=== PATIENT | female | born 1945 | race African-American/Black ===

== ENCOUNTER 2018-06-26 14:03 | Inpatient (IN) | payer MEDICARE ==
[2018-06-26] VITALS (10 sets, daily range): BP systolic 55–215; BP diastolic 37–71
[~2018-06-26] VITALS: Ht 157.5 cm; Wt 69.0 kg
[~2018-06-26 14:03] MED LIST: EPINEPHrine SYRINGE 1 MG/10 ML SYRINGE ONE
[2018-06-26] MEDS ORDERED: IV NORMAL SALINE 1000ML BAG 1,000 ML IV ONE ×2 (14:15→15:15)
[2018-06-26] MEDS ORDERED: UNABLE MC (14:20)
[2018-06-26 14:26] LABS: BASO # 0.1 x10^3/uL (0.0-0.2); BASO % 1 % (0-3); EOS % 0 % (0-3); HEMATOCRIT 31.9 % (36.0-47.0); HEMOGLOBIN 9.5 g/dL (12.0-15.5); LYMPH # 0.3 x10^3/uL (1.0-4.8); LYMPH % 3 % (24-48); MEAN CORPUSCULAR HEMOGLOBIN 34 pg (25-35); MEAN CORPUSCULAR HGB CONC 30 g/dL (31-37); MEAN CORPUSCULAR VOLUME 114 fL (79-100); MONO # 0.4 x10^3/uL (0.0-1.1); MONO % 4 % (0-9); NEUT # 9.5 x10^3uL (1.8-7.7); NEUT % 93 % (31-73); PLATELET COUNT 587 x10^3/uL (140-400); RED CELL DISTRIBUTION WIDTH 17.3 % (11.5-14.5); WHITE BLOOD COUNT 10.3 x10^3/uL (4.0-11.0)
[2018-06-26 14:30] LABS: PROTHROMBIN TIME PATIENT 15.3 SEC (11.7-14.0)
[2018-06-26 14:33] LABS: SALIC 4.9 mg/dL (2.8-20.0)
[2018-06-26 14:34] LABS: BILIRUBIN,URINE NEGATIVE (NEG); CLARITY,URINE CLOUDY; COLOR,URINE YELLOW; NITRITE,URINE NEGATIVE (NEG); PROTEIN,URINE 100 mg/dL (NEG-TRACE); UROBILINOGEN,URINE 0.2 mg/dL (0.2 mg/dL)
[2018-06-26 14:39] LABS: ALBUMIN 3.4 g/dL (3.4-5.0); ALBUMIN/GLOBULIN RATIO 0.7 (1.0-1.7); CALCIUM 9.6 mg/dL (8.5-10.1); GFR 5.8; MAGNESIUM 3.8 mg/dL (1.8-2.4); TOTAL BILIRUBIN 0.5 mg/dL (0.2-1.0); TOTAL PROTEIN 8.2 g/dL (6.4-8.2)
[2018-06-26] MEDS ORDERED: NYSTATIN TOPICAL POWDER 15GM BOTTLE. TP STA (14:45)
[2018-06-26 14:50] LABS: AMORPHOUS SEDIMENT,UR PRESENT /HPF; BACTERIA,URINE 0 /HPF (0-FEW); SQUAMOUS EPITHELIAL CELL,UR FEW /LPF; WBC,URINE OCC /HPF (0-4)
[2018-06-26 15:03] LABS: POTASSIUM 7.6 mmol/L (3.5-5.1)
--- NOTE | 2018-06-26 15:14 | RAD ---
CT HEAD AND CERVICAL SPINE WO Indication: found down, unresponsive, no priors Exposure: One or more of the following individualized dose reduction techniques were utilized for this examination: 1. Automated exposure control 2. Adjustment of the mA and/or kV according to patient size 3. Use of iterative reconstruction technique. Comparison: None are available. Contrast: None HEAD: Posterior fossa is unremarkable. No evidence of acute intracranial hemorrhage. There is minimal density within the bifrontal extra-axial CSF space, measuring 3 mm in thickness. This is symmetric bilaterally, may represent small subdural hygromas. No evidence of mass effect or midline shift. Low-density in the white matter bilaterally, a nonspecific finding, but which is commonly due to chronic small vessel ischemic disease in a patient of this age. Prominence of ventricles and sulci, compatible with involutional change or atrophy. Atrophy is slightly greater in a bifrontal distribution. Intracranial arterial calcifications are identified. Visualized orbits are unremarkable. Visualized paranasal sinuses and mastoids are clear. No acute calvarial abnormality. Impression: 1. Minimal subdural extra-axial CSF density in the bifrontal regions, may represent small subdural hygromas. There is also mild predominantly bifrontal atrophy. MR brain could further characterize. 2. No acute intracranial hemorrhage or mass effect. CERVICAL SPINE: C1 ring: Intact Cervico-occipital junction: Intact C1-C2 relationship: There is rotation of C1 and the skull to the right as compared with C2. This could be positional as the patient's neck is curved towards the left. Fracture: No acute fracture identified. Spondylosis: Multilevel cervical spondylosis, greatest at C5-C6 and C6-C7. There is at least mild spinal canal narrowing. Multilevel neural foraminal narrowing. Alignment: Left convexity curvature. No significant subluxation. Facets: No evidence of perched or locked facet. Prevertebral soft tissues: No significant swelling or hematoma Thyroid: Mild thyromegaly. Low-density lesion in the left thyroid measures 7 mm. Lung apices: Partially visualized round mass in the right upper lobe, measures at least 22 mm. Impression: 1. Cervical spondylosis. 2. Abnormal opacity in the right upper lobe of the lung, nonspecific but possibilities include lung tumor, scarring or rounded consolidation. Recommend correlation with chest x-ray and chest CT. 3. Rotation of C1 relative to C2, this could be due to muscle spasm or positioning. Note that the patient's neck is also curved towards the left. 4. Mild thyromegaly. Small 7 mm nodule in the left lobe of the thyroid. Electronically signed by: Lázaro Pittman MD (06/26/2018 3:10 PM) [facility]
[2018-06-26] MEDS ORDERED: INSULIN REGULAR 100 UNIT/ML 3ML VIAL. IV ONE (15:15)
[2018-06-26] MEDS ORDERED: SODIUM BICARB ADULT 8.4% 50 MEQ/50 ML DISP.SYRIN. IV ONE ×2 (15:15→19:30)
[2018-06-26] MEDS ORDERED: INSULIN,REGULAR 150 UNIT DRIP 150 ML IV ONE (15:15)
[2018-06-26] MEDS ORDERED: ALBUTEROL SULFATE 2.5 MG/3 ML NEBU. CONT NEB ONE (15:15)
[2018-06-26 15:26] LABS: % BANDS 5 % (0-9); % BASOS 1 % (0-3); % LYMPHS 1 % (24-48); % METAS 1 % (0-0); % MONOS 3 % (0-10); % SEGS 89 % (35-66)
[2018-06-26 15:27] LABS: PLT ESTIMATE INCREASED (ADEQUATE)
[2018-06-26 15:28] LABS: ANISOCYTOSIS SLIGHT
[2018-06-26 15:42] LABS: BASE EXCESS ABG -21 mmol/L (-3-3); HCO3 ABG 6 mmol/L (21-28); PO2 ABG 113 mmHg (65-108); SAT O2 ABG 97 % (92-99)
[2018-06-26] MEDS ORDERED: CALCIUM GLUCONATE 1,000 MG/10 ML VIAL. IVP ONE (15:45)
[2018-06-26 15:49] LABS: FIO2 ABG 21; PCO2 ABG 19 mmHg (35-46)
[2018-06-26 15:50] LABS: AMPHETAMINE/METHAMPHETAMINE NEG (NEG); BARBITURATES NEG (NEG); BENZODIAZEPINES NEG (NEG); CANNABINOIDS NEG (NEG); COCAINE NEG (NEG); METHADONE NEG (NEG); OPIATES NEG (NEG); PHENCYCLIDINE NEG (NEG)
--- NOTE | 2018-06-26 16:02 | RAD ---
Examination: Single frontal view the chest HISTORY: History of altered mental status COMPARISON: None available. FINDINGS: There is vague ill-defined opacity identified in the right upper lobe of the lung measuring about 2.4 cm. Calcified left hilar lymph node identified. Faint opacity identified in the left suprahilar region measuring 1.8 cm. Mild prominent appearing bilateral interstitial lung markings. There is minimal prominent appearing mediastinum. IMPRESSION: 1. 2.4 cm opacity identified in the right upper lobe of the lung and a faint 1.8 cm opacity identified in the left upper lobe of the lung could be mass or focal infiltrate. Recommend CT chest for further evaluation. 2. Mild prominent appearing superior mediastinum could be retrosternal goiter. CT chest can evaluate this better. Electronically signed by: Gerson Sage MD (06/26/2018 3:59 PM) [id number]
[2018-06-26] MEDS ORDERED: HEPARIN for IV BOLUS 10,000 UNIT/10 ML VIAL. ONE (16:14)
[2018-06-26] MEDS ORDERED: LIDOCAINE WITH 8.4% SOD BICARB 3 ML DISP.SYRIN. INJ ONE ×2 (16:15→17:15)
[2018-06-26] MEDS ORDERED: PIPERACILLIN/TAZOBACTAM 2.25 GM in IV NORMAL SALINE 50ML 50 ML IV ONE (16:15)
--- NOTE | 2018-06-26 16:43 | PHYS DOC ---
Past Medical History Past Medical History: CVA Additional Past Medical Histor: UNKNOWN HX Past Surgical History: Other Additional Past Surgical Histo: UNKNOWN Alcohol Use: None Drug Use: None Adult General Chief Complaint Chief Complaint: ALTERED MENTAL STATUS HPI HPI Patient is a 73 year old f biba with ams. found down in her ktichen by her son she has not been acting right for four days, more confused, slurred speech finally today he went to check on her and she was on the floor not responsive. pmh: dm, ckd (limjited by ams at this time.) apparent admit to research last month (awaiting records) for possible cva. remainder of ros and pmh limited by ams. Review of Systems Review of Systems Current Medications Current Medications Current Medications Medications (Trade) Dose Ordered Sig/Jose Start Time Stop Time Status Last Admin Dose Admin Albuterol Sulfate (Ventolin Neb Soln) 10 mg 1X ONCE 06/26/18 15:15 06/26/18 15:16 DC Calcium Gluconate (Calcium Gluconate) 1,000 mg 1X ONCE 06/26/18 15:45 06/26/18 15:46 DC 06/26/18 15:48 1,000 MG Heparin Sodium (Porcine) (Heparin Sodium) 10,000 unit STK-MED ONCE 06/26/18 16:14 06/26/18 16:15 DC Insulin Human Regular 150 ml @ 0 mls/hr 1X ONCE 06/26/18 15:15 06/26/18 15:16 DC 06/26/18 15:56 26.4 MLS/HR Insulin Human Regular (HumuLIN R VIAL) 10 unit 1X ONCE 06/26/18 15:15 06/26/18 15:16 DC 06/26/18 15:51 10 UNIT Lidocaine/Sodium Bicarbonate (Buffered Lidocaine 1%) 3 ml 1X ONCE 06/26/18 16:15 06/26/18 16:21 DC Nystatin (Nystop) 1 nato 1X STAT 06/26/18 14:45 06/26/18 14:47 DC 06/26/18 15:56 1 NATO Piperacillin Sod/ Tazobactam Sod 2.25 gm/Sodium Chloride 50 ml @ 100 mls/hr 1X ONCE 06/26/18 16:15 06/26/18 16:44 Sodium Bicarbonate (Sodium Bicarb Adult 8.4% Syr) 50 meq 1X ONCE 06/26/18 15:15 06/26/18 15:16 DC 06/26/18 15:57 50 MEQ Sodium Chloride 1,000 ml @ 1,000 mls/hr 1X ONCE 06/26/18 15:15 06/26/18 16:14 DC Allergies Allergies Allergies Coded Allergies Type Severity Reaction Last Updated Verified Unable to Assess 06/26/18 No Physical Exam Physical Exam Constitutional: Well developed, very ill appearing] HENT: Normocephalic, atraumatic, bilateral external ears normal, oropharynx very dry Eyes: PERRLA, EOMI, conjunctiva normal, no discharge. [] Neck: Normal range of motion, no tenderness, supple, no stridor. [] Cardiovascular:Heart rate regular rhythm, 3/6 systolic murmur anteriorly Lungs & Thorax: normal anteriorly no definite abnormalities noted Abdomen: Bowel sounds normal, soft, no tenderness, no masses, no pulsatile masses. [] Extremities: No tenderness, no cyanosis, no clubbing, ROM intact, no edema. [] Neurologic: nihss 25 see ntoe pt has disconjugate gaze, pinpoint pupils, not following commands, pt has sonorous and kussmaul respirations but is protecting airway. withdraws to pain in all extremiites. moaning. eyes open at baseline, gcs 8. Psychologic: unable to assess. Current Patient Data Vital Signs Vital Signs Date Time Temp Pulse Resp B/P (MAP) Pulse Ox O2 Delivery O2 Flow Rate FiO2 06/26/18 14:21 78 8 98 06/26/18 14:03 88.8 200/94 (129) Room Air 88.8 Lab Values Laboratory Tests Test 06/26/18 14:10 06/26/18 14:20 06/26/18 15:00 06/26/18 15:20 White Blood Count 10.3 x10^3/uL (4.0-11.0) Red Blood Count 2.80 x10^6/uL (3.50-5.40) L Hemoglobin 9.5 g/dL (12.0-15.5) L Hematocrit 31.9 % (36.0-47.0) L Mean Corpuscular Volume 114 fL (79-100) H Mean Corpuscular Hemoglobin 34 pg (25-35) Mean Corpuscular Hemoglobin Concent 30 g/dL (31-37) L Red Cell Distribution Width 17.3 % (11.5-14.5) H Platelet Count 587 x10^3/uL (140-400) H Neutrophils (%) (Auto) 93 % (31-73) H Lymphocytes (%) (Auto) 3 % (24-48) L Monocytes (%) (Auto) 4 % (0-9) Eosinophils (%) (Auto) 0 % (0-3) Basophils (%) (Auto) 1 % (0-3) Neutrophils # (Auto) 9.5 x10^3uL (1.8-7.7) H Lymphocytes # (Auto) 0.3 x10^3/uL (1.0-4.8) L Monocytes # (Auto) 0.4 x10^3/uL (0.0-1.1) Eosinophils # (Auto) 0.0 x10^3/uL (0.0-0.7) Basophils # (Auto) 0.1 x10^3/uL (0.0-0.2) Segmented Neutrophils % 89 % (35-66) H Band Neutrophils % 5 % (0-9) Lymphocytes % 1 % (24-48) L Monocytes % 3 % (0-10) Basophils % 1 % (0-3) Metamyelocytes % 1 % (0-0) H Platelet Estimate Increased (ADEQUATE) Anisocytosis Slight Macrocytosis Marked Prothrombin Time 15.3 SEC (11.7-14.0) H Prothrombin Time INR 1.3 (0.8-1.1) H Sodium Level 131 mmol/L (136-145) L Potassium Level 7.6 mmol/L (3.5-5.1) *H Chloride Level 94 mmol/L (98-107) L Carbon Dioxide Level 8 mmol/L (21-32) *L Anion Gap 29 (6-14) H Blood Urea Nitrogen 137 mg/dL (7-20) H Creatinine 7.0 mg/dL (0.6-1.0) H Estimated GFR (Cockcroft-Gault) 5.8 BUN/Creatinine Ratio 20 (6-20) Glucose Level 1290 mg/dL (70-99) *H Lactic Acid Level 1.8 mmol/L (0.4-2.0) Calcium Level 9.6 mg/dL (8.5-10.1) Magnesium Level 3.8 mg/dL (1.8-2.4) H Total Bilirubin 0.5 mg/dL (0.2-1.0) Aspartate Amino Transferase (AST) 17 U/L (15-37) Alanine Aminotransferase (ALT) 21 U/L (14-59) Alkaline Phosphatase 159 U/L (46-116) H Creatine Kinase 125 U/L (26-192) Troponin I Quantitative 0.019 ng/mL (0.000-0.055) XM-Dwf-Y-Type Natriuretic Peptide 320 pg/mL (0-124) H Total Protein 8.2 g/dL (6.4-8.2) Albumin 3.4 g/dL (3.4-5.0) Albumin/Globulin Ratio 0.7 (1.0-1.7) L Lipase 54080 U/L (73-393) H Thyroid Stimulating Hormone (TSH) 0.211 uIU/mL (0.358-3.74) L Salicylates Level 4.9 mg/dL (2.8-20.0) Salicylate Last Dose Date Unknown Salicylate Last Dose Time Unknown Urine Collection Type U cath Urine Color Yellow Urine Clarity Cloudy Urine pH 5.0 Urine Specific [place] 1.025 Urine Protein 100 mg/dL (NEG-TRACE) Urine Glucose (UA) >=1000 mg/dL (NEG) Urine Ketones (Stick) Negative mg/dL (NEG) Urine Blood Trace (NEG) Urine Nitrite Negative (NEG) Urine Bilirubin Negative (NEG) Urine Urobilinogen Dipstick 0.2 mg/dL (0.2 mg/dL) Urine Leukocyte Esterase Negative (NEG) Urine RBC 1-2 /HPF (0-2) Urine WBC Occ /HPF (0-4) Urine Squamous Epithelial Cells Few /LPF Urine Transitional Epithelial Cells Occ /LPF Urine Amorphous Sediment Present /HPF Urine Bacteria 0 /HPF (0-FEW) Urine Opiates Screen Neg (NEG) Urine Methadone Screen Neg (NEG) Urine Barbiturates Neg (NEG) Urine Phencyclidine Screen Neg (NEG) Urine Amphetamine/Methamphetamine Neg (NEG) Urine Benzodiazepines Screen Neg (NEG) Urine Cocaine Screen Neg (NEG) Urine Cannabinoids Screen Neg (NEG) Urine Ethyl Alcohol Neg (NEG) Ammonia < 10 mcmol/L (11-34) L O2 Saturation 97 % (92-99) Arterial Blood pH 7.14 (7.35-7.45) *L Arterial Blood pCO2 at Patient Temp 19 mmHg (35-46) *L Arterial Blood pO2 at Patient Temp 113 mmHg (65-108) H Arterial Blood HCO3 6 mmol/L (21-28) L Arterial Blood Base Excess -21 mmol/L (-3-3) L FiO2 21 Laboratory Tests 06/26/18 14:10 Laboratory Tests 06/26/18 14:10 EKG EKG [] Interpretation Time: nsr rate 79 peaked t waves noted, lvh pattern, left ant fasc block no stemi Radiology/Procedures Radiology/Procedures [] Impressions: IMPRESSION: 1. 2.4 cm opacity identified in the right upper lobe of the lung and a faint 1.8 cm opacity identified in the left upper lobe of the lung could be mass or focal infiltrate. Recommend CT chest for further evaluation. 2. Mild prominent appearing superior mediastinum could be retrosternal goiter. CT chest can evaluate this better. Electronically signed by: Gerson Sage MD (06/26/2018 3:59 PM) [id number] DICTATED and SIGNED BY: GERSON SAGE MD DATE: 06/26/18 1554 HEAD: Posterior fossa is unremarkable. No evidence of acute intracranial hemorrhage. There is minimal density within the bifrontal extra-axial CSF space, measuring 3 mm in thickness. This is symmetric bilaterally, may represent small subdural hygromas. No evidence of mass effect or midline shift. Low-density in the white matter bilaterally, a nonspecific finding, but which is commonly due to chronic small vessel ischemic disease in a patient of this age. Prominence of ventricles and sulci, compatible with involutional change or atrophy. Atrophy is slightly greater in a bifrontal distribution. Intracranial arterial calcifications are identified. Visualized orbits are unremarkable. Visualized paranasal sinuses and mastoids are clear. No acute calvarial abnormality. Impression: 1. Minimal subdural extra-axial CSF density in the bifrontal regions, may represent small subdural hygromas. There is also mild predominantly bifrontal atrophy. MR brain could further characterize. 2. No acute intracranial hemorrhage or mass effect. CERVICAL SPINE: C1 ring: Intact Cervico-occipital junction: Intact C1-C2 relationship: There is rotation of C1 and the skull to the right as compared with C2. This could be positional as the patient's neck is curved towards the left. Fracture: No acute fracture identified. Spondylosis: Multilevel cervical spondylosis, greatest at C5-C6 and C6-C7. There is at least mild spinal canal narrowing. Multilevel neural foraminal narrowing. Alignment: Left convexity curvature. No significant subluxation. Facets: No evidence of perched or locked facet. Prevertebral soft tissues: No significant swelling or hematoma Thyroid: Mild thyromegaly. Low-density lesion in the left thyroid measures 7 mm. Lung apices: Partially visualized round mass in the right upper lobe, measures at least 22 mm. Impression: 1. Cervical spondylosis. 2. Abnormal opacity in the right upper lobe of the lung, nonspecific but possibilities include lung tumor, scarring or rounded consolidation. Recommend correlation with chest x-ray and chest CT. 3. Rotation of C1 relative to C2, this could be due to muscle spasm or positioning. Note that the patient's neck is also curved towards the left. 4. Mild thyromegaly. Small 7 mm nodule in the left lobe of the thyroid. Electronically signed by: Lázaro Pittman MD (06/26/2018 3:10 PM) [facility] DICTATED and SIGNED BY: LÁZARO PITTMAN MD DATE: 06/26/18 1454 Course & Med Decision Making Course & Med Decision Making Critical care time was 60 minutes exclusive of procedures.Pertinent Labs and Imaging studies reviewed. (See chart for details) []severe ams some brainstem signs on clinical exam ct head negative acute t 88.8 probably exposure, warming blanket intiiate, ivfluids, zosyn for cxr finding ct chest pending. aiway okay for now d/w jair, recommed correct metabolic abnormalities, then get mri whenever you can. d/w kalli, recommend stat dialysis. also ct a/p pending given the lipase elevation d/w shawna will place trialysis catheter d/w qing admit to icu in [place], severe nonketotic hyperosmolar coma, bg 1290, ph7.14, k 7.6 treated iwth insulin drip, iv fluids, ca gluconate, bicarbonate, albuterol continuous . ir to place catheter in er stat ct c/a/p pending to eval the elevatd lipase and the rul finding. clifford wolfe aware of pending ct family aware of the plan. Dragon Disclaimer Dragon Disclaimer This electronic medical record was generated, in whole or in part, using a voice recognition dictation system. Departure Departure Impression: Primary Impression: Hyperosmolar nonketotic coma in diabetes Additional Impressions: Acute renal failure Pancreatitis Disposition: ADMITTED INPATIENT Admitting Physician: Xie. Rasmussen Condition: CRITICAL Referrals: UNKNOWN PCP NAME (PCP) NIHSS Stroke Scale NIH Stroke Scale: NIH Stroke Scale Response (Comments) Value Level of Consciousness: 2 Requires stimulation 2 LOC Questions: 2 Answers neither correct 2 LOC Commands: 2 Perform neither task 2 Best Gaze: 1 Partial gaze palsy 1 Visual: 2 Complete hemianopia 2 Motor - Left Arm 2 Some effort 2 Motor - Right Arm 2 Some effort 2 Motor - Left Leg 2 Some effort 2 Motor: Right Leg 2 Some effort 2 Limb Ataxia: 2 Two limbs 2 Best Language: 2 Severe aphasia 2 Dysathria: 2 Severe 2 Extinction and Inattention: 2 Extinction 2 Total 25 Problem Qualifiers KATHERINE CACERES MD Jun 26, 2018 16:43
[2018-06-26] MEDS ORDERED: INSULIN REGULAR VIAL 150 UNIT in 0.9 % SODIUM CHLORIDE 150ML 150 ML IV PRN (17:00)
[2018-06-26 17:06] LABS: FREE T4 1.67 ng/dL (0.76-1.46)
--- NOTE | 2018-06-26 17:10 | PDOC1 ---
History and Physical Date of Admission Date of Admission 06/26/18 Identification/Chief Complaint Chief Complaint AMS Source Source: Caregiver, Chart review History of Present Illness History of Present Illness Patient is a 73 year old f was sent by son for AMS. Pt seen in ER, eyes open, unresponsive. all history got from ERP , and sons AT Bed side. Pt lives alone, 2 sons come to see her often. has no DPOA signed yet. sons want aggressive treatment for now. [facility] CV[facility] with left side weakness. Son said she was not walking well, but refused to go to SNF, and sent home. In the past 5 days, she was found slurry speech, refused to come to hosp. Sons said she likely not taking her daily meds too. Today, son found her on the kitchen floor, unresponsive, sent to ER. Pt was found severely sick in ER, with metabolic acidosis, glu>1200, K >7, has ESRD but not decided to do HD yet Cr >7 now, unresponsive, lipase >40K, lung [address] T 88.8. head ct neg. Past Medical History Cardiovascular: HTN Renal/: Chronic renal insuff Endocrine: Diabetes Past Surgical History Past Surgical History unknown Family History Family History: Hypertension Social History Smoke: No ALCOHOL: none Drugs: None Current Problem List Problem List Problems Medical Problems: (1) Acute renal failure Status: Acute (2) Hyperosmolar nonketotic coma in diabetes Status: Acute (3) Pancreatitis Status: Acute Current Medications Current Medications Current Medications Medications (Trade) Dose Ordered Sig/Jose Start Time Stop Time Status Last Admin Dose Admin Albuterol Sulfate (Ventolin Neb Soln) 10 mg 1X ONCE 06/26/18 15:15 06/26/18 15:16 DC Calcium Gluconate (Calcium Gluconate) 1,000 mg 1X ONCE 06/26/18 15:45 06/26/18 15:46 DC 06/26/18 15:48 1,000 MG Heparin Sodium (Porcine) (Heparin Sodium) 10,000 unit STK-MED ONCE 06/26/18 16:14 06/26/18 16:15 DC Insulin Human Regular 150 ml @ 0 mls/hr 1X ONCE 06/26/18 15:15 06/26/18 15:16 DC 06/26/18 15:56 26.4 MLS/HR Insulin Human Regular (HumuLIN R VIAL) 10 unit 1X ONCE 06/26/18 15:15 06/26/18 15:16 DC 06/26/18 15:51 10 UNIT Lidocaine/Sodium Bicarbonate (Buffered Lidocaine 1%) 3 ml 1X ONCE 06/26/18 16:15 06/26/18 16:21 DC Nystatin (Nystop) 1 nato 1X STAT 06/26/18 14:45 06/26/18 14:47 DC 06/26/18 15:56 1 NATO Piperacillin Sod/ Tazobactam Sod 2.25 gm/Sodium Chloride 50 ml @ 100 mls/hr 1X ONCE 06/26/18 16:15 06/26/18 16:44 DC Sodium Bicarbonate (Sodium Bicarb Adult 8.4% Syr) 50 meq 1X ONCE 06/26/18 15:15 06/26/18 15:16 DC 06/26/18 15:57 50 MEQ Sodium Chloride 1,000 ml @ 1,000 mls/hr 1X ONCE 06/26/18 15:15 06/26/18 16:14 DC Allergies Allergies Allergies Coded Allergies Type Severity Reaction Last Updated Verified Unable to Assess 06/26/18 No ROS Review of System CONSTITUTIONAL: No fever or chills EYES: No recent changes SKIN: No rash or itching CARDIOVASCULAR: No chest pain, syncope, palpitations, or edema RESPIRATORY: No SOB or cough GASTROINTESTINAL: No nausea, vomiting or abdominal pain NEUROLOGICAL: No headaches or weakness ENDOCRINE: No cold or heat intolerance GENITOURINARY: No urgency or frequency of urination MUSCULOSKELETAL: No back pain or joint pain LYMPHATICS: No enlarged lymph nodes PSYCHIATRIC: No anxiety or depression Physical Exam Physical Exam GEN.: unresponsive HEENT: Head is normocephalic, atraumatic, eyes open, gasping for air, not answer questions or follow commands NECK: Supple. LUNGS: Clear to auscultation. HEART: RRR, S1, S2 present. Peripheral pulses intact ABDOMEN: Soft, nontender. Positive bowel sounds. EXTREMITIES: Without any cyanosis. SKIN: No ulcerations Vitals Vitals Vital Signs Date Time Temp Pulse Resp B/P (MAP) Pulse Ox O2 Delivery O2 Flow Rate FiO2 06/26/18 14:21 78 8 98 06/26/18 14:03 88.8 200/94 (129) Room Air 88.8 Labs Labs Laboratory Tests Test 06/26/18 14:10 06/26/18 14:20 06/26/18 15:00 06/26/18 15:20 White Blood Count 10.3 x10^3/uL (4.0-11.0) Red Blood Count 2.80 x10^6/uL (3.50-5.40) Hemoglobin 9.5 g/dL (12.0-15.5) Hematocrit 31.9 % (36.0-47.0) Mean Corpuscular Volume 114 fL (79-100) Mean Corpuscular Hemoglobin 34 pg (25-35) Mean Corpuscular Hemoglobin Concent 30 g/dL (31-37) Red Cell Distribution Width 17.3 % (11.5-14.5) Platelet Count 587 x10^3/uL (140-400) Neutrophils (%) (Auto) 93 % (31-73) Lymphocytes (%) (Auto) 3 % (24-48) Monocytes (%) (Auto) 4 % (0-9) Eosinophils (%) (Auto) 0 % (0-3) Basophils (%) (Auto) 1 % (0-3) Neutrophils # (Auto) 9.5 x10^3uL (1.8-7.7) Lymphocytes # (Auto) 0.3 x10^3/uL (1.0-4.8) Monocytes # (Auto) 0.4 x10^3/uL (0.0-1.1) Eosinophils # (Auto) 0.0 x10^3/uL (0.0-0.7) Basophils # (Auto) 0.1 x10^3/uL (0.0-0.2) Segmented Neutrophils % 89 % (35-66) Band Neutrophils % 5 % (0-9) Lymphocytes % 1 % (24-48) Monocytes % 3 % (0-10) Basophils % 1 % (0-3) Metamyelocytes % 1 % (0-0) Platelet Estimate Increased (ADEQUATE) Anisocytosis Slight Macrocytosis Marked Prothrombin Time 15.3 SEC (11.7-14.0) Prothromb Time International Ratio 1.3 (0.8-1.1) Sodium Level 131 mmol/L (136-145) Potassium Level 7.6 mmol/L (3.5-5.1) Chloride Level 94 mmol/L (98-107) Carbon Dioxide Level 8 mmol/L (21-32) Anion Gap 29 (6-14) Blood Urea Nitrogen 137 mg/dL (7-20) Creatinine 7.0 mg/dL (0.6-1.0) Estimated GFR (Cockcroft-Gault) 5.8 BUN/Creatinine Ratio 20 (6-20) Glucose Level 1290 mg/dL (70-99) Lactic Acid Level 1.8 mmol/L (0.4-2.0) Calcium Level 9.6 mg/dL (8.5-10.1) Magnesium Level 3.8 mg/dL (1.8-2.4) Total Bilirubin 0.5 mg/dL (0.2-1.0) Aspartate Amino Transf (AST/SGOT) 17 U/L (15-37) Alanine Aminotransferase (ALT/SGPT) 21 U/L (14-59) Alkaline Phosphatase 159 U/L (46-116) Creatine Kinase 125 U/L (26-192) Troponin I Quantitative 0.019 ng/mL (0.000-0.055) RM-Vhj-A-Type Natriuretic Peptide 320 pg/mL (0-124) Total Protein 8.2 g/dL (6.4-8.2) Albumin 3.4 g/dL (3.4-5.0) Albumin/Globulin Ratio 0.7 (1.0-1.7) Lipase 11461 U/L (73-393) Thyroid Stimulating Hormone (TSH) 0.211 uIU/mL (0.358-3.74) Salicylates Level 4.9 mg/dL (2.8-20.0) Salicylate Last Dose Date Unknown Salicylate Last Dose Time Unknown Urine Collection Type U cath Urine Color Yellow Urine Clarity Cloudy Urine pH 5.0 Urine Specific [place] 1.025 Urine Protein 100 mg/dL (NEG-TRACE) Urine Glucose (UA) >=1000 mg/dL (NEG) Urine Ketones (Stick) Negative mg/dL (NEG) Urine Blood Trace (NEG) Urine Nitrite Negative (NEG) Urine Bilirubin Negative (NEG) Urine Urobilinogen Dipstick 0.2 mg/dL (0.2 mg/dL) Urine Leukocyte Esterase Negative (NEG) Urine RBC 1-2 /HPF (0-2) Urine WBC Occ /HPF (0-4) Urine Squamous Epithelial Cells Few /LPF Urine Transitional Epithelial Cells Occ /LPF Urine Amorphous Sediment Present /HPF Urine Bacteria 0 /HPF (0-FEW) Urine Opiates Screen Neg (NEG) Urine Methadone Screen Neg (NEG) Urine Barbiturates Neg (NEG) Urine Phencyclidine Screen Neg (NEG) Urine Amphetamine/Methamphetamine Neg (NEG) Urine Benzodiazepines Screen Neg (NEG) Urine Cocaine Screen Neg (NEG) Urine Cannabinoids Screen Neg (NEG) Urine Ethyl Alcohol Neg (NEG) Ammonia < 10 mcmol/L (11-34) O2 Saturation 97 % (92-99) Arterial Blood pH 7.14 (7.35-7.45) Arterial Blood pCO2 at Patient Temp 19 mmHg (35-46) Arterial Blood pO2 at Patient Temp 113 mmHg (65-108) Arterial Blood HCO3 6 mmol/L (21-28) Arterial Blood Base Excess -21 mmol/L (-3-3) FiO2 21 Laboratory Tests Test 06/26/18 14:10 06/26/18 14:20 06/26/18 15:00 06/26/18 15:20 White Blood Count 10.3 x10^3/uL (4.0-11.0) Red Blood Count 2.80 x10^6/uL (3.50-5.40) Hemoglobin 9.5 g/dL (12.0-15.5) Hematocrit 31.9 % (36.0-47.0) Mean Corpuscular Volume 114 fL (79-100) Mean Corpuscular Hemoglobin 34 pg (25-35) Mean Corpuscular Hemoglobin Concent 30 g/dL (31-37) Red Cell Distribution Width 17.3 % (11.5-14.5) Platelet Count 587 x10^3/uL (140-400) Neutrophils (%) (Auto) 93 % (31-73) Lymphocytes (%) (Auto) 3 % (24-48) Monocytes (%) (Auto) 4 % (0-9) Eosinophils (%) (Auto) 0 % (0-3) Basophils (%) (Auto) 1 % (0-3) Neutrophils # (Auto) 9.5 x10^3uL (1.8-7.7) Lymphocytes # (Auto) 0.3 x10^3/uL (1.0-4.8) Monocytes # (Auto) 0.4 x10^3/uL (0.0-1.1) Eosinophils # (Auto) 0.0 x10^3/uL (0.0-0.7) Basophils # (Auto) 0.1 x10^3/uL (0.0-0.2) Segmented Neutrophils % 89 % (35-66) Band Neutrophils % 5 % (0-9) Lymphocytes % 1 % (24-48) Monocytes % 3 % (0-10) Basophils % 1 % (0-3) Metamyelocytes % 1 % (0-0) Platelet Estimate Increased (ADEQUATE) Anisocytosis Slight Macrocytosis Marked Prothrombin Time 15.3 SEC (11.7-14.0) Prothromb Time International Ratio 1.3 (0.8-1.1) Sodium Level 131 mmol/L (136-145) Potassium Level 7.6 mmol/L (3.5-5.1) Chloride Level 94 mmol/L (98-107) Carbon Dioxide Level 8 mmol/L (21-32) Anion Gap 29 (6-14) Blood Urea Nitrogen 137 mg/dL (7-20) Creatinine 7.0 mg/dL (0.6-1.0) Estimated GFR (Cockcroft-Gault) 5.8 BUN/Creatinine Ratio 20 (6-20) Glucose Level 1290 mg/dL (70-99) Lactic Acid Level 1.8 mmol/L (0.4-2.0) Calcium Level 9.6 mg/dL (8.5-10.1) Magnesium Level 3.8 mg/dL (1.8-2.4) Total Bilirubin 0.5 mg/dL (0.2-1.0) Aspartate Amino Transf (AST/SGOT) 17 U/L (15-37) Alanine Aminotransferase (ALT/SGPT) 21 U/L (14-59) Alkaline Phosphatase 159 U/L (46-116) Creatine Kinase 125 U/L (26-192) Troponin I Quantitative 0.019 ng/mL (0.000-0.055) BG-Mrs-W-Type Natriuretic Peptide 320 pg/mL (0-124) Total Protein 8.2 g/dL (6.4-8.2) Albumin 3.4 g/dL (3.4-5.0) Albumin/Globulin Ratio 0.7 (1.0-1.7) Lipase 46514 U/L (73-393) Thyroid Stimulating Hormone (TSH) 0.211 uIU/mL (0.358-3.74) Salicylates Level 4.9 mg/dL (2.8-20.0) Salicylate Last Dose Date Unknown Salicylate Last Dose Time Unknown Urine Collection Type U cath Urine Color Yellow Urine Clarity Cloudy Urine pH 5.0 Urine Specific [place] 1.025 Urine Protein 100 mg/dL (NEG-TRACE) Urine Glucose (UA) >=1000 mg/dL (NEG) Urine Ketones (Stick) Negative mg/dL (NEG) Urine Blood Trace (NEG) Urine Nitrite Negative (NEG) Urine Bilirubin Negative (NEG) Urine Urobilinogen Dipstick 0.2 mg/dL (0.2 mg/dL) Urine Leukocyte Esterase Negative (NEG) Urine RBC 1-2 /HPF (0-2) Urine WBC Occ /HPF (0-4) Urine Squamous Epithelial Cells Few /LPF Urine Transitional Epithelial Cells Occ /LPF Urine Amorphous Sediment Present /HPF Urine Bacteria 0 /HPF (0-FEW) Urine Opiates Screen Neg (NEG) Urine Methadone Screen Neg (NEG) Urine Barbiturates Neg (NEG) Urine Phencyclidine Screen Neg (NEG) Urine Amphetamine/Methamphetamine Neg (NEG) Urine Benzodiazepines Screen Neg (NEG) Urine Cocaine Screen Neg (NEG) Urine Cannabinoids Screen Neg (NEG) Urine Ethyl Alcohol Neg (NEG) Ammonia < 10 mcmol/L (11-34) O2 Saturation 97 % (92-99) Arterial Blood pH 7.14 (7.35-7.45) Arterial Blood pCO2 at Patient Temp 19 mmHg (35-46) Arterial Blood pO2 at Patient Temp 113 mmHg (65-108) Arterial Blood HCO3 6 mmol/L (21-28) Arterial Blood Base Excess -21 mmol/L (-3-3) FiO2 21 VTE Prophylaxis Ordered VTE Prophylaxis Devices: Yes VTE Pharmacological Prophylaxi: Yes Assessment/Plan Assessment/Plan AMS, metabolic encephalopathy likely METabolic acidosis DKA hyperkalemia MAVERICK, ATN ESRD without baseline Cr known, not on HD yet acute resp failure 2 lung nodules acute pancreatitis hypothermia recent CVA with left side weakness anemia, macrocytic non compliance HTN urgency plan; chest, abd, pelvic CT pending pulm, gi, renal, neuro consult HD cath now in ER, will do HD as per renal need verify home meds insulin drip for now, check hba1c labs tmr dvt, gi ppx sons want aggressive care for now PAT consult tmr if not better, DPOA needs to be signed tsh low, check t3,t4 check anemia leval, lipase tmr NPO warm blanket ICU care, daley, monitor urine output and BP. cc time 40min PARKER WAGONER MD Jun 26, 2018 17:10
[2018-06-26] MEDS ORDERED: traMADol 50 MG TABLET PO PRN (17:15)
[2018-06-26] MEDS ORDERED: DOCUSATE SODIUM 100 MG CAPSULE. PO PRN (17:15)
[2018-06-26] MEDS ORDERED: MORPHINE SULFATE 2 MG/ML VIAL. IV PRN (17:15)
[2018-06-26] MEDS ORDERED: ONDANSETRON PF 4 MG/2 ML VIAL. IV PRN (17:15)
[2018-06-26] MEDS ORDERED: ACETAMINOPHEN 325 MG TABLET. PO PRN (17:15)
--- NOTE | 2018-06-26 17:22 | RAD ---
Exam: AP portable chest History: Line placement. Comparison: Earlier June 26, 2018. Findings: Cardiac silhouette appears within normal limits for size. Aortic atherosclerosis is seen. Densities involving both lung apices are again identified. No pneumothorax or pleural effusion is identified. There is interval placement of a right internal multilumen vascular catheter with tip projecting at the right atrium. Impression: 1. Interval placement of right internal jugular multi lumen vascular catheter with tip projecting at the right atrium. Electronically signed by: Lázaro Yusuf MD (06/26/2018 5:19 PM) [employer]
--- NOTE | 2018-06-26 18:18 | RAD ---
CT Chest Abdomen Pelvis without Intravenous Contrast: History: Pancreatitis. Lung mass Comparison: None. Technique: Noncontrast CT of the chest, abdomen, and pelvis was performed from the lung apices through the ischial tuberosities. Exposure: One or more of the following individualized dose reduction techniques were utilized for this examination: 1. Automated exposure control 2. Adjustment of the mA and/or kV according to patient size 3. Use of iterative reconstruction technique Findings: Evaluation of solid organs is limited by lack of intravenous contrast. Evaluation of enteric structures may be limited by lack of oral contrast. There is also motion artifact at multiple levels. Right upper lobe demonstrates irregular consolidated nodule measuring 2.2 cm. Superior segment left lower lobe demonstrates irregular focus of consolidation measuring 1.4 cm. No pneumothorax or pleural effusion is identified. Trachea and mainstem bronchi appear patent. Thyroid appears diffusely enlarged. Superior left lower lobe demonstrates 0.7 cm low-density nodule. There is a right internal jugular central venous catheter with tip at superior aspect of the inferior vena cava. No pericardial thickening is identified. The left ventricle appears enlarged. Aortic atherosclerosis is seen. No convincing mediastinal lymphadenopathy is seen. Evaluation of abdominal and pelvic organs is significantly limited secondary to motion. Liver is grossly unremarkable. The spleen is thought to demonstrate calcified granulomata appear small. Right renogram is probably within normal limits. There is thickening left adrenal gland. Gallbladder is not well seen. Bilateral kidneys are without evidence of stone. Aortic atherosclerosis is seen. Tejeda catheter is present in urinary bladder. The uterus is not visualized, may be absent. Stomach is distended by gas and fluid. There may be wall thickening of the duodenum. Pancreas is suboptimally visualized. There is evidence of left anterior pararenal space retroperitoneal fluid. There may also be a wall thickening of the proximal duodenum. No free air is identified. Impression: 1. Limitations of study as described above. 2. Irregular consolidated nodule in the right upper lobe. Small focus of irregular consolidation involving superior segment of left lower lobe. These are nonspecific. Possibilities include neoplastic, inflammatory, or infectious causes versus scarring. 3. Right internal jugular catheter tip projects at the superior aspect of the inferior vena cava. 4. Pancreas is suboptimally visualized and evaluated. There is evidence of retroperitoneal fluid. Pancreatitis is consequently possible. 5. There is apparent wall thickening of the duodenum and proximal jejunum. Primary enteritis versus secondary inflammation from pancreatitis would be possibilities. Electronically signed by: Lázaro Yusuf MD (06/26/2018 6:15 PM) [facility]
[2018-06-26] MEDS ORDERED: MIDAZOLAM HCL/PF 5 MG/5 ML VIAL. IV PRN (19:00)
[2018-06-26] MEDS ORDERED: MIDAZOLAM 100mg/100ml NS BAG 100 ML IV PRN (19:00)
[2018-06-26] MEDS ORDERED: NOREPINEPHRIN 8MG/250ML PREMIX 250 ML IV PRN (19:15)
[2018-06-26] MEDS ORDERED: IV NORMAL SALINE 1000ML BAG 1,000 ML IV PRN ×2 (19:17)
[2018-06-26] MEDS ORDERED: DIALYSIS PATIENT. MC PRN ×2 (19:30)
[2018-06-26 19:43] LABS: BASO % 0 % (0-3); EOS % 0 % (0-3); HEMATOCRIT 24.5 % (36.0-47.0); HEMOGLOBIN 8.1 g/dL (12.0-15.5); LYMPH # 0.4 x10^3/uL (1.0-4.8); LYMPH % 5 % (24-48); MEAN CORPUSCULAR HEMOGLOBIN 35 pg (25-35); MEAN CORPUSCULAR HGB CONC 33 g/dL (31-37); MEAN CORPUSCULAR VOLUME 104 fL (79-100); MONO # 0.2 x10^3/uL (0.0-1.1); MONO % 2 % (0-9); NEUT # 8.4 x10^3uL (1.8-7.7); NEUT % 93 % (31-73); PLATELET COUNT 462 x10^3/uL (140-400); RED BLOOD COUNT 2.36 x10^6/uL (3.50-5.40)
[2018-06-26 19:53] LABS: CALCIUM 9.3 mg/dL (8.5-10.1); CREATININE 6.8 mg/dL (0.6-1.0); GFR 7.2; POTASSIUM 4.2 mmol/L (3.5-5.1)
[2018-06-26 19:59] LABS: ALBUMIN 2.8 g/dL (3.4-5.0); ALBUMIN/GLOBULIN RATIO 0.7 (1.0-1.7); TOTAL BILIRUBIN 0.5 mg/dL (0.2-1.0); TOTAL PROTEIN 6.7 g/dL (6.4-8.2)
[2018-06-26 20:27] LABS: BASE EXCESS ABG -11 mmol/L (-3-3); HCO3 ABG 13 mmol/L (21-28); PO2 ABG 321 mmHg (65-108); SAT O2 ABG 99 % (92-99)
[2018-06-26 20:28] LABS: FIO2 ABG 99; PCO2 ABG 21 mmHg (35-46)
--- NOTE | 2018-06-26 20:34 | PDOC2 ---
NEUROLOGY CONSULT Date of Admission Date of Admission DATE: 06/26/18 TIME: 20:20 Reason for Consult Reason for Consult: IMPRESSION: Metabolic encephalopathy. Respiratory failure. Lactic acidosis. Hyperglycemia, glucose level 1290. Hyperkalemia, K+ 7.6 Acute pancreatitis, lipase 60278. DM, poorly controlled. HTN. Pulmonary nodules. Thyroid nodules. Hyperthyroidism. Old CVA per Hx. RECOMMENDATIONS/PLAN: Life support in ICU. Control hyperglycemia. Keep good hydration. Treat medical diseases. Brain MRI w/o contrast. EEG. Lab: see orders. Thyroid US. Please consult Pulmonary Medicine for lung nodules. HISTORY OF THE PRESENT ILLNESS: 73-y-old female patient with multiple medical diseases was found down unresponsive on the floor in her kitchen. She was brought to the ER of [facility] and her glucose level was revealed extremely high of 1290. She remained unresponsiveness unable to maintain airway. She was intubated and admitted into ICU. PAST MEDICAL HISTORY: Please see above. PAST SURGERY HISTORY: No major surgery recently. ALLERGY: Unknown. MEDICATIONS: Refer to [facility] HISTORY: HTN. SOCIAL HISTORY: Lives alone. Denies current moking, drinking, and illicit drug use per documentation. REVIEW OF SYSTEMS: Constitutional: No malnutrition, weight loss, cachexia. Head: No traumatic brain or head injury. Skin: No edema, or rash. Ear: No infection. Eyes: No vision loss or color blindness. Nose: No bleeding or purulent discharges. Hearing: No hearing decrease. Neck: No injury. Breast: No history of cancer, masses,or discharges. Cardiac: HTN. Pulmonary: SOB. GI: No GI ulcer, GI bleeding. Urinary/genital: UTI. Endocrinologic: Diabetes Mellitus. Skeletomuscular: No muscular atrophy, deformity. Neurological: see HP. Psychiatric: Denies drug use/abuse. Otherwise, not [id number] review of systems. PHYSICAL EXAMINATION: General appearance is in acute distress. HEENT: Normocephalic and nontraumatic. Eyes, nose, ears, and throat are unremarkable. Neck is supple. No lymphadenopathy. No crepitus. Cardiovascular: S1, S2, regular rate and rhythm. Pulmonary: On vent. Abdomen: Bowel sounds are positive. Extremities: No rash, lesions, or edema. NEUROLOGICAL EXAMINATION: On vent. Unresponsiveness. Not oriented to time, place and person. PERRL. EOMI not elicited. CN: no acute focal findings. Muscle tone: decreased. Muscle strength: no movements observed. DTR: 1- Plantar reflex: Neutral response bilaterally Gait: Not able to walk. Sensory exam: no response to pain stimuli. Not able to access cerebellar signs in this mentation.. F-T-N test not performed due to not follow commands. Current Medications Current Medications Current Medications Sodium Chloride 1,000 ml @ 1,000 mls/hr 1X ONCE IV Last administered on 06/26at 14:37; Start 06/26/18 at 14:15; Stop 06/26/18 at 15:14; Status DC Nystatin (Nystop) 1 nato 1X STAT TP Last administered on 06/26/18at 15:56; Start 06/26/18 at 14:45; Stop 06/26/18 at 14:47; Status DC Sodium Bicarbonate (Sodium Bicarb Adult 8.4% Syr) 50 meq 1X ONCE IV Last administered on 06/26/18at 15:57; Start 06/26/18 at 15:15; Stop 06/26/18 at 15 :16; Status DC Albuterol Sulfate (Ventolin Neb Soln) 10 mg 1X ONCE CONT NEB ; Start 06/26/18 at 15:15; Stop 06/26/18 at 15:16; Status DC Insulin Human Regular (HumuLIN R VIAL) 10 unit 1X ONCE IV Last administered on 06/26/18at 15:51; Start 06/26/18 at 15:15; Stop 06/26/18 at 15:16; Status DC Insulin Human Regular 150 ml @ 0 mls/hr 1X ONCE IV Last administered on at 15:56; Start 06/26/18 at 15:15; Stop 06/26/18 at 15:16; Status DC Sodium Chloride 1,000 ml @ 1,000 mls/hr 1X ONCE IV Last administered on 06/26at 18:21; Start 06/26/18 at 15:15; Stop 06/26/18 at 16:14; Status DC Calcium Gluconate (Calcium Gluconate) 1,000 mg 1X ONCE IVP Last administered on 06/26/18at 15:48; Start 06/26/18 at 15:45; Stop 06/26/18 at 15:46; Status DC Piperacillin Sod/ Tazobactam Sod 2.25 gm/Sodium Chloride 50 ml @ 100 mls/hr 1X ONCE IV Last administered on 06/26/18at 18:24; Start 06/26/18 at 16:15; Stop 06/26/18 at 16:44; Status DC Lidocaine/Sodium Bicarbonate (Buffered Lidocaine 1%) 3 ml 1X ONCE INJ Last administered on 06/26/18at 17:08; Start 06/26/18 at 16:15; Stop 06/26/18 at 16 :21; Status DC Heparin Sodium (Porcine) (Heparin Sodium) 2,600 unit 1X ONCE INT CAT Last administered on 06/26/18at 17:09; Start 06/26/18 at 16:15; Stop 06/26/18 at 16 :21; Status DC Heparin Sodium (Porcine) (Heparin Sodium) 10,000 unit STK-MED ONCE .ROUTE ; Start 06/26/18 at 16:14; Stop 06/26/18 at 16:15; Status DC Heparin Sodium (Porcine) (Heparin Sodium) 5,000 unit Q8HRS SQ ; Start 06/26/18 at 22:00 Pantoprazole Sodium (PROTONIX VIAL for IV PUSH) 40 mg DAILYAC IVP ; Start 06/27 at 07:30 Insulin Human Regular 150 unit/ Sodium Chloride 151.5 ml @ 0 mls/hr CONT PRN IV SEE I/O RECORD; Start 06/26/18 at 17:00 Acetaminophen (Tylenol) 650 mg PRN Q6HRS PRN PO FEVER; Start 06/26/18 at 17:15 Ondansetron HCl (Zofran) 4 mg PRN Q6HRS PRN IV NAUSEA/VOMITING; Start at 17:15 Morphine Sulfate (Morphine Sulfate) 2 mg PRN Q2HR PRN IV MODERATE TO SEVERE PAIN; Start 06/26/18 at 17:15 Tramadol HCl (Ultram) 50 mg PRN Q6HRS PRN PO MILD TO MODERATE PAIN; Start at 17:15 Docusate Sodium (Colace) 100 mg PRN DAILY PRN PO CONSTIPATION; Start 06/26/18 at 17:15 Labetalol HCl (Normodyne Iv Push) 20 mg PRN Q2HR PRN IVP HYPERTENSION, SEE COMMENTS; Start 06/26/18 at 17:15 Lidocaine/Sodium Bicarbonate (Buffered Lidocaine 1%) 6 ml 1X ONCE INJ ; Start 06/26/18 at 17:15; Stop 06/26/18 at 17:16; Status DC Sodium Bicarbonate (Sodium Bicarb Adult 8.4% Syr) 100 meq 1X ONCE IV Last administered on 06/26/18at 20:00; Start 06/26/18 at 19:30; Stop 06/26/18 at 19 :31; Status DC Midazolam HCl 100 ml @ 5 mls/hr CONT PRN IV SEE I/O RECORD; Start 06/26/18 at 19:00 Midazolam HCl (Versed) 5 mg PRN Q2HR PRN IV SEDATION; Start 06/26/18 at 19:00 Norepinephrine Bitartrate 250 ml @ 1.875 mls/ hr CONT PRN IV SEE I/O RECORD; Start 06/26/18 at 19:15 Sodium Chloride 1,000 ml @ 1,000 mls/hr Q1H PRN IV hypotension; Start at 19:17; Stop 06/27/18 at 01:16 Sodium Chloride 1,000 ml @ 400 mls/hr Q2H30M PRN IV PATENCY; Start 06/26/18 at 19:17; Stop 06/27/18 at 07:16 Info (PHARMACY MONITORING -- do not chart) 1 each PRN DAILY PRN MC SEE COMMENTS ; Start 06/26/18 at 19:30 Info (PHARMACY MONITORING -- do not chart) 1 each PRN DAILY PRN MC SEE COMMENTS ; Start 06/26/18 at 19:30 Active Scripts Active Reported Unable To Obtain Meds From Prior To Admit (Info) Each 1 Each MC Allergies Allergies: Allergies Coded Allergies Type Severity Reaction Last Updated Verified Unable to Assess 06/26/18 No ROS Review of System The patient denies any associated fevers, chills, headache, ear pain, rhinorrhea , sore throat, stiff neck, productive cough, chest pain, shortness of breath, back or flank pain, abdominal pain, nausea, vomiting, diarrhea, constipation, dysuria, rash, numbness, weakness, tingling, incontinence, difficulty ambulating, or diaphoresis. Physical Exam Physical Exam General: Well developed, well nourished, no acute distress, well appearing HEENT: Pupils equally round and reactive to light, EOMI, no discharge, normal conjunctiva Neck: Supple, no nuchal rigidity, no JVD, trachea midline, no tenderness Cardiac: RRR, no murmurs, no gallops, no rubs Chest/Lungs: CTAB, no wheeze, no rhonchi, no crackles Abdomen: soft, non-distended, no guarding, no peritoneal signs, non-tender Back: No tenderness Extremities: no edema, pulses intact, non-tender,capillary refill <3 sec bilateral upper and lower extremities, Neuro: Alert and oriented x 4, no focal deficits, normal speech Vitals Vitals: Vital Signs Date Time Temp Pulse Resp B/P (MAP) Pulse Ox O2 Delivery O2 Flow Rate FiO2 06/26/18 19:20 100 Ventilator 06/26/18 18:32 107 10 06/26/18 14:03 88.8 200/94 (129) 88.8 Labs Labs Laboratory Tests Test 06/26/18 14:10 06/26/18 14:20 06/26/18 15:00 06/26/18 15:20 White Blood Count 10.3 x10^3/uL (4.0-11.0) Red Blood Count 2.80 x10^6/uL (3.50-5.40) Hemoglobin 9.5 g/dL (12.0-15.5) Hematocrit 31.9 % (36.0-47.0) Mean Corpuscular Volume 114 fL (79-100) Mean Corpuscular Hemoglobin 34 pg (25-35) Mean Corpuscular Hemoglobin Concent 30 g/dL (31-37) Red Cell Distribution Width 17.3 % (11.5-14.5) Platelet Count 587 x10^3/uL (140-400) Neutrophils (%) (Auto) 93 % (31-73) Lymphocytes (%) (Auto) 3 % (24-48) Monocytes (%) (Auto) 4 % (0-9) Eosinophils (%) (Auto) 0 % (0-3) Basophils (%) (Auto) 1 % (0-3) Neutrophils # (Auto) 9.5 x10^3uL (1.8-7.7) Lymphocytes # (Auto) 0.3 x10^3/uL (1.0-4.8) Monocytes # (Auto) 0.4 x10^3/uL (0.0-1.1) Eosinophils # (Auto) 0.0 x10^3/uL (0.0-0.7) Basophils # (Auto) 0.1 x10^3/uL (0.0-0.2) Segmented Neutrophils % 89 % (35-66) Band Neutrophils % 5 % (0-9) Lymphocytes % 1 % (24-48) Monocytes % 3 % (0-10) Basophils % 1 % (0-3) Metamyelocytes % 1 % (0-0) Platelet Estimate Increased (ADEQUATE) Anisocytosis Slight Macrocytosis Marked Prothrombin Time 15.3 SEC (11.7-14.0) Prothromb Time International Ratio 1.3 (0.8-1.1) Sodium Level 131 mmol/L (136-145) Potassium Level 7.6 mmol/L (3.5-5.1) Chloride Level 94 mmol/L (98-107) Carbon Dioxide Level 8 mmol/L (21-32) Anion Gap 29 (6-14) Blood Urea Nitrogen 137 mg/dL (7-20) Creatinine 7.0 mg/dL (0.6-1.0) Estimated GFR (Cockcroft-Gault) 5.8 BUN/Creatinine Ratio 20 (6-20) Glucose Level 1290 mg/dL (70-99) Lactic Acid Level 1.8 mmol/L (0.4-2.0) Calcium Level 9.6 mg/dL (8.5-10.1) Magnesium Level 3.8 mg/dL (1.8-2.4) Total Bilirubin 0.5 mg/dL (0.2-1.0) Aspartate Amino Transf (AST/SGOT) 17 U/L (15-37) Alanine Aminotransferase (ALT/SGPT) 21 U/L (14-59) Alkaline Phosphatase 159 U/L (46-116) Creatine Kinase 125 U/L (26-192) Troponin I Quantitative 0.019 ng/mL (0.000-0.055) VL-Jsg-O-Type Natriuretic Peptide 320 pg/mL (0-124) Total Protein 8.2 g/dL (6.4-8.2) Albumin 3.4 g/dL (3.4-5.0) Albumin/Globulin Ratio 0.7 (1.0-1.7) Lipase 46396 U/L (73-393) Thyroid Stimulating Hormone (TSH) 0.211 uIU/mL (0.358-3.74) Free Thyroxine 1.67 ng/dL (0.76-1.46) Free Triiodothyronine (T3) pg/mL 1.74 pg/mL (2.18-3.98) Salicylates Level 4.9 mg/dL (2.8-20.0) Salicylate Last Dose Date Unknown Salicylate Last Dose Time Unknown Urine Collection Type U cath Urine Color Yellow Urine Clarity Cloudy Urine pH 5.0 Urine Specific [place] 1.025 Urine Protein 100 mg/dL (NEG-TRACE) Urine Glucose (UA) >=1000 mg/dL (NEG) Urine Ketones (Stick) Negative mg/dL (NEG) Urine Blood Trace (NEG) Urine Nitrite Negative (NEG) Urine Bilirubin Negative (NEG) Urine Urobilinogen Dipstick 0.2 mg/dL (0.2 mg/dL) Urine Leukocyte Esterase Negative (NEG) Urine RBC 1-2 /HPF (0-2) Urine WBC Occ /HPF (0-4) Urine Squamous Epithelial Cells Few /LPF Urine Transitional Epithelial Cells Occ /LPF Urine Amorphous Sediment Present /HPF Urine Bacteria 0 /HPF (0-FEW) Urine Opiates Screen Neg (NEG) Urine Methadone Screen Neg (NEG) Urine Barbiturates Neg (NEG) Urine Phencyclidine Screen Neg (NEG) Urine Amphetamine/Methamphetamine Neg (NEG) Urine Benzodiazepines Screen Neg (NEG) Urine Cocaine Screen Neg (NEG) Urine Cannabinoids Screen Neg (NEG) Urine Ethyl Alcohol Neg (NEG) Ammonia < 10 mcmol/L (11-34) O2 Saturation 97 % (92-99) Arterial Blood pH 7.14 (7.35-7.45) Arterial Blood pCO2 at Patient Temp 19 mmHg (35-46) Arterial Blood pO2 at Patient Temp 113 mmHg (65-108) Arterial Blood HCO3 6 mmol/L (21-28) Arterial Blood Base Excess -21 mmol/L (-3-3) FiO2 21 Test 06/26/18 17:20 06/26/18 19:15 06/26/18 19:29 06/26/18 19:30 Glucose Level 950 mg/dL (70-99) 471 mg/dL (70-99) Lactic Acid Level 3.9 mmol/L (0.4-2.0) 4.9 mmol/L (0.4-2.0) Glucose (Fingerstick) 331 mg/dL (70-99) 459 mg/dL (70-99) White Blood Count 9.0 x10^3/uL (4.0-11.0) Red Blood Count 2.36 x10^6/uL (3.50-5.40) Hemoglobin 8.1 g/dL (12.0-15.5) Hematocrit 24.5 % (36.0-47.0) Mean Corpuscular Volume 104 fL (79-100) Mean Corpuscular Hemoglobin 35 pg (25-35) Mean Corpuscular Hemoglobin Concent 33 g/dL (31-37) Red Cell Distribution Width 16.0 % (11.5-14.5) Platelet Count 462 x10^3/uL (140-400) Neutrophils (%) (Auto) 93 % (31-73) Lymphocytes (%) (Auto) 5 % (24-48) Monocytes (%) (Auto) 2 % (0-9) Eosinophils (%) (Auto) 0 % (0-3) Basophils (%) (Auto) 0 % (0-3) Neutrophils # (Auto) 8.4 x10^3uL (1.8-7.7) Lymphocytes # (Auto) 0.4 x10^3/uL (1.0-4.8) Monocytes # (Auto) 0.2 x10^3/uL (0.0-1.1) Eosinophils # (Auto) 0.0 x10^3/uL (0.0-0.7) Basophils # (Auto) 0.0 x10^3/uL (0.0-0.2) Sodium Level 147 mmol/L (136-145) Potassium Level 4.2 mmol/L (3.5-5.1) Chloride Level 109 mmol/L (98-107) Carbon Dioxide Level 13 mmol/L (21-32) Anion Gap 25 (6-14) Blood Urea Nitrogen 133 mg/dL (7-20) Creatinine 6.8 mg/dL (0.6-1.0) Estimated GFR (Cockcroft-Gault) 7.2 BUN/Creatinine Ratio 20 (6-20) Calcium Level 9.3 mg/dL (8.5-10.1) Total Bilirubin 0.5 mg/dL (0.2-1.0) Aspartate Amino Transf (AST/SGOT) 12 U/L (15-37) Alanine Aminotransferase (ALT/SGPT) 19 U/L (14-59) Alkaline Phosphatase 132 U/L (46-116) Total Protein 6.7 g/dL (6.4-8.2) Albumin 2.8 g/dL (3.4-5.0) Albumin/Globulin Ratio 0.7 (1.0-1.7) Test 06/26/18 20:11 Glucose (Fingerstick) 339 mg/dL (70-99) Laboratory Tests Test 06/26/18 14:10 06/26/18 14:20 06/26/18 15:00 06/26/18 15:20 White Blood Count 10.3 x10^3/uL (4.0-11.0) Red Blood Count 2.80 x10^6/uL (3.50-5.40) Hemoglobin 9.5 g/dL (12.0-15.5) Hematocrit 31.9 % (36.0-47.0) Mean Corpuscular Volume 114 fL (79-100) Mean Corpuscular Hemoglobin 34 pg (25-35) Mean Corpuscular Hemoglobin Concent 30 g/dL (31-37) Red Cell Distribution Width 17.3 % (11.5-14.5) Platelet Count 587 x10^3/uL (140-400) Neutrophils (%) (Auto) 93 % (31-73) Lymphocytes (%) (Auto) 3 % (24-48) Monocytes (%) (Auto) 4 % (0-9) Eosinophils (%) (Auto) 0 % (0-3) Basophils (%) (Auto) 1 % (0-3) Neutrophils # (Auto) 9.5 x10^3uL (1.8-7.7) Lymphocytes # (Auto) 0.3 x10^3/uL (1.0-4.8) Monocytes # (Auto) 0.4 x10^3/uL (0.0-1.1) Eosinophils # (Auto) 0.0 x10^3/uL (0.0-0.7) Basophils # (Auto) 0.1 x10^3/uL (0.0-0.2) Segmented Neutrophils % 89 % (35-66) Band Neutrophils % 5 % (0-9) Lymphocytes % 1 % (24-48) Monocytes % 3 % (0-10) Basophils % 1 % (0-3) Metamyelocytes % 1 % (0-0) Platelet Estimate Increased (ADEQUATE) Anisocytosis Slight Macrocytosis Marked Prothrombin Time 15.3 SEC (11.7-14.0) Prothromb Time International Ratio 1.3 (0.8-1.1) Sodium Level 131 mmol/L (136-145) Potassium Level 7.6 mmol/L (3.5-5.1) Chloride Level 94 mmol/L (98-107) Carbon Dioxide Level 8 mmol/L (21-32) Anion Gap 29 (6-14) Blood Urea Nitrogen 137 mg/dL (7-20) Creatinine 7.0 mg/dL (0.6-1.0) Estimated GFR (Cockcroft-Gault) 5.8 BUN/Creatinine Ratio 20 (6-20) Glucose Level 1290 mg/dL (70-99) Lactic Acid Level 1.8 mmol/L (0.4-2.0) Calcium Level 9.6 mg/dL (8.5-10.1) Magnesium Level 3.8 mg/dL (1.8-2.4) Total Bilirubin 0.5 mg/dL (0.2-1.0) Aspartate Amino Transf (AST/SGOT) 17 U/L (15-37) Alanine Aminotransferase (ALT/SGPT) 21 U/L (14-59) Alkaline Phosphatase 159 U/L (46-116) Creatine Kinase 125 U/L (26-192) Troponin I Quantitative 0.019 ng/mL (0.000-0.055) CC-Noy-M-Type Natriuretic Peptide 320 pg/mL (0-124) Total Protein 8.2 g/dL (6.4-8.2) Albumin 3.4 g/dL (3.4-5.0) Albumin/Globulin Ratio 0.7 (1.0-1.7) Lipase 97492 U/L (73-393) Thyroid Stimulating Hormone (TSH) 0.211 uIU/mL (0.358-3.74) Free Thyroxine 1.67 ng/dL (0.76-1.46) Free Triiodothyronine (T3) pg/mL 1.74 pg/mL (2.18-3.98) Salicylates Level 4.9 mg/dL (2.8-20.0) Salicylate Last Dose Date Unknown Salicylate Last Dose Time Unknown Urine Collection Type U cath Urine Color Yellow Urine Clarity Cloudy Urine pH 5.0 Urine Specific [place] 1.025 Urine Protein 100 mg/dL (NEG-TRACE) Urine Glucose (UA) >=1000 mg/dL (NEG) Urine Ketones (Stick) Negative mg/dL (NEG) Urine Blood Trace (NEG) Urine Nitrite Negative (NEG) Urine Bilirubin Negative (NEG) Urine Urobilinogen Dipstick 0.2 mg/dL (0.2 mg/dL) Urine Leukocyte Esterase Negative (NEG) Urine RBC 1-2 /HPF (0-2) Urine WBC Occ /HPF (0-4) Urine Squamous Epithelial Cells Few /LPF Urine Transitional Epithelial Cells Occ /LPF Urine Amorphous Sediment Present /HPF Urine Bacteria 0 /HPF (0-FEW) Urine Opiates Screen Neg (NEG) Urine Methadone Screen Neg (NEG) Urine Barbiturates Neg (NEG) Urine Phencyclidine Screen Neg (NEG) Urine Amphetamine/Methamphetamine Neg (NEG) Urine Benzodiazepines Screen Neg (NEG) Urine Cocaine Screen Neg (NEG) Urine Cannabinoids Screen Neg (NEG) Urine Ethyl Alcohol Neg (NEG) Ammonia < 10 mcmol/L (11-34) O2 Saturation 97 % (92-99) Arterial Blood pH 7.14 (7.35-7.45) Arterial Blood pCO2 at Patient Temp 19 mmHg (35-46) Arterial Blood pO2 at Patient Temp 113 mmHg (65-108) Arterial Blood HCO3 6 mmol/L (21-28) Arterial Blood Base Excess -21 mmol/L (-3-3) FiO2 21 Test 06/26/18 17:20 06/26/18 19:15 06/26/18 19:29 06/26/18 19:30 Glucose Level 950 mg/dL (70-99) 471 mg/dL (70-99) Lactic Acid Level 3.9 mmol/L (0.4-2.0) 4.9 mmol/L (0.4-2.0) Glucose (Fingerstick) 331 mg/dL (70-99) 459 mg/dL (70-99) White Blood Count 9.0 x10^3/uL (4.0-11.0) Red Blood Count 2.36 x10^6/uL (3.50-5.40) Hemoglobin 8.1 g/dL (12.0-15.5) Hematocrit 24.5 % (36.0-47.0) Mean Corpuscular Volume 104 fL (79-100) Mean Corpuscular Hemoglobin 35 pg (25-35) Mean Corpuscular Hemoglobin Concent 33 g/dL (31-37) Red Cell Distribution Width 16.0 % (11.5-14.5) Platelet Count 462 x10^3/uL (140-400) Neutrophils (%) (Auto) 93 % (31-73) Lymphocytes (%) (Auto) 5 % (24-48) Monocytes (%) (Auto) 2 % (0-9) Eosinophils (%) (Auto) 0 % (0-3) Basophils (%) (Auto) 0 % (0-3) Neutrophils # (Auto) 8.4 x10^3uL (1.8-7.7) Lymphocytes # (Auto) 0.4 x10^3/uL (1.0-4.8) Monocytes # (Auto) 0.2 x10^3/uL (0.0-1.1) Eosinophils # (Auto) 0.0 x10^3/uL (0.0-0.7) Basophils # (Auto) 0.0 x10^3/uL (0.0-0.2) Sodium Level 147 mmol/L (136-145) Potassium Level 4.2 mmol/L (3.5-5.1) Chloride Level 109 mmol/L (98-107) Carbon Dioxide Level 13 mmol/L (21-32) Anion Gap 25 (6-14) Blood Urea Nitrogen 133 mg/dL (7-20) Creatinine 6.8 mg/dL (0.6-1.0) Estimated GFR (Cockcroft-Gault) 7.2 BUN/Creatinine Ratio 20 (6-20) Calcium Level 9.3 mg/dL (8.5-10.1) Total Bilirubin 0.5 mg/dL (0.2-1.0) Aspartate Amino Transf (AST/SGOT) 12 U/L (15-37) Alanine Aminotransferase (ALT/SGPT) 19 U/L (14-59) Alkaline Phosphatase 132 U/L (46-116) Total Protein 6.7 g/dL (6.4-8.2) Albumin 2.8 g/dL (3.4-5.0) Albumin/Globulin Ratio 0.7 (1.0-1.7) Test 06/26/18 20:11 Glucose (Fingerstick) 339 mg/dL (70-99) RAYMOND CHU MD Jun 26, 2018 20:34
--- NOTE | 2018-06-26 21:11 | ED.ADGEN ---
Past Medical History Past Medical History: CVA Additional Past Medical Histor: UNKNOWN HX Past Surgical History: Other Additional Past Surgical Histo: UNKNOWN Alcohol Use: None Drug Use: None Adult General Chief Complaint Chief Complaint: ALTERED MENTAL STATUS HPI HPI Patient is a 73 year old female in the ICU who had a CODE BLUE activated. CODE BLUE was announced at approximately 8:17 PM. I responded to the patient's room in the intensive care. Review of Systems Review of Systems No ROS taken as the patient is intubated and critically ill Current Medications Current Medications Current Medications Medications (Trade) Dose Ordered Sig/Jose Start Time Stop Time Status Last Admin Dose Admin Albuterol Sulfate (Ventolin Neb Soln) 10 mg 1X ONCE 06/26/18 15:15 06/26/18 15:16 DC Calcium Gluconate (Calcium Gluconate) 1,000 mg 1X ONCE 06/26/18 15:45 06/26/18 15:46 DC 06/26/18 15:48 1,000 MG Insulin Human Regular 150 ml @ 0 mls/hr 1X ONCE 06/26/18 15:15 06/26/18 15:16 DC 06/26/18 15:56 26.4 MLS/HR Insulin Human Regular (HumuLIN R VIAL) 10 unit 1X ONCE 06/26/18 15:15 06/26/18 15:16 DC 06/26/18 15:51 10 UNIT Nystatin (Nystop) 1 nato 1X STAT 06/26/18 14:45 06/26/18 14:47 DC 06/26/18 15:56 1 NATO Sodium Bicarbonate (Sodium Bicarb Adult 8.4% Syr) 50 meq 1X ONCE 06/26/18 15:15 06/26/18 15:16 DC 06/26/18 15:57 50 MEQ Sodium Chloride 1,000 ml @ 1,000 mls/hr 1X ONCE 06/26/18 15:15 06/26/18 16:14 DC 06/26/18 18:21 1,000 MLS/HR Allergies Allergies Allergies Coded Allergies Type Severity Reaction Last Updated Verified Unable to Assess 06/26/18 No Physical Exam Physical Exam Constitutional: Well developed, well nourished, female, intubated, CPR in progress Neck: no JVD Cardiovascular: regular tachycardic rate, Lungs & Thorax: Bilateral breath sounds clear to auscultation with bagged respirations. good air mvt bilaterally. Abdomen: soft, non-distended Skin: pale, cool Extremities: No edema, I/O access in left tibia, equal pulses that are bounding in all extremities Neurologic: sedated, intubated Current Patient Data Vital Signs Vital Signs Date Time Temp Pulse Resp B/P (MAP) Pulse Ox O2 Delivery O2 Flow Rate FiO2 06/26/18 15:32 91 8 100 06/26/18 14:03 88.8 200/94 (129) Room Air 88.8 Lab Values Laboratory Tests Test 06/26/18 14:10 06/26/18 14:20 06/26/18 15:00 06/26/18 15:20 White Blood Count 10.3 x10^3/uL (4.0-11.0) Red Blood Count 2.80 x10^6/uL (3.50-5.40) L Hemoglobin 9.5 g/dL (12.0-15.5) L Hematocrit 31.9 % (36.0-47.0) L Mean Corpuscular Volume 114 fL (79-100) H Mean Corpuscular Hemoglobin 34 pg (25-35) Mean Corpuscular Hemoglobin Concent 30 g/dL (31-37) L Red Cell Distribution Width 17.3 % (11.5-14.5) H Platelet Count 587 x10^3/uL (140-400) H Neutrophils (%) (Auto) 93 % (31-73) H Lymphocytes (%) (Auto) 3 % (24-48) L Monocytes (%) (Auto) 4 % (0-9) Eosinophils (%) (Auto) 0 % (0-3) Basophils (%) (Auto) 1 % (0-3) Neutrophils # (Auto) 9.5 x10^3uL (1.8-7.7) H Lymphocytes # (Auto) 0.3 x10^3/uL (1.0-4.8) L Monocytes # (Auto) 0.4 x10^3/uL (0.0-1.1) Eosinophils # (Auto) 0.0 x10^3/uL (0.0-0.7) Basophils # (Auto) 0.1 x10^3/uL (0.0-0.2) Segmented Neutrophils % 89 % (35-66) H Band Neutrophils % 5 % (0-9) Lymphocytes % 1 % (24-48) L Monocytes % 3 % (0-10) Basophils % 1 % (0-3) Metamyelocytes % 1 % (0-0) H Platelet Estimate Increased (ADEQUATE) Anisocytosis Slight Macrocytosis Marked Prothrombin Time 15.3 SEC (11.7-14.0) H Prothrombin Time INR 1.3 (0.8-1.1) H Sodium Level 131 mmol/L (136-145) L Potassium Level 7.6 mmol/L (3.5-5.1) *H Chloride Level 94 mmol/L (98-107) L Carbon Dioxide Level 8 mmol/L (21-32) *L Anion Gap 29 (6-14) H Blood Urea Nitrogen 137 mg/dL (7-20) H Creatinine 7.0 mg/dL (0.6-1.0) H Estimated GFR (Cockcroft-Gault) 5.8 BUN/Creatinine Ratio 20 (6-20) Glucose Level 1290 mg/dL (70-99) *H Lactic Acid Level 1.8 mmol/L (0.4-2.0) Calcium Level 9.6 mg/dL (8.5-10.1) Magnesium Level 3.8 mg/dL (1.8-2.4) H Total Bilirubin 0.5 mg/dL (0.2-1.0) Aspartate Amino Transferase (AST) 17 U/L (15-37) Alanine Aminotransferase (ALT) 21 U/L (14-59) Alkaline Phosphatase 159 U/L (46-116) H Creatine Kinase 125 U/L (26-192) Troponin I Quantitative 0.019 ng/mL (0.000-0.055) PI-Grh-R-Type Natriuretic Peptide 320 pg/mL (0-124) H Total Protein 8.2 g/dL (6.4-8.2) Albumin 3.4 g/dL (3.4-5.0) Albumin/Globulin Ratio 0.7 (1.0-1.7) L Lipase 23383 U/L (73-393) H Thyroid Stimulating Hormone (TSH) 0.211 uIU/mL (0.358-3.74) L Free Thyroxine 1.67 ng/dL (0.76-1.46) H Free Triiodothyronine (T3) pg/mL 1.74 pg/mL (2.18-3.98) L Salicylates Level 4.9 mg/dL (2.8-20.0) Salicylate Last Dose Date Unknown Salicylate Last Dose Time Unknown Urine Collection Type U cath Urine Color Yellow Urine Clarity Cloudy Urine pH 5.0 Urine Specific [place] 1.025 Urine Protein 100 mg/dL (NEG-TRACE) Urine Glucose (UA) >=1000 mg/dL (NEG) Urine Ketones (Stick) Negative mg/dL (NEG) Urine Blood Trace (NEG) Urine Nitrite Negative (NEG) Urine Bilirubin Negative (NEG) Urine Urobilinogen Dipstick 0.2 mg/dL (0.2 mg/dL) Urine Leukocyte Esterase Negative (NEG) Urine RBC 1-2 /HPF (0-2) Urine WBC Occ /HPF (0-4) Urine Squamous Epithelial Cells Few /LPF Urine Transitional Epithelial Cells Occ /LPF Urine Amorphous Sediment Present /HPF Urine Bacteria 0 /HPF (0-FEW) Urine Opiates Screen Neg (NEG) Urine Methadone Screen Neg (NEG) Urine Barbiturates Neg (NEG) Urine Phencyclidine Screen Neg (NEG) Urine Amphetamine/Methamphetamine Neg (NEG) Urine Benzodiazepines Screen Neg (NEG) Urine Cocaine Screen Neg (NEG) Urine Cannabinoids Screen Neg (NEG) Urine Ethyl Alcohol Neg (NEG) Ammonia < 10 mcmol/L (11-34) L O2 Saturation 97 % (92-99) Arterial Blood pH 7.14 (7.35-7.45) *L Arterial Blood pCO2 at Patient Temp 19 mmHg (35-46) *L Arterial Blood pO2 at Patient Temp 113 mmHg (65-108) H Arterial Blood HCO3 6 mmol/L (21-28) L Arterial Blood Base Excess -21 mmol/L (-3-3) L FiO2 21 Laboratory Tests 06/26/18 14:10 Laboratory Tests 06/26/18 14:10 EKG EKG [] Radiology/Procedures Radiology/Procedures [] Course & Med Decision Making Course & Med Decision Making Pertinent Labs and Imaging studies reviewed. (See chart for details) CODE BLUE was activated on this patient. I responded at approximately 90 minutes after 8 PM. I entered the room to find initially CPR in progress that was halted as I entered the room. Nursing staff reported that the patient had started dialysis and shortly after that had become bradycardic. At some point, they perceived that the patient did lose pulses. The patient was thought to be in pulseless electrical activity and CPR was started. Just prior to event, Levothroid had been started as well because the patient had become mildly hypotensive. By the time I arrived in the room, the patient had regained pulses and had a organized sinus tachycardic rhythm on the monitor. She had a blood pressure of 200 systolic. Respiratory therapy was on the scene. They had just completed a blood gas prior to the code. The patient's pH was 7.4. I stayed at the bedside for approximately 10-15 minutes to ensure that the patient would remain stable. Nephrology was currently being consult regarding continuation or discontinuation of dialysis. During the time I was in the room, no additional CPR was required. Dragon Disclaimer Dragon Disclaimer This electronic medical record was generated, in whole or in part, using a voice recognition dictation system. ERINN DIAZ DO Jun 26, 2018 21:11
--- NOTE | 2018-06-26 21:26 | RAD ---
Exam: AP portable chest History: ICU patient. Endotracheal tube placement. Comparison: Earlier June 26, 2018. Findings: The heart and mediastinal structures are within normal limits for size. No pleural effusion or pneumothorax is identified. Right internal jugular central venous catheter is unchanged. Lungs have unchanged appearance. Interval placement of endotracheal tube with tip projecting 1.5 cm above the velia. Impression: 1. Endotracheal tube tip projects 1.5 cm above the velia. Electronically signed by: Lázaro Yusuf MD (06/26/2018 9:23 PM) [facility]
[2018-06-26] MEDS ORDERED: IV DEXTROSE 5 %-0.45 % NACL 1,000 ML IV ONE (22:00)
[2018-06-26] MEDS ORDERED: PIP/TAZO PER PHARMACY MC PRN (22:00)
[2018-06-26] MEDS: PIPERACILLIN/TAZOBACTAM 2.25 GM in IV NORMAL SALINE 50ML 50 ML IV SCH (22:10)
[2018-06-26] MEDS ORDERED: VANCOMYCIN 1.5 GM in IV NORMAL SALINE 500ML BAG 500 ML IV ONE (23:00)
[2018-06-26] MEDS: HEPARIN for SUB-Q USE 5,000 UNIT/ML VIAL. SQ SCH (23:30)
[2018-06-27] VITALS (28 sets, daily range): BP systolic 77–213; BP diastolic 48–106
[2018-06-27 00:04] LABS: CALCIUM 8.5 mg/dL (8.5-10.1); CREATININE 1.6 mg/dL (0.6-1.0); GFR 38.3; MAGNESIUM 1.9 mg/dL (1.8-2.4); PHOSPHORUS 1.7 mg/dL (2.6-4.7)
[2018-06-27 00:10] LABS: POTASSIUM 2.8 mmol/L (3.5-5.1)
[2018-06-27 01:12] LABS: HEMOGLOBIN A1C 13.1 % (4.8-5.6)
[2018-06-27] MEDS: VANCOMYCIN PER PHARMACY MC PRN ×2 (02:13→10:36)
[2018-06-27 02:24] LABS: CALCIUM 7.5 mg/dL (8.5-10.1); CREATININE 2.4 mg/dL (0.6-1.0); POTASSIUM 3.5 mmol/L (3.5-5.1)
[2018-06-27 02:27] LABS: MAGNESIUM 1.7 mg/dL (1.8-2.4); PHOSPHORUS 2.4 mg/dL (2.6-4.7)
--- NOTE | 2018-06-27 02:56 | RAD ---
EXAM: Supine AP view of the abdomen DATE: 06/27/2018 2:30 AM INDICATION: og placement COMPARISON: No Prior FINDINGS: Enteric tube tip projects over the antrum of the stomach. No abnormal small or large bowel dilatation. Moderate colonic stool content. No abnormal soft tissue mass effect. No suspicious calcifications are seen. Evaluation for free intraperitoneal gas is limited on this supine exam. IMPRESSION: 1. Enteric tube projects over the antrum of the stomach. 2. No evidence for bowel obstruction. Electronically signed by: Hay Fowler MD (06/27/2018 2:52 AM) [id number]
[2018-06-27 05:31] LABS: BASO % 0 % (0-3); EOS % 0 % (0-3); LYMPH # 0.3 x10^3/uL (1.0-4.8); LYMPH % 4 % (24-48); MEAN CORPUSCULAR HEMOGLOBIN 33 pg (25-35); MEAN CORPUSCULAR HGB CONC 34 g/dL (31-37); MEAN CORPUSCULAR VOLUME 99 fL (79-100); MONO # 0.4 x10^3/uL (0.0-1.1); MONO % 5 % (0-9); NEUT # 7.1 x10^3uL (1.8-7.7); NEUT % 91 % (31-73); PLATELET COUNT 292 x10^3/uL (140-400); RED BLOOD COUNT 2.04 x10^6/uL (3.50-5.40); RED CELL DISTRIBUTION WIDTH 15.7 % (11.5-14.5); WHITE BLOOD COUNT 7.8 x10^3/uL (4.0-11.0)
[2018-06-27] MEDS: HEPARIN for SUB-Q USE 5,000 UNIT/ML VIAL. SQ SCH ×3 (05:38→22:47)
[2018-06-27] MEDS: PIPERACILLIN/TAZOBACTAM 2.25 GM in IV NORMAL SALINE 50ML 50 ML IV SCH ×3 (05:38→22:46)
[2018-06-27 05:41] LABS: HEMATOCRIT 20.2 % (36.0-47.0); HEMOGLOBIN 6.8 g/dL (12.0-15.5)
[2018-06-27 07:05] LABS: CALCIUM 7.4 mg/dL (8.5-10.1); CREATININE 2.7 mg/dL (0.6-1.0); POTASSIUM 3.1 mmol/L (3.5-5.1)
--- NOTE | 2018-06-27 07:22 | PDOC ---
PROGRESS NOTES Chief Complaint Chief Complaint AMS, metabolic encephalopathy likely METabolic acidosis DKA hyperkalemia MAVERICK, ATN ESRD without baseline Cr known, not on HD yet acute resp failure 2 lung nodules acute pancreatitis hypothermia recent CVA with left side weakness anemia, macrocytic non compliance HTN urgency History of Present Illness History of Present Illness Patient is a 73 year old f was sent by son for AMS, found down on kitchen floor. When seen in ER, eyes open, unresponsive by admitting team. Pt lives alone, 2 sons come to see her often. has no DPOA signed yet. sons want aggressive treatment for now. [facility] for CVA with left side weakness. Son said she was not walking well, but refused to go to SNF, and sent home. In the past 5 days, she was found slurry speech, refused to come to hosp. Sons said she likely not taking her daily meds too. ER found with metabolic acidosis, glu>1200, K >7, has ESRD but not decided to do HD yet Cr >7 now, unresponsive, lipase >40K, lung [address] T 88.8. head ct neg. She was gagging and hypoxic in ED and was emergently intubated for this. Overnight: SKIP CHINO called at 2017 after initiation of both levophed and dialysis. Appears to have been bradycardia followed by PEA. After epinephrine BP was increased and had tachycardia. Sedated on vent today. Anemic to 6.8 this morning, 1u PRBC ordered. Glucose down to 247 on POC this morning and 150s on repeat check. A/P: AMS, metabolic encephalopathy likely secondary to HHS/DKA Metabolic acidosis - requiring dialysis with hyperkalemia DKA - on insulin GTT, can change to lispro and add back lantus Hyperkalemia - on dialysis MAVERICK, ATN ESRD without baseline Cr known, not on HD yet acute resp failure 2 lung nodules acute pancreatitis hypothermia recent CVA with left side weakness anemia, macrocytic non compliance HTN urgency plan; chest, abd, pelvic CT pending pulm, gi, renal, neuro consult HD cath now in ER, will do HD as per renal need verify home meds insulin drip for now, check hba1c labs tmr dvt, gi ppx sons want aggressive care for now PAT consult tmr if not better, DPOA needs to be signed tsh low, check t3,t4 check anemia leval, lipase tmr NPO warm blanket ICU care, daley, monitor urine output and BP. cc time 40min Vitals Vitals Vital Signs Date Time Temp Pulse Resp B/P (MAP) Pulse Ox O2 Delivery O2 Flow Rate FiO2 06/27/18 06:00 97 18 128/57 (80) 100 Ventilator 06/27/18 04:00 97.7 97.7 Physical Exam General: No acute distress, Other (Sedated on vent) Heart: Regular rate, No murmurs Lungs: Other (Ventilatory breath sounds) Abdomen: Normal bowel sounds Extremities: Other (Bruising on chest, multiple scars, pulses palpable in extremities) Labs LABS Laboratory Tests Test 06/26/18 14:10 06/26/18 14:20 06/26/18 15:00 06/26/18 15:20 White Blood Count 10.3 x10^3/uL (4.0-11.0) Red Blood Count 2.80 x10^6/uL (3.50-5.40) Hemoglobin 9.5 g/dL (12.0-15.5) Hematocrit 31.9 % (36.0-47.0) Mean Corpuscular Volume 114 fL (79-100) Mean Corpuscular Hemoglobin 34 pg (25-35) Mean Corpuscular Hemoglobin Concent 30 g/dL (31-37) Red Cell Distribution Width 17.3 % (11.5-14.5) Platelet Count 587 x10^3/uL (140-400) Neutrophils (%) (Auto) 93 % (31-73) Lymphocytes (%) (Auto) 3 % (24-48) Monocytes (%) (Auto) 4 % (0-9) Eosinophils (%) (Auto) 0 % (0-3) Basophils (%) (Auto) 1 % (0-3) Neutrophils # (Auto) 9.5 x10^3uL (1.8-7.7) Lymphocytes # (Auto) 0.3 x10^3/uL (1.0-4.8) Monocytes # (Auto) 0.4 x10^3/uL (0.0-1.1) Eosinophils # (Auto) 0.0 x10^3/uL (0.0-0.7) Basophils # (Auto) 0.1 x10^3/uL (0.0-0.2) Segmented Neutrophils % 89 % (35-66) Band Neutrophils % 5 % (0-9) Lymphocytes % 1 % (24-48) Monocytes % 3 % (0-10) Basophils % 1 % (0-3) Metamyelocytes % 1 % (0-0) Platelet Estimate Increased (ADEQUATE) Anisocytosis Slight Macrocytosis Marked Prothrombin Time 15.3 SEC (11.7-14.0) Prothromb Time International Ratio 1.3 (0.8-1.1) Sodium Level 131 mmol/L (136-145) Potassium Level 7.6 mmol/L (3.5-5.1) Chloride Level 94 mmol/L (98-107) Carbon Dioxide Level 8 mmol/L (21-32) Anion Gap 29 (6-14) Blood Urea Nitrogen 137 mg/dL (7-20) Creatinine 7.0 mg/dL (0.6-1.0) Estimated GFR (Cockcroft-Gault) 5.8 BUN/Creatinine Ratio 20 (6-20) Glucose Level 1290 mg/dL (70-99) Hemoglobin A1c 13.1 % (4.8-5.6) Lactic Acid Level 1.8 mmol/L (0.4-2.0) Calcium Level 9.6 mg/dL (8.5-10.1) Magnesium Level 3.8 mg/dL (1.8-2.4) Total Bilirubin 0.5 mg/dL (0.2-1.0) Aspartate Amino Transf (AST/SGOT) 17 U/L (15-37) Alanine Aminotransferase (ALT/SGPT) 21 U/L (14-59) Alkaline Phosphatase 159 U/L (46-116) Creatine Kinase 125 U/L (26-192) Troponin I Quantitative 0.019 ng/mL (0.000-0.055) PA-Tcw-J-Type Natriuretic Peptide 320 pg/mL (0-124) Total Protein 8.2 g/dL (6.4-8.2) Albumin 3.4 g/dL (3.4-5.0) Albumin/Globulin Ratio 0.7 (1.0-1.7) Lipase 06114 U/L (73-393) Thyroid Stimulating Hormone (TSH) 0.211 uIU/mL (0.358-3.74) Free Thyroxine 1.67 ng/dL (0.76-1.46) Free Triiodothyronine (T3) pg/mL 1.74 pg/mL (2.18-3.98) Salicylates Level 4.9 mg/dL (2.8-20.0) Salicylate Last Dose Date Unknown Salicylate Last Dose Time Unknown Urine Collection Type U cath Urine Color Yellow Urine Clarity Cloudy Urine pH 5.0 Urine Specific [place] 1.025 Urine Protein 100 mg/dL (NEG-TRACE) Urine Glucose (UA) >=1000 mg/dL (NEG) Urine Ketones (Stick) Negative mg/dL (NEG) Urine Blood Trace (NEG) Urine Nitrite Negative (NEG) Urine Bilirubin Negative (NEG) Urine Urobilinogen Dipstick 0.2 mg/dL (0.2 mg/dL) Urine Leukocyte Esterase Negative (NEG) Urine RBC 1-2 /HPF (0-2) Urine WBC Occ /HPF (0-4) Urine Squamous Epithelial Cells Few /LPF Urine Transitional Epithelial Cells Occ /LPF Urine Amorphous Sediment Present /HPF Urine Bacteria 0 /HPF (0-FEW) Urine Opiates Screen Neg (NEG) Urine Methadone Screen Neg (NEG) Urine Barbiturates Neg (NEG) Urine Phencyclidine Screen Neg (NEG) Urine Amphetamine/Methamphetamine Neg (NEG) Urine Benzodiazepines Screen Neg (NEG) Urine Cocaine Screen Neg (NEG) Urine Cannabinoids Screen Neg (NEG) Urine Ethyl Alcohol Neg (NEG) Ammonia < 10 mcmol/L (11-34) O2 Saturation 97 % (92-99) Arterial Blood pH 7.14 (7.35-7.45) Arterial Blood pCO2 at Patient Temp 19 mmHg (35-46) Arterial Blood pO2 at Patient Temp 113 mmHg (65-108) Arterial Blood HCO3 6 mmol/L (21-28) Arterial Blood Base Excess -21 mmol/L (-3-3) FiO2 21 Test 06/26/18 17:20 06/26/18 19:15 06/26/18 19:29 06/26/18 19:30 Glucose Level 950 mg/dL (70-99) 471 mg/dL (70-99) Lactic Acid Level 3.9 mmol/L (0.4-2.0) 4.9 mmol/L (0.4-2.0) Glucose (Fingerstick) 331 mg/dL (70-99) 459 mg/dL (70-99) White Blood Count 9.0 x10^3/uL (4.0-11.0) Red Blood Count 2.36 x10^6/uL (3.50-5.40) Hemoglobin 8.1 g/dL (12.0-15.5) Hematocrit 24.5 % (36.0-47.0) Mean Corpuscular Volume 104 fL (79-100) Mean Corpuscular Hemoglobin 35 pg (25-35) Mean Corpuscular Hemoglobin Concent 33 g/dL (31-37) Red Cell Distribution Width 16.0 % (11.5-14.5) Platelet Count 462 x10^3/uL (140-400) Neutrophils (%) (Auto) 93 % (31-73) Lymphocytes (%) (Auto) 5 % (24-48) Monocytes (%) (Auto) 2 % (0-9) Eosinophils (%) (Auto) 0 % (0-3) Basophils (%) (Auto) 0 % (0-3) Neutrophils # (Auto) 8.4 x10^3uL (1.8-7.7) Lymphocytes # (Auto) 0.4 x10^3/uL (1.0-4.8) Monocytes # (Auto) 0.2 x10^3/uL (0.0-1.1) Eosinophils # (Auto) 0.0 x10^3/uL (0.0-0.7) Basophils # (Auto) 0.0 x10^3/uL (0.0-0.2) Sodium Level 147 mmol/L (136-145) Potassium Level 4.2 mmol/L (3.5-5.1) Chloride Level 109 mmol/L (98-107) Carbon Dioxide Level 13 mmol/L (21-32) Anion Gap 25 (6-14) Blood Urea Nitrogen 133 mg/dL (7-20) Creatinine 6.8 mg/dL (0.6-1.0) Estimated GFR (Cockcroft-Gault) 7.2 BUN/Creatinine Ratio 20 (6-20) Calcium Level 9.3 mg/dL (8.5-10.1) Total Bilirubin 0.5 mg/dL (0.2-1.0) Aspartate Amino Transf (AST/SGOT) 12 U/L (15-37) Alanine Aminotransferase (ALT/SGPT) 19 U/L (14-59) Alkaline Phosphatase 132 U/L (46-116) Total Protein 6.7 g/dL (6.4-8.2) Albumin 2.8 g/dL (3.4-5.0) Albumin/Globulin Ratio 0.7 (1.0-1.7) Hepatitis B Surface Antigen Nonreactive (Nonreactive) Hepatitis B Surface Antibody Nonreactive Test 06/26/18 20:10 06/26/18 20:11 06/26/18 21:25 06/26/18 22:29 O2 Saturation 99 % (92-99) Arterial Blood pH 7.40 (7.35-7.45) Arterial Blood pCO2 at Patient Temp 21 mmHg (35-46) Arterial Blood pO2 at Patient Temp 321 mmHg (65-108) Arterial Blood HCO3 13 mmol/L (21-28) Arterial Blood Base Excess -11 mmol/L (-3-3) FiO2 99 Glucose (Fingerstick) 339 mg/dL (70-99) 123 mg/dL (70-99) 227 mg/dL (70-99) Test 06/26/18 23:37 06/26/18 23:40 06/27/18 00:43 06/27/18 00:50 Glucose (Fingerstick) 140 mg/dL (70-99) 214 mg/dL (70-99) Sodium Level 143 mmol/L (136-145) Potassium Level 2.8 mmol/L (3.5-5.1) Chloride Level 102 mmol/L (98-107) Carbon Dioxide Level 27 mmol/L (21-32) Anion Gap 14 (6-14) Blood Urea Nitrogen 24 mg/dL (7-20) Creatinine 1.6 mg/dL (0.6-1.0) Estimated GFR (Cockcroft-Gault) 38.3 Glucose Level 147 mg/dL (70-99) Calcium Level 8.5 mg/dL (8.5-10.1) Phosphorus Level 1.7 mg/dL (2.6-4.7) Magnesium Level 1.9 mg/dL (1.8-2.4) Lactic Acid Level 2.4 mmol/L (0.4-2.0) Test 06/27/18 01:52 06/27/18 02:00 06/27/18 02:58 06/27/18 04:01 Glucose (Fingerstick) 180 mg/dL (70-99) 150 mg/dL (70-99) 157 mg/dL (70-99) Sodium Level 143 mmol/L (136-145) Potassium Level 3.5 mmol/L (3.5-5.1) Chloride Level 103 mmol/L (98-107) Carbon Dioxide Level 25 mmol/L (21-32) Anion Gap 15 (6-14) Blood Urea Nitrogen 33 mg/dL (7-20) Creatinine 2.4 mg/dL (0.6-1.0) Estimated GFR (Cockcroft-Gault) 24.0 Glucose Level 175 mg/dL (70-99) Calcium Level 7.5 mg/dL (8.5-10.1) Phosphorus Level 2.4 mg/dL (2.6-4.7) Magnesium Level 1.7 mg/dL (1.8-2.4) Test 06/27/18 05:16 06/27/18 05:18 Glucose (Fingerstick) 180 mg/dL (70-99) White Blood Count 7.8 x10^3/uL (4.0-11.0) Red Blood Count 2.04 x10^6/uL (3.50-5.40) Hemoglobin 6.8 g/dL (12.0-15.5) Hematocrit 20.2 % (36.0-47.0) Mean Corpuscular Volume 99 fL (79-100) Mean Corpuscular Hemoglobin 33 pg (25-35) Mean Corpuscular Hemoglobin Concent 34 g/dL (31-37) Red Cell Distribution Width 15.7 % (11.5-14.5) Platelet Count 292 x10^3/uL (140-400) Neutrophils (%) (Auto) 91 % (31-73) Lymphocytes (%) (Auto) 4 % (24-48) Monocytes (%) (Auto) 5 % (0-9) Eosinophils (%) (Auto) 0 % (0-3) Basophils (%) (Auto) 0 % (0-3) Neutrophils # (Auto) 7.1 x10^3uL (1.8-7.7) Lymphocytes # (Auto) 0.3 x10^3/uL (1.0-4.8) Monocytes # (Auto) 0.4 x10^3/uL (0.0-1.1) Eosinophils # (Auto) 0.0 x10^3/uL (0.0-0.7) Basophils # (Auto) 0.0 x10^3/uL (0.0-0.2) Sodium Level 140 mmol/L (136-145) Potassium Level 3.1 mmol/L (3.5-5.1) Chloride Level 103 mmol/L (98-107) Carbon Dioxide Level 24 mmol/L (21-32) Anion Gap 13 (6-14) Blood Urea Nitrogen 35 mg/dL (7-20) Creatinine 2.7 mg/dL (0.6-1.0) Estimated GFR (Cockcroft-Gault) 21.0 Glucose Level 197 mg/dL (70-99) Calcium Level 7.4 mg/dL (8.5-10.1) Iron Level 15 ug/dL (50-170) Total Iron Binding Capacity 134 ug/dL (250-450) Iron Saturation 11 % (15-34) Ferritin 2822 ng/mL (8-252) Lipase 30629 U/L (73-393) Assessment and Plan Assessmemt and Plan Problems Medical Problems: (1) Acute renal failure Status: Acute (2) 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 Labs Laboratory Tests Test 06/26/18 14:10 06/26/18 14:20 06/26/18 15:00 06/26/18 15:20 White Blood Count 10.3 x10^3/uL (4.0-11.0) Red Blood Count 2.80 x10^6/uL (3.50-5.40) Hemoglobin 9.5 g/dL (12.0-15.5) Hematocrit 31.9 % (36.0-47.0) Mean Corpuscular Volume 114 fL (79-100) Mean Corpuscular Hemoglobin 34 pg (25-35) Mean Corpuscular Hemoglobin Concent 30 g/dL (31-37) Red Cell Distribution Width 17.3 % (11.5-14.5) Platelet Count 587 x10^3/uL (140-400) Neutrophils (%) (Auto) 93 % (31-73) Lymphocytes (%) (Auto) 3 % (24-48) Monocytes (%) (Auto) 4 % (0-9) Eosinophils (%) (Auto) 0 % (0-3) Basophils (%) (Auto) 1 % (0-3) Neutrophils # (Auto) 9.5 x10^3uL (1.8-7.7) Lymphocytes # (Auto) 0.3 x10^3/uL (1.0-4.8) Monocytes # (Auto) 0.4 x10^3/uL (0.0-1.1) Eosinophils # (Auto) 0.0 x10^3/uL (0.0-0.7) Basophils # (Auto) 0.1 x10^3/uL (0.0-0.2) Segmented Neutrophils % 89 % (35-66) Band Neutrophils % 5 % (0-9) Lymphocytes % 1 % (24-48) Monocytes % 3 % (0-10) Basophils % 1 % (0-3) Metamyelocytes % 1 % (0-0) Platelet Estimate Increased (ADEQUATE) Anisocytosis Slight Macrocytosis Marked Prothrombin Time 15.3 SEC (11.7-14.0) Prothromb Time International Ratio 1.3 (0.8-1.1) Sodium Level 131 mmol/L (136-145) Potassium Level 7.6 mmol/L (3.5-5.1) Chloride Level 94 mmol/L (98-107) Carbon Dioxide Level 8 mmol/L (21-32) Anion Gap 29 (6-14) Blood Urea Nitrogen 137 mg/dL (7-20) Creatinine 7.0 mg/dL (0.6-1.0) Estimated GFR (Cockcroft-Gault) 5.8 BUN/Creatinine Ratio 20 (6-20) Glucose Level 1290 mg/dL (70-99) Hemoglobin A1c 13.1 % (4.8-5.6) Lactic Acid Level 1.8 mmol/L (0.4-2.0) Calcium Level 9.6 mg/dL (8.5-10.1) Magnesium Level 3.8 mg/dL (1.8-2.4) Total Bilirubin 0.5 mg/dL (0.2-1.0) Aspartate Amino Transf (AST/SGOT) 17 U/L (15-37) Alanine Aminotransferase (ALT/SGPT) 21 U/L (14-59) Alkaline Phosphatase 159 U/L (46-116) Creatine Kinase 125 U/L (26-192) Troponin I Quantitative 0.019 ng/mL (0.000-0.055) YT-Mcw-V-Type Natriuretic Peptide 320 pg/mL (0-124) Total Protein 8.2 g/dL (6.4-8.2) Albumin 3.4 g/dL (3.4-5.0) Albumin/Globulin Ratio 0.7 (1.0-1.7) Lipase 95821 U/L (73-393) Thyroid Stimulating Hormone (TSH) 0.211 uIU/mL (0.358-3.74) Free Thyroxine 1.67 ng/dL (0.76-1.46) Free Triiodothyronine (T3) pg/mL 1.74 pg/mL (2.18-3.98) Salicylates Level 4.9 mg/dL (2.8-20.0) Salicylate Last Dose Date Unknown Salicylate Last Dose Time Unknown Urine Collection Type U cath Urine Color Yellow Urine Clarity Cloudy Urine pH 5.0 Urine Specific [place] 1.025 Urine Protein 100 mg/dL (NEG-TRACE) Urine Glucose (UA) >=1000 mg/dL (NEG) Urine Ketones (Stick) Negative mg/dL (NEG) Urine Blood Trace (NEG) Urine Nitrite Negative (NEG) Urine Bilirubin Negative (NEG) Urine Urobilinogen Dipstick 0.2 mg/dL (0.2 mg/dL) Urine Leukocyte Esterase Negative (NEG) Urine RBC 1-2 /HPF (0-2) Urine WBC Occ /HPF (0-4) Urine Squamous Epithelial Cells Few /LPF Urine Transitional Epithelial Cells Occ /LPF Urine Amorphous Sediment Present /HPF Urine Bacteria 0 /HPF (0-FEW) Urine Opiates Screen Neg (NEG) Urine Methadone Screen Neg (NEG) Urine Barbiturates Neg (NEG) Urine Phencyclidine Screen Neg (NEG) Urine Amphetamine/Methamphetamine Neg (NEG) Urine Benzodiazepines Screen Neg (NEG) Urine Cocaine Screen Neg (NEG) Urine Cannabinoids Screen Neg (NEG) Urine Ethyl Alcohol Neg (NEG) Ammonia < 10 mcmol/L (11-34) O2 Saturation 97 % (92-99) Arterial Blood pH 7.14 (7.35-7.45) Arterial Blood pCO2 at Patient Temp 19 mmHg (35-46) Arterial Blood pO2 at Patient Temp 113 mmHg (65-108) Arterial Blood HCO3 6 mmol/L (21-28) Arterial Blood Base Excess -21 mmol/L (-3-3) FiO2 21 Test 06/26/18 17:20 06/26/18 19:15 06/26/18 19:29 06/26/18 19:30 Glucose Level 950 mg/dL (70-99) 471 mg/dL (70-99) Lactic Acid Level 3.9 mmol/L (0.4-2.0) 4.9 mmol/L (0.4-2.0) Glucose (Fingerstick) 331 mg/dL (70-99) 459 mg/dL (70-99) White Blood Count 9.0 x10^3/uL (4.0-11.0) Red Blood Count 2.36 x10^6/uL (3.50-5.40) Hemoglobin 8.1 g/dL (12.0-15.5) Hematocrit 24.5 % (36.0-47.0) Mean Corpuscular Volume 104 fL (79-100) Mean Corpuscular Hemoglobin 35 pg (25-35) Mean Corpuscular Hemoglobin Concent 33 g/dL (31-37) Red Cell Distribution Width 16.0 % (11.5-14.5) Platelet Count 462 x10^3/uL (140-400) Neutrophils (%) (Auto) 93 % (31-73) Lymphocytes (%) (Auto) 5 % (24-48) Monocytes (%) (Auto) 2 % (0-9) Eosinophils (%) (Auto) 0 % (0-3) Basophils (%) (Auto) 0 % (0-3) Neutrophils # (Auto) 8.4 x10^3uL (1.8-7.7) Lymphocytes # (Auto) 0.4 x10^3/uL (1.0-4.8) Monocytes # (Auto) 0.2 x10^3/uL (0.0-1.1) Eosinophils # (Auto) 0.0 x10^3/uL (0.0-0.7) Basophils # (Auto) 0.0 x10^3/uL (0.0-0.2) Sodium Level 147 mmol/L (136-145) Potassium Level 4.2 mmol/L (3.5-5.1) Chloride Level 109 mmol/L (98-107) Carbon Dioxide Level 13 mmol/L (21-32) Anion Gap 25 (6-14) Blood Urea Nitrogen 133 mg/dL (7-20) Creatinine 6.8 mg/dL (0.6-1.0) Estimated GFR (Cockcroft-Gault) 7.2 BUN/Creatinine Ratio 20 (6-20) Calcium Level 9.3 mg/dL (8.5-10.1) Total Bilirubin 0.5 mg/dL (0.2-1.0) Aspartate Amino Transf (AST/SGOT) 12 U/L (15-37) Alanine Aminotransferase (ALT/SGPT) 19 U/L (14-59) Alkaline Phosphatase 132 U/L (46-116) Total Protein 6.7 g/dL (6.4-8.2) Albumin 2.8 g/dL (3.4-5.0) Albumin/Globulin Ratio 0.7 (1.0-1.7) Hepatitis B Surface Antigen Nonreactive (Nonreactive) Hepatitis B Surface Antibody Nonreactive Test 06/26/18 20:10 06/26/18 20:11 06/26/18 21:25 06/26/18 22:29 O2 Saturation 99 % (92-99) Arterial Blood pH 7.40 (7.35-7.45) Arterial Blood pCO2 at Patient Temp 21 mmHg (35-46) Arterial Blood pO2 at Patient Temp 321 mmHg (65-108) Arterial Blood HCO3 13 mmol/L (21-28) Arterial Blood Base Excess -11 mmol/L (-3-3) FiO2 99 Glucose (Fingerstick) 339 mg/dL (70-99) 123 mg/dL (70-99) 227 mg/dL (70-99) Test 06/26/18 23:37 06/26/18 23:40 06/27/18 00:43 06/27/18 00:50 Glucose (Fingerstick) 140 mg/dL (70-99) 214 mg/dL (70-99) Sodium Level 143 mmol/L (136-145) Potassium Level 2.8 mmol/L (3.5-5.1) Chloride Level 102 mmol/L (98-107) Carbon Dioxide Level 27 mmol/L (21-32) Anion Gap 14 (6-14) Blood Urea Nitrogen 24 mg/dL (7-20) Creatinine 1.6 mg/dL (0.6-1.0) Estimated GFR (Cockcroft-Gault) 38.3 Glucose Level 147 mg/dL (70-99) Calcium Level 8.5 mg/dL (8.5-10.1) Phosphorus Level 1.7 mg/dL (2.6-4.7) Magnesium Level 1.9 mg/dL (1.8-2.4) Lactic Acid Level 2.4 mmol/L (0.4-2.0) Test 06/27/18 01:52 06/27/18 02:00 06/27/18 02:58 06/27/18 04:01 Glucose (Fingerstick) 180 mg/dL (70-99) 150 mg/dL (70-99) 157 mg/dL (70-99) Sodium Level 143 mmol/L (136-145) Potassium Level 3.5 mmol/L (3.5-5.1) Chloride Level 103 mmol/L (98-107) Carbon Dioxide Level 25 mmol/L (21-32) Anion Gap 15 (6-14) Blood Urea Nitrogen 33 mg/dL (7-20) Creatinine 2.4 mg/dL (0.6-1.0) Estimated GFR (Cockcroft-Gault) 24.0 Glucose Level 175 mg/dL (70-99) Calcium Level 7.5 mg/dL (8.5-10.1) Phosphorus Level 2.4 mg/dL (2.6-4.7) Magnesium Level 1.7 mg/dL (1.8-2.4) Test 06/27/18 05:16 06/27/18 05:18 Glucose (Fingerstick) 180 mg/dL (70-99) White Blood Count 7.8 x10^3/uL (4.0-11.0) Red Blood Count 2.04 x10^6/uL (3.50-5.40) Hemoglobin 6.8 g/dL (12.0-15.5) Hematocrit 20.2 % (36.0-47.0) Mean Corpuscular Volume 99 fL (79-100) Mean Corpuscular Hemoglobin 33 pg (25-35) Mean Corpuscular Hemoglobin Concent 34 g/dL (31-37) Red Cell Distribution Width 15.7 % (11.5-14.5) Platelet Count 292 x10^3/uL (140-400) Neutrophils (%) (Auto) 91 % (31-73) Lymphocytes (%) (Auto) 4 % (24-48) Monocytes (%) (Auto) 5 % (0-9) Eosinophils (%) (Auto) 0 % (0-3) Basophils (%) (Auto) 0 % (0-3) Neutrophils # (Auto) 7.1 x10^3uL (1.8-7.7) Lymphocytes # (Auto) 0.3 x10^3/uL (1.0-4.8) Monocytes # (Auto) 0.4 x10^3/uL (0.0-1.1) Eosinophils # (Auto) 0.0 x10^3/uL (0.0-0.7) Basophils # (Auto) 0.0 x10^3/uL (0.0-0.2) Sodium Level 140 mmol/L (136-145) Potassium Level 3.1 mmol/L (3.5-5.1) Chloride Level 103 mmol/L (98-107) Carbon Dioxide Level 24 mmol/L (21-32) Anion Gap 13 (6-14) Blood Urea Nitrogen 35 mg/dL (7-20) Creatinine 2.7 mg/dL (0.6-1.0) Estimated GFR (Cockcroft-Gault) 21.0 Glucose Level 197 mg/dL (70-99) Calcium Level 7.4 mg/dL (8.5-10.1) Iron Level 15 ug/dL (50-170) Total Iron Binding Capacity 134 ug/dL (250-450) Iron Saturation 11 % (15-34) Ferritin 2822 ng/mL (8-252) Lipase 15085 U/L (73-393) Laboratory Tests Test 06/26/18 14:10 06/26/18 14:20 06/26/18 15:00 06/26/18 15:20 White Blood Count 10.3 x10^3/uL (4.0-11.0) Red Blood Count 2.80 x10^6/uL (3.50-5.40) Hemoglobin 9.5 g/dL (12.0-15.5) Hematocrit 31.9 % (36.0-47.0) Mean Corpuscular Volume 114 fL (79-100) Mean Corpuscular Hemoglobin 34 pg (25-35) Mean Corpuscular Hemoglobin Concent 30 g/dL (31-37) Red Cell Distribution Width 17.3 % (11.5-14.5) Platelet Count 587 x10^3/uL (140-400) Neutrophils (%) (Auto) 93 % (31-73) Lymphocytes (%) (Auto) 3 % (24-48) Monocytes (%) (Auto) 4 % (0-9) Eosinophils (%) (Auto) 0 % (0-3) Basophils (%) (Auto) 1 % (0-3) Neutrophils # (Auto) 9.5 x10^3uL (1.8-7.7) Lymphocytes # (Auto) 0.3 x10^3/uL (1.0-4.8) Monocytes # (Auto) 0.4 x10^3/uL (0.0-1.1) Eosinophils # (Auto) 0.0 x10^3/uL (0.0-0.7) Basophils # (Auto) 0.1 x10^3/uL (0.0-0.2) Segmented Neutrophils % 89 % (35-66) Band Neutrophils % 5 % (0-9) Lymphocytes % 1 % (24-48) Monocytes % 3 % (0-10) Basophils % 1 % (0-3) Metamyelocytes % 1 % (0-0) Platelet Estimate Increased (ADEQUATE) Anisocytosis Slight Macrocytosis Marked Prothrombin Time 15.3 SEC (11.7-14.0) Prothromb Time International Ratio 1.3 (0.8-1.1) Sodium Level 131 mmol/L (136-145) Potassium Level 7.6 mmol/L (3.5-5.1) Chloride Level 94 mmol/L (98-107) Carbon Dioxide Level 8 mmol/L (21-32) Anion Gap 29 (6-14) Blood Urea Nitrogen 137 mg/dL (7-20) Creatinine 7.0 mg/dL (0.6-1.0) Estimated GFR (Cockcroft-Gault) 5.8 BUN/Creatinine Ratio 20 (6-20) Glucose Level 1290 mg/dL (70-99) Hemoglobin A1c 13.1 % (4.8-5.6) Lactic Acid Level 1.8 mmol/L (0.4-2.0) Calcium Level 9.6 mg/dL (8.5-10.1) Magnesium Level 3.8 mg/dL (1.8-2.4) Total Bilirubin 0.5 mg/dL (0.2-1.0) Aspartate Amino Transf (AST/SGOT) 17 U/L (15-37) Alanine Aminotransferase (ALT/SGPT) 21 U/L (14-59) Alkaline Phosphatase 159 U/L (46-116) Creatine Kinase 125 U/L (26-192) Troponin I Quantitative 0.019 ng/mL (0.000-0.055) JS-[id number]-[id number]-Type Natriuretic Peptide 320 pg/mL (0-124) Total Protein 8.2 g/dL (6.4-8.2) Albumin 3.4 g/dL (3.4-5.0) Albumin/Globulin Ratio 0.7 (1.0-1.7) Lipase 59319 U/L (73-393) Thyroid Stimulating Hormone (TSH) 0.211 uIU/mL (0.358-3.74) Free Thyroxine 1.67 ng/dL (0.76-1.46) Free Triiodothyronine (T3) pg/mL 1.74 pg/mL (2.18-3.98) Salicylates Level 4.9 mg/dL (2.8-20.0) Salicylate Last Dose Date Unknown Salicylate Last Dose Time Unknown Urine Collection Type U cath Urine Color Yellow Urine Clarity Cloudy Urine pH 5.0 Urine Specific [place] 1.025 Urine Protein 100 mg/dL (NEG-TRACE) Urine Glucose (UA) >=1000 mg/dL (NEG) Urine Ketones (Stick) Negative mg/dL (NEG) Urine Blood Trace (NEG) Urine Nitrite Negative (NEG) Urine Bilirubin Negative (NEG) Urine Urobilinogen Dipstick 0.2 mg/dL (0.2 mg/dL) Urine Leukocyte Esterase Negative (NEG) Urine RBC 1-2 /HPF (0-2) Urine WBC Occ /HPF (0-4) Urine Squamous Epithelial Cells Few /LPF Urine Transitional Epithelial Cells Occ /LPF Urine Amorphous Sediment Present /HPF Urine Bacteria 0 /HPF (0-FEW) Urine Opiates Screen Neg (NEG) Urine Methadone Screen Neg (NEG) Urine Barbiturates Neg (NEG) Urine Phencyclidine Screen Neg (NEG) Urine Amphetamine/Methamphetamine Neg (NEG) Urine Benzodiazepines Screen Neg (NEG) Urine Cocaine Screen Neg (NEG) Urine Cannabinoids Screen Neg (NEG) Urine Ethyl Alcohol Neg (NEG) Ammonia < 10 mcmol/L (11-34) O2 Saturation 97 % (92-99) Arterial Blood pH 7.14 (7.35-7.45) Arterial Blood pCO2 at Patient Temp 19 mmHg (35-46) Arterial Blood pO2 at Patient Temp 113 mmHg (65-108) Arterial Blood HCO3 6 mmol/L (21-28) Arterial Blood Base Excess -21 mmol/L (-3-3) FiO2 21 Test 06/26/18 17:20 06/26/18 19:15 06/26/18 19:29 06/26/18 19:30 Glucose Level 950 mg/dL (70-99) 471 mg/dL (70-99) Lactic Acid Level 3.9 mmol/L (0.4-2.0) 4.9 mmol/L (0.4-2.0) Glucose (Fingerstick) 331 mg/dL (70-99) 459 mg/dL (70-99) White Blood Count 9.0 x10^3/uL (4.0-11.0) Red Blood Count 2.36 x10^6/uL (3.50-5.40) Hemoglobin 8.1 g/dL (12.0-15.5) Hematocrit 24.5 % (36.0-47.0) Mean Corpuscular Volume 104 fL (79-100) Mean Corpuscular Hemoglobin 35 pg (25-35) Mean Corpuscular Hemoglobin Concent 33 g/dL (31-37) Red Cell Distribution Width 16.0 % (11.5-14.5) Platelet Count 462 x10^3/uL (140-400) Neutrophils (%) (Auto) 93 % (31-73) Lymphocytes (%) (Auto) 5 % (24-48) Monocytes (%) (Auto) 2 % (0-9) Eosinophils (%) (Auto) 0 % (0-3) Basophils (%) (Auto) 0 % (0-3) Neutrophils # (Auto) 8.4 x10^3uL (1.8-7.7) Lymphocytes # (Auto) 0.4 x10^3/uL (1.0-4.8) Monocytes # (Auto) 0.2 x10^3/uL (0.0-1.1) Eosinophils # (Auto) 0.0 x10^3/uL (0.0-0.7) Basophils # (Auto) 0.0 x10^3/uL (0.0-0.2) Sodium Level 147 mmol/L (136-145) Potassium Level 4.2 mmol/L (3.5-5.1) Chloride Level 109 mmol/L (98-107) Carbon Dioxide Level 13 mmol/L (21-32) Anion Gap 25 (6-14) Blood Urea Nitrogen 133 mg/dL (7-20) Creatinine 6.8 mg/dL (0.6-1.0) Estimated GFR (Cockcroft-Gault) 7.2 BUN/Creatinine Ratio 20 (6-20) Calcium Level 9.3 mg/dL (8.5-10.1) Total Bilirubin 0.5 mg/dL (0.2-1.0) Aspartate Amino Transf (AST/SGOT) 12 U/L (15-37) Alanine Aminotransferase (ALT/SGPT) 19 U/L (14-59) Alkaline Phosphatase 132 U/L (46-116) Total Protein 6.7 g/dL (6.4-8.2) Albumin 2.8 g/dL (3.4-5.0) Albumin/Globulin Ratio 0.7 (1.0-1.7) Hepatitis B Surface Antigen Nonreactive (Nonreactive) Hepatitis B Surface Antibody Nonreactive Test 06/26/18 20:10 06/26/18 20:11 06/26/18 21:25 06/26/18 22:29 O2 Saturation 99 % (92-99) Arterial Blood pH 7.40 (7.35-7.45) Arterial Blood pCO2 at Patient Temp 21 mmHg (35-46) Arterial Blood pO2 at Patient Temp 321 mmHg (65-108) Arterial Blood HCO3 13 mmol/L (21-28) Arterial Blood Base Excess -11 mmol/L (-3-3) FiO2 99 Glucose (Fingerstick) 339 mg/dL (70-99) 123 mg/dL (70-99) 227 mg/dL (70-99) Test 06/26/18 23:37 06/26/18 23:40 06/27/18 00:43 06/27/18 00:50 Glucose (Fingerstick) 140 mg/dL (70-99) 214 mg/dL (70-99) Sodium Level 143 mmol/L (136-145) Potassium Level 2.8 mmol/L (3.5-5.1) Chloride Level 102 mmol/L (98-107) Carbon Dioxide Level 27 mmol/L (21-32) Anion Gap 14 (6-14) Blood Urea Nitrogen 24 mg/dL (7-20) Creatinine 1.6 mg/dL (0.6-1.0) Estimated GFR (Cockcroft-Gault) 38.3 Glucose Level 147 mg/dL (70-99) Calcium Level 8.5 mg/dL (8.5-10.1) Phosphorus Level 1.7 mg/dL (2.6-4.7) Magnesium Level 1.9 mg/dL (1.8-2.4) Lactic Acid Level 2.4 mmol/L (0.4-2.0) Test 06/27/18 01:52 06/27/18 02:00 06/27/18 02:58 06/27/18 04:01 Glucose (Fingerstick) 180 mg/dL (70-99) 150 mg/dL (70-99) 157 mg/dL (70-99) Sodium Level 143 mmol/L (136-145) Potassium Level 3.5 mmol/L (3.5-5.1) Chloride Level 103 mmol/L (98-107) Carbon Dioxide Level 25 mmol/L (21-32) Anion Gap 15 (6-14) Blood Urea Nitrogen 33 mg/dL (7-20) Creatinine 2.4 mg/dL (0.6-1.0) Estimated GFR (Cockcroft-Gault) 24.0 Glucose Level 175 mg/dL (70-99) Calcium Level 7.5 mg/dL (8.5-10.1) Phosphorus Level 2.4 mg/dL (2.6-4.7) Magnesium Level 1.7 mg/dL (1.8-2.4) Test 06/27/18 05:16 06/27/18 05:18 Glucose (Fingerstick) 180 mg/dL (70-99) White Blood Count 7.8 x10^3/uL (4.0-11.0) Red Blood Count 2.04 x10^6/uL (3.50-5.40) Hemoglobin 6.8 g/dL (12.0-15.5) Hematocrit 20.2 % (36.0-47.0) Mean Corpuscular Volume 99 fL (79-100) Mean Corpuscular Hemoglobin 33 pg (25-35) Mean Corpuscular Hemoglobin Concent 34 g/dL (31-37) Red Cell Distribution Width 15.7 % (11.5-14.5) Platelet Count 292 x10^3/uL (140-400) Neutrophils (%) (Auto) 91 % (31-73) Lymphocytes (%) (Auto) 4 % (24-48) Monocytes (%) (Auto) 5 % (0-9) Eosinophils (%) (Auto) 0 % (0-3) Basophils (%) (Auto) 0 % (0-3) Neutrophils # (Auto) 7.1 x10^3uL (1.8-7.7) Lymphocytes # (Auto) 0.3 x10^3/uL (1.0-4.8) Monocytes # (Auto) 0.4 x10^3/uL (0.0-1.1) Eosinophils # (Auto) 0.0 x10^3/uL (0.0-0.7) Basophils # (Auto) 0.0 x10^3/uL (0.0-0.2) Sodium Level 140 mmol/L (136-145) Potassium Level 3.1 mmol/L (3.5-5.1) Chloride Level 103 mmol/L (98-107) Carbon Dioxide Level 24 mmol/L (21-32) Anion Gap 13 (6-14) Blood Urea Nitrogen 35 mg/dL (7-20) Creatinine 2.7 mg/dL (0.6-1.0) Estimated GFR (Cockcroft-Gault) 21.0 Glucose Level 197 mg/dL (70-99) Calcium Level 7.4 mg/dL (8.5-10.1) Iron Level 15 ug/dL (50-170) Total Iron Binding Capacity 134 ug/dL (250-450) Iron Saturation 11 % (15-34) Ferritin 2822 ng/mL (8-252) Lipase 00098 U/L (73-393) Medications Current Medications Sodium Chloride 1,000 ml @ 1,000 mls/hr 1X ONCE IV Last administered on 06/26at 14:37; Start 06/26/18 at 14:15; Stop 06/26/18 at 15:14; Status DC Nystatin (Nystop) 1 nato 1X STAT TP Last administered on 06/26/18at 15:56; Start 06/26/18 at 14:45; Stop 06/26/18 at 14:47; Status DC Sodium Bicarbonate (Sodium Bicarb Adult 8.4% Syr) 50 meq 1X ONCE IV Last administered on 06/26/18at 15:57; Start 06/26/18 at 15:15; Stop 06/26/18 at 15 :16; Status DC Albuterol Sulfate (Ventolin Neb Soln) 10 mg 1X ONCE CONT NEB ; Start 06/26/18 at 15:15; Stop 06/26/18 at 15:16; Status DC Insulin Human Regular (HumuLIN R VIAL) 10 unit 1X ONCE IV Last administered on 06/26/18at 15:51; Start 06/26/18 at 15:15; Stop 06/26/18 at 15:16; Status DC Insulin Human Regular 150 ml @ 0 mls/hr 1X ONCE IV Last administered on at 15:56; Start 06/26/18 at 15:15; Stop 06/26/18 at 15:16; Status DC Sodium Chloride 1,000 ml @ 1,000 mls/hr 1X ONCE IV Last administered on 06/26at 18:21; Start 06/26/18 at 15:15; Stop 06/26/18 at 16:14; Status DC Calcium Gluconate (Calcium Gluconate) 1,000 mg 1X ONCE IVP Last administered on 06/26/18at 15:48; Start 06/26/18 at 15:45; Stop 06/26/18 at 15:46; Status DC Piperacillin Sod/ Tazobactam Sod 2.25 gm/Sodium Chloride 50 ml @ 100 mls/hr 1X ONCE IV Last administered on 06/26/18at 18:24; Start 06/26/18 at 16:15; Stop 06/26/18 at 16:44; Status DC Lidocaine/Sodium Bicarbonate (Buffered Lidocaine 1%) 3 ml 1X ONCE INJ Last administered on 06/26/18at 17:08; Start 06/26/18 at 16:15; Stop 06/26/18 at 16 :21; Status DC Heparin Sodium (Porcine) (Heparin Sodium) 2,600 unit 1X ONCE INT CAT Last administered on 06/26/18at 17:09; Start 06/26/18 at 16:15; Stop 06/26/18 at 16 :21; Status DC Heparin Sodium (Porcine) (Heparin Sodium) 10,000 unit STK-MED ONCE .ROUTE ; Start 06/26/18 at 16:14; Stop 06/26/18 at 16:15; Status DC Heparin Sodium (Porcine) (Heparin Sodium) 5,000 unit Q8HRS SQ Last administered on 06/27/18at 05:38; Start 06/26/18 at 22:00 Pantoprazole Sodium (PROTONIX VIAL for IV PUSH) 40 mg DAILYAC IVP ; Start 06/27 at 07:30 Insulin Human Regular 150 unit/ Sodium Chloride 151.5 ml @ 0 mls/hr CONT PRN IV SEE I/O RECORD Last administered on 06/27/18at 00:55; Start 06/26/18 at 17: 00 Acetaminophen (Tylenol) 650 mg PRN Q6HRS PRN PO FEVER; Start 06/26/18 at 17:15 Ondansetron HCl (Zofran) 4 mg PRN Q6HRS PRN IV NAUSEA/VOMITING; Start at 17:15 Morphine Sulfate (Morphine Sulfate) 2 mg PRN Q2HR PRN IV MODERATE TO SEVERE PAIN; Start 06/26/18 at 17:15 Tramadol HCl (Ultram) 50 mg PRN Q6HRS PRN PO MILD TO MODERATE PAIN; Start at 17:15 Docusate Sodium (Colace) 100 mg PRN DAILY PRN PO CONSTIPATION; Start 06/26/18 at 17:15 Labetalol HCl (Normodyne Iv Push) 20 mg PRN Q2HR PRN IVP HYPERTENSION, SEE COMMENTS; Start 06/26/18 at 17:15 Lidocaine/Sodium Bicarbonate (Buffered Lidocaine 1%) 6 ml 1X ONCE INJ ; Start 06/26/18 at 17:15; Stop 06/26/18 at 17:16; Status DC Sodium Bicarbonate (Sodium Bicarb Adult 8.4% Syr) 100 meq 1X ONCE IV Last administered on 06/26/18at 20:00; Start 06/26/18 at 19:30; Stop 06/26/18 at 19 :31; Status DC Midazolam HCl 100 ml @ 5 mls/hr CONT PRN IV SEE I/O RECORD Last administered on 06/27/18at 03:34; Start 06/26/18 at 19:00 Midazolam HCl (Versed) 5 mg PRN Q2HR PRN IV SEDATION; Start 06/26/18 at 19:00 Norepinephrine Bitartrate 250 ml @ 1.875 mls/ hr CONT PRN IV SEE I/O RECORD Last administered on 06/26/18at 21:43; Start 06/26/18 at 19:15 Sodium Chloride 1,000 ml @ 1,000 mls/hr Q1H PRN IV hypotension; Start at 19:17; Stop 06/27/18 at 01:16; Status DC Sodium Chloride 1,000 ml @ 400 mls/hr Q2H30M PRN IV PATENCY; Start 06/26/18 at 19:17; Stop 06/27/18 at 07:16; Status DC Info (PHARMACY MONITORING -- do not chart) 1 each PRN DAILY PRN MC SEE COMMENTS ; Start 06/26/18 at 19:30 Info (PHARMACY MONITORING -- do not chart) 1 each PRN DAILY PRN MC SEE COMMENTS ; Start 06/26/18 at 19:30 Dextrose/Sodium Chloride 1,000 ml @ 250 mls/hr 1X ONCE IV Last administered on 06/26/18at 21:43; Start 06/26/18 at 22:00; Stop 06/27/18 at 01:59; Status DC Vancomycin HCl (Vanco Per Pharmacy) 1 each PRN DAILY PRN MC SEE COMMENTS Last administered on 06/27/18at 02:13; Start 06/26/18 at 22:00 Piperacillin Sod/ Tazobactam Sod (Zosyn Per Pharmacy) 1 each PRN DAILY PRN MC SEE COMMENTS; Start 06/26/18 at 22:00 Piperacillin Sod/ Tazobactam Sod 2.25 gm/Sodium Chloride 50 ml @ 100 mls/hr Q8HRS IV Last administered on 06/27/18at 05:38; Start 06/26/18 at 22:00 Vancomycin HCl 1.5 gm/Sodium Chloride 500 ml @ 250 mls/hr 1X ONCE IV Last administered on 06/26/18at 23:29; Start 06/26/18 at 23:00; Stop 06/27/18 at 00 :59; Status DC Active Scripts Active Reported Unable To Obtain Meds From Prior To Admit (Info) Each 1 Each Vitals/I & O Vital Sign - Last 24 Hours 06/26/18 06/26/18 06/26/18 06/26/18 14:03 14:21 15:02 15:17 Temp 88.8 88.8 Pulse 109 78 80 86 Resp 8 8 10 10 B/P (MAP) 200/94 (129) Pulse Ox 98 98 100 100 O2 Delivery Room Air 06/26/18 06/26/18 06/26/18 06/26/18 15:32 16:02 16:32 16:47 Pulse 91 100 99 95 Resp 8 10 10 8 Pulse Ox 100 100 100 100 06/26/18 06/26/18 06/26/18 06/26/18 17:02 17:17 18:02 18:17 Pulse 92 90 105 107 Resp 8 10 8 8 Pulse Ox 100 100 100 100 06/26/18 06/26/18 06/26/18 06/26/18 18:32 19:00 19:15 19:20 Temp 97.5 97.5 Pulse 107 98 98 Resp 10 32 34 B/P (MAP) 113/43 (66) 101/37 (58) Pulse Ox 100 100 100 100 O2 Delivery Room Air Room Air Ventilator 06/26/18 06/26/18 06/26/18 06/26/18 19:30 19:45 20:00 20:00 Pulse 88 84 100 Resp 20 20 20 B/P (MAP) 67/41 (50) 55/40 (45) 123/62 (82) Pulse Ox 100 100 100 O2 Delivery Ventilator Ventilator Ventilator Mechanical Ventilator 06/26/18 06/26/18 06/26/18 06/26/18 20:15 20:45 21:00 21:10 Pulse 96 126 104 Resp 20 18 18 B/P (MAP) 118/59 (78) 215/70 (118) 143/65 (91) Pulse Ox 100 100 100 O2 Delivery Ventilator Ventilator Ventilator Ventilator 06/26/18 06/26/18 06/26/18 06/26/18 22:00 23:00 23:36 23:59 Temp 97.6 97.6 Pulse 113 110 Resp 18 18 B/P (MAP) 100/56 (71) 121/71 (88) Pulse Ox 100 100 100 O2 Delivery Ventilator Ventilator Ventilator Mechanical Ventilator 06/27/18 06/27/18 06/27/18 06/27/18 00:00 01:00 01:10 02:00 Pulse 100 104 96 Resp 18 18 18 B/P (MAP) 140/57 (84) 77/48 (58) 131/64 (86) Pulse Ox 100 100 100 100 O2 Delivery Ventilator Ventilator Ventilator Ventilator 06/27/18 06/27/18 06/27/18 06/27/18 03:00 03:05 04:00 04:00 Temp 97.7 97.7 Pulse 96 98 Resp 18 18 B/P (MAP) 137/54 (81) 127/51 (76) Pulse Ox 100 99 100 O2 Delivery Ventilator Ventilator Ventilator Mechanical Ventilator 06/27/18 06/27/18 06/27/18 05:00 05:20 06:00 Pulse 98 97 Resp 18 18 B/P (MAP) 131/52 (78) 128/57 (80) Pulse Ox 100 100 100 O2 Delivery Ventilator Ventilator Ventilator Intake and Output 06/26/18 06/26/18 06/27/18 15:00 23:00 07:00 Intake Total 2000 ml 662 ml Output Total 215 ml 181 ml Balance 1785 ml 481 ml BHARATH ROSEN MD Jun 27, 2018 07:22
[2018-06-27] MEDS: PANTOPRAZOLE IV PUSH 40 MG VIAL. IVP SCH (07:45)
[2018-06-27 08:47] LABS: BASE EXCESS ABG -1 mmol/L (-3-3); HCO3 ABG 21 mmol/L (21-28); PCO2 ABG 24 mmHg (35-46); PO2 ABG 170 mmHg (65-108); SAT O2 ABG 99 % (92-99)
[2018-06-27 08:51] LABS: FECAL OB PT POSITIVE (NEG)
[2018-06-27 08:57] LABS: FIO2 ABG 40
--- NOTE | 2018-06-27 09:08 | PDOC2 ---
GI CONSULT Reason For Consult: Lipase high HPI: HPI: 73 y/o female, intubated w/ light sedation in ICU. No family present, history from chart and RN. Found down at home by son. Multiple lab abnormalities - Hgb 9.8 (now 6.8), MCV 114, Cr 7 (now 2.7), K 7.6 ( now 3.1), CO2 8, glucose 1290 (A1c 13.1, last check 197), lactic 2.4 (from 4.9) , lipase 65490 (now 60974), iron 15, TIBC 134, sat 11. On CT: suboptimal eval of pancreas w/ evidence of retroperitoneal fluid, wall thickening of duodenal and proximal jejunum, GB not well seen. S/p code blue during dialysis last night. Per RN, known h/o ESRD - has refused dialysis in the past. Dark watery stools. Asking about tube feeds vs TPN. Has IV PPI ordered. PMH: PMH: per chart - CVA w/ left-sided weakness, DM, ESRD ROS: Unable to obtain. Vitals: Vitals: Vital Signs Date Time Temp Pulse Resp B/P (MAP) Pulse Ox O2 Delivery O2 Flow Rate FiO2 06/27/18 07:52 100 Ventilator 06/27/18 06:00 97 18 128/57 (80) 06/27/18 04:00 97.7 97.7 Labs: Labs: Laboratory Tests Test 06/26/18 14:10 06/26/18 14:20 06/26/18 15:00 06/26/18 15:20 White Blood Count 10.3 x10^3/uL (4.0-11.0) Red Blood Count 2.80 x10^6/uL (3.50-5.40) Hemoglobin 9.5 g/dL (12.0-15.5) Hematocrit 31.9 % (36.0-47.0) Mean Corpuscular Volume 114 fL (79-100) Mean Corpuscular Hemoglobin 34 pg (25-35) Mean Corpuscular Hemoglobin Concent 30 g/dL (31-37) Red Cell Distribution Width 17.3 % (11.5-14.5) Platelet Count 587 x10^3/uL (140-400) Neutrophils (%) (Auto) 93 % (31-73) Lymphocytes (%) (Auto) 3 % (24-48) Monocytes (%) (Auto) 4 % (0-9) Eosinophils (%) (Auto) 0 % (0-3) Basophils (%) (Auto) 1 % (0-3) Neutrophils # (Auto) 9.5 x10^3uL (1.8-7.7) Lymphocytes # (Auto) 0.3 x10^3/uL (1.0-4.8) Monocytes # (Auto) 0.4 x10^3/uL (0.0-1.1) Eosinophils # (Auto) 0.0 x10^3/uL (0.0-0.7) Basophils # (Auto) 0.1 x10^3/uL (0.0-0.2) Segmented Neutrophils % 89 % (35-66) Band Neutrophils % 5 % (0-9) Lymphocytes % 1 % (24-48) Monocytes % 3 % (0-10) Basophils % 1 % (0-3) Metamyelocytes % 1 % (0-0) Platelet Estimate Increased (ADEQUATE) Anisocytosis Slight Macrocytosis Marked Prothrombin Time 15.3 SEC (11.7-14.0) Prothromb Time International Ratio 1.3 (0.8-1.1) Sodium Level 131 mmol/L (136-145) Potassium Level 7.6 mmol/L (3.5-5.1) Chloride Level 94 mmol/L (98-107) Carbon Dioxide Level 8 mmol/L (21-32) Anion Gap 29 (6-14) Blood Urea Nitrogen 137 mg/dL (7-20) Creatinine 7.0 mg/dL (0.6-1.0) Estimated GFR (Cockcroft-Gault) 5.8 BUN/Creatinine Ratio 20 (6-20) Glucose Level 1290 mg/dL (70-99) Hemoglobin A1c 13.1 % (4.8-5.6) Lactic Acid Level 1.8 mmol/L (0.4-2.0) Calcium Level 9.6 mg/dL (8.5-10.1) Magnesium Level 3.8 mg/dL (1.8-2.4) Total Bilirubin 0.5 mg/dL (0.2-1.0) Aspartate Amino Transf (AST/SGOT) 17 U/L (15-37) Alanine Aminotransferase (ALT/SGPT) 21 U/L (14-59) Alkaline Phosphatase 159 U/L (46-116) Creatine Kinase 125 U/L (26-192) Troponin I Quantitative 0.019 ng/mL (0.000-0.055) GX-Hqv-C-Type Natriuretic Peptide 320 pg/mL (0-124) Total Protein 8.2 g/dL (6.4-8.2) Albumin 3.4 g/dL (3.4-5.0) Albumin/Globulin Ratio 0.7 (1.0-1.7) Lipase 54884 U/L (73-393) Thyroid Stimulating Hormone (TSH) 0.211 uIU/mL (0.358-3.74) Free Thyroxine 1.67 ng/dL (0.76-1.46) Free Triiodothyronine (T3) pg/mL 1.74 pg/mL (2.18-3.98) Salicylates Level 4.9 mg/dL (2.8-20.0) Salicylate Last Dose Date Unknown Salicylate Last Dose Time Unknown Urine Collection Type U cath Urine Color Yellow Urine Clarity Cloudy Urine pH 5.0 Urine Specific [place] 1.025 Urine Protein 100 mg/dL (NEG-TRACE) Urine Glucose (UA) >=1000 mg/dL (NEG) Urine Ketones (Stick) Negative mg/dL (NEG) Urine Blood Trace (NEG) Urine Nitrite Negative (NEG) Urine Bilirubin Negative (NEG) Urine Urobilinogen Dipstick 0.2 mg/dL (0.2 mg/dL) Urine Leukocyte Esterase Negative (NEG) Urine RBC 1-2 /HPF (0-2) Urine WBC Occ /HPF (0-4) Urine Squamous Epithelial Cells Few /LPF Urine Transitional Epithelial Cells Occ /LPF Urine Amorphous Sediment Present /HPF Urine Bacteria 0 /HPF (0-FEW) Urine Opiates Screen Neg (NEG) Urine Methadone Screen Neg (NEG) Urine Barbiturates Neg (NEG) Urine Phencyclidine Screen Neg (NEG) Urine Amphetamine/Methamphetamine Neg (NEG) Urine Benzodiazepines Screen Neg (NEG) Urine Cocaine Screen Neg (NEG) Urine Cannabinoids Screen Neg (NEG) Urine Ethyl Alcohol Neg (NEG) Ammonia < 10 mcmol/L (11-34) O2 Saturation 97 % (92-99) Arterial Blood pH 7.14 (7.35-7.45) Arterial Blood pCO2 at Patient Temp 19 mmHg (35-46) Arterial Blood pO2 at Patient Temp 113 mmHg (65-108) Arterial Blood HCO3 6 mmol/L (21-28) Arterial Blood Base Excess -21 mmol/L (-3-3) FiO2 21 Test 06/26/18 17:20 06/26/18 19:15 06/26/18 19:29 06/26/18 19:30 Glucose Level 950 mg/dL (70-99) 471 mg/dL (70-99) Lactic Acid Level 3.9 mmol/L (0.4-2.0) 4.9 mmol/L (0.4-2.0) Glucose (Fingerstick) 331 mg/dL (70-99) 459 mg/dL (70-99) White Blood Count 9.0 x10^3/uL (4.0-11.0) Red Blood Count 2.36 x10^6/uL (3.50-5.40) Hemoglobin 8.1 g/dL (12.0-15.5) Hematocrit 24.5 % (36.0-47.0) Mean Corpuscular Volume 104 fL (79-100) Mean Corpuscular Hemoglobin 35 pg (25-35) Mean Corpuscular Hemoglobin Concent 33 g/dL (31-37) Red Cell Distribution Width 16.0 % (11.5-14.5) Platelet Count 462 x10^3/uL (140-400) Neutrophils (%) (Auto) 93 % (31-73) Lymphocytes (%) (Auto) 5 % (24-48) Monocytes (%) (Auto) 2 % (0-9) Eosinophils (%) (Auto) 0 % (0-3) Basophils (%) (Auto) 0 % (0-3) Neutrophils # (Auto) 8.4 x10^3uL (1.8-7.7) Lymphocytes # (Auto) 0.4 x10^3/uL (1.0-4.8) Monocytes # (Auto) 0.2 x10^3/uL (0.0-1.1) Eosinophils # (Auto) 0.0 x10^3/uL (0.0-0.7) Basophils # (Auto) 0.0 x10^3/uL (0.0-0.2) Sodium Level 147 mmol/L (136-145) Potassium Level 4.2 mmol/L (3.5-5.1) Chloride Level 109 mmol/L (98-107) Carbon Dioxide Level 13 mmol/L (21-32) Anion Gap 25 (6-14) Blood Urea Nitrogen 133 mg/dL (7-20) Creatinine 6.8 mg/dL (0.6-1.0) Estimated GFR (Cockcroft-Gault) 7.2 BUN/Creatinine Ratio 20 (6-20) Calcium Level 9.3 mg/dL (8.5-10.1) Total Bilirubin 0.5 mg/dL (0.2-1.0) Aspartate Amino Transf (AST/SGOT) 12 U/L (15-37) Alanine Aminotransferase (ALT/SGPT) 19 U/L (14-59) Alkaline Phosphatase 132 U/L (46-116) Total Protein 6.7 g/dL (6.4-8.2) Albumin 2.8 g/dL (3.4-5.0) Albumin/Globulin Ratio 0.7 (1.0-1.7) Hepatitis B Surface Antigen Nonreactive (Nonreactive) Hepatitis B Surface Antibody Nonreactive Test 06/26/18 20:10 06/26/18 20:11 06/26/18 21:25 06/26/18 22:29 O2 Saturation 99 % (92-99) Arterial Blood pH 7.40 (7.35-7.45) Arterial Blood pCO2 at Patient Temp 21 mmHg (35-46) Arterial Blood pO2 at Patient Temp 321 mmHg (65-108) Arterial Blood HCO3 13 mmol/L (21-28) Arterial Blood Base Excess -11 mmol/L (-3-3) FiO2 99 Glucose (Fingerstick) 339 mg/dL (70-99) 123 mg/dL (70-99) 227 mg/dL (70-99) Test 06/26/18 23:37 06/26/18 23:40 06/27/18 00:43 06/27/18 00:50 Glucose (Fingerstick) 140 mg/dL (70-99) 214 mg/dL (70-99) Sodium Level 143 mmol/L (136-145) Potassium Level 2.8 mmol/L (3.5-5.1) Chloride Level 102 mmol/L (98-107) Carbon Dioxide Level 27 mmol/L (21-32) Anion Gap 14 (6-14) Blood Urea Nitrogen 24 mg/dL (7-20) Creatinine 1.6 mg/dL (0.6-1.0) Estimated GFR (Cockcroft-Gault) 38.3 Glucose Level 147 mg/dL (70-99) Calcium Level 8.5 mg/dL (8.5-10.1) Phosphorus Level 1.7 mg/dL (2.6-4.7) Magnesium Level 1.9 mg/dL (1.8-2.4) Lactic Acid Level 2.4 mmol/L (0.4-2.0) Test 06/27/18 01:52 06/27/18 02:00 06/27/18 02:58 06/27/18 04:01 Glucose (Fingerstick) 180 mg/dL (70-99) 150 mg/dL (70-99) 157 mg/dL (70-99) Sodium Level 143 mmol/L (136-145) Potassium Level 3.5 mmol/L (3.5-5.1) Chloride Level 103 mmol/L (98-107) Carbon Dioxide Level 25 mmol/L (21-32) Anion Gap 15 (6-14) Blood Urea Nitrogen 33 mg/dL (7-20) Creatinine 2.4 mg/dL (0.6-1.0) Estimated GFR (Cockcroft-Gault) 24.0 Glucose Level 175 mg/dL (70-99) Calcium Level 7.5 mg/dL (8.5-10.1) Phosphorus Level 2.4 mg/dL (2.6-4.7) Magnesium Level 1.7 mg/dL (1.8-2.4) Test 06/27/18 05:16 06/27/18 05:18 06/27/18 07:31 06/27/18 08:00 Glucose (Fingerstick) 180 mg/dL (70-99) 247 mg/dL (70-99) White Blood Count 7.8 x10^3/uL (4.0-11.0) Red Blood Count 2.04 x10^6/uL (3.50-5.40) Hemoglobin 6.8 g/dL (12.0-15.5) Hematocrit 20.2 % (36.0-47.0) Mean Corpuscular Volume 99 fL (79-100) Mean Corpuscular Hemoglobin 33 pg (25-35) Mean Corpuscular Hemoglobin Concent 34 g/dL (31-37) Red Cell Distribution Width 15.7 % (11.5-14.5) Platelet Count 292 x10^3/uL (140-400) Neutrophils (%) (Auto) 91 % (31-73) Lymphocytes (%) (Auto) 4 % (24-48) Monocytes (%) (Auto) 5 % (0-9) Eosinophils (%) (Auto) 0 % (0-3) Basophils (%) (Auto) 0 % (0-3) Neutrophils # (Auto) 7.1 x10^3uL (1.8-7.7) Lymphocytes # (Auto) 0.3 x10^3/uL (1.0-4.8) Monocytes # (Auto) 0.4 x10^3/uL (0.0-1.1) Eosinophils # (Auto) 0.0 x10^3/uL (0.0-0.7) Basophils # (Auto) 0.0 x10^3/uL (0.0-0.2) Sodium Level 140 mmol/L (136-145) Potassium Level 3.1 mmol/L (3.5-5.1) Chloride Level 103 mmol/L (98-107) Carbon Dioxide Level 24 mmol/L (21-32) Anion Gap 13 (6-14) Blood Urea Nitrogen 35 mg/dL (7-20) Creatinine 2.7 mg/dL (0.6-1.0) Estimated GFR (Cockcroft-Gault) 21.0 Glucose Level 197 mg/dL (70-99) Calcium Level 7.4 mg/dL (8.5-10.1) Iron Level 15 ug/dL (50-170) Total Iron Binding Capacity 134 ug/dL (250-450) Iron Saturation 11 % (15-34) Ferritin 2822 ng/mL (8-252) Lipase 02984 U/L (73-393) Stool Occult Blood Positive (NEG) Test 06/27/18 08:45 06/27/18 08:53 O2 Saturation 99 % (92-99) Arterial Blood pH 7.56 (7.35-7.45) Arterial Blood pCO2 at Patient Temp 24 mmHg (35-46) Arterial Blood pO2 at Patient Temp 170 mmHg (65-108) Arterial Blood HCO3 21 mmol/L (21-28) Arterial Blood Base Excess -1 mmol/L (-3-3) FiO2 40 Glucose (Fingerstick) 150 mg/dL (70-99) Allergies: Coded Allergies: No Known Drug Allergies (Unverified , 06/27/18) Medications: Current Medications Medications (Trade) Dose Ordered Sig/Jose Route PRN Reason Start Time Stop Time Status Last Admin Dose Admin Sodium Chloride 1,000 ml @ 1,000 mls/hr 1X ONCE IV 06/26/18 14:15 06/26/18 15:14 DC 06/26/18 14:37 Nystatin (Nystop) 1 nato 1X STAT TP 06/26/18 14:45 06/26/18 14:47 DC 06/26/18 15:56 Sodium Bicarbonate (Sodium Bicarb Adult 8.4% Syr) 50 meq 1X ONCE IV 06/26/18 15:15 06/26/18 15:16 DC 06/26/18 15:57 Insulin Human Regular (HumuLIN R VIAL) 10 unit 1X ONCE IV 06/26/18 15:15 06/26/18 15:16 DC 06/26/18 15:51 Insulin Human Regular 150 ml @ 0 mls/hr 1X ONCE IV 06/26/18 15:15 06/26/18 15:16 DC 06/26/18 15:56 Sodium Chloride 1,000 ml @ 1,000 mls/hr 1X ONCE IV 06/26/18 15:15 06/26/18 16:14 DC 06/26/18 18:21 Calcium Gluconate (Calcium Gluconate) 1,000 mg 1X ONCE IVP 06/26/18 15:45 06/26/18 15:46 DC 06/26/18 15:48 Piperacillin Sod/ Tazobactam Sod 2.25 gm/Sodium Chloride 50 ml @ 100 mls/hr 1X ONCE IV 06/26/18 16:15 06/26/18 16:44 DC 06/26/18 18:24 Lidocaine/Sodium Bicarbonate (Buffered Lidocaine 1%) 3 ml 1X ONCE INJ 06/26/18 16:15 06/26/18 16:21 DC 06/26/18 17:08 Heparin Sodium (Porcine) (Heparin Sodium) 2,600 unit 1X ONCE INT CAT 06/26/18 16:15 06/26/18 16:21 DC 06/26/18 17:09 Heparin Sodium (Porcine) (Heparin Sodium) 5,000 unit Q8HRS SQ 06/26/18 22:00 06/27/18 05:38 Pantoprazole Sodium (PROTONIX VIAL for IV PUSH) 40 mg DAILYAC IVP 06/27/18 07:30 06/27/18 07:45 Insulin Human Regular 150 unit/ Sodium Chloride 151.5 ml @ 0 mls/hr CONT PRN IV SEE I/O RECORD 06/26/18 17:00 06/27/18 00:55 Sodium Bicarbonate (Sodium Bicarb Adult 8.4% Syr) 100 meq 1X ONCE IV 06/26/18 19:30 06/26/18 19:31 DC 06/26/18 20:00 Midazolam HCl 100 ml @ 5 mls/hr CONT PRN IV SEE I/O RECORD 06/26/18 19:00 06/27/18 03:34 Norepinephrine Bitartrate 250 ml @ 1.875 mls/ hr CONT PRN IV SEE I/O RECORD 06/26/18 19:15 06/26/18 21:43 Dextrose/Sodium Chloride 1,000 ml @ 250 mls/hr 1X ONCE IV 06/26/18 22:00 06/27/18 01:59 DC 06/26/18 21:43 Vancomycin HCl (Vanco Per Pharmacy) 1 each PRN DAILY PRN MC SEE COMMENTS 06/26/18 22:00 06/27/18 02:13 Piperacillin Sod/ Tazobactam Sod 2.25 gm/Sodium Chloride 50 ml @ 100 mls/hr Q8HRS IV 06/26/18 22:00 06/27/18 05:38 Vancomycin HCl 1.5 gm/Sodium Chloride 500 ml @ 250 mls/hr 1X ONCE IV 06/26/18 23:00 06/27/18 00:59 DC 06/26/18 23:29 Imaging: Imaging: KUB IMPRESSION: 1. Enteric tube projects over the antrum of the stomach. 2. No evidence for bowel obstruction. Head/C-spine CT Impression: 1. Cervical spondylosis. 2. Abnormal opacity in the right upper lobe of the lung, nonspecific but possibilities include lung tumor, scarring or rounded consolidation. Recommend correlation with chest x-ray and chest CT. 3. Rotation of C1 relative to C2, this could be due to muscle spasm or positioning. Note that the patient's neck is also curved towards the left. 4. Mild thyromegaly. Small 7 mm nodule in the left lobe of the thyroid. Chest/A/P CT Impression: 1. Limitations of study as described above. 2. Irregular consolidated nodule in the right upper lobe. Small focus of irregular consolidation involving superior segment of left lower lobe. These are nonspecific. Possibilities include neoplastic, inflammatory, or infectious causes versus scarring. 3. Right internal jugular catheter tip projects at the superior aspect of the inferior vena cava. 4. Pancreas is suboptimally visualized and evaluated. There is evidence of retroperitoneal fluid. Pancreatitis is consequently possible. 5. There is apparent wall thickening of the duodenum and proximal jejunum. Primary enteritis versus secondary inflammation from pancreatitis would be possibilities. CXR Impression: 1. Endotracheal tube tip projects 1.5 cm above the velia. PE: GEN: intubated, resp therapy present HEENT: Atraumatic, OG w/ dark bilious material LUNGS: vent HEART: RRR ABD: soft, BS+ but quiet EXTREMITY: No edema NEURO/PSYCH: sedated A/P: A/P: AMS/metabolic encephalopathy Acute resp failure - s/p code blue, abnormal chest imaging Metabolic acidosis, hyperglycemia DM, ESRD Pancreatitis - unclear etiology Anemia, +fecal occult -- Reviewed w/ Dr. Oropeza - medical therapy s/p code. IV PPI, check abd US r/o gallstones, transfuse as needed, TPN. SILVIO AMEZQUITA Jun 27, 2018 09:08
--- NOTE | 2018-06-27 09:18 | RAD ---
Procedure: Temporary hemodialysis catheter placement at the bedside. Clinical Indication: 73-year-old with acute renal failure Sedation: Local anesthesia only Antibiotics: None Fluoro Time: Not applicable Contrast: None Sterility: All elements of maximal sterile barrier technique including the use of a cap, mask, sterile gown, sterile gloves, large sterile sheet, appropriate hand hygiene, and 2% chlorhexidine for cutaneous antisepsis (or acceptable alternative antiseptic per current guidelines) were followed for this procedure. Consent: The procedure was explained in its entirety to the patient or the patients designated franchise sales representative by a member of the treatment team, including a discussion of the risks, benefits and commonly accepted alternatives to the procedure, as well as the expected consequences of no therapy whatsoever. Discussion of the risks included, but was not limited to, those that are most frequent and those that are rare but possibly severe or life-threatening, as well as the possibility of unforeseen complications. Technique and Findings: Following informed consent, the patient was prepped and draped in the usual sterile fashion. Ultrasound interrogation of the right neck revealed patency and compressibility of the right internal jugular vein. A 21-gauge micropuncture needle was used to gain access to this vein after 1% Lidocaine was used to achieve local anesthesia. A hardcopy ultrasound image was recorded. The needle was exchanged over a wire for serial dilators followed by a 20 cm trialysis temporary hemodialysis catheter which was deployed in the expected location of the mid right atrium. The catheter flow rates were assessed manually and found to be excellent. The catheter was then flushed, packed with Heparin, capped, and sutured to the skin. Chest x-ray was then obtained to assess line position. Complications: No immediate Impression: 1. Ultrasound guided placement of a temporary hemodialysis catheter which exhibits excellent manual flow rates as described.
[2018-06-27] MEDS ORDERED: IV NORMAL SALINE 1000ML BAG 1,000 ML IV PRN ×2 (09:37)
[2018-06-27] MEDS ORDERED: DIALYSIS PATIENT. MC PRN (09:45)
--- NOTE | 2018-06-27 10:10 | CONS ---
DATE OF CONSULTATION: ATTENDING PHYSICIAN: Dr. Pavon. REASON FOR CONSULTATION: Respiratory failure, shock, encephalopathy, acute renal failure, severe metabolic acidosis. HISTORY OF PRESENT ILLNESS: The patient is a 73-year-old female who has history of chronic renal insufficiency, diabetes and hypertension. The patient was brought into the [facility] after she was found to have some slurring of speech. She had been refusing to come to the hospital. 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 She was not walking well, but she declined to go to a correction facility. The patient, last evening, became unresponsive and then in the ER, she was evaluated. She had multiple abnormalities on her labs, including ypmtk-id-qjunesh renal failure with a BUN of 137 and a creatinine of 7.0. She had severe metabolic acidosis with bicarbonate of only 8. Her potassium was high at 7.6. Her glucose was 1290 and her lipase was 40,000. The patient was transferred to the ICU. At that time, I was informed about the consult. Nursing staff told me that she is unresponsive and barely breathing. At that time, arterial blood gases obtained had shown a pH of 7.14, pCO2 of 19 and a pO2 113 and bicarbonate of only 6. I had ordered Anesthesia to intubate the patient and she was subsequently intubated. Her arterial blood gases had improved and it went up to 7.40 pH with a pCO2 of 21 and a pO2 of 321 and bicarbonate was 13 at that time. I had to lower the rate and FiO2 was reduced. This morning, a pH of 7.56, pCO2 of 24 and a pO2 of 170. I have ordered to reduce the rate from 18 to 10. She got emergent dialysis last night and is going to get dialyzed again today. Her CT of the chest was reviewed by me. She had a mass-like consolidation in her right upper lobe and there is minimal infiltrate in the left lower lobe. She has evidence of pancreatitis and enteritis. She did require low dose Levophed overnight and it has been off. Her systolic blood pressures in the 140s. She had required barely any p.r.n. sedation, she is not responsive. PAST MEDICAL HISTORY: Significant for hypertension, chronic renal insufficiency and diabetes. FAMILY HISTORY: Hypertension. PAST SURGICAL HISTORY: Unknown. ALLERGIES: NONE. CURRENT MEDICATIONS: Reviewed, including broad-spectrum antibiotics. Heparin for DVT prophylaxis. REVIEW OF SYSTEMS: Unable to obtain from the patient. SOCIAL HISTORY: Unable to obtain. PHYSICAL EXAMINATION: GENERAL: She is intubated, not responsive. VITAL SIGNS: Blood pressure 128/57, pulse ox 100% on current FiO2 of 40%. EYES: Pupils sluggish to react. Sclerae nonicteric. NECK: Supple. LUNGS: Diminished breath sounds. CARDIOVASCULAR: Regular rate. ABDOMEN: Soft, nontender. EXTREMITIES: With trace pitting edema. LABORATORY DATA: Reviewed. ABGs are discussed in my history of present illness. Toxicology screen is negative. Urine is negative. BUN and creatinine since the dialysis has improved to 33 and 2.4. Her sugars are in the 150s. She is on insulin drip. White cell count 7.8, hemoglobin is down to 6.8, platelets are 292. IMPRESSION: 1. Acute respiratory failure secondary to multifactorial etiologies including acute metabolic encephalopathy, worsening uremia, contributing to encephalopathy, nonketotic hyperosmolar coma and cannot exclude the possibility of a new ischemic stroke. 2. Severe metabolic acidosis secondary to topjm-bj-mawsptq renal failure and sepsis. 3. Fwnfw-ta-grlmiwm renal failure, now requiring dialysis. She had declined to have dialysis before despite worsening in her renal function. 4. Etezi-ep-mywaycd anemia. No obvious blood loss. Would need GI to evaluate. 5. Acute pancreatitis, likely the source of her sepsis. 6. Abnormal CT chest with a mass-like consolidation in the right upper lobe and also an infiltrate in the left lower lobe. This needs to be followed up to rule out any malignancy. 7. Bhnheapt-gb-dwtfit protein-calorie malnutrition. 8. Marked lactic acidosis, which is now improving. 9. Hypophosphatemia. 10. Hyperkalemia, present on admission, s/p urgent HD. Renal is following. RECOMMENDATIONS: 1. Continue with present assist control mode. I have reduced the rate and will make necessary adjustments based on ABGs. 2. May need a repeat CT head or MRI to rule out any new ischemic stroke. Initial CT head was negative. 3. Broad-spectrum antibiotics. 4. Hemodialysis with correction of electrolytes per Renal. 5. Consider 1 unit of packed RBC transfusion. 6. Follow amylase and lipase levels and follow GI recommendations. In the meantime, continue with stress ulcer prophylaxis. 7. Insulin drip per protocol. 8. Follow chest x-rays. 9. We will need a followup CT chest in next 4-6 weeks to rule out the possibility of a mass in the right upper lobe. 10. Monitor blood pressure closely. Currently, she is off of Levophed. 11. Continue deep venous thrombosis prophylaxis with heparin closely while monitoring the hemoglobin closely as well. 13. Discussed with RN and RT. Critical care time 40 minutes. Discussed with PCP. KASEY DEWEY MD DR: THOMAS/roscoe JOB#: [id number] / [id number] ITAL[place]
--- NOTE | 2018-06-27 10:59 | PDOC2 ---
CONSULT Date of Consult Date of Consult DATE: 06/27/18 TIME: 10:33 Reason for Consult Reason for Consult: Renal failure, Hyperkalemia, Acidosis Source Source: Chart review, Unable to obtain due to (Other) History of Present Illness Reason for Visit: Pt is a 73-year-old AAF with Hx of CKD , DM and HTN . She was brought to [facility] after she was found to have some slurring of speech. She had been refusing to come to the hospital. She had a hospitalization at [facility] about a month ago for CVA with left-sided weakness. She was not walking well, but she declined to go to a [facility]p facility. Last evening she became unresponsive - In the ER -s he had multiple abnormalities on her labs- [id number] renal failure with a BUN of 137 and a creatinine of 7.0, severe metabolic acidosis with bicarbonate of ,K 8. K 7.6, Glucose 1290 and her lipase was 40,000. In the ICU she was unresponsive and barely breathing, was Intubated .ABG pH of 7.14, pCO2 of 19,and a pO2 113 and CO2 6. She Coded , had PEA . She did require low dose Levophed . She got emergent dialysis last night She is Not sedated , Unresponsive . She has marginal UOP Past Medical History Cardiovascular: HTN Renal/: Chronic renal insuff Endocrine: Diabetes Family History Family History: Hypertension Current Problem List Problem List Problems Medical Problems: (1) Acute renal failure Status: Acute (2) Hyperosmolar nonketotic coma in diabetes Status: Acute (3) Pancreatitis Status: Acute Current Medications Current Medications Current Medications Sodium Chloride 1,000 ml @ 1,000 mls/hr 1X ONCE IV Last administered on 06/26at 14:37; Start 06/26/18 at 14:15; Stop 06/26/18 at 15:14; Status DC Nystatin (Nystop) 1 nato 1X STAT TP Last administered on 06/26/18at 15:56; Start 06/26/18 at 14:45; Stop 06/26/18 at 14:47; Status DC Sodium Bicarbonate (Sodium Bicarb Adult 8.4% Syr) 50 meq 1X ONCE IV Last administered on 06/26/18at 15:57; Start 06/26/18 at 15:15; Stop 06/26/18 at 15 :16; Status DC Albuterol Sulfate (Ventolin Neb Soln) 10 mg 1X ONCE CONT NEB ; Start 06/26/18 at 15:15; Stop 06/26/18 at 15:16; Status DC Insulin Human Regular (HumuLIN R VIAL) 10 unit 1X ONCE IV Last administered on 06/26/18at 15:51; Start 06/26/18 at 15:15; Stop 06/26/18 at 15:16; Status DC Insulin Human Regular 150 ml @ 0 mls/hr 1X ONCE IV Last administered on at 15:56; Start 06/26/18 at 15:15; Stop 06/26/18 at 15:16; Status DC Sodium Chloride 1,000 ml @ 1,000 mls/hr 1X ONCE IV Last administered on 06/26at 18:21; Start 06/26/18 at 15:15; Stop 06/26/18 at 16:14; Status DC Calcium Gluconate (Calcium Gluconate) 1,000 mg 1X ONCE IVP Last administered on 06/26/18at 15:48; Start 06/26/18 at 15:45; Stop 06/26/18 at 15:46; Status DC Piperacillin Sod/ Tazobactam Sod 2.25 gm/Sodium Chloride 50 ml @ 100 mls/hr 1X ONCE IV Last administered on 06/26/18at 18:24; Start 06/26/18 at 16:15; Stop 06/26/18 at 16:44; Status DC Lidocaine/Sodium Bicarbonate (Buffered Lidocaine 1%) 3 ml 1X ONCE INJ Last administered on 06/26/18at 17:08; Start 06/26/18 at 16:15; Stop 06/26/18 at 16 :21; Status DC Heparin Sodium (Porcine) (Heparin Sodium) 2,600 unit 1X ONCE INT CAT Last administered on 06/26/18at 17:09; Start 06/26/18 at 16:15; Stop 06/26/18 at 16 :21; Status DC Heparin Sodium (Porcine) (Heparin Sodium) 10,000 unit STK-MED ONCE .ROUTE ; Start 06/26/18 at 16:14; Stop 06/26/18 at 16:15; Status DC Heparin Sodium (Porcine) (Heparin Sodium) 5,000 unit Q8HRS SQ Last administered on 06/27/18at 05:38; Start 06/26/18 at 22:00 Pantoprazole Sodium (PROTONIX VIAL for IV PUSH) 40 mg DAILYAC IVP Last administered on 06/27/18at 07:45; Start 06/27/18 at 07:30 Insulin Human Regular 150 unit/ Sodium Chloride 151.5 ml @ 0 mls/hr CONT PRN IV SEE I/O RECORD Last administered on 06/27/18at 00:55; Start 06/26/18 at 17: 00 Acetaminophen (Tylenol) 650 mg PRN Q6HRS PRN PO FEVER; Start 06/26/18 at 17:15 Ondansetron HCl (Zofran) 4 mg PRN Q6HRS PRN IV NAUSEA/VOMITING; Start at 17:15 Morphine Sulfate (Morphine Sulfate) 2 mg PRN Q2HR PRN IV MODERATE TO SEVERE PAIN; Start 06/26/18 at 17:15 Tramadol HCl (Ultram) 50 mg PRN Q6HRS PRN PO MILD TO MODERATE PAIN; Start at 17:15 Docusate Sodium (Colace) 100 mg PRN DAILY PRN PO CONSTIPATION; Start 06/26/18 at 17:15 Labetalol HCl (Normodyne Iv Push) 20 mg PRN Q2HR PRN IVP HYPERTENSION, SEE COMMENTS; Start 06/26/18 at 17:15 Lidocaine/Sodium Bicarbonate (Buffered Lidocaine 1%) 6 ml 1X ONCE INJ ; Start 06/26/18 at 17:15; Stop 06/26/18 at 17:16; Status DC Sodium Bicarbonate (Sodium Bicarb Adult 8.4% Syr) 100 meq 1X ONCE IV Last administered on 06/26/18at 20:00; Start 06/26/18 at 19:30; Stop 06/26/18 at 19 :31; Status DC Midazolam HCl 100 ml @ 5 mls/hr CONT PRN IV SEE I/O RECORD Last administered on 06/27/18at 03:34; Start 06/26/18 at 19:00 Midazolam HCl (Versed) 5 mg PRN Q2HR PRN IV SEDATION; Start 06/26/18 at 19:00 Norepinephrine Bitartrate 250 ml @ 1.875 mls/ hr CONT PRN IV SEE I/O RECORD Last administered on 06/26/18at 21:43; Start 06/26/18 at 19:15 Sodium Chloride 1,000 ml @ 1,000 mls/hr Q1H PRN IV hypotension; Start at 19:17; Stop 06/27/18 at 01:16; Status DC Sodium Chloride 1,000 ml @ 400 mls/hr Q2H30M PRN IV PATENCY; Start 06/26/18 at 19:17; Stop 06/27/18 at 07:16; Status DC Info (PHARMACY MONITORING -- do not chart) 1 each PRN DAILY PRN MC SEE COMMENTS ; Start 06/26/18 at 19:30; Status Cancel Info (PHARMACY MONITORING -- do not chart) 1 each PRN DAILY PRN MC SEE COMMENTS ; Start 06/26/18 at 19:30 Dextrose/Sodium Chloride 1,000 ml @ 250 mls/hr 1X ONCE IV Last administered on 06/26/18at 21:43; Start 06/26/18 at 22:00; Stop 06/27/18 at 01:59; Status DC Vancomycin HCl (Vanco Per Pharmacy) 1 each PRN DAILY PRN MC SEE COMMENTS Last administered on 06/27/18at 02:13; Start 06/26/18 at 22:00 Piperacillin Sod/ Tazobactam Sod (Zosyn Per Pharmacy) 1 each PRN DAILY PRN MC SEE COMMENTS; Start 06/26/18 at 22:00 Piperacillin Sod/ Tazobactam Sod 2.25 gm/Sodium Chloride 50 ml @ 100 mls/hr Q8HRS IV Last administered on 06/27/18at 05:38; Start 06/26/18 at 22:00 Vancomycin HCl 1.5 gm/Sodium Chloride 500 ml @ 250 mls/hr 1X ONCE IV Last administered on 06/26/18at 23:29; Start 06/26/18 at 23:00; Stop 06/27/18 at 00 :59; Status DC Sodium Chloride 1,000 ml @ 1,000 mls/hr Q1H PRN IV hypotension; Start at 09:37; Stop 06/27/18 at 15:36 Sodium Chloride 1,000 ml @ 400 mls/hr Q2H30M PRN IV PATENCY; Start 06/27/18 at 09:37; Stop 06/27/18 at 21:36 Info (PHARMACY MONITORING -- do not chart) 1 each PRN DAILY PRN MC SEE COMMENTS ; Start 06/27/18 at 09:45; Status UNV Epinephrine HCl (EPINEPHrine SYRINGE) 1 mg STK-MED ONCE .ROUTE ; Start at 12:00; Stop 06/27/18 at 10:00; Status DC Vitamin A/Vitamin D (Vitamin A & D Ointment) 1 nato TID TP ; Start 06/27/18 at 14:00 Active Scripts Active Reported Unable To Obtain Meds From Prior To Admit (Info) Each 1 Each Allergies Allergies: Coded Allergies: No Known Drug Allergies (Unverified , 06/27/18) ROS Review of System Unable to Obtain Physical Exam Physical Exam GEN.: unresponsive, Intubated HEENT: Intubated NECK: Supple. LUNGS: Clear to auscultation, Intubated HEART: RRR, S1, S2 present. ABDOMEN: Soft, Positive bowel sounds. 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 Altered MS- Unresponsive- Neuro consulted Labs Labs Laboratory Tests Test 06/26/18 14:10 06/26/18 14:20 06/26/18 15:00 06/26/18 15:20 White Blood Count 10.3 x10^3/uL (4.0-11.0) Red Blood Count 2.80 x10^6/uL (3.50-5.40) Hemoglobin 9.5 g/dL (12.0-15.5) Hematocrit 31.9 % (36.0-47.0) Mean Corpuscular Volume 114 fL (79-100) Mean Corpuscular Hemoglobin 34 pg (25-35) Mean Corpuscular Hemoglobin Concent 30 g/dL (31-37) Red Cell Distribution Width 17.3 % (11.5-14.5) Platelet Count 587 x10^3/uL (140-400) Neutrophils (%) (Auto) 93 % (31-73) Lymphocytes (%) (Auto) 3 % (24-48) Monocytes (%) (Auto) 4 % (0-9) Eosinophils (%) (Auto) 0 % (0-3) Basophils (%) (Auto) 1 % (0-3) Neutrophils # (Auto) 9.5 x10^3uL (1.8-7.7) Lymphocytes # (Auto) 0.3 x10^3/uL (1.0-4.8) Monocytes # (Auto) 0.4 x10^3/uL (0.0-1.1) Eosinophils # (Auto) 0.0 x10^3/uL (0.0-0.7) Basophils # (Auto) 0.1 x10^3/uL (0.0-0.2) Segmented Neutrophils % 89 % (35-66) Band Neutrophils % 5 % (0-9) Lymphocytes % 1 % (24-48) Monocytes % 3 % (0-10) Basophils % 1 % (0-3) Metamyelocytes % 1 % (0-0) Platelet Estimate Increased (ADEQUATE) Anisocytosis Slight Macrocytosis Marked Prothrombin Time 15.3 SEC (11.7-14.0) Prothromb Time International Ratio 1.3 (0.8-1.1) Sodium Level 131 mmol/L (136-145) Potassium Level 7.6 mmol/L (3.5-5.1) Chloride Level 94 mmol/L (98-107) Carbon Dioxide Level 8 mmol/L (21-32) Anion Gap 29 (6-14) Blood Urea Nitrogen 137 mg/dL (7-20) Creatinine 7.0 mg/dL (0.6-1.0) Estimated GFR (Cockcroft-Gault) 5.8 BUN/Creatinine Ratio 20 (6-20) Glucose Level 1290 mg/dL (70-99) Hemoglobin A1c 13.1 % (4.8-5.6) Lactic Acid Level 1.8 mmol/L (0.4-2.0) Calcium Level 9.6 mg/dL (8.5-10.1) Magnesium Level 3.8 mg/dL (1.8-2.4) Total Bilirubin 0.5 mg/dL (0.2-1.0) Aspartate Amino Transf (AST/SGOT) 17 U/L (15-37) Alanine Aminotransferase (ALT/SGPT) 21 U/L (14-59) Alkaline Phosphatase 159 U/L (46-116) Creatine Kinase 125 U/L (26-192) Troponin I Quantitative 0.019 ng/mL (0.000-0.055) DC-Mxt-X-Type Natriuretic Peptide 320 pg/mL (0-124) Total Protein 8.2 g/dL (6.4-8.2) Albumin 3.4 g/dL (3.4-5.0) Albumin/Globulin Ratio 0.7 (1.0-1.7) Lipase 41487 U/L (73-393) Thyroid Stimulating Hormone (TSH) 0.211 uIU/mL (0.358-3.74) Free Thyroxine 1.67 ng/dL (0.76-1.46) Free Triiodothyronine (T3) pg/mL 1.74 pg/mL (2.18-3.98) Salicylates Level 4.9 mg/dL (2.8-20.0) Salicylate Last Dose Date Unknown Salicylate Last Dose Time Unknown Urine Collection Type U cath Urine Color Yellow Urine Clarity Cloudy Urine pH 5.0 Urine Specific [place] 1.025 Urine Protein 100 mg/dL (NEG-TRACE) Urine Glucose (UA) >=1000 mg/dL (NEG) Urine Ketones (Stick) Negative mg/dL (NEG) Urine Blood Trace (NEG) Urine Nitrite Negative (NEG) Urine Bilirubin Negative (NEG) Urine Urobilinogen Dipstick 0.2 mg/dL (0.2 mg/dL) Urine Leukocyte Esterase Negative (NEG) Urine RBC 1-2 /HPF (0-2) Urine WBC Occ /HPF (0-4) Urine Squamous Epithelial Cells Few /LPF Urine Transitional Epithelial Cells Occ /LPF Urine Amorphous Sediment Present /HPF Urine Bacteria 0 /HPF (0-FEW) Urine Opiates Screen Neg (NEG) Urine Methadone Screen Neg (NEG) Urine Barbiturates Neg (NEG) Urine Phencyclidine Screen Neg (NEG) Urine Amphetamine/Methamphetamine Neg (NEG) Urine Benzodiazepines Screen Neg (NEG) Urine Cocaine Screen Neg (NEG) Urine Cannabinoids Screen Neg (NEG) Urine Ethyl Alcohol Neg (NEG) Ammonia < 10 mcmol/L (11-34) O2 Saturation 97 % (92-99) Arterial Blood pH 7.14 (7.35-7.45) Arterial Blood pCO2 at Patient Temp 19 mmHg (35-46) Arterial Blood pO2 at Patient Temp 113 mmHg (65-108) Arterial Blood HCO3 6 mmol/L (21-28) Arterial Blood Base Excess -21 mmol/L (-3-3) FiO2 21 Test 06/26/18 17:20 06/26/18 19:15 06/26/18 19:29 06/26/18 19:30 Glucose Level 950 mg/dL (70-99) 471 mg/dL (70-99) Lactic Acid Level 3.9 mmol/L (0.4-2.0) 4.9 mmol/L (0.4-2.0) Glucose (Fingerstick) 331 mg/dL (70-99) 459 mg/dL (70-99) White Blood Count 9.0 x10^3/uL (4.0-11.0) Red Blood Count 2.36 x10^6/uL (3.50-5.40) Hemoglobin 8.1 g/dL (12.0-15.5) Hematocrit 24.5 % (36.0-47.0) Mean Corpuscular Volume 104 fL (79-100) Mean Corpuscular Hemoglobin 35 pg (25-35) Mean Corpuscular Hemoglobin Concent 33 g/dL (31-37) Red Cell Distribution Width 16.0 % (11.5-14.5) Platelet Count 462 x10^3/uL (140-400) Neutrophils (%) (Auto) 93 % (31-73) Lymphocytes (%) (Auto) 5 % (24-48) Monocytes (%) (Auto) 2 % (0-9) Eosinophils (%) (Auto) 0 % (0-3) Basophils (%) (Auto) 0 % (0-3) Neutrophils # (Auto) 8.4 x10^3uL (1.8-7.7) Lymphocytes # (Auto) 0.4 x10^3/uL (1.0-4.8) Monocytes # (Auto) 0.2 x10^3/uL (0.0-1.1) Eosinophils # (Auto) 0.0 x10^3/uL (0.0-0.7) Basophils # (Auto) 0.0 x10^3/uL (0.0-0.2) Sodium Level 147 mmol/L (136-145) Potassium Level 4.2 mmol/L (3.5-5.1) Chloride Level 109 mmol/L (98-107) Carbon Dioxide Level 13 mmol/L (21-32) Anion Gap 25 (6-14) Blood Urea Nitrogen 133 mg/dL (7-20) Creatinine 6.8 mg/dL (0.6-1.0) Estimated GFR (Cockcroft-Gault) 7.2 BUN/Creatinine Ratio 20 (6-20) Calcium Level 9.3 mg/dL (8.5-10.1) Total Bilirubin 0.5 mg/dL (0.2-1.0) Aspartate Amino Transf (AST/SGOT) 12 U/L (15-37) Alanine Aminotransferase (ALT/SGPT) 19 U/L (14-59) Alkaline Phosphatase 132 U/L (46-116) Total Protein 6.7 g/dL (6.4-8.2) Albumin 2.8 g/dL (3.4-5.0) Albumin/Globulin Ratio 0.7 (1.0-1.7) Hepatitis B Surface Antigen Nonreactive (Nonreactive) Hepatitis B Surface Antibody Nonreactive Test 06/26/18 20:10 06/26/18 20:11 06/26/18 21:25 06/26/18 22:29 O2 Saturation 99 % (92-99) Arterial Blood pH 7.40 (7.35-7.45) Arterial Blood pCO2 at Patient Temp 21 mmHg (35-46) Arterial Blood pO2 at Patient Temp 321 mmHg (65-108) Arterial Blood HCO3 13 mmol/L (21-28) Arterial Blood Base Excess -11 mmol/L (-3-3) FiO2 99 Glucose (Fingerstick) 339 mg/dL (70-99) 123 mg/dL (70-99) 227 mg/dL (70-99) Test 06/26/18 23:37 06/26/18 23:40 06/27/18 00:43 06/27/18 00:50 Glucose (Fingerstick) 140 mg/dL (70-99) 214 mg/dL (70-99) Sodium Level 143 mmol/L (136-145) Potassium Level 2.8 mmol/L (3.5-5.1) Chloride Level 102 mmol/L (98-107) Carbon Dioxide Level 27 mmol/L (21-32) Anion Gap 14 (6-14) Blood Urea Nitrogen 24 mg/dL (7-20) Creatinine 1.6 mg/dL (0.6-1.0) Estimated GFR (Cockcroft-Gault) 38.3 Glucose Level 147 mg/dL (70-99) Calcium Level 8.5 mg/dL (8.5-10.1) Phosphorus Level 1.7 mg/dL (2.6-4.7) Magnesium Level 1.9 mg/dL (1.8-2.4) Lactic Acid Level 2.4 mmol/L (0.4-2.0) Test 06/27/18 01:52 06/27/18 02:00 06/27/18 02:58 06/27/18 04:01 Glucose (Fingerstick) 180 mg/dL (70-99) 150 mg/dL (70-99) 157 mg/dL (70-99) Sodium Level 143 mmol/L (136-145) Potassium Level 3.5 mmol/L (3.5-5.1) Chloride Level 103 mmol/L (98-107) Carbon Dioxide Level 25 mmol/L (21-32) Anion Gap 15 (6-14) Blood Urea Nitrogen 33 mg/dL (7-20) Creatinine 2.4 mg/dL (0.6-1.0) Estimated GFR (Cockcroft-Gault) 24.0 Glucose Level 175 mg/dL (70-99) Calcium Level 7.5 mg/dL (8.5-10.1) Phosphorus Level 2.4 mg/dL (2.6-4.7) Magnesium Level 1.7 mg/dL (1.8-2.4) Test 06/27/18 05:16 06/27/18 05:18 10/17/18 07:31 06/27/18 08:00 Glucose (Fingerstick) 180 mg/dL (70-99) 247 mg/dL (70-99) White Blood Count 7.8 x10^3/uL (4.0-11.0) Red Blood Count 2.04 x10^6/uL (3.50-5.40) Hemoglobin 6.8 g/dL (12.0-15.5) Hematocrit 20.2 % (36.0-47.0) Mean Corpuscular Volume 99 fL (79-100) Mean Corpuscular Hemoglobin 33 pg (25-35) Mean Corpuscular Hemoglobin Concent 34 g/dL (31-37) Red Cell Distribution Width 15.7 % (11.5-14.5) Platelet Count 292 x10^3/uL (140-400) Neutrophils (%) (Auto) 91 % (31-73) Lymphocytes (%) (Auto) 4 % (24-48) Monocytes (%) (Auto) 5 % (0-9) Eosinophils (%) (Auto) 0 % (0-3) Basophils (%) (Auto) 0 % (0-3) Neutrophils # (Auto) 7.1 x10^3uL (1.8-7.7) Lymphocytes # (Auto) 0.3 x10^3/uL (1.0-4.8) Monocytes # (Auto) 0.4 x10^3/uL (0.0-1.1) Eosinophils # (Auto) 0.0 x10^3/uL (0.0-0.7) Basophils # (Auto) 0.0 x10^3/uL (0.0-0.2) Sodium Level 140 mmol/L (136-145) Potassium Level 3.1 mmol/L (3.5-5.1) Chloride Level 103 mmol/L (98-107) Carbon Dioxide Level 24 mmol/L (21-32) Anion Gap 13 (6-14) Blood Urea Nitrogen 35 mg/dL (7-20) Creatinine 2.7 mg/dL (0.6-1.0) Estimated GFR (Cockcroft-Gault) 21.0 Glucose Level 197 mg/dL (70-99) Calcium Level 7.4 mg/dL (8.5-10.1) Iron Level 15 ug/dL (50-170) Total Iron Binding Capacity 134 ug/dL (250-450) Iron Saturation 11 % (15-34) Ferritin 2822 ng/mL (8-252) Lipase 25365 U/L (73-393) Stool Occult Blood Positive (NEG) Test 06/27/18 08:45 06/27/18 08:53 06/27/18 10:08 O2 Saturation 99 % (92-99) Arterial Blood pH 7.56 (7.35-7.45) Arterial Blood pCO2 at Patient Temp 24 mmHg (35-46) Arterial Blood pO2 at Patient Temp 170 mmHg (65-108) Arterial Blood HCO3 21 mmol/L (21-28) Arterial Blood Base Excess -1 mmol/L (-3-3) FiO2 40 Glucose (Fingerstick) 150 mg/dL (70-99) 119 mg/dL (70-99) Laboratory Tests Test 06/26/18 14:10 06/26/18 14:20 06/26/18 15:00 06/26/18 15:20 White Blood Count 10.3 x10^3/uL (4.0-11.0) Red Blood Count 2.80 x10^6/uL (3.50-5.40) Hemoglobin 9.5 g/dL (12.0-15.5) Hematocrit 31.9 % (36.0-47.0) Mean Corpuscular Volume 114 fL (79-100) Mean Corpuscular Hemoglobin 34 pg (25-35) Mean Corpuscular Hemoglobin Concent 30 g/dL (31-37) Red Cell Distribution Width 17.3 % (11.5-14.5) Platelet Count 587 x10^3/uL (140-400) Neutrophils (%) (Auto) 93 % (31-73) Lymphocytes (%) (Auto) 3 % (24-48) Monocytes (%) (Auto) 4 % (0-9) Eosinophils (%) (Auto) 0 % (0-3) Basophils (%) (Auto) 1 % (0-3) Neutrophils # (Auto) 9.5 x10^3uL (1.8-7.7) Lymphocytes # (Auto) 0.3 x10^3/uL (1.0-4.8) Monocytes # (Auto) 0.4 x10^3/uL (0.0-1.1) Eosinophils # (Auto) 0.0 x10^3/uL (0.0-0.7) Basophils # (Auto) 0.1 x10^3/uL (0.0-0.2) Segmented Neutrophils % 89 % (35-66) Band Neutrophils % 5 % (0-9) Lymphocytes % 1 % (24-48) Monocytes % 3 % (0-10) Basophils % 1 % (0-3) Metamyelocytes % 1 % (0-0) Platelet Estimate Increased (ADEQUATE) Anisocytosis Slight Macrocytosis Marked Prothrombin Time 15.3 SEC (11.7-14.0) Prothromb Time International Ratio 1.3 (0.8-1.1) Sodium Level 131 mmol/L (136-145) Potassium Level 7.6 mmol/L (3.5-5.1) Chloride Level 94 mmol/L (98-107) Carbon Dioxide Level 8 mmol/L (21-32) Anion Gap 29 (6-14) Blood Urea Nitrogen 137 mg/dL (7-20) Creatinine 7.0 mg/dL (0.6-1.0) Estimated GFR (Cockcroft-Gault) 5.8 BUN/Creatinine Ratio 20 (6-20) Glucose Level 1290 mg/dL (70-99) Hemoglobin A1c 13.1 % (4.8-5.6) Lactic Acid Level 1.8 mmol/L (0.4-2.0) Calcium Level 9.6 mg/dL (8.5-10.1) Magnesium Level 3.8 mg/dL (1.8-2.4) Total Bilirubin 0.5 mg/dL (0.2-1.0) Aspartate Amino Transf (AST/SGOT) 17 U/L (15-37) Alanine Aminotransferase (ALT/SGPT) 21 U/L (14-59) Alkaline Phosphatase 159 U/L (46-116) Creatine Kinase 125 U/L (26-192) Troponin I Quantitative 0.019 ng/mL (0.000-0.055) EU-Goq-B-Type Natriuretic Peptide 320 pg/mL (0-124) Total Protein 8.2 g/dL (6.4-8.2) Albumin 3.4 g/dL (3.4-5.0) Albumin/Globulin Ratio 0.7 (1.0-1.7) Lipase 18300 U/L (73-393) Thyroid Stimulating Hormone (TSH) 0.211 uIU/mL (0.358-3.74) Free Thyroxine 1.67 ng/dL (0.76-1.46) Free Triiodothyronine (T3) pg/mL 1.74 pg/mL (2.18-3.98) Salicylates Level 4.9 mg/dL (2.8-20.0) Salicylate Last Dose Date Unknown Salicylate Last Dose Time Unknown Urine Collection Type U cath Urine Color Yellow Urine Clarity Cloudy Urine pH 5.0 Urine Specific [place] 1.025 Urine Protein 100 mg/dL (NEG-TRACE) Urine Glucose (UA) >=1000 mg/dL (NEG) Urine Ketones (Stick) Negative mg/dL (NEG) Urine Blood Trace (NEG) Urine Nitrite Negative (NEG) Urine Bilirubin Negative (NEG) Urine Urobilinogen Dipstick 0.2 mg/dL (0.2 mg/dL) Urine Leukocyte Esterase Negative (NEG) Urine RBC 1-2 /HPF (0-2) Urine WBC Occ /HPF (0-4) Urine Squamous Epithelial Cells Few /LPF Urine Transitional Epithelial Cells Occ /LPF Urine Amorphous Sediment Present /HPF Urine Bacteria 0 /HPF (0-FEW) Urine Opiates Screen Neg (NEG) Urine Methadone Screen Neg (NEG) Urine Barbiturates Neg (NEG) Urine Phencyclidine Screen Neg (NEG) Urine Amphetamine/Methamphetamine Neg (NEG) Urine Benzodiazepines Screen Neg (NEG) Urine Cocaine Screen Neg (NEG) Urine Cannabinoids Screen Neg (NEG) Urine Ethyl Alcohol Neg (NEG) Ammonia < 10 mcmol/L (11-34) O2 Saturation 97 % (92-99) Arterial Blood pH 7.14 (7.35-7.45) Arterial Blood pCO2 at Patient Temp 19 mmHg (35-46) Arterial Blood pO2 at Patient Temp 113 mmHg (65-108) Arterial Blood HCO3 6 mmol/L (21-28) Arterial Blood Base Excess -21 mmol/L (-3-3) FiO2 21 Test 06/26/18 17:20 06/26/18 19:15 06/26/18 19:29 06/26/18 19:30 Glucose Level 950 mg/dL (70-99) 471 mg/dL (70-99) Lactic Acid Level 3.9 mmol/L (0.4-2.0) 4.9 mmol/L (0.4-2.0) Glucose (Fingerstick) 331 mg/dL (70-99) 459 mg/dL (70-99) White Blood Count 9.0 x10^3/uL (4.0-11.0) Red Blood Count 2.36 x10^6/uL (3.50-5.40) Hemoglobin 8.1 g/dL (12.0-15.5) Hematocrit 24.5 % (36.0-47.0) Mean Corpuscular Volume 104 fL (79-100) Mean Corpuscular Hemoglobin 35 pg (25-35) Mean Corpuscular Hemoglobin Concent 33 g/dL (31-37) Red Cell Distribution Width 16.0 % (11.5-14.5) Platelet Count 462 x10^3/uL (140-400) Neutrophils (%) (Auto) 93 % (31-73) Lymphocytes (%) (Auto) 5 % (24-48) Monocytes (%) (Auto) 2 % (0-9) Eosinophils (%) (Auto) 0 % (0-3) Basophils (%) (Auto) 0 % (0-3) Neutrophils # (Auto) 8.4 x10^3uL (1.8-7.7) Lymphocytes # (Auto) 0.4 x10^3/uL (1.0-4.8) Monocytes # (Auto) 0.2 x10^3/uL (0.0-1.1) Eosinophils # (Auto) 0.0 x10^3/uL (0.0-0.7) Basophils # (Auto) 0.0 x10^3/uL (0.0-0.2) Sodium Level 147 mmol/L (136-145) Potassium Level 4.2 mmol/L (3.5-5.1) Chloride Level 109 mmol/L (98-107) Carbon Dioxide Level 13 mmol/L (21-32) Anion Gap 25 (6-14) Blood Urea Nitrogen 133 mg/dL (7-20) Creatinine 6.8 mg/dL (0.6-1.0) Estimated GFR (Cockcroft-Gault) 7.2 BUN/Creatinine Ratio 20 (6-20) Calcium Level 9.3 mg/dL (8.5-10.1) Total Bilirubin 0.5 mg/dL (0.2-1.0) Aspartate Amino Transf (AST/SGOT) 12 U/L (15-37) Alanine Aminotransferase (ALT/SGPT) 19 U/L (14-59) Alkaline Phosphatase 132 U/L (46-116) Total Protein 6.7 g/dL (6.4-8.2) Albumin 2.8 g/dL (3.4-5.0) Albumin/Globulin Ratio 0.7 (1.0-1.7) Hepatitis B Surface Antigen Nonreactive (Nonreactive) Hepatitis B Surface Antibody Nonreactive Test 06/26/18 20:10 06/26/18 20:11 06/26/18 21:25 06/26/18 22:29 O2 Saturation 99 % (92-99) Arterial Blood pH 7.40 (7.35-7.45) Arterial Blood pCO2 at Patient Temp 21 mmHg (35-46) Arterial Blood pO2 at Patient Temp 321 mmHg (65-108) Arterial Blood HCO3 13 mmol/L (21-28) Arterial Blood Base Excess -11 mmol/L (-3-3) FiO2 99 Glucose (Fingerstick) 339 mg/dL (70-99) 123 mg/dL (70-99) 227 mg/dL (70-99) Test 06/26/18 23:37 06/26/18 23:40 06/27/18 00:43 06/27/18 00:50 Glucose (Fingerstick) 140 mg/dL (70-99) 214 mg/dL (70-99) Sodium Level 143 mmol/L (136-145) Potassium Level 2.8 mmol/L (3.5-5.1) Chloride Level 102 mmol/L (98-107) Carbon Dioxide Level 27 mmol/L (21-32) Anion Gap 14 (6-14) Blood Urea Nitrogen 24 mg/dL (7-20) Creatinine 1.6 mg/dL (0.6-1.0) Estimated GFR (Cockcroft-Gault) 38.3 Glucose Level 147 mg/dL (70-99) Calcium Level 8.5 mg/dL (8.5-10.1) Phosphorus Level 1.7 mg/dL (2.6-4.7) Magnesium Level 1.9 mg/dL (1.8-2.4) Lactic Acid Level 2.4 mmol/L (0.4-2.0) Test 06/27/18 01:52 06/27/18 02:00 06/27/18 02:58 06/27/18 04:01 Glucose (Fingerstick) 180 mg/dL (70-99) 150 mg/dL (70-99) 157 mg/dL (70-99) Sodium Level 143 mmol/L (136-145) Potassium Level 3.5 mmol/L (3.5-5.1) Chloride Level 103 mmol/L (98-107) Carbon Dioxide Level 25 mmol/L (21-32) Anion Gap 15 (6-14) Blood Urea Nitrogen 33 mg/dL (7-20) Creatinine 2.4 mg/dL (0.6-1.0) Estimated GFR (Cockcroft-Gault) 24.0 Glucose Level 175 mg/dL (70-99) Calcium Level 7.5 mg/dL (8.5-10.1) Phosphorus Level 2.4 mg/dL (2.6-4.7) Magnesium Level 1.7 mg/dL (1.8-2.4) Test 06/27/18 05:16 06/27/18 05:18 06/27/18 07:31 06/27/18 08:00 Glucose (Fingerstick) 180 mg/dL (70-99) 247 mg/dL (70-99) White Blood Count 7.8 x10^3/uL (4.0-11.0) Red Blood Count 2.04 x10^6/uL (3.50-5.40) Hemoglobin 6.8 g/dL (12.0-15.5) Hematocrit 20.2 % (36.0-47.0) Mean Corpuscular Volume 99 fL (79-100) Mean Corpuscular Hemoglobin 33 pg (25-35) Mean Corpuscular Hemoglobin Concent 34 g/dL (31-37) Red Cell Distribution Width 15.7 % (11.5-14.5) Platelet Count 292 x10^3/uL (140-400) Neutrophils (%) (Auto) 91 % (31-73) Lymphocytes (%) (Auto) 4 % (24-48) Monocytes (%) (Auto) 5 % (0-9) Eosinophils (%) (Auto) 0 % (0-3) Basophils (%) (Auto) 0 % (0-3) Neutrophils # (Auto) 7.1 x10^3uL (1.8-7.7) Lymphocytes # (Auto) 0.3 x10^3/uL (1.0-4.8) Monocytes # (Auto) 0.4 x10^3/uL (0.0-1.1) Eosinophils # (Auto) 0.0 x10^3/uL (0.0-0.7) Basophils # (Auto) 0.0 x10^3/uL (0.0-0.2) Sodium Level 140 mmol/L (136-145) Potassium Level 3.1 mmol/L (3.5-5.1) Chloride Level 103 mmol/L (98-107) Carbon Dioxide Level 24 mmol/L (21-32) Anion Gap 13 (6-14) Blood Urea Nitrogen 35 mg/dL (7-20) Creatinine 2.7 mg/dL (0.6-1.0) Estimated GFR (Cockcroft-Gault) 21.0 Glucose Level 197 mg/dL (70-99) Calcium Level 7.4 mg/dL (8.5-10.1) Iron Level 15 ug/dL (50-170) Total Iron Binding Capacity 134 ug/dL (250-450) Iron Saturation 11 % (15-34) Ferritin 2822 ng/mL (8-252) Lipase 15729 U/L (73-393) Stool Occult Blood Positive (NEG) Test 06/27/18 08:45 06/27/18 08:53 06/27/18 10:08 O2 Saturation 99 % (92-99) Arterial Blood pH 7.56 (7.35-7.45) Arterial Blood pCO2 at Patient Temp 24 mmHg (35-46) Arterial Blood pO2 at Patient Temp 170 mmHg (65-108) Arterial Blood HCO3 21 mmol/L (21-28) Arterial Blood Base Excess -1 mmol/L (-3-3) FiO2 40 Glucose (Fingerstick) 150 mg/dL (70-99) 119 mg/dL (70-99) Review All relevant outside records, renal labs, imaging studies, telemetry/EKG's were reviewed. JERMAINE JASON MD Jun 27, 2018 10:59
[2018-06-27] MEDS ORDERED: IV RINGERS,LACTATED 1000ML 1,000 ML IV SCH (11:00)
[2018-06-27] MEDS ORDERED: DEXTROSE 50% 25 GM / 50ML DISP.SYRIN. IV PRN (11:00)
[2018-06-27 11:24] LABS: BASE EXCESS ABG 9 mmol/L (-3-3); HCO3 ABG 31 mmol/L (21-28); PCO2 ABG 33 mmHg (35-46); PO2 ABG 156 mmHg (65-108); SAT O2 ABG 98 % (92-99)
[2018-06-27 11:27] LABS: FIO2 ABG 40
[2018-06-27] MEDS: IV NORMAL SALINE 1000ML BAG 1,000 ML IV SCH ×2 (11:52→20:56)
[2018-06-27] MEDS: INSULIN LISPRO 300 UNITS/3 ML INSULN.PEN. SQ SCH ×3 (12:00→20:54)
--- NOTE | 2018-06-27 12:10 | PDOC2 ---
PALLIATIVE CARE Palliative Care Note Palliative Care Consult requested by Dr. Pavon to address goals of care. Patient unresponsive --on Vent 40%. Pupils equal round sluggish Medical Assessment per medical record; Acute respiratory failure secondary to multifactorial etiologies including acute metabolic encephalopathy, worsening uremia, contributing to encephalopathy, nonketotic hyperosmolar coma and cannot exclude the possibility of a new ischemic stroke. Severe metabolic acidosis secondary to [id number] renal failure, but cannot exclude sepsis. Lfpfx-an-nggzoii renal failure, . Aptuv-dy-zwftgqy anemia. Acute pancreatitis, Abnormal CT chest with a mass-like consolidation in the right upper lobe and also an infiltrate in the left lower lobe. Txpmctvq-ko-ssvskx protein-calorie malnutrition. lactic acidosis, improving. Hypophosphatemia. Hyperkalemia, present on admission, now hypokalemia with a level of 2.8 which is now better to 3.5. Patient has to 2 sons--Michael and Sin. Met with Sin and included Michael on conference call. 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 Sons states that she never talked much about her own medical condition or wishes. Angelica; "The foundation for her life" Discussed options for care and future need with current continued support. Patient would likely need tracheostomy after 10-14 days without improvement or ability to be weaned off Ventilator. Likely she would also need to spend the rest of her life in a nursing facility. Sons do not believe this something that she would want but want to continue support to see if she improves and get the results of the MRI and EEG Discussed Code Status: Continue Full Code. Plan: Continue current treatment plan; MRI and EEG pending. Full Code. Staff will be providing updates as needed. Stephanie ERICKSON updated on current plan. LEOBARDO BOWSER Jun 27, 2018 12:10
--- NOTE | 2018-06-27 12:45 | RAD ---
EXAM: Abdomen sonogram. HISTORY: Pancreatitis. TECHNIQUE: Sonographic imaging of the abdomen was performed. COMPARISON: CT dated 06/26/2018. FINDINGS: The liver is normal in size. No focal hepatic lesion is seen. The gallbladder is surgically absent. There is slight common bile duct dilatation for patient age, measuring 8.1 mm. The spleen is normal in size. The kidneys are echogenic. The pancreas is partially obscured due to bowel gas. The spleen is normal in size. The aorta and inferior vena cava are unremarkable. IMPRESSION: 1. Slight common bile duct dilatation for patient age. This may be due to reservoir effect status post cholecystectomy. No obstructing lesion is seen. ERCP or MRCP can be performed if there is concern for an occult obstructing etiology. 2. Partially obscured pancreas due to bowel gas. 3. Echogenic renal parenchyma. This can be seen with medical renal disease. Electronically signed by: Ambar Deleon MD (06/27/2018 12:42 PM) [id number]
--- NOTE | 2018-06-27 12:51 | RAD ---
EXAM: Chest, single view. HISTORY: Intubation. COMPARISON: 06/26/2018 FINDINGS: A frontal view of the chest is obtained. There is an endotracheal tube within the distal trachea, with the tip approximately 1 cm proximal to the velia. This is not significantly changed compared to the prior study. There is a nasogastric tube within the stomach. There is no consolidation, pleural effusion or pneumothorax. The heart is normal in size. IMPRESSION: 1. Endotracheal tube within the distal trachea, not significantly changed compared to the prior study. 2. Note is made that areas of reported consolidation within the right upper and left lower lobes on a CT dated 06/26/2018 are not well seen radiographically. Electronically signed by: Ambar Deleon MD (06/27/2018 12:47 PM) [place] [id number]
[2018-06-27 13:17] LABS: BASE EXCESS ABG 2 mmol/L (-3-3); HCO3 ABG 25 mmol/L (21-28); PCO2 ABG 32 mmHg (35-46); PO2 ABG 171 mmHg (65-108); SAT O2 ABG 99 % (92-99)
[2018-06-27 13:19] LABS: FIO2 ABG 40
[2018-06-27] MEDS: TPN PER PHARMACY MC PRN (14:00)
--- NOTE | 2018-06-27 14:22 | PDOC ---
PROGRESS NOTES Assessment Assessment Metabolic encephalopathy. Respiratory failure. Lactic acidosis. Hyperglycemia, glucose level 1290. Hyperkalemia, K+ 7.6 Acute pancreatitis, lipase 50957. Renal failure. DM, poorly controlled. HTN. Anemia. GI bleeding likely. Pulmonary nodules. Thyroid nodules. Hyperthyroidism. Old CVA per Hx. RECOMMENDATIONS/PLAN: Life support in ICU. Control hyperglycemia. Keep good hydration. Treat medical diseases. Brain MRI w/o contrast. EEG. Thyroid US. Consulted Pulmonary Medicine for lung nodules. HISTORY OF THE PRESENT ILLNESS: 73-y-old female patient with multiple medical diseases was found down unresponsive on the floor in her kitchen. She was brought to the ER of [facility] and her glucose level was revealed extremely high of 1290. She remained unresponsiveness unable to maintain airway. She was intubated and admitted into ICU. PAST MEDICAL HISTORY: Please see above. PAST SURGERY HISTORY: No major surgery recently. ALLERGY: Unknown. MEDICATIONS: Refer to [facility] FAMILY HISTORY: HTN. SOCIAL HISTORY: Lives alone. Denies current moking, drinking, and illicit drug use per documentation. REVIEW OF SYSTEMS: Constitutional: No malnutrition, weight loss, cachexia. Head: No traumatic brain or head injury. Skin: No edema, or rash. Ear: No infection. Eyes: No vision loss or color blindness. Nose: No bleeding or purulent discharges. Hearing: No hearing decrease. Neck: No injury. Breast: No history of cancer, masses,or discharges. Cardiac: HTN. Pulmonary: SOB. GI: No GI ulcer, GI bleeding. Urinary/genital: UTI. Endocrinologic: Diabetes Mellitus. Skeletomuscular: No muscular atrophy, deformity. Neurological: see HP. Psychiatric: Denies drug use/abuse. Otherwise, not [id number] review of systems. PHYSICAL EXAMINATION: General appearance is in acute distress. HEENT: Normocephalic and nontraumatic. Eyes, nose, ears, and throat are unremarkable. Neck is supple. No lymphadenopathy. No crepitus. Cardiovascular: S1, S2, regular rate and rhythm. Pulmonary: On vent. Abdomen: Bowel sounds are positive. Extremities: No rash, lesions, or edema. NEUROLOGICAL EXAMINATION: On vent. Unresponsiveness. Not oriented to time, place and person. PERRL. EOMI not elicited. CN: no acute focal findings. Muscle tone: decreased. Muscle strength: minimal movements observed to pain stimuli. DTR: 1- Plantar reflex: Neutral response bilaterally Gait: Not able to walk. Sensory exam: no response to pain stimuli. Not able to access cerebellar signs in this mentation.. F-T-N test not performed due to not follow commands. Objective Objective Vital Signs Date Time Temp Pulse Resp B/P (MAP) Pulse Ox O2 Delivery O2 Flow Rate FiO2 06/27/18 13:00 94 13 175/81 (112) 100 Ventilator 06/27/18 12:30 97.4 97.4 Intake and Output 06/27/18 07:00 Intake Total 2662 ml Output Total 406 ml Balance 2256 ml Intake IV Total 2662 ml Output Urine Total 405 ml Stool Total 1 ml Vitals Signs Vitals VS - Last 72 Hours, by Label Date Time Temp Pulse Resp B/P (MAP) Pulse Ox O2 Delivery O2 Flow Rate FiO2 06/27/18 13:00 94 13 175/81 (112) 100 Ventilator 06/27/18 12:30 97.4 94 18 160/80 97.4 06/27/18 12:00 97.9 98 16 137/67 (90) 100 Ventilator 97.9 06/27/18 12:00 Mechanical Ventilator 06/27/18 11:54 97.9 100 19 151/64 97.9 06/27/18 11:37 97.8 99 16 135/53 97.8 06/27/18 11:30 100 Ventilator 06/27/18 11:00 99 12 136/53 (80) 100 Ventilator 06/27/18 10:00 97 11 114/57 (76) 100 Ventilator 06/27/18 09:44 100 Ventilator 06/27/18 09:00 99 18 140/58 (85) 100 Ventilator 06/27/18 08:00 Mechanical Ventilator 06/27/18 08:00 97.8 97 18 168/61 (96) 100 Ventilator 97.8 06/27/18 07:52 100 Ventilator 06/27/18 07:00 94 18 118/57 (77) 100 Ventilator 06/27/18 06:00 97 18 128/57 (80) 100 Ventilator 06/27/18 05:20 100 Ventilator 06/27/18 05:00 98 18 131/52 (78) 100 Ventilator 06/27/18 04:00 Mechanical Ventilator 06/27/18 04:00 97.7 98 18 127/51 (76) 100 Ventilator 97.7 18 03:05 99 Ventilator 06/27/18 03:00 96 18 137/54 (81) 100 Ventilator 18 02:00 96 18 131/64 (86) 100 Ventilator 18 01:10 100 Ventilator 06/27/18 01:00 104 18 77/48 (58) 100 Ventilator 18 00:00 100 18 140/57 (84) 100 Ventilator 06/26/18 23:59 Mechanical Ventilator 18 23:36 100 Ventilator 18 23:00 97.6 110 18 121/71 (88) 100 Ventilator 97.6 18 22:00 113 18 100/56 (71) 100 Ventilator 06/26/18 21:10 Ventilator 18 21:00 104 18 143/65 (91) 100 Ventilator 18 20:45 126 18 215/70 (118) 100 Ventilator 18 20:15 96 20 118/59 (78) 100 Ventilator 18 20:00 Mechanical Ventilator 06/26/18 20:00 100 20 123/62 (82) 100 Ventilator 18 19:45 84 20 55/40 (45) 100 Ventilator 18 19:30 88 20 67/41 (50) 100 Ventilator 18 19:20 100 Ventilator 18 19:15 98 34 101/37 (58) 100 Room Air 06/26/18 19:00 97.5 98 32 113/43 (66) 100 Room Air 97.5 06/26/18 18:32 107 10 100 18 18:17 107 8 100 18 18:02 105 8 100 16/18 17:17 90 10 100 18 17:02 92 8 100 18 16:47 95 8 100 18 16:32 99 10 100 18 16:02 100 10 100 18 15:32 91 8 100 1618 15:17 86 10 100 18 15:02 80 10 100 18 14:21 78 8 98 06/26/18 14:03 88.8 109 8 200/94 (129) 98 Room Air 88.8 Laboratory Laboratory Laboratory Tests Test 06/26/18 14:20 06/26/18 15:00 06/26/18 15:20 06/26/18 17:20 Urine Collection Type U cath Urine Color Yellow Urine Clarity Cloudy Urine pH 5.0 Urine Specific [place] 1.025 Urine Protein 100 mg/dL (NEG-TRACE) Urine Glucose (UA) >=1000 mg/dL (NEG) Urine Ketones (Stick) Negative mg/dL (NEG) Urine Blood Trace (NEG) Urine Nitrite Negative (NEG) Urine Bilirubin Negative (NEG) Urine Urobilinogen Dipstick 0.2 mg/dL (0.2 mg/dL) Urine Leukocyte Esterase Negative (NEG) Urine RBC 1-2 /HPF (0-2) Urine WBC Occ /HPF (0-4) Urine Squamous Epithelial Cells Few /LPF Urine Transitional Epithelial Cells Occ /LPF Urine Amorphous Sediment Present /HPF Urine Bacteria 0 /HPF (0-FEW) Urine Opiates Screen Neg (NEG) Urine Methadone Screen Neg (NEG) Urine Barbiturates Neg (NEG) Urine Phencyclidine Screen Neg (NEG) Urine Amphetamine/Methamphetamine Neg (NEG) Urine Benzodiazepines Screen Neg (NEG) Urine Cocaine Screen Neg (NEG) Urine Cannabinoids Screen Neg (NEG) Urine Ethyl Alcohol Neg (NEG) Ammonia < 10 mcmol/L (11-34) O2 Saturation 97 % (92-99) Arterial Blood pH 7.14 (7.35-7.45) Arterial Blood pCO2 at Patient Temp 19 mmHg (35-46) Arterial Blood pO2 at Patient Temp 113 mmHg (65-108) Arterial Blood HCO3 6 mmol/L (21-28) Arterial Blood Base Excess -21 mmol/L (-3-3) FiO2 21 Glucose Level 950 mg/dL (70-99) Lactic Acid Level 3.9 mmol/L (0.4-2.0) Test 06/26/18 19:15 06/26/18 19:29 06/26/18 19:30 06/26/18 20:10 Glucose (Fingerstick) 331 mg/dL (70-99) 459 mg/dL (70-99) White Blood Count 9.0 x10^3/uL (4.0-11.0) Red Blood Count 2.36 x10^6/uL (3.50-5.40) Hemoglobin 8.1 g/dL (12.0-15.5) Hematocrit 24.5 % (36.0-47.0) Mean Corpuscular Volume 104 fL (79-100) Mean Corpuscular Hemoglobin 35 pg (25-35) Mean Corpuscular Hemoglobin Concent 33 g/dL (31-37) Red Cell Distribution Width 16.0 % (11.5-14.5) Platelet Count 462 x10^3/uL (140-400) Neutrophils (%) (Auto) 93 % (31-73) Lymphocytes (%) (Auto) 5 % (24-48) Monocytes (%) (Auto) 2 % (0-9) Eosinophils (%) (Auto) 0 % (0-3) Basophils (%) (Auto) 0 % (0-3) Neutrophils # (Auto) 8.4 x10^3uL (1.8-7.7) Lymphocytes # (Auto) 0.4 x10^3/uL (1.0-4.8) Monocytes # (Auto) 0.2 x10^3/uL (0.0-1.1) Eosinophils # (Auto) 0.0 x10^3/uL (0.0-0.7) Basophils # (Auto) 0.0 x10^3/uL (0.0-0.2) Sodium Level 147 mmol/L (136-145) Potassium Level 4.2 mmol/L (3.5-5.1) Chloride Level 109 mmol/L (98-107) Carbon Dioxide Level 13 mmol/L (21-32) Anion Gap 25 (6-14) Blood Urea Nitrogen 133 mg/dL (7-20) Creatinine 6.8 mg/dL (0.6-1.0) Estimated GFR (Cockcroft-Gault) 7.2 BUN/Creatinine Ratio 20 (6-20) Glucose Level 471 mg/dL (70-99) Lactic Acid Level 4.9 mmol/L (0.4-2.0) Calcium Level 9.3 mg/dL (8.5-10.1) Total Bilirubin 0.5 mg/dL (0.2-1.0) Aspartate Amino Transf (AST/SGOT) 12 U/L (15-37) Alanine Aminotransferase (ALT/SGPT) 19 U/L (14-59) Alkaline Phosphatase 132 U/L (46-116) Total Protein 6.7 g/dL (6.4-8.2) Albumin 2.8 g/dL (3.4-5.0) Albumin/Globulin Ratio 0.7 (1.0-1.7) Hepatitis B Surface Antigen Nonreactive (Nonreactive) Hepatitis B Surface Antibody Nonreactive O2 Saturation 99 % (92-99) Arterial Blood pH 7.40 (7.35-7.45) Arterial Blood pCO2 at Patient Temp 21 mmHg (35-46) Arterial Blood pO2 at Patient Temp 321 mmHg (65-108) Arterial Blood HCO3 13 mmol/L (21-28) Arterial Blood Base Excess -11 mmol/L (-3-3) FiO2 99 Test 06/26/18 20:11 06/26/18 21:25 06/26/18 22:29 06/26/18 23:37 Glucose (Fingerstick) 339 mg/dL (70-99) 123 mg/dL (70-99) 227 mg/dL (70-99) 140 mg/dL (70-99) Test 06/26/18 23:40 06/27/18 00:43 06/27/18 00:50 06/27/18 01:52 Sodium Level 143 mmol/L (136-145) Potassium Level 2.8 mmol/L (3.5-5.1) Chloride Level 102 mmol/L (98-107) Carbon Dioxide Level 27 mmol/L (21-32) Anion Gap 14 (6-14) Blood Urea Nitrogen 24 mg/dL (7-20) Creatinine 1.6 mg/dL (0.6-1.0) Estimated GFR (Cockcroft-Gault) 38.3 Glucose Level 147 mg/dL (70-99) Calcium Level 8.5 mg/dL (8.5-10.1) Phosphorus Level 1.7 mg/dL (2.6-4.7) Magnesium Level 1.9 mg/dL (1.8-2.4) Glucose (Fingerstick) 214 mg/dL (70-99) 180 mg/dL (70-99) Lactic Acid Level 2.4 mmol/L (0.4-2.0) Test 06/27/18 02:00 06/27/18 02:58 06/27/18 04:01 06/27/18 05:16 Sodium Level 143 mmol/L (136-145) Potassium Level 3.5 mmol/L (3.5-5.1) Chloride Level 103 mmol/L (98-107) Carbon Dioxide Level 25 mmol/L (21-32) Anion Gap 15 (6-14) Blood Urea Nitrogen 33 mg/dL (7-20) Creatinine 2.4 mg/dL (0.6-1.0) Estimated GFR (Cockcroft-Gault) 24.0 Glucose Level 175 mg/dL (70-99) Calcium Level 7.5 mg/dL (8.5-10.1) Phosphorus Level 2.4 mg/dL (2.6-4.7) Magnesium Level 1.7 mg/dL (1.8-2.4) Glucose (Fingerstick) 150 mg/dL (70-99) 157 mg/dL (70-99) 180 mg/dL (70-99) Test 06/27/18 05:18 06/27/18 07:31 06/27/18 08:00 06/27/18 08:45 White Blood Count 7.8 x10^3/uL (4.0-11.0) Red Blood Count 2.04 x10^6/uL (3.50-5.40) Hemoglobin 6.8 g/dL (12.0-15.5) Hematocrit 20.2 % (36.0-47.0) Mean Corpuscular Volume 99 fL (79-100) Mean Corpuscular Hemoglobin 33 pg (25-35) Mean Corpuscular Hemoglobin Concent 34 g/dL (31-37) Red Cell Distribution Width 15.7 % (11.5-14.5) Platelet Count 292 x10^3/uL (140-400) Neutrophils (%) (Auto) 91 % (31-73) Lymphocytes (%) (Auto) 4 % (24-48) Monocytes (%) (Auto) 5 % (0-9) Eosinophils (%) (Auto) 0 % (0-3) Basophils (%) (Auto) 0 % (0-3) Neutrophils # (Auto) 7.1 x10^3uL (1.8-7.7) Lymphocytes # (Auto) 0.3 x10^3/uL (1.0-4.8) Monocytes # (Auto) 0.4 x10^3/uL (0.0-1.1) Eosinophils # (Auto) 0.0 x10^3/uL (0.0-0.7) Basophils # (Auto) 0.0 x10^3/uL (0.0-0.2) Sodium Level 140 mmol/L (136-145) Potassium Level 3.1 mmol/L (3.5-5.1) Chloride Level 103 mmol/L (98-107) Carbon Dioxide Level 24 mmol/L (21-32) Anion Gap 13 (6-14) Blood Urea Nitrogen 35 mg/dL (7-20) Creatinine 2.7 mg/dL (0.6-1.0) Estimated GFR (Cockcroft-Gault) 21.0 Glucose Level 197 mg/dL (70-99) Calcium Level 7.4 mg/dL (8.5-10.1) Iron Level 15 ug/dL (50-170) Total Iron Binding Capacity 134 ug/dL (250-450) Iron Saturation 11 % (15-34) Ferritin 2822 ng/mL (8-252) Lipase 06253 U/L (73-393) Vitamin B12 Level 1749 pg/mL (247-911) Glucose (Fingerstick) 247 mg/dL (70-99) Stool Occult Blood Positive (NEG) O2 Saturation 99 % (92-99) Arterial Blood pH 7.56 (7.35-7.45) Arterial Blood pCO2 at Patient Temp 24 mmHg (35-46) Arterial Blood pO2 at Patient Temp 170 mmHg (65-108) Arterial Blood HCO3 21 mmol/L (21-28) Arterial Blood Base Excess -1 mmol/L (-3-3) FiO2 40 Test 06/27/18 08:53 06/27/18 10:08 06/27/18 11:00 06/27/18 12:02 Glucose (Fingerstick) 150 mg/dL (70-99) 119 mg/dL (70-99) 93 mg/dL (70-99) O2 Saturation 98 % (92-99) Arterial Blood pH 7.59 (7.35-7.45) Arterial Blood pCO2 at Patient Temp 33 mmHg (35-46) Arterial Blood pO2 at Patient Temp 156 mmHg (65-108) Arterial Blood HCO3 31 mmol/L (21-28) Arterial Blood Base Excess 9 mmol/L (-3-3) FiO2 40 Test 06/27/18 13:00 O2 Saturation 99 % (92-99) Arterial Blood pH 7.51 (7.35-7.45) Arterial Blood pCO2 at Patient Temp 32 mmHg (35-46) Arterial Blood pO2 at Patient Temp 171 mmHg (65-108) Arterial Blood HCO3 25 mmol/L (21-28) Arterial Blood Base Excess 2 mmol/L (-3-3) FiO2 40 Medication Medications Current Medications Acetaminophen (Tylenol) 650 mg PRN Q6HRS PRN PO FEVER; Start 06/26/18 at 17:15 Albuterol Sulfate (Ventolin Neb Soln) 10 mg 1X ONCE CONT NEB ; Start 06/26/18 at 15:15; Stop 06/26/18 at 15:16; Status DC Calcium Gluconate (Calcium Gluconate) 1,000 mg 1X ONCE IVP Last administered on 06/26/18at 15:48; Start 06/26/18 at 15:45; Stop 06/26/18 at 15:46; Status DC Dextrose (Dextrose 50%-Water Syringe) 12.5 gm PRN Q15MIN PRN IV SEE COMMENTS; Start 06/27/18 at 11:00 Dextrose/Sodium Chloride 1,000 ml @ 250 mls/hr 1X ONCE IV Last administered on 06/26/18at 21:43; Start 06/26/18 at 22:00; Stop 06/27/18 at 01:59; Status DC Docusate Sodium (Colace) 100 mg PRN DAILY PRN PO CONSTIPATION; Start 06/26/18 at 17:15 Heparin Sodium (Porcine) (Heparin Sodium) 2,600 unit 1X ONCE INT CAT Last administered on 06/26/18at 17:09; Start 06/26/18 at 16:15; Stop 06/26/18 at 16 :21; Status DC Heparin Sodium (Porcine) (Heparin Sodium) 5,000 unit Q8HRS SQ Last administered on 06/27/18at 05:38; Start 06/26/18 at 22:00 Heparin Sodium (Porcine) (Heparin Sodium) 10,000 unit STK-MED ONCE .ROUTE ; Start 06/26/18 at 16:14; Stop 06/26/18 at 16:15; Status DC Info (PHARMACY MONITORING -- do not chart) 1 each PRN DAILY PRN MC SEE COMMENTS ; Start 06/26/18 at 19:30 Info (PHARMACY MONITORING -- do not chart) 1 each PRN DAILY PRN MC SEE COMMENTS ; Start 06/26/18 at 19:30; Status Cancel Info (PHARMACY MONITORING -- do not chart) 1 each PRN DAILY PRN MC SEE COMMENTS ; Start 06/27/18 at 09:45; Status UNV Info (Tpn Per Pharmacy) 1 each PRN DAILY PRN MC SEE COMMENTS Last administered on 06/27/18at 14:00; Start 06/27/18 at 10:45 Insulin Glargine (Lantus) 10 units QHS SQ ; Start 06/27/18 at 21:00 Insulin Human Lispro (HumaLOG) 0-7 UNITS Q4HRS SQ ; Start 06/27/18 at 12:00 Insulin Human Regular 150 ml @ 0 mls/hr 1X ONCE IV Last administered on at 15:56; Start 06/26/18 at 15:15; Stop 06/26/18 at 15:16; Status DC Insulin Human Regular (HumuLIN R VIAL) 10 unit 1X ONCE IV Last administered on 06/26/18at 15:51; Start 06/26/18 at 15:15; Stop 06/26/18 at 15:16; Status DC Insulin Human Regular 150 unit/ Sodium Chloride 151.5 ml @ 0 mls/hr CONT PRN IV SEE I/O RECORD Last administered on 06/27/18at 00:55; Start 06/26/18 at 17: 00; Stop 06/27/18 at 11:20; Status DC Labetalol HCl (Normodyne Iv Push) 20 mg PRN Q2HR PRN IVP HYPERTENSION, SEE COMMENTS; Start 06/26/18 at 17:15 Lidocaine/Sodium Bicarbonate (Buffered Lidocaine 1%) 3 ml 1X ONCE INJ Last administered on 06/26/18at 17:08; Start 06/26/18 at 16:15; Stop 06/26/18 at 16 :21; Status DC Lidocaine/Sodium Bicarbonate (Buffered Lidocaine 1%) 6 ml 1X ONCE INJ ; Start 06/26/18 at 17:15; Stop 06/26/18 at 17:16; Status DC Midazolam HCl 100 ml @ 5 mls/hr CONT PRN IV SEE I/O RECORD Last administered on 06/27/18at 03:34; Start 06/26/18 at 19:00 Midazolam HCl (Versed) 5 mg PRN Q2HR PRN IV SEDATION; Start 06/26/18 at 19:00 Morphine Sulfate (Morphine Sulfate) 2 mg PRN Q2HR PRN IV MODERATE TO SEVERE PAIN; Start 06/26/18 at 17:15 Norepinephrine Bitartrate 250 ml @ 1.875 mls/ hr CONT PRN IV SEE I/O RECORD Last administered on 06/26/18at 21:43; Start 06/26/18 at 19:15 Nystatin (Nystop) 1 nato 1X STAT TP Last administered on 06/26/18at 15:56; Start 06/26/18 at 14:45; Stop 06/26/18 at 14:47; Status DC Ondansetron HCl (Zofran) 4 mg PRN Q6HRS PRN IV NAUSEA/VOMITING; Start at 17:15 Pantoprazole Sodium (PROTONIX VIAL for IV PUSH) 40 mg DAILYAC IVP Last administered on 06/27/18at 07:45; Start 06/27/18 at 07:30 Piperacillin Sod/ Tazobactam Sod (Zosyn Per Pharmacy) 1 each PRN DAILY PRN MC SEE COMMENTS; Start 06/26/18 at 22:00 Piperacillin Sod/ Tazobactam Sod 2.25 gm/Sodium Chloride 50 ml @ 100 mls/hr 1X ONCE IV Last administered on 06/26/18at 18:24; Start 06/26/18 at 16:15; Stop 06/26/18 at 16:44; Status DC Piperacillin Sod/ Tazobactam Sod 2.25 gm/Sodium Chloride 50 ml @ 100 mls/hr Q8HRS IV Last administered on 06/27/18at 05:38; Start 06/26/18 at 22:00 Ringer's Solution 1,000 ml @ 75 mls/hr [id number] IV ; Start 06/27/18 at 11:00; Stop 06/27/18 at 11:20; Status DC Sodium Bicarbonate (Sodium Bicarb Adult 8.4% Syr) 50 meq 1X ONCE IV Last administered on 06/26/18at 15:57; Start 06/26/18 at 15:15; Stop 06/26/18 at 15 :16; Status DC Sodium Bicarbonate (Sodium Bicarb Adult 8.4% Syr) 100 meq 1X ONCE IV Last administered on 06/26/18at 20:00; Start 06/26/18 at 19:30; Stop 06/26/18 at 19 :31; Status DC Sodium Chloride 1,000 ml @ 100 mls/hr Q10H IV Last administered on 06/27/18at 11:52; Start 06/27/18 at 11:30 Sodium Chloride 1,000 ml @ 400 mls/hr Q2H30M PRN IV PATENCY; Start 06/26/18 at 19:17; Stop 06/27/18 at 07:16; Status DC Sodium Chloride 1,000 ml @ 400 mls/hr Q2H30M PRN IV PATENCY; Start 06/27/18 at 09:37; Stop 06/27/18 at 21:36 Sodium Chloride 1,000 ml @ 1,000 mls/hr 1X ONCE IV Last administered on 06/26at 18:21; Start 06/26/18 at 15:15; Stop 06/26/18 at 16:14; Status DC Sodium Chloride 1,000 ml @ 1,000 mls/hr Q1H PRN IV hypotension; Start at 19:17; Stop 06/27/18 at 01:16; Status DC Sodium Chloride 1,000 ml @ 1,000 mls/hr Q1H PRN IV hypotension; Start at 09:37; Stop 06/27/18 at 15:36 Tramadol HCl (Ultram) 50 mg PRN Q6HRS PRN PO MILD TO MODERATE PAIN; Start at 17:15 Vancomycin HCl (Vanco Per Pharmacy) 1 each PRN DAILY PRN MC SEE COMMENTS Last administered on 06/27/18at 10:36; Start 06/26/18 at 22:00 Vancomycin HCl (Vancomycin Trough Level) 1 each 1X ONCE MC ; Start 06/28/18 at 05:00; Stop 06/28/18 at 05:01 Vancomycin HCl 1.5 gm/Sodium Chloride 500 ml @ 250 mls/hr 1X ONCE IV Last administered on 06/26/18at 23:29; Start 06/26/18 at 23:00; Stop 06/27/18 at 00 :59; Status DC Vitamin A/Vitamin D (Vitamin A & D Ointment) 1 nato TID TP ; Start 06/27/18 at 14:00 Comment Review of Relevant I have reviewed the following items ludwig (where applicable) has been applied. RAYMOND CHU MD Jun 27, 2018 14:22
[2018-06-27] MEDS: VITS A & D/LANOLIN TOPICAL OINTMENT 56GM TUBE. TP SCH ×2 (14:30→20:56)
--- NOTE | 2018-06-27 15:44 | RAD ---
MRI Brain without contrast History: Not responsive, history of stroke Technique: Multiplanar, multisequential noncontrast MR imaging was performed of the brain. Contrast: None Comparison: None Findings: There are multiple scattered foci of restricted diffusion bilaterally, largest foci of the right parietal occipital lobes extending to temporal lobe and of the left parietal lobe, other smaller foci such as of the bilateral frontal lobes, along the margin of the right lateral ventricle, and left temporal occipital lobes. There is no midline shift or extra-axial fluid collection. Ventricular size is within normal limits. There is some variable associated T2 and FLAIR hyperintense signal associated with the foci of restricted diffusion, other mild T2 and FLAIR hyperintense signal abnormality of the supratentorial parenchyma bilaterally. There is small focus of old hemosiderin deposition/old hemorrhage left lateral sina. There is moderate to severe T2 and FLAIR hyperintense abnormality of the sina. Flow voids are poorly evaluated due to motion, probably abnormal signal in the left intradural vertebral artery flow-void and questionably on the right. There are air-fluid levels of the sphenoid sinus and right maxillary sinus. There is partial ethmoid air cell opacification. There has been lens surgery bilaterally. There is mild thickening right mastoid air cells. Cerebellar tonsils are normal in location. There is preserved marrow signal of the clivus. Pituitary gland is small. There is endotracheal tube. Impression: 1. There are multiple scattered recent infarcts bilaterally, probably early subacute. Other scattered T2 and FLAIR hyperintense signal abnormality of the sina and to lesser degree of the supratentorial white matter is nonspecific although may be due to chronic microvascular ischemic disease. 2. Flow voids are poorly evaluated, although probably some abnormal signal in the intradural vertebral arteries greater on the left. Critical result: Findings discussed with patient's nurse Cande at 06/27/2018 3:40 PM, to inform doctor of findings. Electronically signed by: Jeb Frias MD (06/27/2018 3:40 PM) [id number]
[2018-06-27] MEDS: LABETALOL 20 MG/4 ML DISP.SYRIN. IVP PRN (16:17)
[2018-06-27 16:30] LABS: CHOLESTEROL/HDL RATIO 3.9
[2018-06-27] MEDS ORDERED: INSULIN GLARGINE 300 UNITS/3 ML INSULN.PEN. SQ SCH (21:00)
[2018-06-27] MEDS ORDERED: TOTAL PARENTERAL NUTRITION IV SCH ×10 (22:00)
[2018-06-27] MEDS ORDERED: DEXTROSE 70% IV SCH ×10 (22:00)
[2018-06-27] MEDS ORDERED: [UNRECOGNIZED DRUG - OTHER] IV SCH ×10 (22:00)
[2018-06-27] MEDS ORDERED: AMINO ACIDS IV SCH ×10 (22:00)
[2018-06-28] VITALS (23 sets, daily range): BP systolic 125–189; BP diastolic 47–76
[2018-06-28] MEDS: INSULIN LISPRO 300 UNITS/3 ML INSULN.PEN. SQ SCH ×7 (00:16→23:49)
[2018-06-28] MEDS: HEPARIN for SUB-Q USE 5,000 UNIT/ML VIAL. SQ SCH ×3 (05:33→21:58)
[2018-06-28] MEDS: PIPERACILLIN/TAZOBACTAM 2.25 GM in IV NORMAL SALINE 50ML 50 ML IV SCH ×3 (05:34→21:56)
[2018-06-28 06:48] LABS: BASO % 0 % (0-3); EOS # 0.1 x10^3/uL (0.0-0.7); EOS % 1 % (0-3); HEMATOCRIT 24.5 % (36.0-47.0); HEMOGLOBIN 8.5 g/dL (12.0-15.5); LYMPH # 0.5 x10^3/uL (1.0-4.8); LYMPH % 4 % (24-48); MEAN CORPUSCULAR HEMOGLOBIN 34 pg (25-35); MEAN CORPUSCULAR HGB CONC 35 g/dL (31-37); MEAN CORPUSCULAR VOLUME 97 fL (79-100); MONO # 0.4 x10^3/uL (0.0-1.1); MONO % 3 % (0-9); NEUT # 10.9 x10^3uL (1.8-7.7); NEUT % 92 % (31-73); PLATELET COUNT 234 x10^3/uL (140-400); RED BLOOD COUNT 2.52 x10^6/uL (3.50-5.40); RED CELL DISTRIBUTION WIDTH 18.1 % (11.5-14.5); WHITE BLOOD COUNT 11.8 x10^3/uL (4.0-11.0)
[2018-06-28 07:11] LABS: ALBUMIN 1.9 g/dL (3.4-5.0); ALBUMIN/GLOBULIN RATIO 0.5 (1.0-1.7); CREATININE 2.7 mg/dL (0.6-1.0); PHOSPHORUS 3.5 mg/dL (2.6-4.7); POTASSIUM 3.5 mmol/L (3.5-5.1); TOTAL BILIRUBIN 0.3 mg/dL (0.2-1.0); TOTAL PROTEIN 5.6 g/dL (6.4-8.2)
--- NOTE | 2018-06-28 07:36 | PDOC ---
PROGRESS NOTES Chief Complaint Chief Complaint AMS, metabolic encephalopathy likely METabolic acidosis DKA hyperkalemia MAVERICK, ATN ESRD without baseline Cr known, not on HD yet acute resp failure 2 lung nodules acute pancreatitis hypothermia recent CVA with left side weakness anemia, macrocytic non compliance HTN urgency History of Present Illness History of Present Illness Patient is a 73 year old f was sent by son for AMS, found down on kitchen floor. When seen in ER, eyes open, unresponsive by admitting team. Pt lives alone, 2 sons come to see her often. has no DPOA signed yet. sons want aggressive treatment for now. [facility] for CVA with left side weakness. Son said she was not walking well, but refused to go to SNF, and sent home. In the past 5 days, she was found slurry speech, refused to come to hosp. Sons said she likely not taking her daily meds too. ER found with metabolic acidosis, glu>1200, K >7, has ESRD but not decided to do HD yet Cr >7 now, unresponsive, lipase >40K, lung [address] T 88.8. head ct neg. She was gagging and hypoxic in ED and was emergently intubated for this. Overnight 06/26: SKIP CHINO called at 2017 after initiation of both levophed and dialysis. Appears to have been bradycardia followed by PEA. After epinephrine BP was increased and had tachycardia. Required 1 u PRBC yesterday Sedated on vent today. Glucose back up in 500s. MRI reviewed: 1. There are multiple scattered recent infarcts bilaterally, probably early subacute. Other scattered T2 and FLAIR hyperintense signal abnormality of the sina and to lesser degree of the supratentorial white matter is nonspecific although may be due to chronic microvascular ischemic disease. Incidental finding of RIJ thrombosis. A/P: AMS, metabolic encephalopathy likely secondary to HHS/DKA - will monitor Metabolic acidosis - requiring dialysis with hyperkalemia DKA - on insulin GTT, can change to lispro and add back lantus, change to BID, having a large requirement, will need to readjust her insulin Hyperkalemia - on dialysis MAVERICK, ATN - dialysis ESRD without baseline Cr known - now on HD acute resp failure - stable on vent 2 lung nodules acute pancreatitis hypothermia recent CVA with left side weakness - new CVA with bilateral infarcts anemia, macrocytic - s/p 1 u PRBC HTN urgency NPO ICU care, daley, monitor urine output and BP. cc time 40min Vitals Vitals Vital Signs Date Time Temp Pulse Resp B/P (MAP) Pulse Ox O2 Delivery O2 Flow Rate FiO2 06/28/18 06:00 81 15 159/54 (89) 100 Ventilator 06/28/18 04:00 97.6 97.6 Physical Exam General: No acute distress, Other (Sedated on vent) Heart: Regular rate, No murmurs Lungs: Other (Ventilatory breath sounds) Abdomen: Normal bowel sounds Extremities: Other (Bruising on chest, multiple scars, pulses palpable in extremities) Labs LABS Laboratory Tests Test 06/27/18 08:00 06/27/18 08:45 06/27/18 08:53 06/27/18 10:08 Stool Occult Blood Positive (NEG) O2 Saturation 99 % (92-99) Arterial Blood pH 7.56 (7.35-7.45) Arterial Blood pCO2 at Patient Temp 24 mmHg (35-46) Arterial Blood pO2 at Patient Temp 170 mmHg (65-108) Arterial Blood HCO3 21 mmol/L (21-28) Arterial Blood Base Excess -1 mmol/L (-3-3) FiO2 40 Glucose (Fingerstick) 150 mg/dL (70-99) 119 mg/dL (70-99) Test 06/27/18 11:00 06/27/18 12:02 06/27/18 13:00 06/27/18 17:02 O2 Saturation 98 % (92-99) 99 % (92-99) Arterial Blood pH 7.59 (7.35-7.45) 7.51 (7.35-7.45) Arterial Blood pCO2 at Patient Temp 33 mmHg (35-46) 32 mmHg (35-46) Arterial Blood pO2 at Patient Temp 156 mmHg (65-108) 171 mmHg (65-108) Arterial Blood HCO3 31 mmol/L (21-28) 25 mmol/L (21-28) Arterial Blood Base Excess 9 mmol/L (-3-3) 2 mmol/L (-3-3) FiO2 40 40 Glucose (Fingerstick) 93 mg/dL (70-99) 278 mg/dL (70-99) Test 06/27/18 20:51 06/28/18 00:14 06/28/18 04:07 06/28/18 06:37 Glucose (Fingerstick) 270 mg/dL (70-99) 332 mg/dL (70-99) 411 mg/dL (70-99) White Blood Count 11.8 x10^3/uL (4.0-11.0) Red Blood Count 2.52 x10^6/uL (3.50-5.40) Hemoglobin 8.5 g/dL (12.0-15.5) Hematocrit 24.5 % (36.0-47.0) Mean Corpuscular Volume 97 fL (79-100) Mean Corpuscular Hemoglobin 34 pg (25-35) Mean Corpuscular Hemoglobin Concent 35 g/dL (31-37) Red Cell Distribution Width 18.1 % (11.5-14.5) Platelet Count 234 x10^3/uL (140-400) Neutrophils (%) (Auto) 92 % (31-73) Lymphocytes (%) (Auto) 4 % (24-48) Monocytes (%) (Auto) 3 % (0-9) Eosinophils (%) (Auto) 1 % (0-3) Basophils (%) (Auto) 0 % (0-3) Neutrophils # (Auto) 10.9 x10^3uL (1.8-7.7) Lymphocytes # (Auto) 0.5 x10^3/uL (1.0-4.8) Monocytes # (Auto) 0.4 x10^3/uL (0.0-1.1) Eosinophils # (Auto) 0.1 x10^3/uL (0.0-0.7) Basophils # (Auto) 0.0 x10^3/uL (0.0-0.2) Sodium Level 137 mmol/L (136-145) Potassium Level 3.5 mmol/L (3.5-5.1) Chloride Level 102 mmol/L (98-107) Carbon Dioxide Level 23 mmol/L (21-32) Anion Gap 12 (6-14) Blood Urea Nitrogen 24 mg/dL (7-20) Creatinine 2.7 mg/dL (0.6-1.0) Estimated GFR (Cockcroft-Gault) 21.0 BUN/Creatinine Ratio 9 (6-20) Glucose Level 500 mg/dL (70-99) Calcium Level 8.0 mg/dL (8.5-10.1) Phosphorus Level 3.5 mg/dL (2.6-4.7) Total Bilirubin 0.3 mg/dL (0.2-1.0) Aspartate Amino Transf (AST/SGOT) 397 U/L (15-37) Alanine Aminotransferase (ALT/SGPT) 440 U/L (14-59) Alkaline Phosphatase 98 U/L (46-116) Total Protein 5.6 g/dL (6.4-8.2) Albumin 1.9 g/dL (3.4-5.0) Albumin/Globulin Ratio 0.5 (1.0-1.7) Random Vancomycin Level 14.2 mcg/mL Assessment and Plan Assessmemt and Plan Problems Medical Problems: (1) Acute renal failure Status: Acute (2) 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 Labs Laboratory Tests Test 06/26/18 14:10 06/26/18 14:20 06/26/18 15:00 06/26/18 15:20 White Blood Count 10.3 x10^3/uL (4.0-11.0) Red Blood Count 2.80 x10^6/uL (3.50-5.40) Hemoglobin 9.5 g/dL (12.0-15.5) Hematocrit 31.9 % (36.0-47.0) Mean Corpuscular Volume 114 fL (79-100) Mean Corpuscular Hemoglobin 34 pg (25-35) Mean Corpuscular Hemoglobin Concent 30 g/dL (31-37) Red Cell Distribution Width 17.3 % (11.5-14.5) Platelet Count 587 x10^3/uL (140-400) Neutrophils (%) (Auto) 93 % (31-73) Lymphocytes (%) (Auto) 3 % (24-48) Monocytes (%) (Auto) 4 % (0-9) Eosinophils (%) (Auto) 0 % (0-3) Basophils (%) (Auto) 1 % (0-3) Neutrophils # (Auto) 9.5 x10^3uL (1.8-7.7) Lymphocytes # (Auto) 0.3 x10^3/uL (1.0-4.8) Monocytes # (Auto) 0.4 x10^3/uL (0.0-1.1) Eosinophils # (Auto) 0.0 x10^3/uL (0.0-0.7) Basophils # (Auto) 0.1 x10^3/uL (0.0-0.2) Segmented Neutrophils % 89 % (35-66) Band Neutrophils % 5 % (0-9) Lymphocytes % 1 % (24-48) Monocytes % 3 % (0-10) Basophils % 1 % (0-3) Metamyelocytes % 1 % (0-0) Platelet Estimate Increased (ADEQUATE) Anisocytosis Slight Macrocytosis Marked Prothrombin Time 15.3 SEC (11.7-14.0) Prothromb Time International Ratio 1.3 (0.8-1.1) Sodium Level 131 mmol/L (136-145) Potassium Level 7.6 mmol/L (3.5-5.1) Chloride Level 94 mmol/L (98-107) Carbon Dioxide Level 8 mmol/L (21-32) Anion Gap 29 (6-14) Blood Urea Nitrogen 137 mg/dL (7-20) Creatinine 7.0 mg/dL (0.6-1.0) Estimated GFR (Cockcroft-Gault) 5.8 BUN/Creatinine Ratio 20 (6-20) Glucose Level 1290 mg/dL (70-99) Hemoglobin A1c 13.1 % (4.8-5.6) Lactic Acid Level 1.8 mmol/L (0.4-2.0) Calcium Level 9.6 mg/dL (8.5-10.1) Magnesium Level 3.8 mg/dL (1.8-2.4) Total Bilirubin 0.5 mg/dL (0.2-1.0) Aspartate Amino Transf (AST/SGOT) 17 U/L (15-37) Alanine Aminotransferase (ALT/SGPT) 21 U/L (14-59) Alkaline Phosphatase 159 U/L (46-116) Creatine Kinase 125 U/L (26-192) Troponin I Quantitative 0.019 ng/mL (0.000-0.055) RA-Xdr-I-Type Natriuretic Peptide 320 pg/mL (0-124) Total Protein 8.2 g/dL (6.4-8.2) Albumin 3.4 g/dL (3.4-5.0) Albumin/Globulin Ratio 0.7 (1.0-1.7) Lipase 32798 U/L (73-393) Thyroid Stimulating Hormone (TSH) 0.211 uIU/mL (0.358-3.74) Free Thyroxine 1.67 ng/dL (0.76-1.46) Free Triiodothyronine (T3) pg/mL 1.74 pg/mL (2.18-3.98) Salicylates Level 4.9 mg/dL (2.8-20.0) Salicylate Last Dose Date Unknown Salicylate Last Dose Time Unknown Urine Collection Type U cath Urine Color Yellow Urine Clarity Cloudy Urine pH 5.0 Urine Specific Vass 1.025 Urine Protein 100 mg/dL (NEG-TRACE) Urine Glucose (UA) >=1000 mg/dL (NEG) Urine Ketones (Stick) Negative mg/dL (NEG) Urine Blood Trace (NEG) Urine Nitrite Negative (NEG) Urine Bilirubin Negative (NEG) Urine Urobilinogen Dipstick 0.2 mg/dL (0.2 mg/dL) Urine Leukocyte Esterase Negative (NEG) Urine RBC 1-2 /HPF (0-2) Urine WBC Occ /HPF (0-4) Urine Squamous Epithelial Cells Few /LPF Urine Transitional Epithelial Cells Occ /LPF Urine Amorphous Sediment Present /HPF Urine Bacteria 0 /HPF (0-FEW) Urine Opiates Screen Neg (NEG) Urine Methadone Screen Neg (NEG) Urine Barbiturates Neg (NEG) Urine Phencyclidine Screen Neg (NEG) Urine Amphetamine/Methamphetamine Neg (NEG) Urine Benzodiazepines Screen Neg (NEG) Urine Cocaine Screen Neg (NEG) Urine Cannabinoids Screen Neg (NEG) Urine Ethyl Alcohol Neg (NEG) Ammonia < 10 mcmol/L (11-34) O2 Saturation 97 % (92-99) Arterial Blood pH 7.14 (7.35-7.45) Arterial Blood pCO2 at Patient Temp 19 mmHg (35-46) Arterial Blood pO2 at Patient Temp 113 mmHg (65-108) Arterial Blood HCO3 6 mmol/L (21-28) Arterial Blood Base Excess -21 mmol/L (-3-3) FiO2 21 Test 06/26/18 17:20 06/26/18 19:15 06/26/18 19:29 06/26/18 19:30 Glucose Level 950 mg/dL (70-99) 471 mg/dL (70-99) Lactic Acid Level 3.9 mmol/L (0.4-2.0) 4.9 mmol/L (0.4-2.0) Glucose (Fingerstick) 331 mg/dL (70-99) 459 mg/dL (70-99) White Blood Count 9.0 x10^3/uL (4.0-11.0) Red Blood Count 2.36 x10^6/uL (3.50-5.40) Hemoglobin 8.1 g/dL (12.0-15.5) Hematocrit 24.5 % (36.0-47.0) Mean Corpuscular Volume 104 fL (79-100) Mean Corpuscular Hemoglobin 35 pg (25-35) Mean Corpuscular Hemoglobin Concent 33 g/dL (31-37) Red Cell Distribution Width 16.0 % (11.5-14.5) Platelet Count 462 x10^3/uL (140-400) Neutrophils (%) (Auto) 93 % (31-73) Lymphocytes (%) (Auto) 5 % (24-48) Monocytes (%) (Auto) 2 % (0-9) Eosinophils (%) (Auto) 0 % (0-3) Basophils (%) (Auto) 0 % (0-3) Neutrophils # (Auto) 8.4 x10^3uL (1.8-7.7) Lymphocytes # (Auto) 0.4 x10^3/uL (1.0-4.8) Monocytes # (Auto) 0.2 x10^3/uL (0.0-1.1) Eosinophils # (Auto) 0.0 x10^3/uL (0.0-0.7) Basophils # (Auto) 0.0 x10^3/uL (0.0-0.2) Sodium Level 147 mmol/L (136-145) Potassium Level 4.2 mmol/L (3.5-5.1) Chloride Level 109 mmol/L (98-107) Carbon Dioxide Level 13 mmol/L (21-32) Anion Gap 25 (6-14) Blood Urea Nitrogen 133 mg/dL (7-20) Creatinine 6.8 mg/dL (0.6-1.0) Estimated GFR (Cockcroft-Gault) 7.2 BUN/Creatinine Ratio 20 (6-20) Calcium Level 9.3 mg/dL (8.5-10.1) Total Bilirubin 0.5 mg/dL (0.2-1.0) Aspartate Amino Transf (AST/SGOT) 12 U/L (15-37) Alanine Aminotransferase (ALT/SGPT) 19 U/L (14-59) Alkaline Phosphatase 132 U/L (46-116) Total Protein 6.7 g/dL (6.4-8.2) Albumin 2.8 g/dL (3.4-5.0) Albumin/Globulin Ratio 0.7 (1.0-1.7) Hepatitis B Surface Antigen Nonreactive (Nonreactive) Hepatitis B Surface Antibody Nonreactive Test 06/26/18 20:10 06/26/18 20:11 06/26/18 21:25 06/26/18 22:29 O2 Saturation 99 % (92-99) Arterial Blood pH 7.40 (7.35-7.45) Arterial Blood pCO2 at Patient Temp 21 mmHg (35-46) Arterial Blood pO2 at Patient Temp 321 mmHg (65-108) Arterial Blood HCO3 13 mmol/L (21-28) Arterial Blood Base Excess -11 mmol/L (-3-3) FiO2 99 Glucose (Fingerstick) 339 mg/dL (70-99) 123 mg/dL (70-99) 227 mg/dL (70-99) Test 06/26/18 23:37 06/26/18 23:40 06/27/18 00:43 06/27/18 00:50 Glucose (Fingerstick) 140 mg/dL (70-99) 214 mg/dL (70-99) Sodium Level 143 mmol/L (136-145) Potassium Level 2.8 mmol/L (3.5-5.1) Chloride Level 102 mmol/L (98-107) Carbon Dioxide Level 27 mmol/L (21-32) Anion Gap 14 (6-14) Blood Urea Nitrogen 24 mg/dL (7-20) Creatinine 1.6 mg/dL (0.6-1.0) Estimated GFR (Cockcroft-Gault) 38.3 Glucose Level 147 mg/dL (70-99) Calcium Level 8.5 mg/dL (8.5-10.1) Phosphorus Level 1.7 mg/dL (2.6-4.7) Magnesium Level 1.9 mg/dL (1.8-2.4) Lactic Acid Level 2.4 mmol/L (0.4-2.0) Test 06/27/18 01:52 06/27/18 02:00 06/27/18 02:58 06/27/18 04:01 Glucose (Fingerstick) 180 mg/dL (70-99) 150 mg/dL (70-99) 157 mg/dL (70-99) Nasal Screen MRSA (PCR) Negative (Negative) Sodium Level 143 mmol/L (136-145) Potassium Level 3.5 mmol/L (3.5-5.1) Chloride Level 103 mmol/L (98-107) Carbon Dioxide Level 25 mmol/L (21-32) Anion Gap 15 (6-14) Blood Urea Nitrogen 33 mg/dL (7-20) Creatinine 2.4 mg/dL (0.6-1.0) Estimated GFR (Cockcroft-Gault) 24.0 Glucose Level 175 mg/dL (70-99) Calcium Level 7.5 mg/dL (8.5-10.1) Phosphorus Level 2.4 mg/dL (2.6-4.7) Magnesium Level 1.7 mg/dL (1.8-2.4) Test 06/27/18 05:16 06/27/18 05:18 06/27/18 07:31 06/27/18 08:00 Glucose (Fingerstick) 180 mg/dL (70-99) 247 mg/dL (70-99) White Blood Count 7.8 x10^3/uL (4.0-11.0) Red Blood Count 2.04 x10^6/uL (3.50-5.40) Hemoglobin 6.8 g/dL (12.0-15.5) Hematocrit 20.2 % (36.0-47.0) Mean Corpuscular Volume 99 fL (79-100) Mean Corpuscular Hemoglobin 33 pg (25-35) Mean Corpuscular Hemoglobin Concent 34 g/dL (31-37) Red Cell Distribution Width 15.7 % (11.5-14.5) Platelet Count 292 x10^3/uL (140-400) Neutrophils (%) (Auto) 91 % (31-73) Lymphocytes (%) (Auto) 4 % (24-48) Monocytes (%) (Auto) 5 % (0-9) Eosinophils (%) (Auto) 0 % (0-3) Basophils (%) (Auto) 0 % (0-3) Neutrophils # (Auto) 7.1 x10^3uL (1.8-7.7) Lymphocytes # (Auto) 0.3 x10^3/uL (1.0-4.8) Monocytes # (Auto) 0.4 x10^3/uL (0.0-1.1) Eosinophils # (Auto) 0.0 x10^3/uL (0.0-0.7) Basophils # (Auto) 0.0 x10^3/uL (0.0-0.2) Sodium Level 140 mmol/L (136-145) Potassium Level 3.1 mmol/L (3.5-5.1) Chloride Level 103 mmol/L (98-107) Carbon Dioxide Level 24 mmol/L (21-32) Anion Gap 13 (6-14) Blood Urea Nitrogen 35 mg/dL (7-20) Creatinine 2.7 mg/dL (0.6-1.0) Estimated GFR (Cockcroft-Gault) 21.0 Glucose Level 197 mg/dL (70-99) Calcium Level 7.4 mg/dL (8.5-10.1) Iron Level 15 ug/dL (50-170) Total Iron Binding Capacity 134 ug/dL (250-450) Iron Saturation 11 % (15-34) Ferritin 2822 ng/mL (8-252) Triglycerides Level 118 mg/dL (0-150) Cholesterol Level 138 mg/dL (0-200) LDL Cholesterol, Calculated 79 mg/dL (0-100) VLDL Cholesterol, Calculated 24 mg/dL (0-40) Non-HDL Cholesterol Calculated 103 mg/dL (0-129) HDL Cholesterol 35 mg/dL (40-60) Cholesterol/HDL Ratio 3.9 Lipase 50212 U/L (73-393) Vitamin B12 Level 1749 pg/mL (247-911) Stool Occult Blood Positive (NEG) Test 06/27/18 08:45 06/27/18 08:53 06/27/18 10:08 06/27/18 11:00 O2 Saturation 99 % (92-99) 98 % (92-99) Arterial Blood pH 7.56 (7.35-7.45) 7.59 (7.35-7.45) Arterial Blood pCO2 at Patient Temp 24 mmHg (35-46) 33 mmHg (35-46) Arterial Blood pO2 at Patient Temp 170 mmHg (65-108) 156 mmHg (65-108) Arterial Blood HCO3 21 mmol/L (21-28) 31 mmol/L (21-28) Arterial Blood Base Excess -1 mmol/L (-3-3) 9 mmol/L (-3-3) FiO2 40 40 Glucose (Fingerstick) 150 mg/dL (70-99) 119 mg/dL (70-99) Test 06/27/18 12:02 06/27/18 13:00 06/27/18 17:02 06/27/18 20:51 Glucose (Fingerstick) 93 mg/dL (70-99) 278 mg/dL (70-99) 270 mg/dL (70-99) O2 Saturation 99 % (92-99) Arterial Blood pH 7.51 (7.35-7.45) Arterial Blood pCO2 at Patient Temp 32 mmHg (35-46) Arterial Blood pO2 at Patient Temp 171 mmHg (65-108) Arterial Blood HCO3 25 mmol/L (21-28) Arterial Blood Base Excess 2 mmol/L (-3-3) FiO2 40 Test 06/28/18 00:14 06/28/18 04:07 06/28/18 06:37 Glucose (Fingerstick) 332 mg/dL (70-99) 411 mg/dL (70-99) White Blood Count 11.8 x10^3/uL (4.0-11.0) Red Blood Count 2.52 x10^6/uL (3.50-5.40) Hemoglobin 8.5 g/dL (12.0-15.5) Hematocrit 24.5 % (36.0-47.0) Mean Corpuscular Volume 97 fL (79-100) Mean Corpuscular Hemoglobin 34 pg (25-35) Mean Corpuscular Hemoglobin Concent 35 g/dL (31-37) Red Cell Distribution Width 18.1 % (11.5-14.5) Platelet Count 234 x10^3/uL (140-400) Neutrophils (%) (Auto) 92 % (31-73) Lymphocytes (%) (Auto) 4 % (24-48) Monocytes (%) (Auto) 3 % (0-9) Eosinophils (%) (Auto) 1 % (0-3) Basophils (%) (Auto) 0 % (0-3) Neutrophils # (Auto) 10.9 x10^3uL (1.8-7.7) Lymphocytes # (Auto) 0.5 x10^3/uL (1.0-4.8) Monocytes # (Auto) 0.4 x10^3/uL (0.0-1.1) Eosinophils # (Auto) 0.1 x10^3/uL (0.0-0.7) Basophils # (Auto) 0.0 x10^3/uL (0.0-0.2) Sodium Level 137 mmol/L (136-145) Potassium Level 3.5 mmol/L (3.5-5.1) Chloride Level 102 mmol/L (98-107) Carbon Dioxide Level 23 mmol/L (21-32) Anion Gap 12 (6-14) Blood Urea Nitrogen 24 mg/dL (7-20) Creatinine 2.7 mg/dL (0.6-1.0) Estimated GFR (Cockcroft-Gault) 21.0 BUN/Creatinine Ratio 9 (6-20) Glucose Level 500 mg/dL (70-99) Calcium Level 8.0 mg/dL (8.5-10.1) Phosphorus Level 3.5 mg/dL (2.6-4.7) Total Bilirubin 0.3 mg/dL (0.2-1.0) Aspartate Amino Transf (AST/SGOT) 397 U/L (15-37) Alanine Aminotransferase (ALT/SGPT) 440 U/L (14-59) Alkaline Phosphatase 98 U/L (46-116) Total Protein 5.6 g/dL (6.4-8.2) Albumin 1.9 g/dL (3.4-5.0) Albumin/Globulin Ratio 0.5 (1.0-1.7) Random Vancomycin Level 14.2 mcg/mL Laboratory Tests Test 06/27/18 08:00 06/27/18 08:45 06/27/18 08:53 06/27/18 10:08 Stool Occult Blood Positive (NEG) O2 Saturation 99 % (92-99) Arterial Blood pH 7.56 (7.35-7.45) Arterial Blood pCO2 at Patient Temp 24 mmHg (35-46) Arterial Blood pO2 at Patient Temp 170 mmHg (65-108) Arterial Blood HCO3 21 mmol/L (21-28) Arterial Blood Base Excess -1 mmol/L (-3-3) FiO2 40 Glucose (Fingerstick) 150 mg/dL (70-99) 119 mg/dL (70-99) Test 06/27/18 11:00 06/27/18 12:02 06/27/18 13:00 06/27/18 17:02 O2 Saturation 98 % (92-99) 99 % (92-99) Arterial Blood pH 7.59 (7.35-7.45) 7.51 (7.35-7.45) Arterial Blood pCO2 at Patient Temp 33 mmHg (35-46) 32 mmHg (35-46) Arterial Blood pO2 at Patient Temp 156 mmHg (65-108) 171 mmHg (65-108) Arterial Blood HCO3 31 mmol/L (21-28) 25 mmol/L (21-28) Arterial Blood Base Excess 9 mmol/L (-3-3) 2 mmol/L (-3-3) FiO2 40 40 Glucose (Fingerstick) 93 mg/dL (70-99) 278 mg/dL (70-99) Test 06/27/18 20:51 06/28/18 00:14 06/28/18 04:07 06/28/18 06:37 Glucose (Fingerstick) 270 mg/dL (70-99) 332 mg/dL (70-99) 411 mg/dL (70-99) White Blood Count 11.8 x10^3/uL (4.0-11.0) Red Blood Count 2.52 x10^6/uL (3.50-5.40) Hemoglobin 8.5 g/dL (12.0-15.5) Hematocrit 24.5 % (36.0-47.0) Mean Corpuscular Volume 97 fL (79-100) Mean Corpuscular Hemoglobin 34 pg (25-35) Mean Corpuscular Hemoglobin Concent 35 g/dL (31-37) Red Cell Distribution Width 18.1 % (11.5-14.5) Platelet Count 234 x10^3/uL (140-400) Neutrophils (%) (Auto) 92 % (31-73) Lymphocytes (%) (Auto) 4 % (24-48) Monocytes (%) (Auto) 3 % (0-9) Eosinophils (%) (Auto) 1 % (0-3) Basophils (%) (Auto) 0 % (0-3) Neutrophils # (Auto) 10.9 x10^3uL (1.8-7.7) Lymphocytes # (Auto) 0.5 x10^3/uL (1.0-4.8) Monocytes # (Auto) 0.4 x10^3/uL (0.0-1.1) Eosinophils # (Auto) 0.1 x10^3/uL (0.0-0.7) Basophils # (Auto) 0.0 x10^3/uL (0.0-0.2) Sodium Level 137 mmol/L (136-145) Potassium Level 3.5 mmol/L (3.5-5.1) Chloride Level 102 mmol/L (98-107) Carbon Dioxide Level 23 mmol/L (21-32) Anion Gap 12 (6-14) Blood Urea Nitrogen 24 mg/dL (7-20) Creatinine 2.7 mg/dL (0.6-1.0) Estimated GFR (Cockcroft-Gault) 21.0 BUN/Creatinine Ratio 9 (6-20) Glucose Level 500 mg/dL (70-99) Calcium Level 8.0 mg/dL (8.5-10.1) Phosphorus Level 3.5 mg/dL (2.6-4.7) Total Bilirubin 0.3 mg/dL (0.2-1.0) Aspartate Amino Transf (AST/SGOT) 397 U/L (15-37) Alanine Aminotransferase (ALT/SGPT) 440 U/L (14-59) Alkaline Phosphatase 98 U/L (46-116) Total Protein 5.6 g/dL (6.4-8.2) Albumin 1.9 g/dL (3.4-5.0) Albumin/Globulin Ratio 0.5 (1.0-1.7) Random Vancomycin Level 14.2 mcg/mL Microbiology 06/26/18 Blood Culture - Preliminary, Resulted NO GROWTH AFTER 1 DAY Medications Current Medications Sodium Chloride 1,000 ml @ 1,000 mls/hr 1X ONCE IV Last administered on 06/26at 14:37; Start 06/26/18 at 14:15; Stop 06/26/18 at 15:14; Status DC Nystatin (Nystop) 1 nato 1X STAT TP Last administered on 06/26/18at 15:56; Start 06/26/18 at 14:45; Stop 06/26/18 at 14:47; Status DC Sodium Bicarbonate (Sodium Bicarb Adult 8.4% Syr) 50 meq 1X ONCE IV Last administered on 06/26/18at 15:57; Start 06/26/18 at 15:15; Stop 06/26/18 at 15 :16; Status DC Albuterol Sulfate (Ventolin Neb Soln) 10 mg 1X ONCE CONT NEB ; Start 06/26/18 at 15:15; Stop 06/26/18 at 15:16; Status DC Insulin Human Regular (HumuLIN R VIAL) 10 unit 1X ONCE IV Last administered on 06/26/18at 15:51; Start 06/26/18 at 15:15; Stop 06/26/18 at 15:16; Status DC Insulin Human Regular 150 ml @ 0 mls/hr 1X ONCE IV Last administered on at 15:56; Start 06/26/18 at 15:15; Stop 06/26/18 at 15:16; Status DC Sodium Chloride 1,000 ml @ 1,000 mls/hr 1X ONCE IV Last administered on 06/26at 18:21; Start 06/26/18 at 15:15; Stop 06/26/18 at 16:14; Status DC Calcium Gluconate (Calcium Gluconate) 1,000 mg 1X ONCE IVP Last administered on 06/26/18at 15:48; Start 06/26/18 at 15:45; Stop 06/26/18 at 15:46; Status DC Piperacillin Sod/ Tazobactam Sod 2.25 gm/Sodium Chloride 50 ml @ 100 mls/hr 1X ONCE IV Last administered on 06/26/18at 18:24; Start 06/26/18 at 16:15; Stop 06/26/18 at 16:44; Status DC Lidocaine/Sodium Bicarbonate (Buffered Lidocaine 1%) 3 ml 1X ONCE INJ Last administered on 06/26/18at 17:08; Start 06/26/18 at 16:15; Stop 06/26/18 at 16 :21; Status DC Heparin Sodium (Porcine) (Heparin Sodium) 2,600 unit 1X ONCE INT CAT Last administered on 06/26/18at 17:09; Start 06/26/18 at 16:15; Stop 06/26/18 at 16 :21; Status DC Heparin Sodium (Porcine) (Heparin Sodium) 10,000 unit STK-MED ONCE .ROUTE ; Start 06/26/18 at 16:14; Stop 06/26/18 at 16:15; Status DC Heparin Sodium (Porcine) (Heparin Sodium) 5,000 unit Q8HRS SQ Last administered on 06/28/18at 05:33; Start 06/26/18 at 22:00 Pantoprazole Sodium (PROTONIX VIAL for IV PUSH) 40 mg DAILYAC IVP Last administered on 06/27/18at 07:45; Start 06/27/18 at 07:30 Insulin Human Regular 150 unit/ Sodium Chloride 151.5 ml @ 0 mls/hr CONT PRN IV SEE I/O RECORD Last administered on 06/27/18at 00:55; Start 06/26/18 at 17: 00; Stop 06/27/18 at 11:20; Status DC Acetaminophen (Tylenol) 650 mg PRN Q6HRS PRN PO FEVER; Start 06/26/18 at 17:15 Ondansetron HCl (Zofran) 4 mg PRN Q6HRS PRN IV NAUSEA/VOMITING; Start at 17:15 Morphine Sulfate (Morphine Sulfate) 2 mg PRN Q2HR PRN IV MODERATE TO SEVERE PAIN; Start 06/26/18 at 17:15 Tramadol HCl (Ultram) 50 mg PRN Q6HRS PRN PO MILD TO MODERATE PAIN; Start at 17:15 Docusate Sodium (Colace) 100 mg PRN DAILY PRN PO CONSTIPATION; Start 06/26/18 at 17:15 Labetalol HCl (Normodyne Iv Push) 20 mg PRN Q2HR PRN IVP HYPERTENSION, SEE COMMENTS Last administered on 06/27/18at 16:17; Start 06/26/18 at 17:15 Lidocaine/Sodium Bicarbonate (Buffered Lidocaine 1%) 6 ml 1X ONCE INJ ; Start 06/26/18 at 17:15; Stop 06/26/18 at 17:16; Status DC Sodium Bicarbonate (Sodium Bicarb Adult 8.4% Syr) 100 meq 1X ONCE IV Last administered on 06/26/18at 20:00; Start 06/26/18 at 19:30; Stop 06/26/18 at 19 :31; Status DC Midazolam HCl 100 ml @ 5 mls/hr CONT PRN IV SEE I/O RECORD Last administered on 06/27/18at 03:34; Start 06/26/18 at 19:00 Midazolam HCl (Versed) 5 mg PRN Q2HR PRN IV SEDATION; Start 06/26/18 at 19:00 Norepinephrine Bitartrate 250 ml @ 1.875 mls/ hr CONT PRN IV SEE I/O RECORD Last administered on 06/26/18at 21:43; Start 06/26/18 at 19:15 Sodium Chloride 1,000 ml @ 1,000 mls/hr Q1H PRN IV hypotension; Start at 19:17; Stop 06/27/18 at 01:16; Status DC Sodium Chloride 1,000 ml @ 400 mls/hr Q2H30M PRN IV PATENCY; Start 06/26/18 at 19:17; Stop 06/27/18 at 07:16; Status DC Info (PHARMACY MONITORING -- do not chart) 1 each PRN DAILY PRN MC SEE COMMENTS ; Start 06/26/18 at 19:30; Status Cancel Info (PHARMACY MONITORING -- do not chart) 1 each PRN DAILY PRN MC SEE COMMENTS ; Start 06/26/18 at 19:30 Dextrose/Sodium Chloride 1,000 ml @ 250 mls/hr 1X ONCE IV Last administered on 06/26/18at 21:43; Start 06/26/18 at 22:00; Stop 06/27/18 at 01:59; Status DC Vancomycin HCl (Vanco Per Pharmacy) 1 each PRN DAILY PRN MC SEE COMMENTS Last administered on 06/27/18at 10:36; Start 06/26/18 at 22:00 Piperacillin Sod/ Tazobactam Sod (Zosyn Per Pharmacy) 1 each PRN DAILY PRN MC SEE COMMENTS; Start 06/26/18 at 22:00 Piperacillin Sod/ Tazobactam Sod 2.25 gm/Sodium Chloride 50 ml @ 100 mls/hr Q8HRS IV Last administered on 06/28/18at 05:34; Start 06/26/18 at 22:00 Vancomycin HCl 1.5 gm/Sodium Chloride 500 ml @ 250 mls/hr 1X ONCE IV Last administered on 06/26/18at 23:29; Start 06/26/18 at 23:00; Stop 06/27/18 at 00 :59; Status DC Sodium Chloride 1,000 ml @ 1,000 mls/hr Q1H PRN IV hypotension; Start at 09:37; Stop 06/27/18 at 15:36; Status DC Sodium Chloride 1,000 ml @ 400 mls/hr Q2H30M PRN IV PATENCY; Start 06/27/18 at 09:37; Stop 06/27/18 at 21:36; Status DC Info (PHARMACY MONITORING -- do not chart) 1 each PRN DAILY PRN MC SEE COMMENTS ; Start 06/27/18 at 09:45; Status UNV Epinephrine HCl (EPINEPHrine SYRINGE) 1 mg STK-MED ONCE .ROUTE ; Start at 12:00; Stop 06/27/18 at 10:00; Status DC Vitamin A/Vitamin D (Vitamin A & D Ointment) 1 nato TID TP Last administered on 06/27/18at 20:56; Start 06/27/18 at 14:00 Info (Tpn Per Pharmacy) 1 each PRN DAILY PRN MC SEE COMMENTS Last administered on 06/27/18at 14:00; Start 06/27/18 at 10:45 Vancomycin HCl (Vancomycin Trough Level) 1 each 1X ONCE MC Last administered on 06/28/18at 05:00; Start 06/28/18 at 05:00; Stop 06/28/18 at 05:01; Status DC Insulin Glargine (Lantus) 10 units QHS SQ Last administered on 06/27/18at 20:54 ; Start 06/27/18 at 21:00 Insulin Human Lispro (HumaLOG) 0-7 UNITS Q4HRS SQ Last administered on at 04:13; Start 06/27/18 at 12:00 Dextrose (Dextrose 50%-Water Syringe) 12.5 gm PRN Q15MIN PRN IV SEE COMMENTS; Start 06/27/18 at 11:00 Ringer's Solution 1,000 ml @ 75 mls/hr [id number] IV ; Start 06/27/18 at 11:00; Stop 06/27/18 at 11:20; Status DC Sodium Chloride 1,000 ml @ 100 mls/hr Q10H IV Last administered on 06/27/18at 20:56; Start 06/27/18 at 11:30 Sodium Chloride 90 meq/Potassium Chloride 50 meq/ Potassium Phosphate 13.6 mmol/ Magnesium Sulfate 10 meq/ Calcium Gluconate 10 meq/ Multivitamins 10 ml/Chromium / Copper/Manganese/ Seleni/Zn 1 ml/ Total Parenteral Nutrition/Amino Acids/ Dextrose/ Fat Emulsion Intravenous 1,512 ml @ 63 mls/hr TPN CONT IV Last administered on 06/27/18at 22:46; Start 06/27/18 at 22:00; Stop 06/28/18 at 21 :59 Aspirin (Aspirin) 300 mg DAILY NM ; Start 06/28/18 at 09:00 Active Scripts Active Reported Unable To Obtain Meds From Prior To Admit (Info) Each 1 Each Vitals/I & O Vital Sign - Last 24 Hours 06/27/18 06/27/18 06/27/18 06/27/18 07:52 08:00 08:00 09:00 Temp 97.8 97.8 Pulse 97 99 Resp 18 B/P (MAP) 168/61 (96) 140/58 (85) Pulse Ox 100 100 100 O2 Delivery Ventilator Ventilator Mechanical Ventilator Ventilator 06/27/18 06/27/18 06/27/18 06/27/18 09:44 10:00 11:00 11:30 Pulse 97 99 Resp 11 12 B/P (MAP) 114/57 (76) 136/53 (80) Pulse Ox 100 100 100 100 O2 Delivery Ventilator Ventilator Ventilator Ventilator 06/27/18 06/27/18 06/27/18 06/27/18 11:37 11:54 12:00 12:00 Temp 97.8 97.9 97.9 97.8 97.9 97.9 Pulse 99 100 98 Resp 16 19 16 B/P (MAP) 135/53 151/64 137/67 (90) Pulse Ox 100 O2 Delivery Mechanical Ventilator Ventilator 06/27/18 06/27/18 06/27/18 06/27/18 12:30 13:00 14:00 15:00 Temp 97.4 97.4 Pulse 94 94 94 94 Resp 18 13 16 12 B/P (MAP) 160/80 175/81 (112) 185/106 (132) 213/78 (123) Pulse Ox 100 100 100 O2 Delivery Ventilator Ventilator Ventilator 06/27/18 06/27/18 06/27/18 06/27/18 15:39 16:00 16:00 16:17 Temp 97.4 97.4 Pulse 92 95 Resp 13 B/P (MAP) 198/85 (122) 198/85 Pulse Ox 100 100 O2 Delivery Ventilator Mechanical Ventilator Ventilator 06/27/18 06/27/18 06/27/18 06/27/18 17:00 17:49 18:00 19:00 Pulse 85 80 81 Resp 16 14 15 B/P (MAP) 184/99 (127) 125/59 (81) 138/65 (89) Pulse Ox 100 100 98 97 O2 Delivery Ventilator Ventilator Ventilator Ventilator 06/27/18 06/27/18 06/27/18 06/27/18 20:00 20:00 20:00 21:00 Temp 97.6 97.6 Pulse 83 82 Resp 15 15 B/P (MAP) 161/78 (105) 159/59 (92) Pulse Ox 100 100 100 O2 Delivery Mechanical Ventilator Ventilator Ventilator Ventilator 06/27/18 06/27/18 06/27/18 06/27/18 22:00 23:00 23:13 23:59 Temp 97.4 97.4 Pulse 84 87 87 Resp 10 15 15 B/P (MAP) 160/79 (106) 153/73 (99) 156/62 (93) Pulse Ox 100 100 100 100 O2 Delivery Ventilator Ventilator Ventilator Ventilator 06/27/18 06/28/18 06/28/18 06/28/18 23:59 01:00 02:00 02:04 Pulse 84 83 Resp 15 15 B/P (MAP) 147/55 (85) 159/62 (94) Pulse Ox 100 100 100 O2 Delivery Mechanical Ventilator Ventilator Ventilator Ventilator 06/28/18 06/28/18 06/28/18 06/28/18 03:00 04:00 04:00 04:10 Temp 97.6 97.6 Pulse 86 82 Resp 15 15 B/P (MAP) 181/59 (99) 167/58 (94) Pulse Ox 100 100 100 O2 Delivery Ventilator Mechanical Ventilator Ventilator Ventilator 06/28/18 06/28/18 06/28/18 05:00 05:29 06:00 Pulse 83 81 Resp 15 15 B/P (MAP) 160/68 (98) 159/54 (89) Pulse Ox 100 100 100 O2 Delivery Ventilator Ventilator Ventilator Intake and Output 06/27/18 06/27/18 06/28/18 15:00 23:00 07:00 Intake Total 592 ml 598 ml 1406 ml Output Total 35 ml 45 ml 150 ml Balance 557 ml 553 ml 1256 ml BHARATH ROSEN MD Jun 28, 2018 07:36
[2018-06-28 08:13] LABS: BASE EXCESS ABG -3 mmol/L (-3-3); HCO3 ABG 20 mmol/L (21-28); PCO2 ABG 28 mmHg (35-46); PO2 ABG 145 mmHg (65-108); SAT O2 ABG 98 % (92-99)
[2018-06-28] MEDS ORDERED: INSULIN LISPRO 300 UNITS/3 ML INSULN.PEN. SQ ONE ×3 (08:15→16:30)
[2018-06-28] MEDS: IV NORMAL SALINE 1000ML BAG 1,000 ML IV SCH ×2 (08:17→19:56)
[2018-06-28] MEDS: PANTOPRAZOLE IV PUSH 40 MG VIAL. IVP SCH (08:17)
[2018-06-28] MEDS: INSULIN GLARGINE 300 UNITS/3 ML INSULN.PEN. SQ SCH ×2 (08:20→21:06)
--- NOTE | 2018-06-28 08:33 | RAD ---
Carotid ultrasound, 06/27/2018: HISTORY: CVA This study is limited by the patient's overlying bandages and restricted patient positioning. On the right there is minimal intimal thickening and smooth plaquing at the bifurcation. The peak systolic velocity in the right internal carotid artery is 56 cm per sec with an end-diastolic velocity of 22 cm/s and an internal carotid to common carotid artery ratio of 0.6. These Doppler findings do not suggest significant stenosis. There is antegrade flow in the right vertebral artery. The left carotid bifurcation and internal carotid artery could not be visualized at this time due to overlying bandages and neck rotation. The left vertebral artery was not visualized. Incidental note is made of thrombus in the right internal jugular vein. IMPRESSION: 1. Limited exam with inadequate visualization of the left carotid bifurcation. 2. No significant carotid stenosis is identified on the right. 3. Right internal jugular venous thrombosis. Note: The right internal jugular vein findings were called to the patient's nurse in the ICU at 8:29 AM on 06/28/2018. Note: Stenosis calculations for CT, MRA and conventional angiography are based upon determination of the distal ICA diameter in accordance with the NASCET methodology. Stenosis calculations for Doppler studies are derived from validated velocity criteria which are known to correlate with NASCET methodology of determining stenosis. Electronically signed by: Jossue Gallegos MD (06/28/2018 8:30 AM) [facility]
[2018-06-28] MEDS: VANCOMYCIN PER PHARMACY MC PRN ×2 (08:59→11:07)
[2018-06-28] MEDS: ASPIRIN 300 MG SUPP.RECT PR SCH (09:00)
--- NOTE | 2018-06-28 10:31 | CARD ---
MR#: [id number] Date of Study: 06/28/2018 Ordering Physician: RAYMOND CHU, Referring Physician: PARKER WAGONER Tech: Jazmin Bundy RDCS APPROVED REPORT EXAM: Two-dimensional and M-mode echocardiogram with Doppler and color Doppler. Other Information Quality : Good INDICATION CVA/TIA 2D DIMENSIONS RVDd2.3 (2.9-3.5cm)Left Atrium(2D)2.4 (1.6-4.0cm) IVSd1.5 (0.7-1.1cm)Aortic Root(2D)2.3 (2.0-3.7cm) LVDd3.1 (3.9-5.9cm)LVOT Diameter2.0 (1.8-2.4cm) PWd1.5 (0.7-1.1cm)LVDs2.1 (2.5-4.0cm) FS (%) 30.1 %SV21.6 ml LVEF(%)58.9 (>50%) Aortic Valve AoV Peak Alexis.180.2cm/sAoV VTI27.2cm AO Peak GR.13.0mmHgLVOT VTI 19.29cm AO Mean GR.6mmHgAVA (VTI)2.18cm2 Mitral Valve MV E Fhsjpdtj38.3cm/sMV DECEL [id number] MV A Xaazmksq784.5cm/sE/A Ratio0.4 TDI Lateral E' P. V4.44cm/sMedial E' P. V5.53cm/s E/Lateral E'11.8E/Medial E'9.5 Tricuspid Valve TR P. Solqibdo369jv/sRAP [id number] TR Peak Gr.12zgSpGHEF64jwAd Pulmonary Vein S1 Thsmngkq33.9cm/sS2 Anslnwsx73.70cm/s D2 Aqcxmrma17.7cm/s LEFT VENTRICLE The left ventricle is normal size. There is mild to moderate concentric left ventricular hypertrophy. The left ventricular systolic function is normal. The Ejection Fraction is 55-60%. Septal motion con sistent with conduction abnormality. Transmitral Doppler flow pattern is Grade I-abnormal relaxation pattern. RIGHT VENTRICLE The right ventricle is normal size. The right ventricular systolic function is normal. ATRIA The left atrium size is normal. The right atrium size is normal. The interatrial septum is intact wit h no evidence for an atrial septal defect or patent foramen ovale as noted on 2-D or Doppler imaging. AORTIC VALVE The aortic valve is calcified but opens well. Doppler and Color Flow revealed no significant aortic r egurgitation. There is no significant aortic valvular stenosis. MITRAL VALVE The mitral valve is calcified but opens well. Posterior mitral annular calcification is mild. There i s no evidence of mitral valve prolapse. There is no mitral valve stenosis. Doppler and Color-flow rev ealed trace mitral regurgitation. TRICUSPID VALVE The tricuspid valve is normal in structure and function. Doppler and Color Flow revealed trace tricus pid regurgitation. There is mild to moderate pulmonary hypertension. The PA pressure was estimated at 40 mmHg. There is no tricuspid valve stenosis. PULMONIC VALVE The pulmonic valve is not well visualized. Doppler and Color Flow revealed trace pulmonic valvular re gurgitation. There is no pulmonic valvular stenosis. GREAT VESSELS The aortic root is normal in size. The ascending aorta is not well seen. The IVC is normal in size an d collapses >50% with inspiration. PERICARDIAL EFFUSION There is no evidence of significant pericardial effusion. Critical Notification Critical Value: No <Conclusion> The left ventricular systolic function is normal. The Ejection Fraction is 55-60%. Septal motion consistent with conduction abnormality. Transmitral Doppler flow pattern is Grade I-abnormal relaxation pattern. Trace mitral regurgitation. Trace tricuspid regurgitation. The PA pressure was estimated at 40 mmHg. There is no evidence of significant pericardial effusion. Signed by : Bong Wall, Electronically Approved : 06/28/2018 10:30:17
--- NOTE | 2018-06-28 10:32 | PDOC ---
SUBJECTIVE ROS Unresponsive, On vent , UOP improved as per RN OBJECTIVE Vital Signs Vital Signs Date Time Temp Pulse Resp B/P (MAP) Pulse Ox O2 Delivery O2 Flow Rate FiO2 06/28/18 09:22 100 Ventilator 06/28/18 09:00 88 19 160/55 (90) 06/28/18 07:00 98.0 98.0 I & 0 Intake and Output 06/28/18 07:00 Intake Total 2596 ml Output Total 230 ml Balance 2366 ml Intake IV Total 2596 ml Output Urine Total 230 ml # Bowel Movements 1 PHYSICAL EXAM Physical Exam GEN.: unresponsive, Intubated HEENT: Intubated NECK: Supple. LUNGS: Clear to auscultation, Intubated HEART: RRR, S1, S2 present. ABDOMEN: Soft, Positive bowel sounds. EXTREMITIES: No LE edema SKIN: No Rash - Indwelling Tejeda+ Neuro- Unresponsive, Intubated DIAGNOSIS/ASSESSMENT Assessment & Plan MAVERICK On CKD - Sec to DKA Required Emergent HD 06/26 might , Dialyzed again on 06/27 Lytes and acid base Stable today, UOP improved Currently no emergent indication for [employer] Hyperkalemia- On admission 7 Required Emergent Dialysis , K Normal today Metabolic acidosis- Marked Lactic acidosis,DKA, Sepsis Bicarb normal CKD stage 3 DM with DKA- as per primary team On admission BS 1200, Hyperkalemia ,severe Acidosis BS High Recent CVA- multiple scattered recent infarcts bilaterally, probably early subacute. Carotid Doppler - thrombus in the right internal jugular vein. Anemia- Recd PRBC on HD 06/27 Stable today Elevated Lipase- Very High CT scan cw Likely Pancreatitis GI following Acute respiratory failure secondary to multifactorial etiologies including acute metabolic encephalopathy, nonketotic hyperosmolar coma and cannot exclude the possibility of a new ischemic stroke. Altered MS- Unresponsive- Neuro consulted COMMENT/RELEVANT DATA Meds Current Medications Medications (Trade) Dose Ordered Sig/Jose Start Time Stop Time Status Last Admin Dose Admin Acetaminophen (Tylenol) 650 mg PRN Q6HRS PRN 06/26/18 17:15 Albuterol Sulfate (Ventolin Neb Soln) 10 mg 1X ONCE 06/26/18 15:15 06/26/18 15:16 DC Aspirin (Aspirin) 300 mg DAILY 06/28/18 09:00 Calcium Gluconate (Calcium Gluconate) 1,000 mg 1X ONCE 06/26/18 15:45 06/26/18 15:46 DC 06/26/18 15:48 1,000 MG Dextrose (Dextrose 50%-Water Syringe) 12.5 gm PRN Q15MIN PRN 06/27/18 11:00 Dextrose/Sodium Chloride 1,000 ml @ 250 mls/hr 1X ONCE 06/26/18 22:00 06/27/18 01:59 DC 06/26/18 21:43 250 MLS/HR Docusate Sodium (Colace) 100 mg PRN DAILY PRN 06/26/18 17:15 Epinephrine HCl (EPINEPHrine SYRINGE) 1 mg STK-MED ONCE 06/26/18 12:00 06/27/18 10:00 DC Heparin Sodium (Porcine) (Heparin Sodium) 5,000 unit Q8HRS 06/26/18 22:00 06/28/18 05:33 5,000 UNIT Info (PHARMACY MONITORING -- do not chart) 1 each PRN DAILY PRN 06/27/18 09:45 UNV Info (Tpn Per Pharmacy) 1 each PRN DAILY PRN 06/27/18 10:45 06/27/18 14:00 1 EACH Insulin Glargine (Lantus) 12 units BID 06/28/18 09:00 06/28/18 08:20 12 UNITS Insulin Human Lispro (HumaLOG) 14 units 1X ONCE 06/28/18 08:15 06/28/18 08:16 DC 06/28/18 08:19 14 UNITS Insulin Human Regular 150 ml @ 0 mls/hr 1X ONCE 06/26/18 15:15 06/26/18 15:16 DC 06/26/18 15:56 26.4 MLS/HR Insulin Human Regular (HumuLIN R VIAL) 10 unit 1X ONCE 06/26/18 15:15 06/26/18 15:16 DC 06/26/18 15:51 10 UNIT Insulin Human Regular 150 unit/ Sodium Chloride 151.5 ml @ 0 mls/hr CONT PRN 06/26/18 17:00 06/27/18 11:20 DC 06/27/18 00:55 6.2 MLS/HR Labetalol HCl (Normodyne Iv Push) 20 mg PRN Q2HR PRN 06/26/18 17:15 06/27/18 16:17 20 MG Lidocaine/Sodium Bicarbonate (Buffered Lidocaine 1%) 6 ml 1X ONCE 06/26/18 17:15 06/26/18 17:16 DC Midazolam HCl (Versed) 5 mg PRN Q2HR PRN 06/26/18 19:00 Morphine Sulfate (Morphine Sulfate) 2 mg PRN Q2HR PRN 06/26/18 17:15 Norepinephrine Bitartrate 250 ml @ 1.875 mls/ hr CONT PRN 06/26/18 19:15 06/26/18 21:43 16.875 MLS/HR Nystatin (Nystop) 1 nato 1X STAT 06/26/18 14:45 06/26/18 14:47 DC 06/26/18 15:56 1 NATO Ondansetron HCl (Zofran) 4 mg PRN Q6HRS PRN 06/26/18 17:15 Pantoprazole Sodium (PROTONIX VIAL for IV PUSH) 40 mg DAILYAC 06/27/18 07:30 06/28/18 08:17 40 MG Piperacillin Sod/ Tazobactam Sod (Zosyn Per Pharmacy) 1 each PRN DAILY PRN 06/26/18 22:00 Piperacillin Sod/ Tazobactam Sod 2.25 gm/Sodium Chloride 50 ml @ 100 mls/hr Q8HRS 06/26/18 22:00 06/28/18 05:34 100 MLS/HR Ringer's Solution 1,000 ml @ 75 mls/hr [id number] 06/27/18 11:00 06/27/18 11:20 DC Sodium Bicarbonate (Sodium Bicarb Adult 8.4% Syr) 100 meq 1X ONCE 06/26/18 19:30 06/26/18 19:31 DC 06/26/18 20:00 100 MEQ Sodium Chloride 90 meq/Potassium Chloride 50 meq/ Potassium Phosphate 13.6 mmol/Magnesium Sulfate 10 meq/ Calcium Gluconate 10 meq/ Multivitamins 10 ml/Chromium/ Copper/Manganese/ Seleni/Zn 1 ml/ Total Parenteral Nutrition/Amino Acids/Dextrose/ Fat Emulsion Intravenous 1,512 ml @ 63 mls/hr TPN CONT 06/27/18 22:00 06/28/18 21:59 06/27/18 22:46 63 MLS/HR Tramadol HCl (Ultram) 50 mg PRN Q6HRS PRN 06/26/18 17:15 Vancomycin HCl (Vanco Per Pharmacy) 1 each PRN DAILY PRN 06/26/18 22:00 06/28/18 08:59 1 EACH Vancomycin HCl (Vancomycin Trough Level) 1 each 1X ONCE 06/28/18 05:00 06/28/18 05:01 DC 06/28/18 05:00 1 EACH Vancomycin HCl 1.5 gm/Sodium Chloride 500 ml @ 250 mls/hr 1X ONCE 06/26/18 23:00 06/27/18 00:59 DC 06/26/18 23:29 250 MLS/HR Vitamin A/Vitamin D (Vitamin A & D Ointment) 1 nato TID 06/27/18 14:00 06/27/18 20:56 1 NATO Lab Laboratory Tests Test 06/27/18 11:00 06/27/18 12:02 06/27/18 13:00 06/27/18 17:02 O2 Saturation 98 % (92-99) 99 % (92-99) Arterial Blood pH 7.59 (7.35-7.45) 7.51 (7.35-7.45) Arterial Blood pCO2 at Patient Temp 33 mmHg (35-46) 32 mmHg (35-46) Arterial Blood pO2 at Patient Temp 156 mmHg (65-108) 171 mmHg (65-108) Arterial Blood HCO3 31 mmol/L (21-28) 25 mmol/L (21-28) Arterial Blood Base Excess 9 mmol/L (-3-3) 2 mmol/L (-3-3) FiO2 40 40 Glucose (Fingerstick) 93 mg/dL (70-99) 278 mg/dL (70-99) Test 06/27/18 20:51 06/28/18 00:14 06/28/18 04:07 06/28/18 06:37 Glucose (Fingerstick) 270 mg/dL (70-99) 332 mg/dL (70-99) 411 mg/dL (70-99) White Blood Count 11.8 x10^3/uL (4.0-11.0) Red Blood Count 2.52 x10^6/uL (3.50-5.40) Hemoglobin 8.5 g/dL (12.0-15.5) Hematocrit 24.5 % (36.0-47.0) Mean Corpuscular Volume 97 fL (79-100) Mean Corpuscular Hemoglobin 34 pg (25-35) Mean Corpuscular Hemoglobin Concent 35 g/dL (31-37) Red Cell Distribution Width 18.1 % (11.5-14.5) Platelet Count 234 x10^3/uL (140-400) Neutrophils (%) (Auto) 92 % (31-73) Lymphocytes (%) (Auto) 4 % (24-48) Monocytes (%) (Auto) 3 % (0-9) Eosinophils (%) (Auto) 1 % (0-3) Basophils (%) (Auto) 0 % (0-3) Neutrophils # (Auto) 10.9 x10^3uL (1.8-7.7) Lymphocytes # (Auto) 0.5 x10^3/uL (1.0-4.8) Monocytes # (Auto) 0.4 x10^3/uL (0.0-1.1) Eosinophils # (Auto) 0.1 x10^3/uL (0.0-0.7) Basophils # (Auto) 0.0 x10^3/uL (0.0-0.2) Sodium Level 137 mmol/L (136-145) Potassium Level 3.5 mmol/L (3.5-5.1) Chloride Level 102 mmol/L (98-107) Carbon Dioxide Level 23 mmol/L (21-32) Anion Gap 12 (6-14) Blood Urea Nitrogen 24 mg/dL (7-20) Creatinine 2.7 mg/dL (0.6-1.0) Estimated GFR (Cockcroft-Gault) 21.0 BUN/Creatinine Ratio 9 (6-20) Glucose Level 500 mg/dL (70-99) Calcium Level 8.0 mg/dL (8.5-10.1) Phosphorus Level 3.5 mg/dL (2.6-4.7) Total Bilirubin 0.3 mg/dL (0.2-1.0) Aspartate Amino Transf (AST/SGOT) 397 U/L (15-37) Alanine Aminotransferase (ALT/SGPT) 440 U/L (14-59) Alkaline Phosphatase 98 U/L (46-116) Total Protein 5.6 g/dL (6.4-8.2) Albumin 1.9 g/dL (3.4-5.0) Albumin/Globulin Ratio 0.5 (1.0-1.7) Random Vancomycin Level 14.2 mcg/mL Test 06/28/18 08:13 Glucose (Fingerstick) 480 mg/dL (70-99) Results All relevant outside records, renal labs, imaging studies, telemetry/EKG's were reviewed. JERMAINE JASON MD Jun 28, 2018 10:32
--- NOTE | 2018-06-28 11:00 | PDOC ---
PULMONARY PROGRESS NOTES Subjective remains intubated/ off sedation, not responsive AC mode Vitals Vital Signs Date Time Temp Pulse Resp B/P (MAP) Pulse Ox O2 Delivery O2 Flow Rate FiO2 06/28/18 10:00 93 26 151/56 (87) 100 Ventilator 06/28/18 07:00 98.0 98.0 Lungs: Other (clear) Cardiovascular: S1 Abdomen: Soft, Non-tender Extremities: Other (trace edema) Labs Laboratory Tests Test 06/26/18 14:10 06/26/18 14:20 06/26/18 15:00 06/26/18 15:20 White Blood Count 10.3 x10^3/uL (4.0-11.0) Red Blood Count 2.80 x10^6/uL (3.50-5.40) Hemoglobin 9.5 g/dL (12.0-15.5) Hematocrit 31.9 % (36.0-47.0) Mean Corpuscular Volume 114 fL (79-100) Mean Corpuscular Hemoglobin 34 pg (25-35) Mean Corpuscular Hemoglobin Concent 30 g/dL (31-37) Red Cell Distribution Width 17.3 % (11.5-14.5) Platelet Count 587 x10^3/uL (140-400) Neutrophils (%) (Auto) 93 % (31-73) Lymphocytes (%) (Auto) 3 % (24-48) Monocytes (%) (Auto) 4 % (0-9) Eosinophils (%) (Auto) 0 % (0-3) Basophils (%) (Auto) 1 % (0-3) Neutrophils # (Auto) 9.5 x10^3uL (1.8-7.7) Lymphocytes # (Auto) 0.3 x10^3/uL (1.0-4.8) Monocytes # (Auto) 0.4 x10^3/uL (0.0-1.1) Eosinophils # (Auto) 0.0 x10^3/uL (0.0-0.7) Basophils # (Auto) 0.1 x10^3/uL (0.0-0.2) Segmented Neutrophils % 89 % (35-66) Band Neutrophils % 5 % (0-9) Lymphocytes % 1 % (24-48) Monocytes % 3 % (0-10) Basophils % 1 % (0-3) Metamyelocytes % 1 % (0-0) Platelet Estimate Increased (ADEQUATE) Anisocytosis Slight Macrocytosis Marked Prothrombin Time 15.3 SEC (11.7-14.0) Prothromb Time International Ratio 1.3 (0.8-1.1) Sodium Level 131 mmol/L (136-145) Potassium Level 7.6 mmol/L (3.5-5.1) Chloride Level 94 mmol/L (98-107) Carbon Dioxide Level 8 mmol/L (21-32) Anion Gap 29 (6-14) Blood Urea Nitrogen 137 mg/dL (7-20) Creatinine 7.0 mg/dL (0.6-1.0) Estimated GFR (Cockcroft-Gault) 5.8 BUN/Creatinine Ratio 20 (6-20) Glucose Level 1290 mg/dL (70-99) Hemoglobin A1c 13.1 % (4.8-5.6) Lactic Acid Level 1.8 mmol/L (0.4-2.0) Calcium Level 9.6 mg/dL (8.5-10.1) Magnesium Level 3.8 mg/dL (1.8-2.4) Total Bilirubin 0.5 mg/dL (0.2-1.0) Aspartate Amino Transf (AST/SGOT) 17 U/L (15-37) Alanine Aminotransferase (ALT/SGPT) 21 U/L (14-59) Alkaline Phosphatase 159 U/L (46-116) Creatine Kinase 125 U/L (26-192) Troponin I Quantitative 0.019 ng/mL (0.000-0.055) WJ-Xjr-L-Type Natriuretic Peptide 320 pg/mL (0-124) Total Protein 8.2 g/dL (6.4-8.2) Albumin 3.4 g/dL (3.4-5.0) Albumin/Globulin Ratio 0.7 (1.0-1.7) Lipase 96630 U/L (73-393) Thyroid Stimulating Hormone (TSH) 0.211 uIU/mL (0.358-3.74) Free Thyroxine 1.67 ng/dL (0.76-1.46) Free Triiodothyronine (T3) pg/mL 1.74 pg/mL (2.18-3.98) Salicylates Level 4.9 mg/dL (2.8-20.0) Salicylate Last Dose Date Unknown Salicylate Last Dose Time Unknown Urine Collection Type U cath Urine Color Yellow Urine Clarity Cloudy Urine pH 5.0 Urine Specific [place] 1.025 Urine Protein 100 mg/dL (NEG-TRACE) Urine Glucose (UA) >=1000 mg/dL (NEG) Urine Ketones (Stick) Negative mg/dL (NEG) Urine Blood Trace (NEG) Urine Nitrite Negative (NEG) Urine Bilirubin Negative (NEG) Urine Urobilinogen Dipstick 0.2 mg/dL (0.2 mg/dL) Urine Leukocyte Esterase Negative (NEG) Urine RBC 1-2 /HPF (0-2) Urine WBC Occ /HPF (0-4) Urine Squamous Epithelial Cells Few /LPF Urine Transitional Epithelial Cells Occ /LPF Urine Amorphous Sediment Present /HPF Urine Bacteria 0 /HPF (0-FEW) Urine Opiates Screen Neg (NEG) Urine Methadone Screen Neg (NEG) Urine Barbiturates Neg (NEG) Urine Phencyclidine Screen Neg (NEG) Urine Amphetamine/Methamphetamine Neg (NEG) Urine Benzodiazepines Screen Neg (NEG) Urine Cocaine Screen Neg (NEG) Urine Cannabinoids Screen Neg (NEG) Urine Ethyl Alcohol Neg (NEG) Ammonia < 10 mcmol/L (11-34) O2 Saturation 97 % (92-99) Arterial Blood pH 7.14 (7.35-7.45) Arterial Blood pCO2 at Patient Temp 19 mmHg (35-46) Arterial Blood pO2 at Patient Temp 113 mmHg (65-108) Arterial Blood HCO3 6 mmol/L (21-28) Arterial Blood Base Excess -21 mmol/L (-3-3) FiO2 21 Test 06/26/18 17:20 06/26/18 19:15 06/26/18 19:29 06/26/18 19:30 Glucose Level 950 mg/dL (70-99) 471 mg/dL (70-99) Lactic Acid Level 3.9 mmol/L (0.4-2.0) 4.9 mmol/L (0.4-2.0) Glucose (Fingerstick) 331 mg/dL (70-99) 459 mg/dL (70-99) White Blood Count 9.0 x10^3/uL (4.0-11.0) Red Blood Count 2.36 x10^6/uL (3.50-5.40) Hemoglobin 8.1 g/dL (12.0-15.5) Hematocrit 24.5 % (36.0-47.0) Mean Corpuscular Volume 104 fL (79-100) Mean Corpuscular Hemoglobin 35 pg (25-35) Mean Corpuscular Hemoglobin Concent 33 g/dL (31-37) Red Cell Distribution Width 16.0 % (11.5-14.5) Platelet Count 462 x10^3/uL (140-400) Neutrophils (%) (Auto) 93 % (31-73) Lymphocytes (%) (Auto) 5 % (24-48) Monocytes (%) (Auto) 2 % (0-9) Eosinophils (%) (Auto) 0 % (0-3) Basophils (%) (Auto) 0 % (0-3) Neutrophils # (Auto) 8.4 x10^3uL (1.8-7.7) Lymphocytes # (Auto) 0.4 x10^3/uL (1.0-4.8) Monocytes # (Auto) 0.2 x10^3/uL (0.0-1.1) Eosinophils # (Auto) 0.0 x10^3/uL (0.0-0.7) Basophils # (Auto) 0.0 x10^3/uL (0.0-0.2) Sodium Level 147 mmol/L (136-145) Potassium Level 4.2 mmol/L (3.5-5.1) Chloride Level 109 mmol/L (98-107) Carbon Dioxide Level 13 mmol/L (21-32) Anion Gap 25 (6-14) Blood Urea Nitrogen 133 mg/dL (7-20) Creatinine 6.8 mg/dL (0.6-1.0) Estimated GFR (Cockcroft-Gault) 7.2 BUN/Creatinine Ratio 20 (6-20) Calcium Level 9.3 mg/dL (8.5-10.1) Total Bilirubin 0.5 mg/dL (0.2-1.0) Aspartate Amino Transf (AST/SGOT) 12 U/L (15-37) Alanine Aminotransferase (ALT/SGPT) 19 U/L (14-59) Alkaline Phosphatase 132 U/L (46-116) Total Protein 6.7 g/dL (6.4-8.2) Albumin 2.8 g/dL (3.4-5.0) Albumin/Globulin Ratio 0.7 (1.0-1.7) Hepatitis B Surface Antigen Nonreactive (Nonreactive) Hepatitis B Surface Antibody Nonreactive Test 06/26/18 20:10 06/26/18 20:11 06/26/18 21:25 06/26/18 22:29 O2 Saturation 99 % (92-99) Arterial Blood pH 7.40 (7.35-7.45) Arterial Blood pCO2 at Patient Temp 21 mmHg (35-46) Arterial Blood pO2 at Patient Temp 321 mmHg (65-108) Arterial Blood HCO3 13 mmol/L (21-28) Arterial Blood Base Excess -11 mmol/L (-3-3) FiO2 99 Glucose (Fingerstick) 339 mg/dL (70-99) 123 mg/dL (70-99) 227 mg/dL (70-99) Test 06/26/18 23:37 06/26/18 23:40 06/27/18 00:43 06/27/18 00:50 Glucose (Fingerstick) 140 mg/dL (70-99) 214 mg/dL (70-99) Sodium Level 143 mmol/L (136-145) Potassium Level 2.8 mmol/L (3.5-5.1) Chloride Level 102 mmol/L (98-107) Carbon Dioxide Level 27 mmol/L (21-32) Anion Gap 14 (6-14) Blood Urea Nitrogen 24 mg/dL (7-20) Creatinine 1.6 mg/dL (0.6-1.0) Estimated GFR (Cockcroft-Gault) 38.3 Glucose Level 147 mg/dL (70-99) Calcium Level 8.5 mg/dL (8.5-10.1) Phosphorus Level 1.7 mg/dL (2.6-4.7) Magnesium Level 1.9 mg/dL (1.8-2.4) Lactic Acid Level 2.4 mmol/L (0.4-2.0) Test 06/27/18 01:52 06/27/18 02:00 06/27/18 02:58 06/27/18 04:01 Glucose (Fingerstick) 180 mg/dL (70-99) 150 mg/dL (70-99) 157 mg/dL (70-99) Nasal Screen MRSA (PCR) Negative (Negative) Sodium Level 143 mmol/L (136-145) Potassium Level 3.5 mmol/L (3.5-5.1) Chloride Level 103 mmol/L (98-107) Carbon Dioxide Level 25 mmol/L (21-32) Anion Gap 15 (6-14) Blood Urea Nitrogen 33 mg/dL (7-20) Creatinine 2.4 mg/dL (0.6-1.0) Estimated GFR (Cockcroft-Gault) 24.0 Glucose Level 175 mg/dL (70-99) Calcium Level 7.5 mg/dL (8.5-10.1) Phosphorus Level 2.4 mg/dL (2.6-4.7) Magnesium Level 1.7 mg/dL (1.8-2.4) Test 06/27/18 05:16 06/27/18 05:18 06/27/18 07:31 06/27/18 08:00 Glucose (Fingerstick) 180 mg/dL (70-99) 247 mg/dL (70-99) White Blood Count 7.8 x10^3/uL (4.0-11.0) Red Blood Count 2.04 x10^6/uL (3.50-5.40) Hemoglobin 6.8 g/dL (12.0-15.5) Hematocrit 20.2 % (36.0-47.0) Mean Corpuscular Volume 99 fL (79-100) Mean Corpuscular Hemoglobin 33 pg (25-35) Mean Corpuscular Hemoglobin Concent 34 g/dL (31-37) Red Cell Distribution Width 15.7 % (11.5-14.5) Platelet Count 292 x10^3/uL (140-400) Neutrophils (%) (Auto) 91 % (31-73) Lymphocytes (%) (Auto) 4 % (24-48) Monocytes (%) (Auto) 5 % (0-9) Eosinophils (%) (Auto) 0 % (0-3) Basophils (%) (Auto) 0 % (0-3) Neutrophils # (Auto) 7.1 x10^3uL (1.8-7.7) Lymphocytes # (Auto) 0.3 x10^3/uL (1.0-4.8) Monocytes # (Auto) 0.4 x10^3/uL (0.0-1.1) Eosinophils # (Auto) 0.0 x10^3/uL (0.0-0.7) Basophils # (Auto) 0.0 x10^3/uL (0.0-0.2) Sodium Level 140 mmol/L (136-145) Potassium Level 3.1 mmol/L (3.5-5.1) Chloride Level 103 mmol/L (98-107) Carbon Dioxide Level 24 mmol/L (21-32) Anion Gap 13 (6-14) Blood Urea Nitrogen 35 mg/dL (7-20) Creatinine 2.7 mg/dL (0.6-1.0) Estimated GFR (Cockcroft-Gault) 21.0 Glucose Level 197 mg/dL (70-99) Calcium Level 7.4 mg/dL (8.5-10.1) Iron Level 15 ug/dL (50-170) Total Iron Binding Capacity 134 ug/dL (250-450) Iron Saturation 11 % (15-34) Ferritin 2822 ng/mL (8-252) Triglycerides Level 118 mg/dL (0-150) Cholesterol Level 138 mg/dL (0-200) LDL Cholesterol, Calculated 79 mg/dL (0-100) VLDL Cholesterol, Calculated 24 mg/dL (0-40) Non-HDL Cholesterol Calculated 103 mg/dL (0-129) HDL Cholesterol 35 mg/dL (40-60) Cholesterol/HDL Ratio 3.9 Lipase 25223 U/L (73-393) Vitamin B12 Level 1749 pg/mL (247-911) Stool Occult Blood Positive (NEG) Test 06/27/18 08:45 06/27/18 08:53 06/27/18 10:08 06/27/18 11:00 O2 Saturation 99 % (92-99) 98 % (92-99) Arterial Blood pH 7.56 (7.35-7.45) 7.59 (7.35-7.45) Arterial Blood pCO2 at Patient Temp 24 mmHg (35-46) 33 mmHg (35-46) Arterial Blood pO2 at Patient Temp 170 mmHg (65-108) 156 mmHg (65-108) Arterial Blood HCO3 21 mmol/L (21-28) 31 mmol/L (21-28) Arterial Blood Base Excess -1 mmol/L (-3-3) 9 mmol/L (-3-3) FiO2 40 40 Glucose (Fingerstick) 150 mg/dL (70-99) 119 mg/dL (70-99) Test 06/27/18 12:02 06/27/18 13:00 06/27/18 17:02 06/27/18 20:51 Glucose (Fingerstick) 93 mg/dL (70-99) 278 mg/dL (70-99) 270 mg/dL (70-99) O2 Saturation 99 % (92-99) Arterial Blood pH 7.51 (7.35-7.45) Arterial Blood pCO2 at Patient Temp 32 mmHg (35-46) Arterial Blood pO2 at Patient Temp 171 mmHg (65-108) Arterial Blood HCO3 25 mmol/L (21-28) Arterial Blood Base Excess 2 mmol/L (-3-3) FiO2 40 Test 06/28/18 00:14 06/28/18 04:07 06/28/18 06:37 06/28/18 08:13 Glucose (Fingerstick) 332 mg/dL (70-99) 411 mg/dL (70-99) 480 mg/dL (70-99) White Blood Count 11.8 x10^3/uL (4.0-11.0) Red Blood Count 2.52 x10^6/uL (3.50-5.40) Hemoglobin 8.5 g/dL (12.0-15.5) Hematocrit 24.5 % (36.0-47.0) Mean Corpuscular Volume 97 fL (79-100) Mean Corpuscular Hemoglobin 34 pg (25-35) Mean Corpuscular Hemoglobin Concent 35 g/dL (31-37) Red Cell Distribution Width 18.1 % (11.5-14.5) Platelet Count 234 x10^3/uL (140-400) Neutrophils (%) (Auto) 92 % (31-73) Lymphocytes (%) (Auto) 4 % (24-48) Monocytes (%) (Auto) 3 % (0-9) Eosinophils (%) (Auto) 1 % (0-3) Basophils (%) (Auto) 0 % (0-3) Neutrophils # (Auto) 10.9 x10^3uL (1.8-7.7) Lymphocytes # (Auto) 0.5 x10^3/uL (1.0-4.8) Monocytes # (Auto) 0.4 x10^3/uL (0.0-1.1) Eosinophils # (Auto) 0.1 x10^3/uL (0.0-0.7) Basophils # (Auto) 0.0 x10^3/uL (0.0-0.2) Sodium Level 137 mmol/L (136-145) Potassium Level 3.5 mmol/L (3.5-5.1) Chloride Level 102 mmol/L (98-107) Carbon Dioxide Level 23 mmol/L (21-32) Anion Gap 12 (6-14) Blood Urea Nitrogen 24 mg/dL (7-20) Creatinine 2.7 mg/dL (0.6-1.0) Estimated GFR (Cockcroft-Gault) 21.0 BUN/Creatinine Ratio 9 (6-20) Glucose Level 500 mg/dL (70-99) Calcium Level 8.0 mg/dL (8.5-10.1) Phosphorus Level 3.5 mg/dL (2.6-4.7) Total Bilirubin 0.3 mg/dL (0.2-1.0) Aspartate Amino Transf (AST/SGOT) 397 U/L (15-37) Alanine Aminotransferase (ALT/SGPT) 440 U/L (14-59) Alkaline Phosphatase 98 U/L (46-116) Total Protein 5.6 g/dL (6.4-8.2) Albumin 1.9 g/dL (3.4-5.0) Albumin/Globulin Ratio 0.5 (1.0-1.7) Random Vancomycin Level 14.2 mcg/mL Laboratory Tests Test 06/27/18 11:00 06/27/18 12:02 06/27/18 13:00 06/27/18 17:02 O2 Saturation 98 % (92-99) 99 % (92-99) Arterial Blood pH 7.59 (7.35-7.45) 7.51 (7.35-7.45) Arterial Blood pCO2 at Patient Temp 33 mmHg (35-46) 32 mmHg (35-46) Arterial Blood pO2 at Patient Temp 156 mmHg (65-108) 171 mmHg (65-108) Arterial Blood HCO3 31 mmol/L (21-28) 25 mmol/L (21-28) Arterial Blood Base Excess 9 mmol/L (-3-3) 2 mmol/L (-3-3) FiO2 40 40 Glucose (Fingerstick) 93 mg/dL (70-99) 278 mg/dL (70-99) Test 06/27/18 20:51 06/28/18 00:14 06/28/18 04:07 06/28/18 06:37 Glucose (Fingerstick) 270 mg/dL (70-99) 332 mg/dL (70-99) 411 mg/dL (70-99) White Blood Count 11.8 x10^3/uL (4.0-11.0) Red Blood Count 2.52 x10^6/uL (3.50-5.40) Hemoglobin 8.5 g/dL (12.0-15.5) Hematocrit 24.5 % (36.0-47.0) Mean Corpuscular Volume 97 fL (79-100) Mean Corpuscular Hemoglobin 34 pg (25-35) Mean Corpuscular Hemoglobin Concent 35 g/dL (31-37) Red Cell Distribution Width 18.1 % (11.5-14.5) Platelet Count 234 x10^3/uL (140-400) Neutrophils (%) (Auto) 92 % (31-73) Lymphocytes (%) (Auto) 4 % (24-48) Monocytes (%) (Auto) 3 % (0-9) Eosinophils (%) (Auto) 1 % (0-3) Basophils (%) (Auto) 0 % (0-3) Neutrophils # (Auto) 10.9 x10^3uL (1.8-7.7) Lymphocytes # (Auto) 0.5 x10^3/uL (1.0-4.8) Monocytes # (Auto) 0.4 x10^3/uL (0.0-1.1) Eosinophils # (Auto) 0.1 x10^3/uL (0.0-0.7) Basophils # (Auto) 0.0 x10^3/uL (0.0-0.2) Sodium Level 137 mmol/L (136-145) Potassium Level 3.5 mmol/L (3.5-5.1) Chloride Level 102 mmol/L (98-107) Carbon Dioxide Level 23 mmol/L (21-32) Anion Gap 12 (6-14) Blood Urea Nitrogen 24 mg/dL (7-20) Creatinine 2.7 mg/dL (0.6-1.0) Estimated GFR (Cockcroft-Gault) 21.0 BUN/Creatinine Ratio 9 (6-20) Glucose Level 500 mg/dL (70-99) Calcium Level 8.0 mg/dL (8.5-10.1) Phosphorus Level 3.5 mg/dL (2.6-4.7) Total Bilirubin 0.3 mg/dL (0.2-1.0) Aspartate Amino Transf (AST/SGOT) 397 U/L (15-37) Alanine Aminotransferase (ALT/SGPT) 440 U/L (14-59) Alkaline Phosphatase 98 U/L (46-116) Total Protein 5.6 g/dL (6.4-8.2) Albumin 1.9 g/dL (3.4-5.0) Albumin/Globulin Ratio 0.5 (1.0-1.7) Random Vancomycin Level 14.2 mcg/mL Test 06/28/18 08:13 Glucose (Fingerstick) 480 mg/dL (70-99) Medications Active Scripts Medications Dose Route/Sig Max Daily Dose Days Date Category Unable To Obtain Meds From Prior To Admit (Info) Each 1 Each 06/26/18 Reported Impression . 1. Acute respiratory failure secondary to multifactorial etiologies including acute metabolic encephalopathy, worsening uremia, contributing to encephalopathy, nonketotic hyperosmolar coma and new multiple ischemic stroke. 2. Severe metabolic acidosis secondary to [id number] renal failure and sepsis. 3. Nmecc-uh-vueylvg renal failure, now requiring dialysis. She had declined to have dialysis before despite worsening in her renal function. 4. Ykehk-qj-kvxnncn anemia. No obvious blood loss. GI to evaluate. 5. Acute pancreatitis, likely the source of her sepsis. 6. Abnormal CT chest with a mass-like consolidation in the right upper lobe and also an infiltrate in the left lower lobe. This needs to be followed up to rule out any malignancy. 7. Gexogccj-ns-swpcre protein-calorie malnutrition. 8. Marked lactic acidosis, which is now improving. 9. Hypophosphatemia. 10. Hyperkalemia, present on admission, s/p urgent HD. Renal is following. 11. Multiple infarcts on MRI brain, and Right IJ venous thrombosis Plan . 1. Continue with present assist control mode. I have reduced the rate and will make necessary adjustments based on ABGs. 2. MRI findings reviewed. multiple ischemic infarcts/ Right IJ thrombosis. Vascular surgery consulted. AC per vascular. 3. Broad-spectrum antibiotics. 4. Hemodialysis with correction of electrolytes per Renal. 5. prn RBC transfusion. 6. Follow amylase and lipase levels and follow GI recommendations. continue with stress ulcer prophylaxis. 7. Insulin drip per protocol. 8. Follow chest x-rays. 9. We will need a followup CT chest in next 4-6 weeks to rule out the possibility of a mass in the right upper lobe. 10. Monitor blood pressure closely. Currently, she is off of Levophed. 11. Continue deep venous thrombosis prophylaxis with heparin closely while monitoring the hemoglobin closely as well. 13. Discussed with RN and RT.and patients son in detail cc 30 min KASEY DEWEY MD Jun 28, 2018 11:00
[2018-06-28] MEDS: TPN PER PHARMACY MC PRN ×2 (11:16→12:44)
[2018-06-28 11:42] LABS: FIO2 ABG 40
[2018-06-28] MEDS: VITS A & D/LANOLIN TOPICAL OINTMENT 56GM TUBE. TP SCH ×3 (11:45→21:05)
[2018-06-28] MEDS ORDERED: LABE100T5 PO (11:56)
[2018-06-28] MEDS ORDERED: CALC0.5C8 PO (11:56)
[2018-06-28] MEDS ORDERED: LOSA100T7 PO (11:56)
[2018-06-28] MEDS ORDERED: INSU100V13 SQ (11:56)
[2018-06-28] MEDS ORDERED: HYDR500C16 PO (11:56)
[2018-06-28] MEDS ORDERED: FOLI1TAB16 PO (11:56)
[2018-06-28] MEDS ORDERED: ASPI325T8 PO (11:56)
[2018-06-28] MEDS ORDERED: SIMV20TA3 PO (11:56)
[2018-06-28] MEDS ORDERED: AMLO5TAB4 PO (11:56)
--- NOTE | 2018-06-28 12:19 | PDOC ---
Objective: Objective: Reviewed w/ RN - vascular consulted re: right IJ thrombus, question of anti- coagulation safety w/ concern for GI bleeding. Having black watery stools - has rectal tube. Transfused 1 unit yesterday. On TPN. Vital Signs: Vital Signs Date Time Temp Pulse Resp B/P (MAP) Pulse Ox O2 Delivery O2 Flow Rate FiO2 06/28/18 11:42 100 Ventilator 06/28/18 11:00 91 22 169/73 (105) 06/28/18 07:00 98.0 98.0 Labs: Laboratory Tests Test 06/27/18 13:00 06/27/18 17:02 06/27/18 20:51 06/28/18 00:14 O2 Saturation 99 % Arterial Blood pH 7.51 Arterial Blood pCO2 at Patient Temp 32 mmHg Arterial Blood pO2 at Patient Temp 171 mmHg Arterial Blood HCO3 25 mmol/L Arterial Blood Base Excess 2 mmol/L FiO2 40 Glucose (Fingerstick) 278 mg/dL 270 mg/dL 332 mg/dL Test 06/28/18 04:07 06/28/18 06:37 06/28/18 08:00 06/28/18 08:13 Glucose (Fingerstick) 411 mg/dL 480 mg/dL White Blood Count 11.8 x10^3/uL Red Blood Count 2.52 x10^6/uL Hemoglobin 8.5 g/dL Hematocrit 24.5 % Mean Corpuscular Volume 97 fL Mean Corpuscular Hemoglobin 34 pg Mean Corpuscular Hemoglobin Concent 35 g/dL Red Cell Distribution Width 18.1 % Platelet Count 234 x10^3/uL Neutrophils (%) (Auto) 92 % Lymphocytes (%) (Auto) 4 % Monocytes (%) (Auto) 3 % Eosinophils (%) (Auto) 1 % Basophils (%) (Auto) 0 % Neutrophils # (Auto) 10.9 x10^3uL Lymphocytes # (Auto) 0.5 x10^3/uL Monocytes # (Auto) 0.4 x10^3/uL Eosinophils # (Auto) 0.1 x10^3/uL Basophils # (Auto) 0.0 x10^3/uL Sodium Level 137 mmol/L Potassium Level 3.5 mmol/L Chloride Level 102 mmol/L Carbon Dioxide Level 23 mmol/L Anion Gap 12 Blood Urea Nitrogen 24 mg/dL Creatinine 2.7 mg/dL Estimated GFR (Cockcroft-Gault) 21.0 BUN/Creatinine Ratio 9 Glucose Level 500 mg/dL Calcium Level 8.0 mg/dL Phosphorus Level 3.5 mg/dL Magnesium Level 1.9 mg/dL Total Bilirubin 0.3 mg/dL Aspartate Amino Transf (AST/SGOT) 397 U/L Alanine Aminotransferase (ALT/SGPT) 440 U/L Alkaline Phosphatase 98 U/L Total Protein 5.6 g/dL Albumin 1.9 g/dL Albumin/Globulin Ratio 0.5 Random Vancomycin Level 14.2 mcg/mL O2 Saturation 98 % Arterial Blood pH 7.46 Arterial Blood pCO2 at Patient Temp 28 mmHg Arterial Blood pO2 at Patient Temp 145 mmHg Arterial Blood HCO3 20 mmol/L Arterial Blood Base Excess -3 mmol/L FiO2 40 Test 06/28/18 11:46 Glucose (Fingerstick) 413 mg/dL Imaging: Carotid Doppler IMPRESSION: 1. Limited exam with inadequate visualization of the left carotid bifurcation. 2. No significant carotid stenosis is identified on the right. 3. Right internal jugular venous thrombosis. Brain MRI Impression: 1. There are multiple scattered recent infarcts bilaterally, probably early subacute. Other scattered T2 and FLAIR hyperintense signal abnormality of the sina and to lesser degree of the supratentorial white matter is nonspecific although may be due to chronic microvascular ischemic disease. 2. Flow voids are poorly evaluated, although probably some abnormal signal in the intradural vertebral arteries greater on the left. US IMPRESSION: 1. Slight common bile duct dilatation for patient age. This may be due to reservoir effect status post cholecystectomy. No obstructing lesion is seen. ERCP or MRCP can be performed if there is concern for an occult obstructing etiology. 2. Partially obscured pancreas due to bowel gas. 3. Echogenic renal parenchyma. This can be seen with medical renal disease. PE: GEN: intubated HEENT: OG bilious LUNGS: vent HEART: RR ABD: quiet, soft OTHER: rectal tube - bag empty NEURO/PSYCH: unresponsive A/P: Anemia, +fecal occult - Hgb improved/stable after transfusion Pancreatitis, transaminitis, s/p cholecystectomy Brain infarcts, right IJ thrombus, DM, ESRD -- Continue TPN and IV PPI. Hgb stable after transfusion, rectal tube/bag empty when I saw this afternoon. Elevation in LFTs likely multi-factorial - monitor. Slight CBD dilatation ( 8.1mm) on US post-lily. Liver normal. Request for GI to weigh in re: anti-coagulation w/ IJ thrombus and concern for GI bleeding - will review w/ Dr. Oropeza. SILVIO AMEZQUITA Jun 28, 2018 12:19 HUBER OROPEZA MD Jun 28, 2018 13:49
[2018-06-28] MEDS ORDERED: VANCOMYCIN 500 MG in IV NORMAL SALINE 100ML 100 ML IV ONE (12:30)
--- NOTE | 2018-06-28 14:04 | PDOC2 ---
PHOENIX RIOS CREDIT COLLECTIONS SPECIALIST 06/28/18 1404: CARDIAC CONSULT DATE OF CONSULT Date of Consult DATE: 06/28/18 TIME: 13:30 REASON FOR CONSULT Reason for Consult: embolic infarcts, and right internal jugular thrombus REFERRING PHYSICIAN Referring Physician: Latanya SOURCE Source: Chart review HISTORY OF PRESENT ILLNESS HISTORY OF PRESENT ILLNESS This is a 73 yo female admitted for increasing confusion then unresponsiveness. She was initially found on the floor in the kitchen by her son. Prior to this she has been having confused state and slurred speech. There was no notation of her having chest pain or SOA. No family at the bedside for further details. During her hospital stay she has been noted with multiple significant acute conditions as highlighted in the assessment. Presently she is intubated with vent and has been dialyzed and hemodynamically she appears to be stable. PAST MEDICAL HISTORY Cardiovascular: HTN CENTRAL NERVOUS SYSTEM: CVA Renal/: Chronic renal failure Endocrine: Diabetes (2) PAST SURGICAL HISTORY Past Surgical History: Other (unknown) FAMILY HISTORY Family History: Family History Unknown SOCIAL HISTORY Social History unknown CURRENT MEDICATIONS CURRENT MEDICATIONS Current Medications Medications (Trade) Dose Ordered Sig/Jose Route PRN Reason Start Time Stop Time Status Last Admin Dose Admin Vitamin A/Vitamin D (Vitamin A & D Ointment) 1 nato TID TP 06/27/18 14:00 06/28/18 11:45 Vancomycin HCl (Vancomycin Trough Level) 1 each 1X ONCE MC 06/28/18 05:00 06/28/18 05:01 DC 06/28/18 05:00 Insulin Glargine (Lantus) 10 units QHS SQ 06/27/18 21:00 06/28/18 08:07 DC 06/27/18 20:54 Sodium Chloride 90 meq/Potassium Chloride 50 meq/ Potassium Phosphate 13.6 mmol/Magnesium Sulfate 10 meq/ Calcium Gluconate 10 meq/ Multivitamins 10 ml/Chromium/ Copper/Manganese/ Seleni/Zn 1 ml/ Total Parenteral Nutrition/Amino Acids/Dextrose/ Fat Emulsion Intravenous 1,512 ml @ 63 mls/hr TPN CONT IV 06/27/18 22:00 06/28/18 21:59 06/27/18 22:46 Insulin Glargine (Lantus) 12 units BID SQ 06/28/18 09:00 06/28/18 08:20 Insulin Human Lispro (HumaLOG) 0-9 UNITS Q4HRS SQ 06/28/18 08:15 06/28/18 08:20 Insulin Human Lispro (HumaLOG) 14 units 1X ONCE SQ 06/28/18 08:15 06/28/18 08:16 DC 06/28/18 08:19 Insulin Human Lispro (HumaLOG) 27 units 1X ONCE SQ 06/28/18 12:00 06/28/18 12:01 DC 06/28/18 12:00 ALLERGIES ALLERGIES: Coded Allergies: No Known Drug Allergies (Unverified , 06/27/18) ROS Review of System intubated PHYSICAL EXAM General: Other (sedated) HEENT: Atraumatic, Mucous membr. moist/pink Lungs: Other (diminsihed, vent) Heart: Regular rate (SR), Other (distnat heart sounds) Abdomen: Soft Extremities: No cyanosis Skin: No breakdown, No significant lesion Psych/Mental Status: Other (sedated) MUSCULOSKELETAL: Osteoarthritic changes both hands VITALS VITALS Vital Signs Date Time Temp Pulse Resp B/P (MAP) Pulse Ox O2 Delivery O2 Flow Rate FiO2 06/28/18 12:00 Mechanical Ventilator 06/28/18 12:00 98.6 93 18 172/59 (96) 100 98.6 LABS Lab: Laboratory Tests Test 06/27/18 17:02 06/27/18 20:51 06/28/18 00:14 06/28/18 04:07 Glucose (Fingerstick) 278 mg/dL (70-99) 270 mg/dL (70-99) 332 mg/dL (70-99) 411 mg/dL (70-99) Test 06/28/18 06:37 06/28/18 08:00 06/28/18 08:13 06/28/18 11:46 White Blood Count 11.8 x10^3/uL (4.0-11.0) Red Blood Count 2.52 x10^6/uL (3.50-5.40) Hemoglobin 8.5 g/dL (12.0-15.5) Hematocrit 24.5 % (36.0-47.0) Mean Corpuscular Volume 97 fL (79-100) Mean Corpuscular Hemoglobin 34 pg (25-35) Mean Corpuscular Hemoglobin Concent 35 g/dL (31-37) Red Cell Distribution Width 18.1 % (11.5-14.5) Platelet Count 234 x10^3/uL (140-400) Neutrophils (%) (Auto) 92 % (31-73) Lymphocytes (%) (Auto) 4 % (24-48) Monocytes (%) (Auto) 3 % (0-9) Eosinophils (%) (Auto) 1 % (0-3) Basophils (%) (Auto) 0 % (0-3) Neutrophils # (Auto) 10.9 x10^3uL (1.8-7.7) Lymphocytes # (Auto) 0.5 x10^3/uL (1.0-4.8) Monocytes # (Auto) 0.4 x10^3/uL (0.0-1.1) Eosinophils # (Auto) 0.1 x10^3/uL (0.0-0.7) Basophils # (Auto) 0.0 x10^3/uL (0.0-0.2) Sodium Level 137 mmol/L (136-145) Potassium Level 3.5 mmol/L (3.5-5.1) Chloride Level 102 mmol/L (98-107) Carbon Dioxide Level 23 mmol/L (21-32) Anion Gap 12 (6-14) Blood Urea Nitrogen 24 mg/dL (7-20) Creatinine 2.7 mg/dL (0.6-1.0) Estimated GFR (Cockcroft-Gault) 21.0 BUN/Creatinine Ratio 9 (6-20) Glucose Level 500 mg/dL (70-99) Calcium Level 8.0 mg/dL (8.5-10.1) Phosphorus Level 3.5 mg/dL (2.6-4.7) Magnesium Level 1.9 mg/dL (1.8-2.4) Total Bilirubin 0.3 mg/dL (0.2-1.0) Aspartate Amino Transf (AST/SGOT) 397 U/L (15-37) Alanine Aminotransferase (ALT/SGPT) 440 U/L (14-59) Alkaline Phosphatase 98 U/L (46-116) Total Protein 5.6 g/dL (6.4-8.2) Albumin 1.9 g/dL (3.4-5.0) Albumin/Globulin Ratio 0.5 (1.0-1.7) Random Vancomycin Level 14.2 mcg/mL O2 Saturation 98 % (92-99) Arterial Blood pH 7.46 (7.35-7.45) Arterial Blood pCO2 at Patient Temp 28 mmHg (35-46) Arterial Blood pO2 at Patient Temp 145 mmHg (65-108) Arterial Blood HCO3 20 mmol/L (21-28) Arterial Blood Base Excess -3 mmol/L (-3-3) FiO2 40 Glucose (Fingerstick) 480 mg/dL (70-99) 413 mg/dL (70-99) ECHOCARDIOGRAM ECHOCARDIOGRAM <Conclusion> The left ventricular systolic function is normal. The Ejection Fraction is 55-60%. Septal motion consistent with conduction abnormality. Transmitral Doppler flow pattern is Grade I-abnormal relaxation pattern. Trace mitral regurgitation. Trace tricuspid regurgitation. The PA pressure was estimated at 40 mmHg. There is no evidence of significant pericardial effusion. DATE: 06/28/18 1030 ASSESSMENT/PLAN ASSESSMENT/PLAN 1. Acute respiratory failure: intubated/vented. pulmonary following 2. Post PEA cardiac arrest: upon start of initial dialysis 3" CPR to ROSC, x1 epi. Multifactorial. EF and WM nml 3. 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 Hypoxic/metabolic Encephalopathy 5. GI/bleed with anemia: post transfusion. black stools. Hgb now at 8.5. GI following 6. Acute pancreatitis/enteritis 7. MAVERICK on CKD 4-5?: has been dialyze. 8. DM2: initially with HHS 9. Accelerated HTN; now controlled Recommendations 1. Will need routine anticoagulation at some point but will need to clarify with consultants given GI bleed with unclear source. ASA on VTE prophylaxis heparin. 2. Will consider for SALEEM pending GI status particularly any upper GI issues. Will discuss with primary tube bending machine operator. labetalol PRN 3. Poor prognosis, continue supportive care. 4. No arrhythmias so far, maintaining SR, Monitor for any rhythm changes. GIANCARLO DIETZ MD 06/28/18 9446: CARDIAC CONSULT ASSESSMENT/PLAN ASSESSMENT/PLAN Patient seen and examined. Agree with above nurse practitioner note with the following comments Critically ill 73-year-old woman with multiple comorbidities as noted below. Etiology of her cardiac arrest is likely multifactorial from her respiratory issues as well as metabolic abnormalities. No clear indication for a transesophageal echocardiogram at this point. Would definitely initiate anticoagulation when able to do so from a GI perspective. Supportive care. We'll be available for any further assessment as issues arise. PHOENIX RIOS APRN Jun 28, 2018 14:04 GIANCARLO DIETZ MD Jun 28, 2018 15:34
--- NOTE | 2018-06-28 16:45 | PDOC2 ---
CONSULT Date of Consult Date of Consult DATE: 06/28/18 TIME: 16:17 Reason for Consult Reason for Consult: IJV thrombosis History of Present Illness Reason for Visit: History was obtained from EMR, RN and partially from the son who was at bedside at beginning of exam. Pt is intubated and unable to give a history. Pt was admitted on 06/26/18 after being found by her son unconscious. She reportedly was altered a day or so prior. She has been in critical condition since her admission being treated for HHS, renal failure, respiratory arrest, PEA, CVA, anemia, GI bleed and pancreatitis. She reportedly had a CVA about a month ago at which point she was hospitalized at [facility]. Her MRI this encounter showed multiple scattered infarcts. With this, a carotid duplex was ordered that showed right internal jugular vein thrombosis, at which point we were asked to see the patient. She does not appear to have a history of clotting. She has received a blood transfusion and has had a positive Hemoccult. She has been treated with subQ heparin regardless for the IJ venous thrombosis. Amongst others GI, Neuro and Cardio are also evaluating the patient. Past Medical History Cardiovascular: HTN CENTRAL NERVOUS SYSTEM: CVA Renal/: Chronic renal failure Endocrine: Diabetes (2) Past Surgical History Past Surgical History: Other (unknown) Family History Family History: Family History Unknown Current Problem List Problem List Problems Medical Problems: (1) Acute renal failure Status: Acute (2) Hyperosmolar nonketotic coma in diabetes Status: Acute (3) Pancreatitis Status: Acute Right IJV thrombosis Current Medications Current Medications Current Medications Sodium Chloride 1,000 ml @ 1,000 mls/hr 1X ONCE IV Last administered on 06/26at 14:37; Start 06/26/18 at 14:15; Stop 06/26/18 at 15:14; Status DC Nystatin (Nystop) 1 nato 1X STAT TP Last administered on 06/26/18at 15:56; Start 06/26/18 at 14:45; Stop 06/26/18 at 14:47; Status DC Sodium Bicarbonate (Sodium Bicarb Adult 8.4% Syr) 50 meq 1X ONCE IV Last administered on 06/26/18at 15:57; Start 06/26/18 at 15:15; Stop 06/26/18 at 15 :16; Status DC Albuterol Sulfate (Ventolin Neb Soln) 10 mg 1X ONCE CONT NEB ; Start 06/26/18 at 15:15; Stop 06/26/18 at 15:16; Status DC Insulin Human Regular (HumuLIN R VIAL) 10 unit 1X ONCE IV Last administered on 06/26/18at 15:51; Start 06/26/18 at 15:15; Stop 06/26/18 at 15:16; Status DC Insulin Human Regular 150 ml @ 0 mls/hr 1X ONCE IV Last administered on at 15:56; Start 06/26/18 at 15:15; Stop 06/26/18 at 15:16; Status DC Sodium Chloride 1,000 ml @ 1,000 mls/hr 1X ONCE IV Last administered on 06/26at 18:21; Start 06/26/18 at 15:15; Stop 06/26/18 at 16:14; Status DC Calcium Gluconate (Calcium Gluconate) 1,000 mg 1X ONCE IVP Last administered on 06/26/18at 15:48; Start 06/26/18 at 15:45; Stop 06/26/18 at 15:46; Status DC Piperacillin Sod/ Tazobactam Sod 2.25 gm/Sodium Chloride 50 ml @ 100 mls/hr 1X ONCE IV Last administered on 06/26/18at 18:24; Start 06/26/18 at 16:15; Stop 06/26/18 at 16:44; Status DC Lidocaine/Sodium Bicarbonate (Buffered Lidocaine 1%) 3 ml 1X ONCE INJ Last administered on 06/26/18at 17:08; Start 06/26/18 at 16:15; Stop 06/26/18 at 16 :21; Status DC Heparin Sodium (Porcine) (Heparin Sodium) 2,600 unit 1X ONCE INT CAT Last administered on 06/26/18at 17:09; Start 06/26/18 at 16:15; Stop 06/26/18 at 16 :21; Status DC Heparin Sodium (Porcine) (Heparin Sodium) 10,000 unit STK-MED ONCE .ROUTE ; Start 06/26/18 at 16:14; Stop 06/26/18 at 16:15; Status DC Heparin Sodium (Porcine) (Heparin Sodium) 5,000 unit Q8HRS SQ Last administered on 06/28/18at 14:29; Start 06/26/18 at 22:00 Pantoprazole Sodium (PROTONIX VIAL for IV PUSH) 40 mg DAILYAC IVP Last administered on 06/28/18at 08:17; Start 06/27/18 at 07:30 Insulin Human Regular 150 unit/ Sodium Chloride 151.5 ml @ 0 mls/hr CONT PRN IV SEE I/O RECORD Last administered on 06/27/18at 00:55; Start 06/26/18 at 17: 00; Stop 06/27/18 at 11:20; Status DC Acetaminophen (Tylenol) 650 mg PRN Q6HRS PRN PO FEVER; Start 06/26/18 at 17:15 Ondansetron HCl (Zofran) 4 mg PRN Q6HRS PRN IV NAUSEA/VOMITING; Start at 17:15 Morphine Sulfate (Morphine Sulfate) 2 mg PRN Q2HR PRN IV MODERATE TO SEVERE PAIN; Start 06/26/18 at 17:15 Tramadol HCl (Ultram) 50 mg PRN Q6HRS PRN PO MILD TO MODERATE PAIN; Start at 17:15 Docusate Sodium (Colace) 100 mg PRN DAILY PRN PO CONSTIPATION; Start 06/26/18 at 17:15 Labetalol HCl (Normodyne Iv Push) 20 mg PRN Q2HR PRN IVP HYPERTENSION, SEE COMMENTS Last administered on 06/27/18at 16:17; Start 06/26/18 at 17:15 Lidocaine/Sodium Bicarbonate (Buffered Lidocaine 1%) 6 ml 1X ONCE INJ ; Start 06/26/18 at 17:15; Stop 06/26/18 at 17:16; Status DC Sodium Bicarbonate (Sodium Bicarb Adult 8.4% Syr) 100 meq 1X ONCE IV Last administered on 06/26/18at 20:00; Start 06/26/18 at 19:30; Stop 06/26/18 at 19 :31; Status DC Midazolam HCl 100 ml @ 5 mls/hr CONT PRN IV SEE I/O RECORD Last administered on 06/27/18at 03:34; Start 06/26/18 at 19:00 Midazolam HCl (Versed) 5 mg PRN Q2HR PRN IV SEDATION; Start 06/26/18 at 19:00 Norepinephrine Bitartrate 250 ml @ 1.875 mls/ hr CONT PRN IV SEE I/O RECORD Last administered on 06/26/18at 21:43; Start 06/26/18 at 19:15 Sodium Chloride 1,000 ml @ 1,000 mls/hr Q1H PRN IV hypotension; Start at 19:17; Stop 06/27/18 at 01:16; Status DC Sodium Chloride 1,000 ml @ 400 mls/hr Q2H30M PRN IV PATENCY; Start 06/26/18 at 19:17; Stop 06/27/18 at 07:16; Status DC Info (PHARMACY MONITORING -- do not chart) 1 each PRN DAILY PRN MC SEE COMMENTS ; Start 06/26/18 at 19:30; Status Cancel Info (PHARMACY MONITORING -- do not chart) 1 each PRN DAILY PRN MC SEE COMMENTS ; Start 06/26/18 at 19:30 Dextrose/Sodium Chloride 1,000 ml @ 250 mls/hr 1X ONCE IV Last administered on 06/26/18at 21:43; Start 06/26/18 at 22:00; Stop 06/27/18 at 01:59; Status DC Vancomycin HCl (Vanco Per Pharmacy) 1 each PRN DAILY PRN MC SEE COMMENTS Last administered on 06/28/18at 11:07; Start 06/26/18 at 22:00 Piperacillin Sod/ Tazobactam Sod (Zosyn Per Pharmacy) 1 each PRN DAILY PRN MC SEE COMMENTS; Start 06/26/18 at 22:00 Piperacillin Sod/ Tazobactam Sod 2.25 gm/Sodium Chloride 50 ml @ 100 mls/hr Q8HRS IV Last administered on 06/28/18at 14:28; Start 06/26/18 at 22:00 Vancomycin HCl 1.5 gm/Sodium Chloride 500 ml @ 250 mls/hr 1X ONCE IV Last administered on 06/26/18at 23:29; Start 06/26/18 at 23:00; Stop 06/27/18 at 00 :59; Status DC Sodium Chloride 1,000 ml @ 1,000 mls/hr Q1H PRN IV hypotension; Start at 09:37; Stop 06/27/18 at 15:36; Status DC Sodium Chloride 1,000 ml @ 400 mls/hr Q2H30M PRN IV PATENCY; Start 06/27/18 at 09:37; Stop 06/27/18 at 21:36; Status DC Info (PHARMACY MONITORING -- do not chart) 1 each PRN DAILY PRN MC SEE COMMENTS ; Start 06/27/18 at 09:45; Status UNV Epinephrine HCl (EPINEPHrine SYRINGE) 1 mg STK-MED ONCE .ROUTE ; Start at 12:00; Stop 06/27/18 at 10:00; Status DC Vitamin A/Vitamin D (Vitamin A & D Ointment) 1 nato TID TP Last administered on 06/28/18at 14:30; Start 06/27/18 at 14:00 Info (Tpn Per Pharmacy) 1 each PRN DAILY PRN MC SEE COMMENTS Last administered on 06/28/18at 12:44; Start 06/27/18 at 10:45 Vancomycin HCl (Vancomycin Trough Level) 1 each 1X ONCE MC Last administered on 06/28/18at 05:00; Start 06/28/18 at 05:00; Stop 06/28/18 at 05:01; Status DC Insulin Glargine (Lantus) 10 units QHS SQ Last administered on 06/27/18at 20:54 ; Start 06/27/18 at 21:00; Stop 06/28/18 at 08:07; Status DC Insulin Human Lispro (HumaLOG) 0-7 UNITS Q4HRS SQ Last administered on at 04:13; Start 06/27/18 at 12:00; Stop 06/28/18 at 08:07; Status DC Dextrose (Dextrose 50%-Water Syringe) 12.5 gm PRN Q15MIN PRN IV SEE COMMENTS; Start 06/27/18 at 11:00 Ringer's Solution 1,000 ml @ 75 mls/hr [id number] IV ; Start 06/27/18 at 11:00; Stop 06/27/18 at 11:20; Status DC Sodium Chloride 1,000 ml @ 100 mls/hr Q10H IV Last administered on 06/28/18at 08:17; Start 06/27/18 at 11:30 Sodium Chloride 90 meq/Potassium Chloride 50 meq/ Potassium Phosphate 13.6 mmol/ Magnesium Sulfate 10 meq/ Calcium Gluconate 10 meq/ Multivitamins 10 ml/Chromium / Copper/Manganese/ Seleni/Zn 1 ml/ Total Parenteral Nutrition/Amino Acids/ Dextrose/ Fat Emulsion Intravenous 1,512 ml @ 63 mls/hr TPN CONT IV Last administered on 06/27/18at 22:46; Start 06/27/18 at 22:00; Stop 06/28/18 at 21 :59 Aspirin (Aspirin) 300 mg DAILY KS ; Start 06/28/18 at 09:00 Insulin Glargine (Lantus) 12 units BID SQ Last administered on 06/28/18at 08:20 ; Start 06/28/18 at 09:00 Insulin Human Lispro (HumaLOG) 0-9 UNITS Q4HRS SQ Last administered on at 08:20; Start 06/28/18 at 08:15 Insulin Human Lispro (HumaLOG) 14 units 1X ONCE SQ Last administered on at 08:19; Start 06/28/18 at 08:15; Stop 06/28/18 at 08:16; Status DC Vancomycin HCl 500 mg/Sodium Chloride 100 ml @ 100 mls/hr 1X ONCE IV Last administered on 06/28/18at 13:42; Start 06/28/18 at 12:30; Stop 06/28/18 at 13 :29; Status DC Insulin Human Lispro (HumaLOG) 27 units 1X ONCE SQ Last administered on at 12:00; Start 06/28/18 at 12:00; Stop 06/28/18 at 12:01; Status DC Sodium Chloride 90 meq/Potassium Chloride 50 meq/ Potassium Phosphate 13.6 mmol/ Magnesium Sulfate 10 meq/ Calcium Gluconate 10 meq/ Multivitamins 10 ml/Chromium / Copper/Manganese/ Seleni/Zn 1 ml/ Total Parenteral Nutrition/Amino Acids/ Dextrose/ Fat Emulsion Intravenous 1,512 ml @ 63 mls/hr TPN CONT IV ; Start 06/28/18 at 22:00; Stop 06/29/18 at 21:59 Chlorhexidine Gluconate (Peridex) 15 ml BID MM ; Start 06/28/18 at 21:00 Active Scripts Active Reported Levemir (Insulin Detemir) 100 Unit/1 Ml Vial 25 Unit SQ QHS Norvasc (Amlodipine Besylate) 5 Mg Tablet 1 Tab PO DAILY Aspirin 325 Mg Tablet 1 Tab PO DAILY Hydroxyurea 500 Mg Capsule 1,000 Mg PO DAILY Labetalol Hcl 100 Mg Tablet 1 Tab PO TID Calcitriol 0.5 Mcg Capsule 1 Cap PO DAILY Simvastatin 20 Mg Tablet 20 Mg PO HS Folic Acid 1 Mg Tablet 2 Tab PO DAILY Losartan Potassium 100 Mg Tablet 100 Mg PO DAILY Unable To Obtain Meds From Prior To Admit (Info) Each 1 Each Allergies Allergies: Coded Allergies: No Known Drug Allergies (Unverified , 06/27/18) ROS Review of System Unable to obtain, pt intubated Physical Exam Physical Exam Intubated, trialysis cath on right, cath on left as well. No audible carotid bruits RRR, strong radial and pedal pulses bilaterally. No peripheral edema Abdomen soft, nondistended No rashes noted Vitals VITALS Vital Signs Date Time Temp Pulse Resp B/P (MAP) Pulse Ox O2 Delivery O2 Flow Rate FiO2 06/28/18 16:11 98.6 94 11 140/57 (84) 100 Ventilator 98.6 Labs Labs Laboratory Tests Test 06/26/18 17:20 06/26/18 19:15 06/26/18 19:29 06/26/18 19:30 Glucose Level 950 mg/dL (70-99) 471 mg/dL (70-99) Lactic Acid Level 3.9 mmol/L (0.4-2.0) 4.9 mmol/L (0.4-2.0) Glucose (Fingerstick) 331 mg/dL (70-99) 459 mg/dL (70-99) White Blood Count 9.0 x10^3/uL (4.0-11.0) Red Blood Count 2.36 x10^6/uL (3.50-5.40) Hemoglobin 8.1 g/dL (12.0-15.5) Hematocrit 24.5 % (36.0-47.0) Mean Corpuscular Volume 104 fL (79-100) Mean Corpuscular Hemoglobin 35 pg (25-35) Mean Corpuscular Hemoglobin Concent 33 g/dL (31-37) Red Cell Distribution Width 16.0 % (11.5-14.5) Platelet Count 462 x10^3/uL (140-400) Neutrophils (%) (Auto) 93 % (31-73) Lymphocytes (%) (Auto) 5 % (24-48) Monocytes (%) (Auto) 2 % (0-9) Eosinophils (%) (Auto) 0 % (0-3) Basophils (%) (Auto) 0 % (0-3) Neutrophils # (Auto) 8.4 x10^3uL (1.8-7.7) Lymphocytes # (Auto) 0.4 x10^3/uL (1.0-4.8) Monocytes # (Auto) 0.2 x10^3/uL (0.0-1.1) Eosinophils # (Auto) 0.0 x10^3/uL (0.0-0.7) Basophils # (Auto) 0.0 x10^3/uL (0.0-0.2) Sodium Level 147 mmol/L (136-145) Potassium Level 4.2 mmol/L (3.5-5.1) Chloride Level 109 mmol/L (98-107) Carbon Dioxide Level 13 mmol/L (21-32) Anion Gap 25 (6-14) Blood Urea Nitrogen 133 mg/dL (7-20) Creatinine 6.8 mg/dL (0.6-1.0) Estimated GFR (Cockcroft-Gault) 7.2 BUN/Creatinine Ratio 20 (6-20) Calcium Level 9.3 mg/dL (8.5-10.1) Total Bilirubin 0.5 mg/dL (0.2-1.0) Aspartate Amino Transf (AST/SGOT) 12 U/L (15-37) Alanine Aminotransferase (ALT/SGPT) 19 U/L (14-59) Alkaline Phosphatase 132 U/L (46-116) Total Protein 6.7 g/dL (6.4-8.2) Albumin 2.8 g/dL (3.4-5.0) Albumin/Globulin Ratio 0.7 (1.0-1.7) Hepatitis B Surface Antigen Nonreactive (Nonreactive) Hepatitis B Surface Antibody Nonreactive Test 06/26/18 20:10 06/26/18 20:11 06/26/18 21:25 06/26/18 22:29 O2 Saturation 99 % (92-99) Arterial Blood pH 7.40 (7.35-7.45) Arterial Blood pCO2 at Patient Temp 21 mmHg (35-46) Arterial Blood pO2 at Patient Temp 321 mmHg (65-108) Arterial Blood HCO3 13 mmol/L (21-28) Arterial Blood Base Excess -11 mmol/L (-3-3) FiO2 99 Glucose (Fingerstick) 339 mg/dL (70-99) 123 mg/dL (70-99) 227 mg/dL (70-99) Test 06/26/18 23:37 06/26/18 23:40 06/27/18 00:43 06/27/18 00:50 Glucose (Fingerstick) 140 mg/dL (70-99) 214 mg/dL (70-99) Sodium Level 143 mmol/L (136-145) Potassium Level 2.8 mmol/L (3.5-5.1) Chloride Level 102 mmol/L (98-107) Carbon Dioxide Level 27 mmol/L (21-32) Anion Gap 14 (6-14) Blood Urea Nitrogen 24 mg/dL (7-20) Creatinine 1.6 mg/dL (0.6-1.0) Estimated GFR (Cockcroft-Gault) 38.3 Glucose Level 147 mg/dL (70-99) Calcium Level 8.5 mg/dL (8.5-10.1) Phosphorus Level 1.7 mg/dL (2.6-4.7) Magnesium Level 1.9 mg/dL (1.8-2.4) Lactic Acid Level 2.4 mmol/L (0.4-2.0) Test 06/27/18 01:52 06/27/18 02:00 06/27/18 02:58 06/27/18 04:01 Glucose (Fingerstick) 180 mg/dL (70-99) 150 mg/dL (70-99) 157 mg/dL (70-99) Nasal Screen MRSA (PCR) Negative (Negative) Sodium Level 143 mmol/L (136-145) Potassium Level 3.5 mmol/L (3.5-5.1) Chloride Level 103 mmol/L (98-107) Carbon Dioxide Level 25 mmol/L (21-32) Anion Gap 15 (6-14) Blood Urea Nitrogen 33 mg/dL (7-20) Creatinine 2.4 mg/dL (0.6-1.0) Estimated GFR (Cockcroft-Gault) 24.0 Glucose Level 175 mg/dL (70-99) Calcium Level 7.5 mg/dL (8.5-10.1) Phosphorus Level 2.4 mg/dL (2.6-4.7) Magnesium Level 1.7 mg/dL (1.8-2.4) Test 06/27/18 05:16 06/27/18 05:18 06/27/18 07:31 06/27/18 08:00 Glucose (Fingerstick) 180 mg/dL (70-99) 247 mg/dL (70-99) White Blood Count 7.8 x10^3/uL (4.0-11.0) Red Blood Count 2.04 x10^6/uL (3.50-5.40) Hemoglobin 6.8 g/dL (12.0-15.5) Hematocrit 20.2 % (36.0-47.0) Mean Corpuscular Volume 99 fL (79-100) Mean Corpuscular Hemoglobin 33 pg (25-35) Mean Corpuscular Hemoglobin Concent 34 g/dL (31-37) Red Cell Distribution Width 15.7 % (11.5-14.5) Platelet Count 292 x10^3/uL (140-400) Neutrophils (%) (Auto) 91 % (31-73) Lymphocytes (%) (Auto) 4 % (24-48) Monocytes (%) (Auto) 5 % (0-9) Eosinophils (%) (Auto) 0 % (0-3) Basophils (%) (Auto) 0 % (0-3) Neutrophils # (Auto) 7.1 x10^3uL (1.8-7.7) Lymphocytes # (Auto) 0.3 x10^3/uL (1.0-4.8) Monocytes # (Auto) 0.4 x10^3/uL (0.0-1.1) Eosinophils # (Auto) 0.0 x10^3/uL (0.0-0.7) Basophils # (Auto) 0.0 x10^3/uL (0.0-0.2) Sodium Level 140 mmol/L (136-145) Potassium Level 3.1 mmol/L (3.5-5.1) Chloride Level 103 mmol/L (98-107) Carbon Dioxide Level 24 mmol/L (21-32) Anion Gap 13 (6-14) Blood Urea Nitrogen 35 mg/dL (7-20) Creatinine 2.7 mg/dL (0.6-1.0) Estimated GFR (Cockcroft-Gault) 21.0 Glucose Level 197 mg/dL (70-99) Calcium Level 7.4 mg/dL (8.5-10.1) Iron Level 15 ug/dL (50-170) Total Iron Binding Capacity 134 ug/dL (250-450) Iron Saturation 11 % (15-34) Ferritin 2822 ng/mL (8-252) Triglycerides Level 118 mg/dL (0-150) Cholesterol Level 138 mg/dL (0-200) LDL Cholesterol, Calculated 79 mg/dL (0-100) VLDL Cholesterol, Calculated 24 mg/dL (0-40) Non-HDL Cholesterol Calculated 103 mg/dL (0-129) HDL Cholesterol 35 mg/dL (40-60) Cholesterol/HDL Ratio 3.9 Lipase 70892 U/L (73-393) Vitamin B12 Level 1749 pg/mL (247-911) Hepatitis B Core Total Antibody Negative (Negative) Stool Occult Blood Positive (NEG) Test 06/27/18 08:45 06/27/18 08:53 06/27/18 10:08 06/27/18 11:00 O2 Saturation 99 % (92-99) 98 % (92-99) Arterial Blood pH 7.56 (7.35-7.45) 7.59 (7.35-7.45) Arterial Blood pCO2 at Patient Temp 24 mmHg (35-46) 33 mmHg (35-46) Arterial Blood pO2 at Patient Temp 170 mmHg (65-108) 156 mmHg (65-108) Arterial Blood HCO3 21 mmol/L (21-28) 31 mmol/L (21-28) Arterial Blood Base Excess -1 mmol/L (-3-3) 9 mmol/L (-3-3) FiO2 40 40 Glucose (Fingerstick) 150 mg/dL (70-99) 119 mg/dL (70-99) Test 06/27/18 12:02 06/27/18 13:00 06/27/18 17:02 06/27/18 20:51 Glucose (Fingerstick) 93 mg/dL (70-99) 278 mg/dL (70-99) 270 mg/dL (70-99) O2 Saturation 99 % (92-99) Arterial Blood pH 7.51 (7.35-7.45) Arterial Blood pCO2 at Patient Temp 32 mmHg (35-46) Arterial Blood pO2 at Patient Temp 171 mmHg (65-108) Arterial Blood HCO3 25 mmol/L (21-28) Arterial Blood Base Excess 2 mmol/L (-3-3) FiO2 40 Test 06/28/18 00:14 06/28/18 04:07 06/28/18 06:37 06/28/18 08:00 Glucose (Fingerstick) 332 mg/dL (70-99) 411 mg/dL (70-99) White Blood Count 11.8 x10^3/uL (4.0-11.0) Red Blood Count 2.52 x10^6/uL (3.50-5.40) Hemoglobin 8.5 g/dL (12.0-15.5) Hematocrit 24.5 % (36.0-47.0) Mean Corpuscular Volume 97 fL (79-100) Mean Corpuscular Hemoglobin 34 pg (25-35) Mean Corpuscular Hemoglobin Concent 35 g/dL (31-37) Red Cell Distribution Width 18.1 % (11.5-14.5) Platelet Count 234 x10^3/uL (140-400) Neutrophils (%) (Auto) 92 % (31-73) Lymphocytes (%) (Auto) 4 % (24-48) Monocytes (%) (Auto) 3 % (0-9) Eosinophils (%) (Auto) 1 % (0-3) Basophils (%) (Auto) 0 % (0-3) Neutrophils # (Auto) 10.9 x10^3uL (1.8-7.7) Lymphocytes # (Auto) 0.5 x10^3/uL (1.0-4.8) Monocytes # (Auto) 0.4 x10^3/uL (0.0-1.1) Eosinophils # (Auto) 0.1 x10^3/uL (0.0-0.7) Basophils # (Auto) 0.0 x10^3/uL (0.0-0.2) Sodium Level 137 mmol/L (136-145) Potassium Level 3.5 mmol/L (3.5-5.1) Chloride Level 102 mmol/L (98-107) Carbon Dioxide Level 23 mmol/L (21-32) Anion Gap 12 (6-14) Blood Urea Nitrogen 24 mg/dL (7-20) Creatinine 2.7 mg/dL (0.6-1.0) Estimated GFR (Cockcroft-Gault) 21.0 BUN/Creatinine Ratio 9 (6-20) Glucose Level 500 mg/dL (70-99) Calcium Level 8.0 mg/dL (8.5-10.1) Phosphorus Level 3.5 mg/dL (2.6-4.7) Magnesium Level 1.9 mg/dL (1.8-2.4) Total Bilirubin 0.3 mg/dL (0.2-1.0) Aspartate Amino Transf (AST/SGOT) 397 U/L (15-37) Alanine Aminotransferase (ALT/SGPT) 440 U/L (14-59) Alkaline Phosphatase 98 U/L (46-116) Total Protein 5.6 g/dL (6.4-8.2) Albumin 1.9 g/dL (3.4-5.0) Albumin/Globulin Ratio 0.5 (1.0-1.7) Random Vancomycin Level 14.2 mcg/mL O2 Saturation 98 % (92-99) Arterial Blood pH 7.46 (7.35-7.45) Arterial Blood pCO2 at Patient Temp 28 mmHg (35-46) Arterial Blood pO2 at Patient Temp 145 mmHg (65-108) Arterial Blood HCO3 20 mmol/L (21-28) Arterial Blood Base Excess -3 mmol/L (-3-3) FiO2 40 Test 06/28/18 08:13 06/28/18 11:46 06/28/18 16:05 Glucose (Fingerstick) 480 mg/dL (70-99) 413 mg/dL (70-99) 389 mg/dL (70-99) Laboratory Tests Test 06/27/18 17:02 06/27/18 20:51 06/28/18 00:14 06/28/18 04:07 Glucose (Fingerstick) 278 mg/dL (70-99) 270 mg/dL (70-99) 332 mg/dL (70-99) 411 mg/dL (70-99) Test 06/28/18 06:37 06/28/18 08:00 06/28/18 08:13 06/28/18 11:46 White Blood Count 11.8 x10^3/uL (4.0-11.0) Red Blood Count 2.52 x10^6/uL (3.50-5.40) Hemoglobin 8.5 g/dL (12.0-15.5) Hematocrit 24.5 % (36.0-47.0) Mean Corpuscular Volume 97 fL (79-100) Mean Corpuscular Hemoglobin 34 pg (25-35) Mean Corpuscular Hemoglobin Concent 35 g/dL (31-37) Red Cell Distribution Width 18.1 % (11.5-14.5) Platelet Count 234 x10^3/uL (140-400) Neutrophils (%) (Auto) 92 % (31-73) Lymphocytes (%) (Auto) 4 % (24-48) Monocytes (%) (Auto) 3 % (0-9) Eosinophils (%) (Auto) 1 % (0-3) Basophils (%) (Auto) 0 % (0-3) Neutrophils # (Auto) 10.9 x10^3uL (1.8-7.7) Lymphocytes # (Auto) 0.5 x10^3/uL (1.0-4.8) Monocytes # (Auto) 0.4 x10^3/uL (0.0-1.1) Eosinophils # (Auto) 0.1 x10^3/uL (0.0-0.7) Basophils # (Auto) 0.0 x10^3/uL (0.0-0.2) Sodium Level 137 mmol/L (136-145) Potassium Level 3.5 mmol/L (3.5-5.1) Chloride Level 102 mmol/L (98-107) Carbon Dioxide Level 23 mmol/L (21-32) Anion Gap 12 (6-14) Blood Urea Nitrogen 24 mg/dL (7-20) Creatinine 2.7 mg/dL (0.6-1.0) Estimated GFR (Cockcroft-Gault) 21.0 BUN/Creatinine Ratio 9 (6-20) Glucose Level 500 mg/dL (70-99) Calcium Level 8.0 mg/dL (8.5-10.1) Phosphorus Level 3.5 mg/dL (2.6-4.7) Magnesium Level 1.9 mg/dL (1.8-2.4) Total Bilirubin 0.3 mg/dL (0.2-1.0) Aspartate Amino Transf (AST/SGOT) 397 U/L (15-37) Alanine Aminotransferase (ALT/SGPT) 440 U/L (14-59) Alkaline Phosphatase 98 U/L (46-116) Total Protein 5.6 g/dL (6.4-8.2) Albumin 1.9 g/dL (3.4-5.0) Albumin/Globulin Ratio 0.5 (1.0-1.7) Random Vancomycin Level 14.2 mcg/mL O2 Saturation 98 % (92-99) Arterial Blood pH 7.46 (7.35-7.45) Arterial Blood pCO2 at Patient Temp 28 mmHg (35-46) Arterial Blood pO2 at Patient Temp 145 mmHg (65-108) Arterial Blood HCO3 20 mmol/L (21-28) Arterial Blood Base Excess -3 mmol/L (-3-3) FiO2 40 Glucose (Fingerstick) 480 mg/dL (70-99) 413 mg/dL (70-99) Test 06/28/18 16:05 Glucose (Fingerstick) 389 mg/dL (70-99) Assessment/Plan Assessment/Plan Pt has right internal jugular vein thrombus via US, likely from Trialysis catheter. We recommend leaving catheter in place and continuing anticoagulation if she can tolerate it with the positive hemoccult-GI bleed. She should eventually get a tunneled cath for dialysis when stable to do so. She is currently on SubQ heparin, which we would recommend to continue if ok with GI, with possibility for reversal if needed. She has had CVA's as well, her carotid US does not show significant right carotid stenosis and there was an inability to evaluate the left. Dr. Mitchell will also see the patient. Pt seen and examined. Pt intubated and unresponsive. Has thrombosis of the right internal jugular vein secondary to dialysis catheter insertion. Recommend anticoagulation as tolerated and conversion of the dialysis cath to a tunneled cath at some point. DAVY STEWARD Jun 28, 2018 16:45 SONYA MITCHELL II, MD Jun 28, 2018 16:53
--- NOTE | 2018-06-28 18:29 | PDOC ---
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 Metabolic encephalopathy. Respiratory failure. Lactic acidosis. Hyperglycemia, glucose level 1290. Hyperkalemia, K+ 7.6 Acute pancreatitis, lipase 46889. Renal failure. Pulmonary hypertension. DM, poorly controlled. HTN. Anemia. GI bleeding likely. Pulmonary nodules. Thyroid nodules. Hyperthyroidism. Old CVA per Hx. RECOMMENDATIONS/PLAN: Life support in ICU. Control hyperglycemia. Keep good hydration. Treat medical diseases. Consulted Cardiology. ASA 300 mg rectal daily. Carotid A US + Doppler. Echo + Bubble study. EEG. Lab: see orders. Thyroid US. Consulted Pulmonary Medicine for lung nodules. Discussed with her sons at bedside in ICU on 06/28/18. HISTORY OF THE PRESENT ILLNESS: 73-y-old female patient with multiple medical diseases was found down unresponsive on the floor in her kitchen. She was brought to the ER of [facility] and her glucose level was revealed extremely high of 1290. She remained unresponsiveness unable to maintain airway. She was intubated and admitted into ICU. PAST MEDICAL HISTORY: Please see above. PAST SURGERY HISTORY: No major surgery recently. ALLERGY: Unknown. MEDICATIONS: Refer to [facility] FAMILY HISTORY: HTN. SOCIAL HISTORY: Lives alone. Denies current moking, drinking, and illicit drug use per documentation. REVIEW OF SYSTEMS: Constitutional: No malnutrition, weight loss, cachexia. Head: No traumatic brain or head injury. Skin: No edema, or rash. Ear: No infection. Eyes: No vision loss or color blindness. Nose: No bleeding or purulent discharges. Hearing: No hearing decrease. Neck: No injury. Breast: No history of cancer, masses,or discharges. Cardiac: HTN. Pulmonary: SOB. GI: No GI ulcer, GI bleeding. Urinary/genital: UTI. Endocrinologic: Diabetes Mellitus. Skeletomuscular: No muscular atrophy, deformity. Neurological: see HP. Psychiatric: Denies drug use/abuse. Otherwise, not [id number] review of systems. PHYSICAL EXAMINATION: General appearance is in acute distress. HEENT: Normocephalic and nontraumatic. Eyes, nose, ears, and throat are unremarkable. Neck is supple. No lymphadenopathy. No crepitus. Cardiovascular: S1, S2, regular rate and rhythm. Pulmonary: On vent. Abdomen: Bowel sounds are positive. Extremities: No rash, lesions, or edema. NEUROLOGICAL EXAMINATION: On vent. Unresponsiveness. Not oriented to time, place and person. PERRL. EOMI not elicited. CN: no acute focal findings. Muscle tone: decreased. Muscle strength: minimal movements observed to pain stimuli. DTR: 1- Plantar reflex: Neutral response bilaterally Gait: Not able to walk. Sensory exam: no response to pain stimuli. Not able to access cerebellar signs in this mentation.. F-T-N test not performed due to not follow commands. Objective Objective Vital Signs Date Time Temp Pulse Resp B/P (MAP) Pulse Ox O2 Delivery O2 Flow Rate FiO2 06/28/18 18:13 98.6 94 11 165/65 (98) 100 98.6 06/28/18 17:00 Ventilator Intake and Output 06/28/18 07:00 Intake Total 2596 ml Output Total 230 ml Balance 2366 ml Intake IV Total 2596 ml Output Urine Total 230 ml # Bowel Movements 1 Vitals Signs Vitals VS - Last 72 Hours, by Label Date Time Temp Pulse Resp B/P (MAP) Pulse Ox O2 Delivery O2 Flow Rate FiO2 06/28/18 18:13 98.6 94 11 165/65 (98) 100 98.6 06/28/18 17:00 98.6 94 165/58 (93) 100 Ventilator 98.6 06/28/18 16:56 100 Ventilator 06/28/18 16:11 98.6 94 11 140/57 (84) 100 Ventilator 98.6 06/28/18 16:08 Mechanical Ventilator 06/28/18 15:20 100 Ventilator 06/28/18 15:06 98.6 93 12 149/59 (89) 100 Ventilator 98.6 06/28/18 14:02 98.6 92 10 143/57 (85) 100 Ventilator 98.6 06/28/18 13:00 92 16 125/47 (73) 100 Ventilator 06/28/18 12:00 Mechanical Ventilator 06/28/18 12:00 98.6 93 18 172/59 (96) 100 Ventilator 98.6 06/28/18 11:42 100 Ventilator 06/28/18 11:00 91 22 169/73 (105) 100 Ventilator 06/28/18 10:00 93 26 151/56 (87) 100 Ventilator 06/28/18 09:22 100 Ventilator 06/28/18 09:00 88 19 160/55 (90) 100 Ventilator 10/18/18 08:00 85 19 189/74 (112) 100 Ventilator 10/18/18 07:56 100 Ventilator 1018/18 07:45 Mechanical Ventilator 1018/18 07:00 98.0 85 16 173/61 (98) 100 Ventilator 98.0 1018/18 06:00 81 15 159/54 (89) 100 Ventilator 10/18/18 05:29 100 Ventilator 18/18 05:00 83 15 160/68 (98) 100 Ventilator 18/18 04:10 100 Ventilator 18/18 04:00 97.6 82 15 167/58 (94) 100 Ventilator 97.6 1818 04:00 Mechanical Ventilator 18/18 03:00 86 15 181/59 (99) 100 Ventilator 18/18 02:04 100 Ventilator 18/18 02:00 83 15 159/62 (94) 100 Ventilator 18/18 01:00 84 15 147/55 (85) 100 Ventilator 17/18 23:59 Mechanical Ventilator 17/18 23:59 97.4 87 15 156/62 (93) 100 Ventilator 97.4 17/18 23:13 100 Ventilator 1017/18 23:00 87 15 153/73 (99) 100 Ventilator 17/18 22:00 84 10 160/79 (106) 100 Ventilator 1017/18 21:00 82 15 159/59 (92) 100 Ventilator 1017/18 20:00 100 Ventilator 1017/18 20:00 97.6 83 15 161/78 (105) 100 Ventilator 97.6 17/18 20:00 Mechanical Ventilator 1017/18 19:00 81 15 138/65 (89) 97 Ventilator 1017/18 18:00 80 14 125/59 (81) 98 Ventilator 1017/18 17:49 100 Ventilator 1017/18 17:00 85 16 184/99 (127) 100 Ventilator 1017/18 16:17 95 198/85 1017/18 16:00 97.4 92 13 198/85 (122) 100 Ventilator 97.4 1017/18 16:00 Mechanical Ventilator 10/17/18 15:39 100 Ventilator 1017/18 15:00 94 12 213/78 (123) 100 Ventilator 10/17/18 14:00 94 16 185/106 (132) 100 Ventilator 06/27/18 13:00 94 13 175/81 (112) 100 Ventilator 06/27/18 12:30 97.4 94 18 160/80 97.4 06/27/18 12:00 97.9 98 16 137/67 (90) 100 Ventilator 97.9 06/27/18 12:00 Mechanical Ventilator 06/27/18 11:54 97.9 100 19 151/64 97.9 06/27/18 11:37 97.8 99 16 135/53 97.8 06/27/18 11:30 100 Ventilator 06/27/18 11:00 99 12 136/53 (80) 100 Ventilator 06/27/18 10:00 97 11 114/57 (76) 100 Ventilator 06/27/18 09:44 100 Ventilator 06/27/18 09:00 99 18 140/58 (85) 100 Ventilator 06/27/18 08:00 Mechanical Ventilator 06/27/18 08:00 97.8 97 18 168/61 (96) 100 Ventilator 97.8 06/27/18 07:52 100 Ventilator 06/27/18 07:00 94 18 118/57 (77) 100 Ventilator Laboratory Laboratory Laboratory Tests Test 06/27/18 20:51 06/28/18 00:14 06/28/18 04:07 06/28/18 06:37 Glucose (Fingerstick) 270 mg/dL (70-99) 332 mg/dL (70-99) 411 mg/dL (70-99) White Blood Count 11.8 x10^3/uL (4.0-11.0) Red Blood Count 2.52 x10^6/uL (3.50-5.40) Hemoglobin 8.5 g/dL (12.0-15.5) Hematocrit 24.5 % (36.0-47.0) Mean Corpuscular Volume 97 fL (79-100) Mean Corpuscular Hemoglobin 34 pg (25-35) Mean Corpuscular Hemoglobin Concent 35 g/dL (31-37) Red Cell Distribution Width 18.1 % (11.5-14.5) Platelet Count 234 x10^3/uL (140-400) Neutrophils (%) (Auto) 92 % (31-73) Lymphocytes (%) (Auto) 4 % (24-48) Monocytes (%) (Auto) 3 % (0-9) Eosinophils (%) (Auto) 1 % (0-3) Basophils (%) (Auto) 0 % (0-3) Neutrophils # (Auto) 10.9 x10^3uL (1.8-7.7) Lymphocytes # (Auto) 0.5 x10^3/uL (1.0-4.8) Monocytes # (Auto) 0.4 x10^3/uL (0.0-1.1) Eosinophils # (Auto) 0.1 x10^3/uL (0.0-0.7) Basophils # (Auto) 0.0 x10^3/uL (0.0-0.2) Sodium Level 137 mmol/L (136-145) Potassium Level 3.5 mmol/L (3.5-5.1) Chloride Level 102 mmol/L (98-107) Carbon Dioxide Level 23 mmol/L (21-32) Anion Gap 12 (6-14) Blood Urea Nitrogen 24 mg/dL (7-20) Creatinine 2.7 mg/dL (0.6-1.0) Estimated GFR (Cockcroft-Gault) 21.0 BUN/Creatinine Ratio 9 (6-20) Glucose Level 500 mg/dL (70-99) Calcium Level 8.0 mg/dL (8.5-10.1) Phosphorus Level 3.5 mg/dL (2.6-4.7) Magnesium Level 1.9 mg/dL (1.8-2.4) Total Bilirubin 0.3 mg/dL (0.2-1.0) Aspartate Amino Transf (AST/SGOT) 397 U/L (15-37) Alanine Aminotransferase (ALT/SGPT) 440 U/L (14-59) Alkaline Phosphatase 98 U/L (46-116) Total Protein 5.6 g/dL (6.4-8.2) Albumin 1.9 g/dL (3.4-5.0) Albumin/Globulin Ratio 0.5 (1.0-1.7) Random Vancomycin Level 14.2 mcg/mL Test 06/28/18 08:00 06/28/18 08:13 06/28/18 11:46 06/28/18 16:05 O2 Saturation 98 % (92-99) Arterial Blood pH 7.46 (7.35-7.45) Arterial Blood pCO2 at Patient Temp 28 mmHg (35-46) Arterial Blood pO2 at Patient Temp 145 mmHg (65-108) Arterial Blood HCO3 20 mmol/L (21-28) Arterial Blood Base Excess -3 mmol/L (-3-3) FiO2 40 Glucose (Fingerstick) 480 mg/dL (70-99) 413 mg/dL (70-99) 389 mg/dL (70-99) Microbiology 06/26/18 Blood Culture - Preliminary, Resulted NO GROWTH AFTER 2 DAYS Medication Medications Current Medications Aspirin (Aspirin) 300 mg DAILY AL ; Start 06/28/18 at 09:00 Chlorhexidine Gluconate (Peridex) 15 ml BID MM ; Start 06/28/18 at 21:00; Status Cancel Insulin Glargine (Lantus) 10 units QHS SQ Last administered on 06/27/18at 20:54 ; Start 06/27/18 at 21:00; Stop 06/28/18 at 08:07; Status DC Insulin Glargine (Lantus) 12 units BID SQ Last administered on 06/28/18at 08:20 ; Start 06/28/18 at 09:00 Insulin Human Lispro (HumaLOG) 0-9 UNITS Q4HRS SQ Last administered on at 16:40; Start 06/28/18 at 08:15 Insulin Human Lispro (HumaLOG) 10 units 1X ONCE SQ Last administered on at 16:40; Start 06/28/18 at 16:30; Stop 06/28/18 at 16:31; Status DC Insulin Human Lispro (HumaLOG) 14 units 1X ONCE SQ Last administered on at 08:19; Start 06/28/18 at 08:15; Stop 06/28/18 at 08:16; Status DC Insulin Human Lispro (HumaLOG) 27 units 1X ONCE SQ Last administered on at 12:00; Start 06/28/18 at 12:00; Stop 06/28/18 at 12:01; Status DC Sodium Chloride 90 meq/Potassium Chloride 50 meq/ Potassium Phosphate 13.6 mmol/ Magnesium Sulfate 10 meq/ Calcium Gluconate 10 meq/ Multivitamins 10 ml/Chromium / Copper/Manganese/ Seleni/Zn 1 ml/ Total Parenteral Nutrition/Amino Acids/ Dextrose/ Fat Emulsion Intravenous 1,512 ml @ 63 mls/hr TPN CONT IV Last administered on 06/27/18at 22:46; Start 06/27/18 at 22:00; Stop 06/28/18 at 21 :59 Sodium Chloride 90 meq/Potassium Chloride 50 meq/ Potassium Phosphate 13.6 mmol/ Magnesium Sulfate 10 meq/ Calcium Gluconate 10 meq/ Multivitamins 10 ml/Chromium / Copper/Manganese/ Seleni/Zn 1 ml/ Total Parenteral Nutrition/Amino Acids/ Dextrose/ Fat Emulsion Intravenous 1,512 ml @ 63 mls/hr TPN CONT IV ; Start 06/28/18 at 22:00; Stop 06/29/18 at 21:59 Vancomycin HCl (Vancomycin Trough Level) 1 each 1X ONCE MC Last administered on 06/28/18at 05:00; Start 06/28/18 at 05:00; Stop 06/28/18 at 05:01; Status DC Vancomycin HCl 500 mg/Sodium Chloride 100 ml @ 100 mls/hr 1X ONCE IV Last administered on 06/28/18at 13:42; Start 06/28/18 at 12:30; Stop 06/28/18 at 13 :29; Status DC Comment Review of Relevant I have reviewed the following items ludwig (where applicable) has been applied. RAYMOND CHU MD Jun 28, 2018 18:29
[2018-06-28] MEDS ORDERED: CHLORHEXIDINE 0.12% 15 ML MOUTHWASH. MM SCH (21:00)
[2018-06-28] MEDS ORDERED: TOTAL PARENTERAL NUTRITION IV SCH ×10 (22:00)
[2018-06-28] MEDS ORDERED: DEXTROSE 70% IV SCH ×10 (22:00)
[2018-06-28] MEDS ORDERED: [UNRECOGNIZED DRUG - OTHER] IV SCH ×10 (22:00)
[2018-06-28] MEDS ORDERED: AMINO ACIDS IV SCH ×10 (22:00)
[2018-06-29] VITALS (17 sets, daily range): BP systolic 139–200; BP diastolic 57–88
[2018-06-29] MEDS: IV NORMAL SALINE 1000ML BAG 1,000 ML IV SCH (05:01)
[2018-06-29] MEDS: INSULIN LISPRO 300 UNITS/3 ML INSULN.PEN. SQ SCH ×2 (05:01→09:22)
[2018-06-29] MEDS: PIPERACILLIN/TAZOBACTAM 2.25 GM in IV NORMAL SALINE 50ML 50 ML IV SCH (06:02)
[2018-06-29] MEDS: HEPARIN for SUB-Q USE 5,000 UNIT/ML VIAL. SQ SCH (06:02)
[2018-06-29 07:02] LABS: BASO % 0 % (0-3); EOS # 0.1 x10^3/uL (0.0-0.7); EOS % 1 % (0-3); HEMATOCRIT 26.3 % (36.0-47.0); HEMOGLOBIN 8.9 g/dL (12.0-15.5); LYMPH # 0.6 x10^3/uL (1.0-4.8); LYMPH % 5 % (24-48); MEAN CORPUSCULAR HEMOGLOBIN 33 pg (25-35); MEAN CORPUSCULAR HGB CONC 34 g/dL (31-37); MEAN CORPUSCULAR VOLUME 98 fL (79-100); MONO # 0.5 x10^3/uL (0.0-1.1); MONO % 4 % (0-9); NEUT % 91 % (31-73); PLATELET COUNT 232 x10^3/uL (140-400); RED BLOOD COUNT 2.69 x10^6/uL (3.50-5.40); RED CELL DISTRIBUTION WIDTH 18.5 % (11.5-14.5); WHITE BLOOD COUNT 14.2 x10^3/uL (4.0-11.0)
[2018-06-29 07:17] LABS: ALBUMIN 1.7 g/dL (3.4-5.0); ALBUMIN/GLOBULIN RATIO 0.4 (1.0-1.7); CALCIUM 9.1 mg/dL (8.5-10.1); CREATININE 3.8 mg/dL (0.6-1.0); GFR 14.1; PHOSPHORUS 2.9 mg/dL (2.6-4.7); POTASSIUM 3.7 mmol/L (3.5-5.1); TOTAL BILIRUBIN 0.3 mg/dL (0.2-1.0)
--- NOTE | 2018-06-29 07:50 | PDOC ---
PROGRESS NOTES Chief Complaint Chief Complaint AMS, metabolic encephalopathy likely METabolic acidosis DKA hyperkalemia MAVERICK, ATN ESRD without baseline Cr known, not on HD yet acute resp failure 2 lung nodules acute pancreatitis hypothermia recent CVA with left side weakness anemia, macrocytic non compliance HTN urgency History of Present Illness History of Present Illness Patient is a 73 year old f was sent by son for AMS, found down on kitchen floor. When seen in ER, eyes open, unresponsive by admitting team. Pt lives alone, 2 sons come to see her often. has no DPOA signed yet. sons want aggressive treatment for now. [facility] for CVA with left side weakness. Son said she was not walking well, but refused to go to SNF, and sent home. In the past 5 days, she was found slurry speech, refused to come to hosp. Sons said she likely not taking her daily meds too. ER found with metabolic acidosis, glu>1200, K >7, has ESRD but not decided to do HD yet Cr >7 now, unresponsive, lipase >40K, lung [address] T 88.8. head ct neg. She was gagging and hypoxic in ED and was emergently intubated for this. Overnight 06/26: SKIP CHINO called at 2017 after initiation of both levophed and dialysis. Appears to have been bradycardia followed by PEA. After epinephrine BP was increased and had tachycardia. Required 1 u PRBC yesterday MRI 06/27/18 reviewed: 1. There are multiple scattered recent infarcts bilaterally, probably early subacute. Other scattered T2 and FLAIR hyperintense signal abnormality of the sina and to lesser degree of the supratentorial white matter is nonspecific although may be due to chronic microvascular ischemic disease. Incidental finding of RIJ thrombosis. Sedated on vent today. Glucose slightly better controlled. Moving right leg spontaneously, withdraws to painful stimuli, positive gag reflex noted by nursing staff. No fevers A/P: AMS, metabolic encephalopathy likely secondary to HHS/DKA - will monitor. moving right leg Metabolic acidosis - requiring dialysis with hyperkalemia DKA - off insulin GTT, changed to lispro and added back lantus, increase to 18 change to BID, having a large requirement, will need to readjust her insulin daily Hyperkalemia - on dialysis, improved MAVERICK, ATN - dialysis ESRD without baseline Cr known - now on HD acute resp failure - stable on vent 2 lung nodules acute pancreatitis - will monitor recent CVA with left side weakness - new CVA with bilateral infarcts anemia, macrocytic - s/p 1 u PRBC HTN urgency - improved NPO. TPN ICU care, daley, monitor urine output and BP. FULL Code Cont ICU care Vitals Vitals Vital Signs Date Time Temp Pulse Resp B/P (MAP) Pulse Ox O2 Delivery O2 Flow Rate FiO2 06/29/18 06:05 100 Ventilator 06/29/18 06:00 106 20 165/72 (103) 06/29/18 04:00 99.1 99.1 Physical Exam General: Other (sedated) Heart: Regular rate (SR), Other (distnat heart sounds) Lungs: Other (clear) Abdomen: Soft Extremities: No cyanosis Skin: No breakdown, No significant lesion Labs LABS Laboratory Tests Test 06/28/18 08:00 06/28/18 08:13 06/28/18 11:46 06/28/18 16:05 O2 Saturation 98 % (92-99) Arterial Blood pH 7.46 (7.35-7.45) Arterial Blood pCO2 at Patient Temp 28 mmHg (35-46) Arterial Blood pO2 at Patient Temp 145 mmHg (65-108) Arterial Blood HCO3 20 mmol/L (21-28) Arterial Blood Base Excess -3 mmol/L (-3-3) FiO2 40 Glucose (Fingerstick) 480 mg/dL (70-99) 413 mg/dL (70-99) 389 mg/dL (70-99) Test 06/28/18 19:48 06/28/18 21:04 06/28/18 23:47 06/29/18 04:48 Glucose (Fingerstick) 320 mg/dL (70-99) 302 mg/dL (70-99) 253 mg/dL (70-99) 267 mg/dL (70-99) Test 06/29/18 06:00 White Blood Count 14.2 x10^3/uL (4.0-11.0) Red Blood Count 2.69 x10^6/uL (3.50-5.40) Hemoglobin 8.9 g/dL (12.0-15.5) Hematocrit 26.3 % (36.0-47.0) Mean Corpuscular Volume 98 fL (79-100) Mean Corpuscular Hemoglobin 33 pg (25-35) Mean Corpuscular Hemoglobin Concent 34 g/dL (31-37) Red Cell Distribution Width 18.5 % (11.5-14.5) Platelet Count 232 x10^3/uL (140-400) Neutrophils (%) (Auto) 91 % (31-73) Lymphocytes (%) (Auto) 5 % (24-48) Monocytes (%) (Auto) 4 % (0-9) Eosinophils (%) (Auto) 1 % (0-3) Basophils (%) (Auto) 0 % (0-3) Neutrophils # (Auto) 13.0 x10^3uL (1.8-7.7) Lymphocytes # (Auto) 0.6 x10^3/uL (1.0-4.8) Monocytes # (Auto) 0.5 x10^3/uL (0.0-1.1) Eosinophils # (Auto) 0.1 x10^3/uL (0.0-0.7) Basophils # (Auto) 0.0 x10^3/uL (0.0-0.2) Sodium Level 143 mmol/L (136-145) Potassium Level 3.7 mmol/L (3.5-5.1) Chloride Level 108 mmol/L (98-107) Carbon Dioxide Level 20 mmol/L (21-32) Anion Gap 15 (6-14) Blood Urea Nitrogen 40 mg/dL (7-20) Creatinine 3.8 mg/dL (0.6-1.0) Estimated GFR (Cockcroft-Gault) 14.1 BUN/Creatinine Ratio 11 (6-20) Glucose Level 303 mg/dL (70-99) Calcium Level 9.1 mg/dL (8.5-10.1) Phosphorus Level 2.9 mg/dL (2.6-4.7) Magnesium Level 2.1 mg/dL (1.8-2.4) Total Bilirubin 0.3 mg/dL (0.2-1.0) Aspartate Amino Transf (AST/SGOT) 117 U/L (15-37) Alanine Aminotransferase (ALT/SGPT) 306 U/L (14-59) Alkaline Phosphatase 102 U/L (46-116) Total Protein 6.0 g/dL (6.4-8.2) Albumin 1.7 g/dL (3.4-5.0) Albumin/Globulin Ratio 0.4 (1.0-1.7) Assessment and Plan Assessmemt and Plan Problems Medical Problems: (1) Acute renal failure Status: Acute (2) 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 Labs Laboratory Tests Test 06/27/18 08:00 06/27/18 08:45 06/27/18 08:53 06/27/18 10:08 Stool Occult Blood Positive (NEG) O2 Saturation 99 % (92-99) Arterial Blood pH 7.56 (7.35-7.45) Arterial Blood pCO2 at Patient Temp 24 mmHg (35-46) Arterial Blood pO2 at Patient Temp 170 mmHg (65-108) Arterial Blood HCO3 21 mmol/L (21-28) Arterial Blood Base Excess -1 mmol/L (-3-3) FiO2 40 Glucose (Fingerstick) 150 mg/dL (70-99) 119 mg/dL (70-99) Test 06/27/18 11:00 06/27/18 12:02 06/27/18 13:00 06/27/18 17:02 O2 Saturation 98 % (92-99) 99 % (92-99) Arterial Blood pH 7.59 (7.35-7.45) 7.51 (7.35-7.45) Arterial Blood pCO2 at Patient Temp 33 mmHg (35-46) 32 mmHg (35-46) Arterial Blood pO2 at Patient Temp 156 mmHg (65-108) 171 mmHg (65-108) Arterial Blood HCO3 31 mmol/L (21-28) 25 mmol/L (21-28) Arterial Blood Base Excess 9 mmol/L (-3-3) 2 mmol/L (-3-3) FiO2 40 40 Glucose (Fingerstick) 93 mg/dL (70-99) 278 mg/dL (70-99) Test 06/27/18 20:51 06/28/18 00:14 06/28/18 04:07 06/28/18 06:37 Glucose (Fingerstick) 270 mg/dL (70-99) 332 mg/dL (70-99) 411 mg/dL (70-99) White Blood Count 11.8 x10^3/uL (4.0-11.0) Red Blood Count 2.52 x10^6/uL (3.50-5.40) Hemoglobin 8.5 g/dL (12.0-15.5) Hematocrit 24.5 % (36.0-47.0) Mean Corpuscular Volume 97 fL (79-100) Mean Corpuscular Hemoglobin 34 pg (25-35) Mean Corpuscular Hemoglobin Concent 35 g/dL (31-37) Red Cell Distribution Width 18.1 % (11.5-14.5) Platelet Count 234 x10^3/uL (140-400) Neutrophils (%) (Auto) 92 % (31-73) Lymphocytes (%) (Auto) 4 % (24-48) Monocytes (%) (Auto) 3 % (0-9) Eosinophils (%) (Auto) 1 % (0-3) Basophils (%) (Auto) 0 % (0-3) Neutrophils # (Auto) 10.9 x10^3uL (1.8-7.7) Lymphocytes # (Auto) 0.5 x10^3/uL (1.0-4.8) Monocytes # (Auto) 0.4 x10^3/uL (0.0-1.1) Eosinophils # (Auto) 0.1 x10^3/uL (0.0-0.7) Basophils # (Auto) 0.0 x10^3/uL (0.0-0.2) Sodium Level 137 mmol/L (136-145) Potassium Level 3.5 mmol/L (3.5-5.1) Chloride Level 102 mmol/L (98-107) Carbon Dioxide Level 23 mmol/L (21-32) Anion Gap 12 (6-14) Blood Urea Nitrogen 24 mg/dL (7-20) Creatinine 2.7 mg/dL (0.6-1.0) Estimated GFR (Cockcroft-Gault) 21.0 BUN/Creatinine Ratio 9 (6-20) Glucose Level 500 mg/dL (70-99) Calcium Level 8.0 mg/dL (8.5-10.1) Phosphorus Level 3.5 mg/dL (2.6-4.7) Magnesium Level 1.9 mg/dL (1.8-2.4) Total Bilirubin 0.3 mg/dL (0.2-1.0) Aspartate Amino Transf (AST/SGOT) 397 U/L (15-37) Alanine Aminotransferase (ALT/SGPT) 440 U/L (14-59) Alkaline Phosphatase 98 U/L (46-116) Total Protein 5.6 g/dL (6.4-8.2) Albumin 1.9 g/dL (3.4-5.0) Albumin/Globulin Ratio 0.5 (1.0-1.7) Random Vancomycin Level 14.2 mcg/mL Test 06/28/18 08:00 06/28/18 08:13 06/28/18 11:46 06/28/18 16:05 O2 Saturation 98 % (92-99) Arterial Blood pH 7.46 (7.35-7.45) Arterial Blood pCO2 at Patient Temp 28 mmHg (35-46) Arterial Blood pO2 at Patient Temp 145 mmHg (65-108) Arterial Blood HCO3 20 mmol/L (21-28) Arterial Blood Base Excess -3 mmol/L (-3-3) FiO2 40 Glucose (Fingerstick) 480 mg/dL (70-99) 413 mg/dL (70-99) 389 mg/dL (70-99) Test 06/28/18 19:48 06/28/18 21:04 06/28/18 23:47 06/29/18 04:48 Glucose (Fingerstick) 320 mg/dL (70-99) 302 mg/dL (70-99) 253 mg/dL (70-99) 267 mg/dL (70-99) Test 06/29/18 06:00 White Blood Count 14.2 x10^3/uL (4.0-11.0) Red Blood Count 2.69 x10^6/uL (3.50-5.40) Hemoglobin 8.9 g/dL (12.0-15.5) Hematocrit 26.3 % (36.0-47.0) Mean Corpuscular Volume 98 fL (79-100) Mean Corpuscular Hemoglobin 33 pg (25-35) Mean Corpuscular Hemoglobin Concent 34 g/dL (31-37) Red Cell Distribution Width 18.5 % (11.5-14.5) Platelet Count 232 x10^3/uL (140-400) Neutrophils (%) (Auto) 91 % (31-73) Lymphocytes (%) (Auto) 5 % (24-48) Monocytes (%) (Auto) 4 % (0-9) Eosinophils (%) (Auto) 1 % (0-3) Basophils (%) (Auto) 0 % (0-3) Neutrophils # (Auto) 13.0 x10^3uL (1.8-7.7) Lymphocytes # (Auto) 0.6 x10^3/uL (1.0-4.8) Monocytes # (Auto) 0.5 x10^3/uL (0.0-1.1) Eosinophils # (Auto) 0.1 x10^3/uL (0.0-0.7) Basophils # (Auto) 0.0 x10^3/uL (0.0-0.2) Sodium Level 143 mmol/L (136-145) Potassium Level 3.7 mmol/L (3.5-5.1) Chloride Level 108 mmol/L (98-107) Carbon Dioxide Level 20 mmol/L (21-32) Anion Gap 15 (6-14) Blood Urea Nitrogen 40 mg/dL (7-20) Creatinine 3.8 mg/dL (0.6-1.0) Estimated GFR (Cockcroft-Gault) 14.1 BUN/Creatinine Ratio 11 (6-20) Glucose Level 303 mg/dL (70-99) Calcium Level 9.1 mg/dL (8.5-10.1) Phosphorus Level 2.9 mg/dL (2.6-4.7) Magnesium Level 2.1 mg/dL (1.8-2.4) Total Bilirubin 0.3 mg/dL (0.2-1.0) Aspartate Amino Transf (AST/SGOT) 117 U/L (15-37) Alanine Aminotransferase (ALT/SGPT) 306 U/L (14-59) Alkaline Phosphatase 102 U/L (46-116) Total Protein 6.0 g/dL (6.4-8.2) Albumin 1.7 g/dL (3.4-5.0) Albumin/Globulin Ratio 0.4 (1.0-1.7) Laboratory Tests Test 06/28/18 08:00 06/28/18 08:13 06/28/18 11:46 06/28/18 16:05 O2 Saturation 98 % (92-99) Arterial Blood pH 7.46 (7.35-7.45) Arterial Blood pCO2 at Patient Temp 28 mmHg (35-46) Arterial Blood pO2 at Patient Temp 145 mmHg (65-108) Arterial Blood HCO3 20 mmol/L (21-28) Arterial Blood Base Excess -3 mmol/L (-3-3) FiO2 40 Glucose (Fingerstick) 480 mg/dL (70-99) 413 mg/dL (70-99) 389 mg/dL (70-99) Test 06/28/18 19:48 06/28/18 21:04 06/28/18 23:47 06/29/18 04:48 Glucose (Fingerstick) 320 mg/dL (70-99) 302 mg/dL (70-99) 253 mg/dL (70-99) 267 mg/dL (70-99) Test 06/29/18 06:00 White Blood Count 14.2 x10^3/uL (4.0-11.0) Red Blood Count 2.69 x10^6/uL (3.50-5.40) Hemoglobin 8.9 g/dL (12.0-15.5) Hematocrit 26.3 % (36.0-47.0) Mean Corpuscular Volume 98 fL (79-100) Mean Corpuscular Hemoglobin 33 pg (25-35) Mean Corpuscular Hemoglobin Concent 34 g/dL (31-37) Red Cell Distribution Width 18.5 % (11.5-14.5) Platelet Count 232 x10^3/uL (140-400) Neutrophils (%) (Auto) 91 % (31-73) Lymphocytes (%) (Auto) 5 % (24-48) Monocytes (%) (Auto) 4 % (0-9) Eosinophils (%) (Auto) 1 % (0-3) Basophils (%) (Auto) 0 % (0-3) Neutrophils # (Auto) 13.0 x10^3uL (1.8-7.7) Lymphocytes # (Auto) 0.6 x10^3/uL (1.0-4.8) Monocytes # (Auto) 0.5 x10^3/uL (0.0-1.1) Eosinophils # (Auto) 0.1 x10^3/uL (0.0-0.7) Basophils # (Auto) 0.0 x10^3/uL (0.0-0.2) Sodium Level 143 mmol/L (136-145) Potassium Level 3.7 mmol/L (3.5-5.1) Chloride Level 108 mmol/L (98-107) Carbon Dioxide Level 20 mmol/L (21-32) Anion Gap 15 (6-14) Blood Urea Nitrogen 40 mg/dL (7-20) Creatinine 3.8 mg/dL (0.6-1.0) Estimated GFR (Cockcroft-Gault) 14.1 BUN/Creatinine Ratio 11 (6-20) Glucose Level 303 mg/dL (70-99) Calcium Level 9.1 mg/dL (8.5-10.1) Phosphorus Level 2.9 mg/dL (2.6-4.7) Magnesium Level 2.1 mg/dL (1.8-2.4) Total Bilirubin 0.3 mg/dL (0.2-1.0) Aspartate Amino Transf (AST/SGOT) 117 U/L (15-37) Alanine Aminotransferase (ALT/SGPT) 306 U/L (14-59) Alkaline Phosphatase 102 U/L (46-116) Total Protein 6.0 g/dL (6.4-8.2) Albumin 1.7 g/dL (3.4-5.0) Albumin/Globulin Ratio 0.4 (1.0-1.7) Microbiology 06/26/18 Blood Culture - Preliminary, Resulted NO GROWTH AFTER 2 DAYS Medications Current Medications Sodium Chloride 1,000 ml @ 1,000 mls/hr 1X ONCE IV Last administered on 06/26at 14:37; Start 06/26/18 at 14:15; Stop 06/26/18 at 15:14; Status DC Nystatin (Nystop) 1 nato 1X STAT TP Last administered on 06/26/18at 15:56; Start 06/26/18 at 14:45; Stop 06/26/18 at 14:47; Status DC Sodium Bicarbonate (Sodium Bicarb Adult 8.4% Syr) 50 meq 1X ONCE IV Last administered on 06/26/18at 15:57; Start 06/26/18 at 15:15; Stop 06/26/18 at 15 :16; Status DC Albuterol Sulfate (Ventolin Neb Soln) 10 mg 1X ONCE CONT NEB ; Start 06/26/18 at 15:15; Stop 06/26/18 at 15:16; Status DC Insulin Human Regular (HumuLIN R VIAL) 10 unit 1X ONCE IV Last administered on 06/26/18at 15:51; Start 06/26/18 at 15:15; Stop 06/26/18 at 15:16; Status DC Insulin Human Regular 150 ml @ 0 mls/hr 1X ONCE IV Last administered on at 15:56; Start 06/26/18 at 15:15; Stop 06/26/18 at 15:16; Status DC Sodium Chloride 1,000 ml @ 1,000 mls/hr 1X ONCE IV Last administered on 06/26at 18:21; Start 06/26/18 at 15:15; Stop 06/26/18 at 16:14; Status DC Calcium Gluconate (Calcium Gluconate) 1,000 mg 1X ONCE IVP Last administered on 06/26/18at 15:48; Start 06/26/18 at 15:45; Stop 06/26/18 at 15:46; Status DC Piperacillin Sod/ Tazobactam Sod 2.25 gm/Sodium Chloride 50 ml @ 100 mls/hr 1X ONCE IV Last administered on 06/26/18at 18:24; Start 06/26/18 at 16:15; Stop 06/26/18 at 16:44; Status DC Lidocaine/Sodium Bicarbonate (Buffered Lidocaine 1%) 3 ml 1X ONCE INJ Last administered on 06/26/18at 17:08; Start 06/26/18 at 16:15; Stop 06/26/18 at 16 :21; Status DC Heparin Sodium (Porcine) (Heparin Sodium) 2,600 unit 1X ONCE INT CAT Last administered on 06/26/18at 17:09; Start 06/26/18 at 16:15; Stop 06/26/18 at 16 :21; Status DC Heparin Sodium (Porcine) (Heparin Sodium) 10,000 unit STK-MED ONCE .ROUTE ; Start 06/26/18 at 16:14; Stop 06/26/18 at 16:15; Status DC Heparin Sodium (Porcine) (Heparin Sodium) 5,000 unit Q8HRS SQ Last administered on 06/29/18at 06:02; Start 06/26/18 at 22:00 Pantoprazole Sodium (PROTONIX VIAL for IV PUSH) 40 mg DAILYAC IVP Last administered on 06/28/18at 08:17; Start 06/27/18 at 07:30 Insulin Human Regular 150 unit/ Sodium Chloride 151.5 ml @ 0 mls/hr CONT PRN IV SEE I/O RECORD Last administered on 06/27/18at 00:55; Start 06/26/18 at 17: 00; Stop 06/27/18 at 11:20; Status DC Acetaminophen (Tylenol) 650 mg PRN Q6HRS PRN PO FEVER; Start 06/26/18 at 17:15 Ondansetron HCl (Zofran) 4 mg PRN Q6HRS PRN IV NAUSEA/VOMITING; Start at 17:15 Morphine Sulfate (Morphine Sulfate) 2 mg PRN Q2HR PRN IV MODERATE TO SEVERE PAIN; Start 06/26/18 at 17:15 Tramadol HCl (Ultram) 50 mg PRN Q6HRS PRN PO MILD TO MODERATE PAIN; Start at 17:15 Docusate Sodium (Colace) 100 mg PRN DAILY PRN PO CONSTIPATION; Start 06/26/18 at 17:15 Labetalol HCl (Normodyne Iv Push) 20 mg PRN Q2HR PRN IVP HYPERTENSION, SEE COMMENTS Last administered on 06/27/18at 16:17; Start 06/26/18 at 17:15 Lidocaine/Sodium Bicarbonate (Buffered Lidocaine 1%) 6 ml 1X ONCE INJ ; Start 06/26/18 at 17:15; Stop 06/26/18 at 17:16; Status DC Sodium Bicarbonate (Sodium Bicarb Adult 8.4% Syr) 100 meq 1X ONCE IV Last administered on 06/26/18at 20:00; Start 06/26/18 at 19:30; Stop 06/26/18 at 19 :31; Status DC Midazolam HCl 100 ml @ 5 mls/hr CONT PRN IV SEE I/O RECORD Last administered on 06/27/18at 03:34; Start 06/26/18 at 19:00 Midazolam HCl (Versed) 5 mg PRN Q2HR PRN IV SEDATION; Start 06/26/18 at 19:00 Norepinephrine Bitartrate 250 ml @ 1.875 mls/ hr CONT PRN IV SEE I/O RECORD Last administered on 06/26/18at 21:43; Start 06/26/18 at 19:15 Sodium Chloride 1,000 ml @ 1,000 mls/hr Q1H PRN IV hypotension; Start at 19:17; Stop 06/27/18 at 01:16; Status DC Sodium Chloride 1,000 ml @ 400 mls/hr Q2H30M PRN IV PATENCY; Start 06/26/18 at 19:17; Stop 06/27/18 at 07:16; Status DC Info (PHARMACY MONITORING -- do not chart) 1 each PRN DAILY PRN MC SEE COMMENTS ; Start 06/26/18 at 19:30; Status Cancel Info (PHARMACY MONITORING -- do not chart) 1 each PRN DAILY PRN MC SEE COMMENTS ; Start 06/26/18 at 19:30 Dextrose/Sodium Chloride 1,000 ml @ 250 mls/hr 1X ONCE IV Last administered on 06/26/18at 21:43; Start 06/26/18 at 22:00; Stop 06/27/18 at 01:59; Status DC Vancomycin HCl (Vanco Per Pharmacy) 1 each PRN DAILY PRN MC SEE COMMENTS Last administered on 06/28/18at 11:07; Start 06/26/18 at 22:00 Piperacillin Sod/ Tazobactam Sod (Zosyn Per Pharmacy) 1 each PRN DAILY PRN MC SEE COMMENTS; Start 06/26/18 at 22:00 Piperacillin Sod/ Tazobactam Sod 2.25 gm/Sodium Chloride 50 ml @ 100 mls/hr Q8HRS IV Last administered on 06/29/18at 06:02; Start 06/26/18 at 22:00 Vancomycin HCl 1.5 gm/Sodium Chloride 500 ml @ 250 mls/hr 1X ONCE IV Last administered on 06/26/18at 23:29; Start 06/26/18 at 23:00; Stop 06/27/18 at 00 :59; Status DC Sodium Chloride 1,000 ml @ 1,000 mls/hr Q1H PRN IV hypotension; Start at 09:37; Stop 06/27/18 at 15:36; Status DC Sodium Chloride 1,000 ml @ 400 mls/hr Q2H30M PRN IV PATENCY; Start 06/27/18 at 09:37; Stop 06/27/18 at 21:36; Status DC Info (PHARMACY MONITORING -- do not chart) 1 each PRN DAILY PRN MC SEE COMMENTS ; Start 06/27/18 at 09:45; Status UNV Epinephrine HCl (EPINEPHrine SYRINGE) 1 mg STK-MED ONCE .ROUTE ; Start at 12:00; Stop 06/27/18 at 10:00; Status DC Vitamin A/Vitamin D (Vitamin A & D Ointment) 1 nato TID TP Last administered on 06/28/18at 21:05; Start 06/27/18 at 14:00 Info (Tpn Per Pharmacy) 1 each PRN DAILY PRN MC SEE COMMENTS Last administered on 06/28/18at 12:44; Start 06/27/18 at 10:45 Vancomycin HCl (Vancomycin Trough Level) 1 each 1X ONCE MC Last administered on 06/28/18at 05:00; Start 06/28/18 at 05:00; Stop 06/28/18 at 05:01; Status DC Insulin Glargine (Lantus) 10 units QHS SQ Last administered on 06/27/18at 20:54 ; Start 06/27/18 at 21:00; Stop 06/28/18 at 08:07; Status DC Insulin Human Lispro (HumaLOG) 0-7 UNITS Q4HRS SQ Last administered on at 04:13; Start 06/27/18 at 12:00; Stop 06/28/18 at 08:07; Status DC Dextrose (Dextrose 50%-Water Syringe) 12.5 gm PRN Q15MIN PRN IV SEE COMMENTS; Start 06/27/18 at 11:00 Ringer's Solution 1,000 ml @ 75 mls/hr [id number] IV ; Start 06/27/18 at 11:00; Stop 06/27/18 at 11:20; Status DC Sodium Chloride 1,000 ml @ 100 mls/hr Q10H IV Last administered on 06/29/18at 05:01; Start 06/27/18 at 11:30 Sodium Chloride 90 meq/Potassium Chloride 50 meq/ Potassium Phosphate 13.6 mmol/ Magnesium Sulfate 10 meq/ Calcium Gluconate 10 meq/ Multivitamins 10 ml/Chromium / Copper/Manganese/ Seleni/Zn 1 ml/ Total Parenteral Nutrition/Amino Acids/ Dextrose/ Fat Emulsion Intravenous 1,512 ml @ 63 mls/hr TPN CONT IV Last administered on 06/27/18at 22:46; Start 06/27/18 at 22:00; Stop 06/28/18 at 21 :59; Status DC Aspirin (Aspirin) 300 mg DAILY WA ; Start 06/28/18 at 09:00 Insulin Glargine (Lantus) 12 units BID SQ Last administered on 06/28/18at 21:06 ; Start 06/28/18 at 09:00 Insulin Human Lispro (HumaLOG) 0-9 UNITS Q4HRS SQ Last administered on at 05:01; Start 06/28/18 at 08:15 Insulin Human Lispro (HumaLOG) 14 units 1X ONCE SQ Last administered on at 08:19; Start 06/28/18 at 08:15; Stop 06/28/18 at 08:16; Status DC Vancomycin HCl 500 mg/Sodium Chloride 100 ml @ 100 mls/hr 1X ONCE IV Last administered on 06/28/18at 13:42; Start 06/28/18 at 12:30; Stop 06/28/18 at 13 :29; Status DC Insulin Human Lispro (HumaLOG) 27 units 1X ONCE SQ Last administered on at 12:00; Start 06/28/18 at 12:00; Stop 06/28/18 at 12:01; Status DC Sodium Chloride 90 meq/Potassium Chloride 50 meq/ Potassium Phosphate 13.6 mmol/ Magnesium Sulfate 10 meq/ Calcium Gluconate 10 meq/ Multivitamins 10 ml/Chromium / Copper/Manganese/ Seleni/Zn 1 ml/ Total Parenteral Nutrition/Amino Acids/ Dextrose/ Fat Emulsion Intravenous 1,512 ml @ 63 mls/hr TPN CONT IV Last administered on 06/28/18at 21:57; Start 06/28/18 at 22:00; Stop 06/29/18 at 21 :59 Chlorhexidine Gluconate (Peridex) 15 ml BID MM ; Start 06/28/18 at 21:00; Status Cancel Insulin Human Lispro (HumaLOG) 10 units 1X ONCE SQ Last administered on at 16:40; Start 06/28/18 at 16:30; Stop 06/28/18 at 16:31; Status DC Active Scripts Active Reported Levemir (Insulin Detemir) 100 Unit/1 Ml Vial 25 Unit SQ QHS Norvasc (Amlodipine Besylate) 5 Mg Tablet 1 Tab PO DAILY Aspirin 325 Mg Tablet 1 Tab PO DAILY Hydroxyurea 500 Mg Capsule 1,000 Mg PO DAILY Labetalol Hcl 100 Mg Tablet 1 Tab PO TID Calcitriol 0.5 Mcg Capsule 1 Cap PO DAILY Simvastatin 20 Mg Tablet 20 Mg PO HS Folic Acid 1 Mg Tablet 2 Tab PO DAILY Losartan Potassium 100 Mg Tablet 100 Mg PO DAILY Unable To Obtain Meds From Prior To Admit (Info) Each 1 Each Vitals/I & O Vital Sign - Last 24 Hours 06/28/18 06/28/18 06/28/18 06/28/18 07:56 08:00 09:00 09:22 Pulse 85 88 Resp 19 19 B/P (MAP) 189/74 (112) 160/55 (90) Pulse Ox 100 100 100 100 O2 Delivery Ventilator Ventilator Ventilator Ventilator 06/28/18 06/28/18 06/28/18 06/28/18 10:00 11:00 11:42 12:00 Temp 98.6 98.6 Pulse 93 91 93 Resp 18 B/P (MAP) 151/56 (87) 169/73 (105) 172/59 (96) Pulse Ox 100 100 100 100 O2 Delivery Ventilator Ventilator Ventilator Ventilator 06/28/18 06/28/18 06/28/18 06/28/18 12:00 13:00 14:02 15:06 Temp 98.6 98.6 98.6 98.6 Pulse 92 92 93 Resp 16 10 12 B/P (MAP) 125/47 (73) 143/57 (85) 149/59 (89) Pulse Ox 100 100 100 O2 Delivery Mechanical Ventilator Ventilator Ventilator Ventilator 06/28/18 06/28/18 06/28/18 06/28/18 15:20 16:08 16:11 16:56 Temp 98.6 98.6 Pulse 94 Resp 11 B/P (MAP) 140/57 (84) Pulse Ox 100 100 100 O2 Delivery Ventilator Mechanical Ventilator Ventilator Ventilator 06/28/18 06/28/18 06/28/18 06/28/18 17:00 18:13 19:00 20:00 Temp 98.6 98.9 98.6 98.9 Pulse 94 94 93 Resp 11 20 B/P (MAP) 165/58 (93) 165/65 (98) 168/67 (100) Pulse Ox 100 100 100 O2 Delivery Ventilator Ventilator Mechanical Ventilator 06/28/18 06/28/18 06/28/18 06/28/18 20:00 20:00 21:00 22:00 Temp 99.0 99.0 Pulse 92 94 96 Resp 24 21 27 B/P (MAP) 166/76 (106) 158/62 (94) 170/71 (104) Pulse Ox 100 100 100 100 O2 Delivery Ventilator Ventilator Ventilator Ventilator 06/28/18 06/28/18 06/29/18 06/29/18 23:00 23:27 00:00 00:00 Temp 99.1 99.1 Pulse 92 106 Resp 21 20 B/P (MAP) 168/62 (97) 169/59 (95) Pulse Ox 100 100 100 O2 Delivery Ventilator Ventilator Ventilator Mechanical Ventilator 06/29/18 06/29/18 06/29/18 06/29/18 01:00 01:34 02:00 03:00 Pulse 107 92 96 Resp 22 22 21 B/P (MAP) 167/61 (96) 167/58 (94) 185/88 (120) Pulse Ox 100 100 100 100 O2 Delivery Ventilator Ventilator Ventilator Ventilator 06/29/18 06/29/18 06/29/18 06/29/18 03:46 04:00 04:00 05:00 Temp 99.1 99.1 Pulse 95 102 Resp 22 23 B/P (MAP) 170/88 (115) 165/74 (104) Pulse Ox 100 100 100 O2 Delivery Ventilator Mechanical Ventilator Ventilator Ventilator 06/29/18 06/29/18 06:00 06:05 Pulse 106 Resp 20 B/P (MAP) 165/72 (103) Pulse Ox 100 100 O2 Delivery Ventilator Ventilator Intake and Output 06/28/18 06/28/18 06/29/18 15:00 23:00 07:00 Intake Total 3907 ml Output Total 310 ml 360 ml 193 ml Balance -310 ml -360 ml 3714 ml BHARATH ROSEN MD Jun 29, 2018 07:50
[2018-06-29 08:08] LABS: BASE EXCESS ABG -6 mmol/L (-3-3); HCO3 ABG 17 mmol/L (21-28); PCO2 ABG 27 mmHg (35-46); PO2 ABG 148 mmHg (65-108); SAT O2 ABG 98 % (92-99)
[2018-06-29 08:11] LABS: FIO2 ABG 40
--- NOTE | 2018-06-29 09:16 | PDOC ---
SUBJECTIVE ROS Unresponsive, On vent OBJECTIVE Vital Signs Vital Signs Date Time Temp Pulse Resp B/P (MAP) Pulse Ox O2 Delivery O2 Flow Rate FiO2 06/29/18 09:00 100 Ventilator 06/29/18 06:00 106 20 165/72 (103) 06/29/18 04:00 99.1 99.1 I & 0 Intake and Output 06/29/18 07:00 Intake Total 3907 ml Output Total 863 ml Balance 3044 ml Intake IV Total 3907 ml Output Urine Total 788 ml Stool Total 0 ml Gastric Drainage Total 75 ml PHYSICAL EXAM Physical Exam GEN.: unresponsive, Intubated HEENT: Intubated NECK: Supple. LUNGS: Clear to auscultation, Intubated HEART: RRR, S1, S2 present. ABDOMEN: Soft, Positive bowel sounds. EXTREMITIES: No LE edema SKIN: No Rash - Indwelling Tejeda+ Neuro- Unresponsive, Intubated DIAGNOSIS/ASSESSMENT Assessment & Plan MAVERICK On CKD - Sec to DKA Required Emergent HD 06/26 might , Dialyzed again on 06/27 Lytes and acid base Stable today, UOP improved As per RN- pt's son apparently planning to take her off ventilator Currently no emergent indication for [employer], will schedule for tomorrow based on decision made by family Hyperkalemia- On admission 7 Required Emergent Dialysis , K Normal today Metabolic acidosis- Marked Lactic acidosis,DKA, Sepsis Bicarb normal CKD stage 3 - NOT ESRD Never on HD, had refused to go on [employer] dw son and confirmed DM with DKA- as per primary team On admission BS 1200, Hyperkalemia ,severe Acidosis BS High Recent CVA- multiple scattered recent infarcts bilaterally, probably early subacute. Carotid Doppler - thrombus in the right internal jugular vein. Anemia- Recd PRBC on HD 06/27 Stable today Elevated Lipase- Very High CT scan cw Likely Pancreatitis GI following Acute respiratory failure secondary to multifactorial etiologies including acute metabolic encephalopathy, nonketotic hyperosmolar coma and cannot exclude the possibility of a new ischemic stroke. Discussed with RN COMMENT/RELEVANT DATA Meds Current Medications Medications (Trade) Dose Ordered Sig/Jose Start Time Stop Time Status Last Admin Dose Admin Acetaminophen (Tylenol) 650 mg PRN Q6HRS PRN 06/26/18 17:15 Albuterol Sulfate (Ventolin Neb Soln) 10 mg 1X ONCE 06/26/18 15:15 10/16/18 15:16 DC Aspirin (Aspirin) 300 mg DAILY 06/28/18 09:00 Calcium Gluconate (Calcium Gluconate) 1,000 mg 1X ONCE 06/26/18 15:45 06/26/18 15:46 DC 06/26/18 15:48 1,000 MG Chlorhexidine Gluconate (Peridex) 15 ml BID 06/28/18 21:00 Cancel Dextrose (Dextrose 50%-Water Syringe) 12.5 gm PRN Q15MIN PRN 06/27/18 11:00 Dextrose/Sodium Chloride 1,000 ml @ 250 mls/hr 1X ONCE 06/26/18 22:00 06/27/18 01:59 DC 06/26/18 21:43 250 MLS/HR Docusate Sodium (Colace) 100 mg PRN DAILY PRN 06/26/18 17:15 Epinephrine HCl (EPINEPHrine SYRINGE) 1 mg STK-MED ONCE 06/26/18 12:00 06/27/18 10:00 DC Heparin Sodium (Porcine) (Heparin Sodium) 5,000 unit Q8HRS 06/26/18 22:00 06/29/18 06:02 5,000 UNIT Info (PHARMACY MONITORING -- do not chart) 1 each PRN DAILY PRN 06/27/18 09:45 UNV Info (Tpn Per Pharmacy) 1 each PRN DAILY PRN 06/27/18 10:45 06/28/18 12:44 1 EACH Insulin Glargine (Lantus) 12 units BID 06/28/18 09:00 06/28/18 21:06 12 UNITS Insulin Human Lispro (HumaLOG) 10 units 1X ONCE 06/28/18 16:30 06/28/18 16:31 DC 06/28/18 16:40 10 UNITS Insulin Human Regular 150 ml @ 0 mls/hr 1X ONCE 06/26/18 15:15 06/26/18 15:16 DC 06/26/18 15:56 26.4 MLS/HR Insulin Human Regular (HumuLIN R VIAL) 10 unit 1X ONCE 06/26/18 15:15 06/26/18 15:16 DC 06/26/18 15:51 10 UNIT Insulin Human Regular 150 unit/ Sodium Chloride 151.5 ml @ 0 mls/hr CONT PRN 06/26/18 17:00 06/27/18 11:20 DC 06/27/18 00:55 6.2 MLS/HR Labetalol HCl (Normodyne Iv Push) 20 mg PRN Q2HR PRN 06/26/18 17:15 06/27/18 16:17 20 MG Lidocaine/Sodium Bicarbonate (Buffered Lidocaine 1%) 6 ml 1X ONCE 06/26/18 17:15 06/26/18 17:16 DC Midazolam HCl (Versed) 5 mg PRN Q2HR PRN 06/26/18 19:00 Morphine Sulfate (Morphine Sulfate) 2 mg PRN Q2HR PRN 06/26/18 17:15 Norepinephrine Bitartrate 250 ml @ 1.875 mls/ hr CONT PRN 06/26/18 19:15 06/26/18 21:43 16.875 MLS/HR Nystatin (Nystop) 1 nato 1X STAT 06/26/18 14:45 06/26/18 14:47 DC 06/26/18 15:56 1 NATO Ondansetron HCl (Zofran) 4 mg PRN Q6HRS PRN 06/26/18 17:15 Pantoprazole Sodium (PROTONIX VIAL for IV PUSH) 40 mg DAILYAC 06/27/18 07:30 06/28/18 08:17 40 MG Piperacillin Sod/ Tazobactam Sod (Zosyn Per Pharmacy) 1 each PRN DAILY PRN 06/26/18 22:00 Piperacillin Sod/ Tazobactam Sod 2.25 gm/Sodium Chloride 50 ml @ 100 mls/hr Q8HRS 06/26/18 22:00 06/29/18 06:02 100 MLS/HR Ringer's Solution 1,000 ml @ 75 mls/hr [id number] 06/27/18 11:00 06/27/18 11:20 DC Sodium Bicarbonate (Sodium Bicarb Adult 8.4% Syr) 100 meq 1X ONCE 06/26/18 19:30 06/26/18 19:31 DC 06/26/18 20:00 100 MEQ Sodium Chloride 90 meq/Potassium Chloride 50 meq/ Potassium Phosphate 13.6 mmol/Magnesium Sulfate 10 meq/ Calcium Gluconate 10 meq/ Multivitamins 10 ml/Chromium/ Copper/Manganese/ Seleni/Zn 1 ml/ Total Parenteral Nutrition/Amino Acids/Dextrose/ Fat Emulsion Intravenous 1,512 ml @ 63 mls/hr TPN CONT 06/28/18 22:00 06/29/18 21:59 06/28/18 21:57 63 MLS/HR Tramadol HCl (Ultram) 50 mg PRN Q6HRS PRN 06/26/18 17:15 Vancomycin HCl (Vanco Per Pharmacy) 1 each PRN DAILY PRN 06/26/18 22:00 06/28/18 11:07 1 EACH Vancomycin HCl (Vancomycin Trough Level) 1 each 1X ONCE 06/28/18 05:00 06/28/18 05:01 DC 06/28/18 05:00 1 EACH Vancomycin HCl 1.5 gm/Sodium Chloride 500 ml @ 250 mls/hr 1X ONCE 06/26/18 23:00 06/27/18 00:59 DC 06/26/18 23:29 250 MLS/HR Vancomycin HCl 500 mg/Sodium Chloride 100 ml @ 100 mls/hr 1X ONCE 06/28/18 12:30 06/28/18 13:29 DC 06/28/18 13:42 100 MLS/HR Vitamin A/Vitamin D (Vitamin A & D Ointment) 1 nato TID 06/27/18 14:00 06/28/18 21:05 1 NATO Lab Laboratory Tests Test 06/28/18 11:46 06/28/18 16:05 06/28/18 19:48 06/28/18 21:04 Glucose (Fingerstick) 413 mg/dL (70-99) 389 mg/dL (70-99) 320 mg/dL (70-99) 302 mg/dL (70-99) Test 06/28/18 23:47 06/29/18 04:48 06/29/18 06:00 06/29/18 08:00 Glucose (Fingerstick) 253 mg/dL (70-99) 267 mg/dL (70-99) White Blood Count 14.2 x10^3/uL (4.0-11.0) Red Blood Count 2.69 x10^6/uL (3.50-5.40) Hemoglobin 8.9 g/dL (12.0-15.5) Hematocrit 26.3 % (36.0-47.0) Mean Corpuscular Volume 98 fL (79-100) Mean Corpuscular Hemoglobin 33 pg (25-35) Mean Corpuscular Hemoglobin Concent 34 g/dL (31-37) Red Cell Distribution Width 18.5 % (11.5-14.5) Platelet Count 232 x10^3/uL (140-400) Neutrophils (%) (Auto) 91 % (31-73) Lymphocytes (%) (Auto) 5 % (24-48) Monocytes (%) (Auto) 4 % (0-9) Eosinophils (%) (Auto) 1 % (0-3) Basophils (%) (Auto) 0 % (0-3) Neutrophils # (Auto) 13.0 x10^3uL (1.8-7.7) Lymphocytes # (Auto) 0.6 x10^3/uL (1.0-4.8) Monocytes # (Auto) 0.5 x10^3/uL (0.0-1.1) Eosinophils # (Auto) 0.1 x10^3/uL (0.0-0.7) Basophils # (Auto) 0.0 x10^3/uL (0.0-0.2) Sodium Level 143 mmol/L (136-145) Potassium Level 3.7 mmol/L (3.5-5.1) Chloride Level 108 mmol/L (98-107) Carbon Dioxide Level 20 mmol/L (21-32) Anion Gap 15 (6-14) Blood Urea Nitrogen 40 mg/dL (7-20) Creatinine 3.8 mg/dL (0.6-1.0) Estimated GFR (Cockcroft-Gault) 14.1 BUN/Creatinine Ratio 11 (6-20) Glucose Level 303 mg/dL (70-99) Calcium Level 9.1 mg/dL (8.5-10.1) Phosphorus Level 2.9 mg/dL (2.6-4.7) Magnesium Level 2.1 mg/dL (1.8-2.4) Total Bilirubin 0.3 mg/dL (0.2-1.0) Aspartate Amino Transf (AST/SGOT) 117 U/L (15-37) Alanine Aminotransferase (ALT/SGPT) 306 U/L (14-59) Alkaline Phosphatase 102 U/L (46-116) Total Protein 6.0 g/dL (6.4-8.2) Albumin 1.7 g/dL (3.4-5.0) Albumin/Globulin Ratio 0.4 (1.0-1.7) O2 Saturation 98 % (92-99) Arterial Blood pH 7.41 (7.35-7.45) Arterial Blood pCO2 at Patient Temp 27 mmHg (35-46) Arterial Blood pO2 at Patient Temp 148 mmHg (65-108) Arterial Blood HCO3 17 mmol/L (21-28) Arterial Blood Base Excess -6 mmol/L (-3-3) FiO2 40 Test 06/29/18 08:43 Glucose (Fingerstick) 294 mg/dL (70-99) Results All relevant outside records, renal labs, imaging studies, telemetry/EKG's were reviewed. US 06/26-- The liver is normal in size. No focal hepatic lesion is seen. The gallbladder is surgically absent. There is slight common bile duct dilatation for patient age, measuring 8.1 mm. The spleen is normal in size. The kidneys are echogenic. The pancreas is partially obscured due to bowel gas. The spleen is normal in size. The aorta and inferior vena cava are unremarkable. IMPRESSION: 1. Slight common bile duct dilatation for patient age. This may be due to reservoir effect status post cholecystectomy. No obstructing lesion is seen. ERCP or MRCP can be performed if there is concern for an occult obstructing etiology. 2. Partially obscured pancreas due to bowel gas. CxR- 1. Endotracheal tube within the distal trachea, not significantly changed compared to the prior study. 2. Note is made that areas of reported consolidation within the right upper and left lower lobes on a CT dated 06/26/2018 are not well seen radiographically. 3. Echogenic renal parenchyma. This can be seen with medical renal disease. Electronically signed by: Ambar Deleon MD (06/27/2018 12:42 PM) [facility] JERMAINE JASON MD Jun 29, 2018 09:16
[2018-06-29] MEDS: ASPIRIN 300 MG SUPP.RECT PR SCH (09:19)
[2018-06-29] MEDS: LABETALOL 20 MG/4 ML DISP.SYRIN. IVP PRN (09:19)
[2018-06-29] MEDS: PANTOPRAZOLE IV PUSH 40 MG VIAL. IVP SCH (09:19)
[2018-06-29] MEDS: VITS A & D/LANOLIN TOPICAL OINTMENT 56GM TUBE. TP SCH ×3 (09:20→21:00)
[2018-06-29] MEDS ORDERED: INSULIN GLARGINE 300 UNITS/3 ML INSULN.PEN. SQ SCH (10:00)
--- NOTE | 2018-06-29 11:36 | PDOC ---
PULMONARY PROGRESS NOTES Subjective remains intubated/ off sedation, not responsive AC mode Vitals Vital Signs Date Time Temp Pulse Resp B/P (MAP) Pulse Ox O2 Delivery O2 Flow Rate FiO2 06/29/18 09:19 103 199/68 06/29/18 09:00 100 Ventilator 06/29/18 06:00 20 06/29/18 04:00 99.1 99.1 Lungs: Other (clear) Cardiovascular: S1 Abdomen: Soft, Non-tender Extremities: Other (trace edema) Labs Laboratory Tests Test 06/27/18 12:02 06/27/18 13:00 06/27/18 17:02 06/27/18 20:51 Glucose (Fingerstick) 93 mg/dL (70-99) 278 mg/dL (70-99) 270 mg/dL (70-99) O2 Saturation 99 % (92-99) Arterial Blood pH 7.51 (7.35-7.45) Arterial Blood pCO2 at Patient Temp 32 mmHg (35-46) Arterial Blood pO2 at Patient Temp 171 mmHg (65-108) Arterial Blood HCO3 25 mmol/L (21-28) Arterial Blood Base Excess 2 mmol/L (-3-3) FiO2 40 Test 06/28/18 00:14 06/28/18 04:07 06/28/18 06:37 06/28/18 08:00 Glucose (Fingerstick) 332 mg/dL (70-99) 411 mg/dL (70-99) White Blood Count 11.8 x10^3/uL (4.0-11.0) Red Blood Count 2.52 x10^6/uL (3.50-5.40) Hemoglobin 8.5 g/dL (12.0-15.5) Hematocrit 24.5 % (36.0-47.0) Mean Corpuscular Volume 97 fL (79-100) Mean Corpuscular Hemoglobin 34 pg (25-35) Mean Corpuscular Hemoglobin Concent 35 g/dL (31-37) Red Cell Distribution Width 18.1 % (11.5-14.5) Platelet Count 234 x10^3/uL (140-400) Neutrophils (%) (Auto) 92 % (31-73) Lymphocytes (%) (Auto) 4 % (24-48) Monocytes (%) (Auto) 3 % (0-9) Eosinophils (%) (Auto) 1 % (0-3) Basophils (%) (Auto) 0 % (0-3) Neutrophils # (Auto) 10.9 x10^3uL (1.8-7.7) Lymphocytes # (Auto) 0.5 x10^3/uL (1.0-4.8) Monocytes # (Auto) 0.4 x10^3/uL (0.0-1.1) Eosinophils # (Auto) 0.1 x10^3/uL (0.0-0.7) Basophils # (Auto) 0.0 x10^3/uL (0.0-0.2) Sodium Level 137 mmol/L (136-145) Potassium Level 3.5 mmol/L (3.5-5.1) Chloride Level 102 mmol/L (98-107) Carbon Dioxide Level 23 mmol/L (21-32) Anion Gap 12 (6-14) Blood Urea Nitrogen 24 mg/dL (7-20) Creatinine 2.7 mg/dL (0.6-1.0) Estimated GFR (Cockcroft-Gault) 21.0 BUN/Creatinine Ratio 9 (6-20) Glucose Level 500 mg/dL (70-99) Calcium Level 8.0 mg/dL (8.5-10.1) Phosphorus Level 3.5 mg/dL (2.6-4.7) Magnesium Level 1.9 mg/dL (1.8-2.4) Total Bilirubin 0.3 mg/dL (0.2-1.0) Aspartate Amino Transf (AST/SGOT) 397 U/L (15-37) Alanine Aminotransferase (ALT/SGPT) 440 U/L (14-59) Alkaline Phosphatase 98 U/L (46-116) Total Protein 5.6 g/dL (6.4-8.2) Albumin 1.9 g/dL (3.4-5.0) Albumin/Globulin Ratio 0.5 (1.0-1.7) Random Vancomycin Level 14.2 mcg/mL O2 Saturation 98 % (92-99) Arterial Blood pH 7.46 (7.35-7.45) Arterial Blood pCO2 at Patient Temp 28 mmHg (35-46) Arterial Blood pO2 at Patient Temp 145 mmHg (65-108) Arterial Blood HCO3 20 mmol/L (21-28) Arterial Blood Base Excess -3 mmol/L (-3-3) FiO2 40 Test 06/28/18 08:13 06/28/18 11:46 06/28/18 16:05 06/28/18 19:48 Glucose (Fingerstick) 480 mg/dL (70-99) 413 mg/dL (70-99) 389 mg/dL (70-99) 320 mg/dL (70-99) Test 06/28/18 21:04 06/28/18 23:47 06/29/18 04:48 06/29/18 06:00 Glucose (Fingerstick) 302 mg/dL (70-99) 253 mg/dL (70-99) 267 mg/dL (70-99) White Blood Count 14.2 x10^3/uL (4.0-11.0) Red Blood Count 2.69 x10^6/uL (3.50-5.40) Hemoglobin 8.9 g/dL (12.0-15.5) Hematocrit 26.3 % (36.0-47.0) Mean Corpuscular Volume 98 fL (79-100) Mean Corpuscular Hemoglobin 33 pg (25-35) Mean Corpuscular Hemoglobin Concent 34 g/dL (31-37) Red Cell Distribution Width 18.5 % (11.5-14.5) Platelet Count 232 x10^3/uL (140-400) Neutrophils (%) (Auto) 91 % (31-73) Lymphocytes (%) (Auto) 5 % (24-48) Monocytes (%) (Auto) 4 % (0-9) Eosinophils (%) (Auto) 1 % (0-3) Basophils (%) (Auto) 0 % (0-3) Neutrophils # (Auto) 13.0 x10^3uL (1.8-7.7) Lymphocytes # (Auto) 0.6 x10^3/uL (1.0-4.8) Monocytes # (Auto) 0.5 x10^3/uL (0.0-1.1) Eosinophils # (Auto) 0.1 x10^3/uL (0.0-0.7) Basophils # (Auto) 0.0 x10^3/uL (0.0-0.2) Sodium Level 143 mmol/L (136-145) Potassium Level 3.7 mmol/L (3.5-5.1) Chloride Level 108 mmol/L (98-107) Carbon Dioxide Level 20 mmol/L (21-32) Anion Gap 15 (6-14) Blood Urea Nitrogen 40 mg/dL (7-20) Creatinine 3.8 mg/dL (0.6-1.0) Estimated GFR (Cockcroft-Gault) 14.1 BUN/Creatinine Ratio 11 (6-20) Glucose Level 303 mg/dL (70-99) Calcium Level 9.1 mg/dL (8.5-10.1) Phosphorus Level 2.9 mg/dL (2.6-4.7) Magnesium Level 2.1 mg/dL (1.8-2.4) Total Bilirubin 0.3 mg/dL (0.2-1.0) Aspartate Amino Transf (AST/SGOT) 117 U/L (15-37) Alanine Aminotransferase (ALT/SGPT) 306 U/L (14-59) Alkaline Phosphatase 102 U/L (46-116) Total Protein 6.0 g/dL (6.4-8.2) Albumin 1.7 g/dL (3.4-5.0) Albumin/Globulin Ratio 0.4 (1.0-1.7) Test 06/29/18 08:00 06/29/18 08:43 O2 Saturation 98 % (92-99) Arterial Blood pH 7.41 (7.35-7.45) Arterial Blood pCO2 at Patient Temp 27 mmHg (35-46) Arterial Blood pO2 at Patient Temp 148 mmHg (65-108) Arterial Blood HCO3 17 mmol/L (21-28) Arterial Blood Base Excess -6 mmol/L (-3-3) FiO2 40 Glucose (Fingerstick) 294 mg/dL (70-99) Laboratory Tests Test 06/28/18 11:46 06/28/18 16:05 06/28/18 19:48 06/28/18 21:04 Glucose (Fingerstick) 413 mg/dL (70-99) 389 mg/dL (70-99) 320 mg/dL (70-99) 302 mg/dL (70-99) Test 06/28/18 23:47 06/29/18 04:48 06/29/18 06:00 06/29/18 08:00 Glucose (Fingerstick) 253 mg/dL (70-99) 267 mg/dL (70-99) White Blood Count 14.2 x10^3/uL (4.0-11.0) Red Blood Count 2.69 x10^6/uL (3.50-5.40) Hemoglobin 8.9 g/dL (12.0-15.5) Hematocrit 26.3 % (36.0-47.0) Mean Corpuscular Volume 98 fL (79-100) Mean Corpuscular Hemoglobin 33 pg (25-35) Mean Corpuscular Hemoglobin Concent 34 g/dL (31-37) Red Cell Distribution Width 18.5 % (11.5-14.5) Platelet Count 232 x10^3/uL (140-400) Neutrophils (%) (Auto) 91 % (31-73) Lymphocytes (%) (Auto) 5 % (24-48) Monocytes (%) (Auto) 4 % (0-9) Eosinophils (%) (Auto) 1 % (0-3) Basophils (%) (Auto) 0 % (0-3) Neutrophils # (Auto) 13.0 x10^3uL (1.8-7.7) Lymphocytes # (Auto) 0.6 x10^3/uL (1.0-4.8) Monocytes # (Auto) 0.5 x10^3/uL (0.0-1.1) Eosinophils # (Auto) 0.1 x10^3/uL (0.0-0.7) Basophils # (Auto) 0.0 x10^3/uL (0.0-0.2) Sodium Level 143 mmol/L (136-145) Potassium Level 3.7 mmol/L (3.5-5.1) Chloride Level 108 mmol/L (98-107) Carbon Dioxide Level 20 mmol/L (21-32) Anion Gap 15 (6-14) Blood Urea Nitrogen 40 mg/dL (7-20) Creatinine 3.8 mg/dL (0.6-1.0) Estimated GFR (Cockcroft-Gault) 14.1 BUN/Creatinine Ratio 11 (6-20) Glucose Level 303 mg/dL (70-99) Calcium Level 9.1 mg/dL (8.5-10.1) Phosphorus Level 2.9 mg/dL (2.6-4.7) Magnesium Level 2.1 mg/dL (1.8-2.4) Total Bilirubin 0.3 mg/dL (0.2-1.0) Aspartate Amino Transf (AST/SGOT) 117 U/L (15-37) Alanine Aminotransferase (ALT/SGPT) 306 U/L (14-59) Alkaline Phosphatase 102 U/L (46-116) Total Protein 6.0 g/dL (6.4-8.2) Albumin 1.7 g/dL (3.4-5.0) Albumin/Globulin Ratio 0.4 (1.0-1.7) O2 Saturation 98 % (92-99) Arterial Blood pH 7.41 (7.35-7.45) Arterial Blood pCO2 at Patient Temp 27 mmHg (35-46) Arterial Blood pO2 at Patient Temp 148 mmHg (65-108) Arterial Blood HCO3 17 mmol/L (21-28) Arterial Blood Base Excess -6 mmol/L (-3-3) FiO2 40 Test 06/29/18 08:43 Glucose (Fingerstick) 294 mg/dL (70-99) Medications Active Scripts Medications Dose Route/Sig Max Daily Dose Days Date Category Unable To Obtain Meds From Prior To Admit (Info) Each 1 Each 06/26/18 Reported Impression . 1. Acute respiratory failure secondary to multifactorial etiologies including acute metabolic encephalopathy, worsening uremia, contributing to encephalopathy, nonketotic hyperosmolar coma and new multiple ischemic stroke. 2. Severe metabolic acidosis secondary to [id number] renal failure and sepsis. 3. Fbrpu-cw-kdfrxdb renal failure, now requiring dialysis. She had declined to have dialysis before despite worsening in her renal function. 4. Dqesf-uy-xyazzzl anemia. No obvious blood loss. GI to evaluate. 5. Acute pancreatitis, likely the source of her sepsis. 6. Abnormal CT chest with a mass-like consolidation in the right upper lobe and also an infiltrate in the left lower lobe. This needs to be followed up to rule out any malignancy. 7. Qadokzyo-vr-cflooj protein-calorie malnutrition. 8. Marked lactic acidosis, which is now improving. 9. Hypophosphatemia. 10. Hyperkalemia, present on admission, s/p urgent HD. Renal is following. 11. Multiple infarcts on MRI brain, and Right IJ venous thrombosis Plan . 1. Continue with present assist control mode. I have reduced the rate and will make necessary adjustments based on ABGs. 2. MRI findings reviewed. multiple ischemic infarcts/ Right IJ thrombosis. Vascular surgery consulted. AC per vascular. 3. Broad-spectrum antibiotics. 4. Hemodialysis with correction of electrolytes per Renal. 5. prn RBC transfusion. 6. Follow amylase and lipase levels and follow GI recommendations. continue with stress ulcer prophylaxis. 7. Insulin drip per protocol. 8. Follow chest x-rays. 9. We will need a followup CT chest in next 4-6 weeks to rule out the possibility of a mass in the right upper lobe. 10. Monitor blood pressure closely. Currently, she is off of Levophed. 11. Continue deep venous thrombosis prophylaxis with heparin closely while monitoring the hemoglobin closely as well. 13. Discussed with RN and RT. addend: d/w both sons. per patients wishes, she does not want to live on artificial means. they prefer to with draw care DNR/DNI/ comfort care protocol KASEY DEWEY MD Jun 29, 2018 11:36
[2018-06-29] MEDS: MORPHINE SULFATE 10 MG/ML VIAL. IV PRN (11:50)
--- NOTE | 2018-06-29 14:19 | PDOC ---
Subjective: Subjective: Reviewed w/ RN - Pt now on subQ heparin for right IJ thrombus RN states pt having very little output per rectal tube- she asks if this can be removed Pt still on OG suction and TPN Hgb stable since previous transfusion. Objective: Vital Signs: Vital Signs Date Time Temp Pulse Resp B/P (MAP) Pulse Ox O2 Delivery O2 Flow Rate FiO2 06/29/18 11:50 16 Ventilator 06/29/18 11:00 92 178/63 (101) 100 06/29/18 07:00 98.6 98.6 Labs: Laboratory Tests Test 06/28/18 16:05 06/28/18 19:48 06/28/18 21:04 06/28/18 23:47 Glucose (Fingerstick) 389 mg/dL 320 mg/dL 302 mg/dL 253 mg/dL Test 06/29/18 04:48 06/29/18 06:00 06/29/18 08:00 06/29/18 08:43 Glucose (Fingerstick) 267 mg/dL 294 mg/dL White Blood Count 14.2 x10^3/uL Red Blood Count 2.69 x10^6/uL Hemoglobin 8.9 g/dL Hematocrit 26.3 % Mean Corpuscular Volume 98 fL Mean Corpuscular Hemoglobin 33 pg Mean Corpuscular Hemoglobin Concent 34 g/dL Red Cell Distribution Width 18.5 % Platelet Count 232 x10^3/uL Neutrophils (%) (Auto) 91 % Lymphocytes (%) (Auto) 5 % Monocytes (%) (Auto) 4 % Eosinophils (%) (Auto) 1 % Basophils (%) (Auto) 0 % Neutrophils # (Auto) 13.0 x10^3uL Lymphocytes # (Auto) 0.6 x10^3/uL Monocytes # (Auto) 0.5 x10^3/uL Eosinophils # (Auto) 0.1 x10^3/uL Basophils # (Auto) 0.0 x10^3/uL Sodium Level 143 mmol/L Potassium Level 3.7 mmol/L Chloride Level 108 mmol/L Carbon Dioxide Level 20 mmol/L Anion Gap 15 Blood Urea Nitrogen 40 mg/dL Creatinine 3.8 mg/dL Estimated GFR (Cockcroft-Gault) 14.1 BUN/Creatinine Ratio 11 Glucose Level 303 mg/dL Calcium Level 9.1 mg/dL Phosphorus Level 2.9 mg/dL Magnesium Level 2.1 mg/dL Total Bilirubin 0.3 mg/dL Aspartate Amino Transf (AST/SGOT) 117 U/L Alanine Aminotransferase (ALT/SGPT) 306 U/L Alkaline Phosphatase 102 U/L Total Protein 6.0 g/dL Albumin 1.7 g/dL Albumin/Globulin Ratio 0.4 O2 Saturation 98 % Arterial Blood pH 7.41 Arterial Blood pCO2 at Patient Temp 27 mmHg Arterial Blood pO2 at Patient Temp 148 mmHg Arterial Blood HCO3 17 mmol/L Arterial Blood Base Excess -6 mmol/L FiO2 40 Current Medications Medications (Trade) Dose Ordered Sig/Jose Route PRN Reason Start Time Stop Time Status Last Admin Dose Admin Sodium Chloride 1,000 ml @ 1,000 mls/hr 1X ONCE IV 06/26/18 14:15 06/26/18 15:14 DC 06/26/18 14:37 Nystatin (Nystop) 1 nato 1X STAT TP 06/26/18 14:45 06/26/18 14:47 DC 06/26/18 15:56 Sodium Bicarbonate (Sodium Bicarb Adult 8.4% Syr) 50 meq 1X ONCE IV 06/26/18 15:15 06/26/18 15:16 DC 06/26/18 15:57 Albuterol Sulfate (Ventolin Neb Soln) 10 mg 1X ONCE CONT NEB 06/26/18 15:15 06/26/18 15:16 DC Insulin Human Regular (HumuLIN R VIAL) 10 unit 1X ONCE IV 06/26/18 15:15 06/26/18 15:16 DC 06/26/18 15:51 Insulin Human Regular 150 ml @ 0 mls/hr 1X ONCE IV 06/26/18 15:15 06/26/18 15:16 DC 06/26/18 15:56 Sodium Chloride 1,000 ml @ 1,000 mls/hr 1X ONCE IV 06/26/18 15:15 06/26/18 16:14 DC 06/26/18 18:21 Calcium Gluconate (Calcium Gluconate) 1,000 mg 1X ONCE IVP 06/26/18 15:45 06/26/18 15:46 DC 06/26/18 15:48 Piperacillin Sod/ Tazobactam Sod 2.25 gm/Sodium Chloride 50 ml @ 100 mls/hr 1X ONCE IV 06/26/18 16:15 10/16/18 16:44 DC 06/26/18 18:24 Lidocaine/Sodium Bicarbonate (Buffered Lidocaine 1%) 3 ml 1X ONCE INJ 06/26/18 16:15 06/26/18 16:21 DC 06/26/18 17:08 Heparin Sodium (Porcine) (Heparin Sodium) 2,600 unit 1X ONCE INT CAT 06/26/18 16:15 06/26/18 16:21 DC 06/26/18 17:09 Heparin Sodium (Porcine) (Heparin Sodium) 10,000 unit STK-MED ONCE .ROUTE 06/26/18 16:14 06/26/18 16:15 DC Heparin Sodium (Porcine) (Heparin Sodium) 5,000 unit Q8HRS SQ 06/26/18 22:00 06/29/18 06:02 Pantoprazole Sodium (PROTONIX VIAL for IV PUSH) 40 mg DAILYAC IVP 06/27/18 07:30 06/29/18 09:19 Insulin Human Regular 150 unit/ Sodium Chloride 151.5 ml @ 0 mls/hr CONT PRN IV SEE I/O RECORD 06/26/18 17:00 06/27/18 11:20 DC 06/27/18 00:55 Acetaminophen (Tylenol) 650 mg PRN Q6HRS PRN PO FEVER 06/26/18 17:15 Ondansetron HCl (Zofran) 4 mg PRN Q6HRS PRN IV NAUSEA/VOMITING 06/26/18 17:15 Morphine Sulfate (Morphine Sulfate) 2 mg PRN Q2HR PRN IV MODERATE TO SEVERE PAIN 06/26/18 17:15 Tramadol HCl (Ultram) 50 mg PRN Q6HRS PRN PO MILD TO MODERATE PAIN 06/26/18 17:15 Docusate Sodium (Colace) 100 mg PRN DAILY PRN PO CONSTIPATION 06/26/18 17:15 Labetalol HCl (Normodyne Iv Push) 20 mg PRN Q2HR PRN IVP HYPERTENSION, SEE COMMENTS 06/26/18 17:15 06/29/18 09:19 Lidocaine/Sodium Bicarbonate (Buffered Lidocaine 1%) 6 ml 1X ONCE INJ 06/26/18 17:15 06/26/18 17:16 DC Sodium Bicarbonate (Sodium Bicarb Adult 8.4% Syr) 100 meq 1X ONCE IV 06/26/18 19:30 06/26/18 19:31 DC 06/26/18 20:00 Midazolam HCl 100 ml @ 5 mls/hr CONT PRN IV SEE I/O RECORD 06/26/18 19:00 06/27/18 03:34 Midazolam HCl (Versed) 5 mg PRN Q2HR PRN IV SEDATION 06/26/18 19:00 Norepinephrine Bitartrate 250 ml @ 1.875 mls/ hr CONT PRN IV SEE I/O RECORD 06/26/18 19:15 06/26/18 21:43 Sodium Chloride 1,000 ml @ 1,000 mls/hr Q1H PRN IV hypotension 06/26/18 19:17 06/27/18 01:16 DC Sodium Chloride 1,000 ml @ 400 mls/hr Q2H30M PRN IV PATENCY 06/26/18 19:17 06/27/18 07:16 DC Info (PHARMACY MONITORING -- do not chart) 1 each PRN DAILY PRN MC SEE COMMENTS 06/26/18 19:30 Cancel Info (PHARMACY MONITORING -- do not chart) 1 each PRN DAILY PRN MC SEE COMMENTS 06/26/18 19:30 Dextrose/Sodium Chloride 1,000 ml @ 250 mls/hr 1X ONCE IV 06/26/18 22:00 06/27/18 01:59 DC 06/26/18 21:43 Vancomycin HCl (Vanco Per Pharmacy) 1 each PRN DAILY PRN MC SEE COMMENTS 06/26/18 22:00 06/28/18 11:07 Piperacillin Sod/ Tazobactam Sod (Zosyn Per Pharmacy) 1 each PRN DAILY PRN MC SEE COMMENTS 06/26/18 22:00 Piperacillin Sod/ Tazobactam Sod 2.25 gm/Sodium Chloride 50 ml @ 100 mls/hr Q8HRS IV 06/26/18 22:00 06/29/18 06:02 Vancomycin HCl 1.5 gm/Sodium Chloride 500 ml @ 250 mls/hr 1X ONCE IV 06/26/18 23:00 06/27/18 00:59 DC 06/26/18 23:29 Sodium Chloride 1,000 ml @ 1,000 mls/hr Q1H PRN IV hypotension 06/27/18 09:37 06/27/18 15:36 DC Sodium Chloride 1,000 ml @ 400 mls/hr Q2H30M PRN IV PATENCY 06/27/18 09:37 06/27/18 21:36 DC Info (PHARMACY MONITORING -- do not chart) 1 each PRN DAILY PRN MC SEE COMMENTS 06/27/18 09:45 UNV Epinephrine HCl (EPINEPHrine SYRINGE) 1 mg STK-MED ONCE .ROUTE 06/26/18 12:00 06/27/18 10:00 DC Vitamin A/Vitamin D (Vitamin A & D Ointment) 1 nato TID TP 06/27/18 14:00 06/29/18 09:20 Info (Tpn Per Pharmacy) 1 each PRN DAILY PRN MC SEE COMMENTS 06/27/18 10:45 06/28/18 12:44 Vancomycin HCl (Vancomycin Trough Level) 1 each 1X ONCE 06/28/18 05:00 06/28/18 05:01 DC 06/28/18 05:00 Insulin Glargine (Lantus) 10 units QHS SQ 06/27/18 21:00 06/28/18 08:07 DC 06/27/18 20:54 Insulin Human Lispro (HumaLOG) 0-7 UNITS Q4HRS SQ 06/27/18 12:00 06/28/18 08:07 DC 06/28/18 04:13 Dextrose (Dextrose 50%-Water Syringe) 12.5 gm PRN Q15MIN PRN IV SEE COMMENTS 06/27/18 11:00 Ringer's Solution 1,000 ml @ 75 mls/hr [id number] IV 06/27/18 11:00 06/27/18 11:20 DC Sodium Chloride 1,000 ml @ 100 mls/hr Q10H IV 06/27/18 11:30 06/29/18 05:01 Sodium Chloride 90 meq/Potassium Chloride 50 meq/ Potassium Phosphate 13.6 mmol/Magnesium Sulfate 10 meq/ Calcium Gluconate 10 meq/ Multivitamins 10 ml/Chromium/ Copper/Manganese/ Seleni/Zn 1 ml/ Total Parenteral Nutrition/Amino Acids/Dextrose/ Fat Emulsion Intravenous 1,512 ml @ 63 mls/hr TPN CONT IV 06/27/18 22:00 06/28/18 21:59 DC 06/27/18 22:46 Aspirin (Aspirin) 300 mg DAILY TN 06/28/18 09:00 06/29/18 09:19 Insulin Glargine (Lantus) 12 units BID SQ 06/28/18 09:00 06/29/18 09:14 DC 06/28/18 21:06 Insulin Human Lispro (HumaLOG) 0-9 UNITS Q4HRS SQ 06/28/18 08:15 06/29/18 09:22 Insulin Human Lispro (HumaLOG) 14 units 1X ONCE SQ 06/28/18 08:15 06/28/18 08:16 DC 06/28/18 08:19 Vancomycin HCl 500 mg/Sodium Chloride 100 ml @ 100 mls/hr 1X ONCE IV 06/28/18 12:30 06/28/18 13:29 DC 06/28/18 13:42 Insulin Human Lispro (HumaLOG) 27 units 1X ONCE SQ 06/28/18 12:00 06/28/18 12:01 DC 06/28/18 12:00 Sodium Chloride 90 meq/Potassium Chloride 50 meq/ Potassium Phosphate 13.6 mmol/Magnesium Sulfate 10 meq/ Calcium Gluconate 10 meq/ Multivitamins 10 ml/Chromium/ Copper/Manganese/ Seleni/Zn 1 ml/ Total Parenteral Nutrition/Amino Acids/Dextrose/ Fat Emulsion Intravenous 1,512 ml @ 63 mls/hr TPN CONT IV 06/28/18 22:00 06/29/18 21:59 06/28/18 21:57 Chlorhexidine Gluconate (Peridex) 15 ml BID MM 06/28/18 21:00 Cancel Insulin Human Lispro (HumaLOG) 10 units 1X ONCE SQ 06/28/18 16:30 06/28/18 16:31 DC 06/28/18 16:40 Insulin Glargine (Lantus) 18 units BID SQ 06/29/18 10:00 06/29/18 10:07 Morphine Sulfate (Morphine Sulfate) 5 mg PRN Q15MIN PRN IV PAIN 06/29/18 11:45 06/29/18 11:50 Lorazepam (Ativan) 1 mg PRN Q15MIN PRN IV ANXIETY / AGITATION 06/29/18 11:45 06/29/18 11:50 PE: GEN: intubated HEENT: OG bilious LUNGS: vent HEART: RR ABD: quiet, soft OTHER: rectal tube - bag empty NEURO/PSYCH: unresponsive A/P: Anemia, +fecal occult - Hgb improved/stable after transfusion -Ok to remove rectal tube and monitor Pancreatitis, transaminitis, s/p cholecystectomy Brain infarcts, right IJ thrombus, DM, ESRD LYNN FOX Jun 29, 2018 14:19
--- NOTE | 2018-06-29 14:53 | PDOC ---
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 Metabolic encephalopathy. Respiratory failure. Lactic acidosis. Hyperglycemia, glucose level 1290. Hyperkalemia, K+ 7.6 Acute pancreatitis, lipase 61673. Renal failure. Pulmonary hypertension. DM, poorly controlled. HTN. Anemia. GI bleeding likely. Pulmonary nodules. Thyroid nodules. Hyperthyroidism. Old CVA per Hx. RECOMMENDATIONS/PLAN: Extubated, palliative care per family. Discussed with her family and showed MRI pictures to her son, [id number], cousin, and other family members and discussed with them in all detail in ICU on 06/29/18. HISTORY OF THE PRESENT ILLNESS: 73-y-old female patient with multiple medical diseases was found down unresponsive on the floor in her kitchen. She was brought to the ER of [facility] and her glucose level was revealed extremely high of 1290. She remained unresponsiveness unable to maintain airway. She was intubated and admitted into ICU. PAST MEDICAL HISTORY: Please see above. PAST SURGERY HISTORY: No major surgery recently. ALLERGY: Unknown. MEDICATIONS: Refer to [facility] FAMILY HISTORY: HTN. SOCIAL HISTORY: Lives alone. Denies current moking, drinking, and illicit drug use per documentation. REVIEW OF SYSTEMS: Constitutional: No malnutrition, weight loss, cachexia. Head: No traumatic brain or head injury. Skin: No edema, or rash. Ear: No infection. Eyes: No vision loss or color blindness. Nose: No bleeding or purulent discharges. Hearing: No hearing decrease. Neck: No injury. Breast: No history of cancer, masses,or discharges. Cardiac: HTN. Pulmonary: SOB. GI: No GI ulcer, GI bleeding. Urinary/genital: UTI. Endocrinologic: Diabetes Mellitus. Skeletomuscular: No muscular atrophy, deformity. Neurological: see HP. Psychiatric: Denies drug use/abuse. Otherwise, not [id number] review of systems. PHYSICAL EXAMINATION: General appearance is in subacute distress. HEENT: Normocephalic and nontraumatic. Eyes, nose, ears, and throat are unremarkable. Neck is supple. No lymphadenopathy. No crepitus. Cardiovascular: S1, S2, regular rate and rhythm. Pulmonary: On vent. Abdomen: Bowel sounds are positive. Extremities: No rash, lesions, or edema. NEUROLOGICAL EXAMINATION: Extubated per family request. Unresponsiveness. Not oriented to time, place and person. Pupils 1 mm, not reactive. EOMI not elicited. CN: no acute focal findings. Muscle tone: decreased. Muscle strength: minimal movements observed to pain stimuli. DTR: 1- Plantar reflex: Neutral response bilaterally Gait: Not able to walk. Sensory exam: no response to pain stimuli. Not able to access cerebellar signs in this mentation.. F-T-N test not performed due to not follow commands. Objective Objective Vital Signs Date Time Temp Pulse Resp B/P (MAP) Pulse Ox O2 Delivery O2 Flow Rate FiO2 06/29/18 11:50 16 Ventilator 06/29/18 11:00 92 178/63 (101) 100 06/29/18 07:00 98.6 98.6 Intake and Output 06/29/18 07:00 Intake Total 3907 ml Output Total 863 ml Balance 3044 ml Intake IV Total 3907 ml Output Urine Total 788 ml Stool Total 0 ml Gastric Drainage Total 75 ml Vitals Signs Vitals VS - Last 72 Hours, by Label Date Time Temp Pulse Resp B/P (MAP) Pulse Ox O2 Delivery O2 Flow Rate FiO2 06/29/18 11:50 16 Ventilator 06/29/18 11:00 92 178/63 (101) 100 Ventilator 06/29/18 10:00 100 200/71 (114) 100 Ventilator 06/29/18 09:19 103 199/68 06/29/18 09:00 100 Ventilator 06/29/18 09:00 108 191/68 (109) 100 Ventilator 06/29/18 08:00 96 164/69 (100) 100 Ventilator 06/29/18 08:00 Mechanical Ventilator 06/29/18 07:48 100 Ventilator 06/29/18 07:00 98.6 96 173/70 (104) 100 Ventilator 98.6 06/29/18 06:05 100 Ventilator 06/29/18 06:00 106 20 165/72 (103) 100 Ventilator 06/29/18 05:00 102 23 165/74 (104) 100 Ventilator 06/29/18 04:00 99.1 95 22 170/88 (115) 100 Ventilator 99.1 06/29/18 04:00 Mechanical Ventilator 06/29/18 03:46 100 Ventilator 06/29/18 03:00 96 21 185/88 (120) 100 Ventilator 06/29/18 02:00 92 22 167/58 (94) 100 Ventilator 10/19/18 01:34 100 Ventilator 06/29/18 01:00 107 22 167/61 (96) 100 Ventilator 06/29/18 00:00 Mechanical Ventilator 06/29/18 00:00 99.1 106 20 169/59 (95) 100 Ventilator 99.1 18/18 23:27 100 Ventilator 18/18 23:00 92 21 168/62 (97) 100 Ventilator 18/18 22:00 96 27 170/71 (104) 100 Ventilator 18/18 21:00 94 21 158/62 (94) 100 Ventilator 18/18 20:00 99.0 92 24 166/76 (106) 100 Ventilator 99.0 06/28/18 20:00 100 Ventilator 06/28/18 20:00 Mechanical Ventilator 06/28/18 19:00 93 20 168/67 (100) 100 Ventilator 18/18 18:13 98.9 94 11 165/65 (98) 100 98.9 06/28/18 17:00 98.6 94 165/58 (93) 100 Ventilator 98.6 18 16:56 100 Ventilator 06/28/18 16:11 98.6 94 11 140/57 (84) 100 Ventilator 98.6 18 16:08 Mechanical Ventilator 18 15:20 100 Ventilator 18 15:06 98.6 93 12 149/59 (89) 100 Ventilator 98.6 18 14:02 98.6 92 10 143/57 (85) 100 Ventilator 98.6 18 13:00 92 16 125/47 (73) 100 Ventilator 18 12:00 Mechanical Ventilator 18 12:00 98.6 93 18 172/59 (96) 100 Ventilator 98.6 18 11:42 100 Ventilator 06/28/18 11:00 91 22 169/73 (105) 100 Ventilator 18/18 10:00 93 26 151/56 (87) 100 Ventilator 06/28/18 09:22 100 Ventilator 18/18 09:00 88 19 160/55 (90) 100 Ventilator 18/18 08:00 85 19 189/74 (112) 100 Ventilator 18/18 07:56 100 Ventilator 18/18 07:45 Mechanical Ventilator 10/18/18 07:00 98.0 85 16 173/61 (98) 100 Ventilator 98.0 Laboratory Laboratory Laboratory Tests Test 06/28/18 16:05 06/28/18 19:48 06/28/18 21:04 06/28/18 23:47 Glucose (Fingerstick) 389 mg/dL (70-99) 320 mg/dL (70-99) 302 mg/dL (70-99) 253 mg/dL (70-99) Test 06/29/18 04:48 06/29/18 06:00 06/29/18 08:00 06/29/18 08:43 Glucose (Fingerstick) 267 mg/dL (70-99) 294 mg/dL (70-99) White Blood Count 14.2 x10^3/uL (4.0-11.0) Red Blood Count 2.69 x10^6/uL (3.50-5.40) Hemoglobin 8.9 g/dL (12.0-15.5) Hematocrit 26.3 % (36.0-47.0) Mean Corpuscular Volume 98 fL (79-100) Mean Corpuscular Hemoglobin 33 pg (25-35) Mean Corpuscular Hemoglobin Concent 34 g/dL (31-37) Red Cell Distribution Width 18.5 % (11.5-14.5) Platelet Count 232 x10^3/uL (140-400) Neutrophils (%) (Auto) 91 % (31-73) Lymphocytes (%) (Auto) 5 % (24-48) Monocytes (%) (Auto) 4 % (0-9) Eosinophils (%) (Auto) 1 % (0-3) Basophils (%) (Auto) 0 % (0-3) Neutrophils # (Auto) 13.0 x10^3uL (1.8-7.7) Lymphocytes # (Auto) 0.6 x10^3/uL (1.0-4.8) Monocytes # (Auto) 0.5 x10^3/uL (0.0-1.1) Eosinophils # (Auto) 0.1 x10^3/uL (0.0-0.7) Basophils # (Auto) 0.0 x10^3/uL (0.0-0.2) Sodium Level 143 mmol/L (136-145) Potassium Level 3.7 mmol/L (3.5-5.1) Chloride Level 108 mmol/L (98-107) Carbon Dioxide Level 20 mmol/L (21-32) Anion Gap 15 (6-14) Blood Urea Nitrogen 40 mg/dL (7-20) Creatinine 3.8 mg/dL (0.6-1.0) Estimated GFR (Cockcroft-Gault) 14.1 BUN/Creatinine Ratio 11 (6-20) Glucose Level 303 mg/dL (70-99) Calcium Level 9.1 mg/dL (8.5-10.1) Phosphorus Level 2.9 mg/dL (2.6-4.7) Magnesium Level 2.1 mg/dL (1.8-2.4) Total Bilirubin 0.3 mg/dL (0.2-1.0) Aspartate Amino Transf (AST/SGOT) 117 U/L (15-37) Alanine Aminotransferase (ALT/SGPT) 306 U/L (14-59) Alkaline Phosphatase 102 U/L (46-116) Total Protein 6.0 g/dL (6.4-8.2) Albumin 1.7 g/dL (3.4-5.0) Albumin/Globulin Ratio 0.4 (1.0-1.7) O2 Saturation 98 % (92-99) Arterial Blood pH 7.41 (7.35-7.45) Arterial Blood pCO2 at Patient Temp 27 mmHg (35-46) Arterial Blood pO2 at Patient Temp 148 mmHg (65-108) Arterial Blood HCO3 17 mmol/L (21-28) Arterial Blood Base Excess -6 mmol/L (-3-3) FiO2 40 Microbiology 06/26/18 Blood Culture - Preliminary, Resulted NO GROWTH AFTER 2 DAYS Medication Medications Current Medications Chlorhexidine Gluconate (Peridex) 15 ml BID MM ; Start 06/28/18 at 21:00; Status Cancel Insulin Glargine (Lantus) 18 units BID SQ Last administered on 06/29/18at 10:07 ; Start 06/29/18 at 10:00 Insulin Human Lispro (HumaLOG) 10 units 1X ONCE SQ Last administered on at 16:40; Start 06/28/18 at 16:30; Stop 06/28/18 at 16:31; Status DC Lorazepam (Ativan) 1 mg PRN Q15MIN PRN IV ANXIETY / AGITATION Last administered on 06/29/18at 11:50; Start 06/29/18 at 11:45 Morphine Sulfate (Morphine Sulfate) 5 mg PRN Q15MIN PRN IV PAIN Last administered on 06/29/18at 11:50; Start 06/29/18 at 11:45 Sodium Chloride 90 meq/Potassium Chloride 50 meq/ Potassium Phosphate 13.6 mmol/ Magnesium Sulfate 10 meq/ Calcium Gluconate 10 meq/ Multivitamins 10 ml/Chromium / Copper/Manganese/ Seleni/Zn 1 ml/ Total Parenteral Nutrition/Amino Acids/ Dextrose/ Fat Emulsion Intravenous 1,512 ml @ 63 mls/hr TPN CONT IV Last administered on 06/28/18at 21:57; Start 06/28/18 at 22:00; Stop 06/29/18 at 21 :59 Comment Review of Relevant I have reviewed the following items ludwig (where applicable) has been applied. RAYMOND CHU MD Jun 29, 2018 14:53
[2018-06-29] MEDS ORDERED: LORazepam INTENSOL 2 MG/ML ORAL.CONC SL PRN (15:15)
[2018-06-29] MEDS ORDERED: MORPHINE SULFATE 20 MG/ML CONC SOLUTION. SL PRN (15:15)
--- NOTE | 2018-06-29 15:54 | EEG ---
DATE OF SERVICE: 06/27/2018 EEG NUMBER: [id number]. OBJECTIVE: This is a 73-year-old female patient who had severe metabolic encephalopathy, subacute stroke and many other medical diseases. An EEG was requested to evaluate cerebral activity and help rule out subclinical seizure. METHODS: Twenty electrodes were applied according to the international 10-20 electrode placement system. EKG monitoring, hyperventilation, intermittent photic stimulation, monopolar and bipolar montages are routinely utilized. The record was obtained on a digital system with video monitoring. FINDINGS: 1. Background: The patient was recorded in the unresponsive state. No physiological awake, drowsy and sleep states were recorded. The overall background amplitude is low, about 2 to 7 microvolts. No posterior dominant rhythm is observed. The overall background rhythm is disorganized with theta and delta frequencies throughout the entire recording. 2. Abnormalities: No specific epileptiform discharge or electrographic seizure is seen. Diffuse slowing in the theta and delta frequencies throughout the entire recording. 3. Activation: Hyperventilation was not performed because the patient was in unresponsive state. Intermittent photic stimulation was not performed. IMPRESSION: This EEG is an abnormal study for the unresponsive state only. No physiological awake, drowsy, and sleep states were recorded. No posterior dominant rhythm is observed. The overall background amplitude is low. The overall background rhythm is disorganized with diffuse slowing in the theta and delta frequencies. No focal, lateralizing, specific epileptiform discharge or electrographic seizure is seen. This pattern of EEG is suggestive of diffuse encephalopathy. RAYMOND CHU MD DR: DARY/roscoe JOB#: [id number] / [id number] [place]
[2018-06-30] VITALS (7 sets, daily range): BP systolic 156–201; BP diastolic 72–100
[2018-06-30] MEDS: ASPIRIN 300 MG SUPP.RECT PR SCH (09:00)
[2018-06-30] MEDS: VITS A & D/LANOLIN TOPICAL OINTMENT 56GM TUBE. TP SCH (09:00)
--- NOTE | 2018-06-30 10:57 | PDOC ---
PULMONARY PROGRESS NOTES Subjective terminally extubated/ un responsive Vitals Vital Signs Date Time Temp Pulse Resp B/P (MAP) Pulse Ox O2 Delivery O2 Flow Rate FiO2 06/30/18 10:48 Room Air 06/30/18 08:00 90 201/90 (127) 100 2.0 06/30/18 04:00 98.4 98.4 06/29/18 12:20 18 Lungs: Other (clear) Cardiovascular: S1 Abdomen: Soft, Non-tender Extremities: Other (trace edema) Labs Laboratory Tests Test 06/28/18 11:46 06/28/18 16:05 06/28/18 19:48 06/28/18 21:04 Glucose (Fingerstick) 413 mg/dL (70-99) 389 mg/dL (70-99) 320 mg/dL (70-99) 302 mg/dL (70-99) Test 06/28/18 23:47 06/29/18 04:48 06/29/18 06:00 06/29/18 08:00 Glucose (Fingerstick) 253 mg/dL (70-99) 267 mg/dL (70-99) White Blood Count 14.2 x10^3/uL (4.0-11.0) Red Blood Count 2.69 x10^6/uL (3.50-5.40) Hemoglobin 8.9 g/dL (12.0-15.5) Hematocrit 26.3 % (36.0-47.0) Mean Corpuscular Volume 98 fL (79-100) Mean Corpuscular Hemoglobin 33 pg (25-35) Mean Corpuscular Hemoglobin Concent 34 g/dL (31-37) Red Cell Distribution Width 18.5 % (11.5-14.5) Platelet Count 232 x10^3/uL (140-400) Neutrophils (%) (Auto) 91 % (31-73) Lymphocytes (%) (Auto) 5 % (24-48) Monocytes (%) (Auto) 4 % (0-9) Eosinophils (%) (Auto) 1 % (0-3) Basophils (%) (Auto) 0 % (0-3) Neutrophils # (Auto) 13.0 x10^3uL (1.8-7.7) Lymphocytes # (Auto) 0.6 x10^3/uL (1.0-4.8) Monocytes # (Auto) 0.5 x10^3/uL (0.0-1.1) Eosinophils # (Auto) 0.1 x10^3/uL (0.0-0.7) Basophils # (Auto) 0.0 x10^3/uL (0.0-0.2) Sodium Level 143 mmol/L (136-145) Potassium Level 3.7 mmol/L (3.5-5.1) Chloride Level 108 mmol/L (98-107) Carbon Dioxide Level 20 mmol/L (21-32) Anion Gap 15 (6-14) Blood Urea Nitrogen 40 mg/dL (7-20) Creatinine 3.8 mg/dL (0.6-1.0) Estimated GFR (Cockcroft-Gault) 14.1 BUN/Creatinine Ratio 11 (6-20) Glucose Level 303 mg/dL (70-99) Calcium Level 9.1 mg/dL (8.5-10.1) Phosphorus Level 2.9 mg/dL (2.6-4.7) Magnesium Level 2.1 mg/dL (1.8-2.4) Total Bilirubin 0.3 mg/dL (0.2-1.0) Aspartate Amino Transf (AST/SGOT) 117 U/L (15-37) Alanine Aminotransferase (ALT/SGPT) 306 U/L (14-59) Alkaline Phosphatase 102 U/L (46-116) Total Protein 6.0 g/dL (6.4-8.2) Albumin 1.7 g/dL (3.4-5.0) Albumin/Globulin Ratio 0.4 (1.0-1.7) O2 Saturation 98 % (92-99) Arterial Blood pH 7.41 (7.35-7.45) Arterial Blood pCO2 at Patient Temp 27 mmHg (35-46) Arterial Blood pO2 at Patient Temp 148 mmHg (65-108) Arterial Blood HCO3 17 mmol/L (21-28) Arterial Blood Base Excess -6 mmol/L (-3-3) FiO2 40 Test 06/29/18 08:43 Glucose (Fingerstick) 294 mg/dL (70-99) Medications Active Scripts Medications Dose Route/Sig Max Daily Dose Days Date Category Unable To Obtain Meds From Prior To Admit (Info) Each 1 Each 06/26/18 Reported Impression . 1. Acute respiratory failure secondary to multifactorial etiologies including acute metabolic encephalopathy, worsening uremia, contributing to encephalopathy, nonketotic hyperosmolar coma and new multiple ischemic stroke. 2. Severe metabolic acidosis secondary to xjmeb-qh-jbrpyqz renal failure and sepsis. 3. Ioznv-sm-bpsqsjr renal failure, now requiring dialysis. She had declined to have dialysis before despite worsening in her renal function. 4. Ebsjf-sy-brdieax anemia. No obvious blood loss. GI to evaluate. 5. Acute pancreatitis, likely the source of her sepsis. 6. Abnormal CT chest with a mass-like consolidation in the right upper lobe and also an infiltrate in the left lower lobe. This needs to be followed up to rule out any malignancy. 7. Pzcibudi-uy-xgdvik protein-calorie malnutrition. 8. Marked lactic acidosis, which is now improving. 9. Hypophosphatemia. 10. Hyperkalemia, present on admission, s/p urgent HD. Renal is following. 11. Multiple infarcts on MRI brain, and Right IJ venous thrombosis Plan . terminally extubated/ un responsive DNR/DNI/ comfort care protocol will sign off KASEY DEWEY MD Jun 30, 2018 10:57
--- NOTE | 2018-06-30 13:40 | PDOC ---
PROGRESS NOTES Chief Complaint Chief Complaint AMS, metabolic encephalopathy with bl strokes multiple bl subacute stroke METabolic acidosis DKA hyperkalemia MAVERICK, ATN ESRD without baseline Cr known, not on HD yet acute resp failure 2 lung nodules acute pancreatitis hypothermia recent CVA with left side weakness anemia, macrocytic non compliance HTN urgency acute resp failure required intubation plan: pt was in ICU for 2 ds, got HD family decided comfort care and extubated pt now pt looks comfortable, on NC2l i talked to the older son today for 10min , explained what is comfort care, we WILL not do anything aggressively to keep her alive, cont morphine and ativan to make her comfortable. add scopolamine patch SOn cannot take pt back home. i told him that she stay in hosp this weekend, if not , Modey will get sw to discuss with the displacement. son understood well. DNR History of Present Illness History of Present Illness Patient is a 73 year old f was sent by son for AMS, found down on kitchen floor. When seen in ER, eyes open, unresponsive by admitting team. Pt lives alone, 2 sons come to see her often. has no DPOA signed yet. sons want aggressive treatment for now. [facility] for CVA with left side weakness. Son said she was not walking well, but refused to go to SNF, and sent home. In the past 5 days, she was found slurry speech, refused to come to hosp. Sons said she likely not taking her daily meds too. ER found with metabolic acidosis, glu>1200, K >7, has ESRD but not decided to do HD yet Cr >7 now, unresponsive, lipase >40K, lung [address] T 88.8. head ct neg. She was gagging and hypoxic in ED and was emergently intubated for this. Overnight 06/26: SKIP CHINO called at 2017 after initiation of both levophed and dialysis. Appears to have been bradycardia followed by PEA. After epinephrine BP was increased and had tachycardia. Required 1 u PRBC yesterday MRI 06/27/18 reviewed: 1. There are multiple scattered recent infarcts bilaterally, probably early subacute. Other scattered T2 and FLAIR hyperintense signal abnormality of the sina and to lesser degree of the supratentorial white matter is nonspecific although may be due to chronic microvascular ischemic disease. Incidental finding of RIJ thrombosis. Vitals Vitals Vital Signs Date Time Temp Pulse Resp B/P (MAP) Pulse Ox O2 Delivery O2 Flow Rate FiO2 06/30/18 12:00 98.4 105 18 201/100 (133) 97 Nasal Cannula 2.0 98.4 Physical Exam General: Other (sedated) Heart: Regular rate (SR), Other (distnat heart sounds) Lungs: Other (clear) Abdomen: Soft Extremities: No cyanosis Skin: No breakdown, No significant lesion Assessment and Plan Assessmemt and Plan Problems Medical Problems: (1) Acute renal failure Status: Acute (2) 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 Labs Laboratory Tests Test 06/28/18 16:05 06/28/18 19:48 06/28/18 21:04 06/28/18 23:47 Glucose (Fingerstick) 389 mg/dL (70-99) 320 mg/dL (70-99) 302 mg/dL (70-99) 253 mg/dL (70-99) Test 06/29/18 04:48 06/29/18 06:00 06/29/18 08:00 06/29/18 08:43 Glucose (Fingerstick) 267 mg/dL (70-99) 294 mg/dL (70-99) White Blood Count 14.2 x10^3/uL (4.0-11.0) Red Blood Count 2.69 x10^6/uL (3.50-5.40) Hemoglobin 8.9 g/dL (12.0-15.5) Hematocrit 26.3 % (36.0-47.0) Mean Corpuscular Volume 98 fL (79-100) Mean Corpuscular Hemoglobin 33 pg (25-35) Mean Corpuscular Hemoglobin Concent 34 g/dL (31-37) Red Cell Distribution Width 18.5 % (11.5-14.5) Platelet Count 232 x10^3/uL (140-400) Neutrophils (%) (Auto) 91 % (31-73) Lymphocytes (%) (Auto) 5 % (24-48) Monocytes (%) (Auto) 4 % (0-9) Eosinophils (%) (Auto) 1 % (0-3) Basophils (%) (Auto) 0 % (0-3) Neutrophils # (Auto) 13.0 x10^3uL (1.8-7.7) Lymphocytes # (Auto) 0.6 x10^3/uL (1.0-4.8) Monocytes # (Auto) 0.5 x10^3/uL (0.0-1.1) Eosinophils # (Auto) 0.1 x10^3/uL (0.0-0.7) Basophils # (Auto) 0.0 x10^3/uL (0.0-0.2) Sodium Level 143 mmol/L (136-145) Potassium Level 3.7 mmol/L (3.5-5.1) Chloride Level 108 mmol/L (98-107) Carbon Dioxide Level 20 mmol/L (21-32) Anion Gap 15 (6-14) Blood Urea Nitrogen 40 mg/dL (7-20) Creatinine 3.8 mg/dL (0.6-1.0) Estimated GFR (Cockcroft-Gault) 14.1 BUN/Creatinine Ratio 11 (6-20) Glucose Level 303 mg/dL (70-99) Calcium Level 9.1 mg/dL (8.5-10.1) Phosphorus Level 2.9 mg/dL (2.6-4.7) Magnesium Level 2.1 mg/dL (1.8-2.4) Total Bilirubin 0.3 mg/dL (0.2-1.0) Aspartate Amino Transf (AST/SGOT) 117 U/L (15-37) Alanine Aminotransferase (ALT/SGPT) 306 U/L (14-59) Alkaline Phosphatase 102 U/L (46-116) Total Protein 6.0 g/dL (6.4-8.2) Albumin 1.7 g/dL (3.4-5.0) Albumin/Globulin Ratio 0.4 (1.0-1.7) O2 Saturation 98 % (92-99) Arterial Blood pH 7.41 (7.35-7.45) Arterial Blood pCO2 at Patient Temp 27 mmHg (35-46) Arterial Blood pO2 at Patient Temp 148 mmHg (65-108) Arterial Blood HCO3 17 mmol/L (21-28) Arterial Blood Base Excess -6 mmol/L (-3-3) FiO2 40 Microbiology 06/26/18 Blood Culture - Preliminary, Resulted NO GROWTH AFTER 3 DAYS Medications Current Medications Sodium Chloride 1,000 ml @ 1,000 mls/hr 1X ONCE IV Last administered on 06/26at 14:37; Start 06/26/18 at 14:15; Stop 06/26/18 at 15:14; Status DC Nystatin (Nystop) 1 nato 1X STAT TP Last administered on 06/26/18at 15:56; Start 06/26/18 at 14:45; Stop 06/26/18 at 14:47; Status DC Sodium Bicarbonate (Sodium Bicarb Adult 8.4% Syr) 50 meq 1X ONCE IV Last administered on 06/26/18at 15:57; Start 06/26/18 at 15:15; Stop 06/26/18 at 15 :16; Status DC Albuterol Sulfate (Ventolin Neb Soln) 10 mg 1X ONCE CONT NEB ; Start 06/26/18 at 15:15; Stop 06/26/18 at 15:16; Status DC Insulin Human Regular (HumuLIN R VIAL) 10 unit 1X ONCE IV Last administered on 06/26/18at 15:51; Start 06/26/18 at 15:15; Stop 06/26/18 at 15:16; Status DC Insulin Human Regular 150 ml @ 0 mls/hr 1X ONCE IV Last administered on at 15:56; Start 06/26/18 at 15:15; Stop 06/26/18 at 15:16; Status DC Sodium Chloride 1,000 ml @ 1,000 mls/hr 1X ONCE IV Last administered on 06/26at 18:21; Start 06/26/18 at 15:15; Stop 06/26/18 at 16:14; Status DC Calcium Gluconate (Calcium Gluconate) 1,000 mg 1X ONCE IVP Last administered on 06/26/18at 15:48; Start 06/26/18 at 15:45; Stop 06/26/18 at 15:46; Status DC Piperacillin Sod/ Tazobactam Sod 2.25 gm/Sodium Chloride 50 ml @ 100 mls/hr 1X ONCE IV Last administered on 06/26/18at 18:24; Start 06/26/18 at 16:15; Stop 06/26/18 at 16:44; Status DC Lidocaine/Sodium Bicarbonate (Buffered Lidocaine 1%) 3 ml 1X ONCE INJ Last administered on 06/26/18at 17:08; Start 06/26/18 at 16:15; Stop 06/26/18 at 16 :21; Status DC Heparin Sodium (Porcine) (Heparin Sodium) 2,600 unit 1X ONCE INT CAT Last administered on 06/26/18at 17:09; Start 06/26/18 at 16:15; Stop 06/26/18 at 16 :21; Status DC Heparin Sodium (Porcine) (Heparin Sodium) 10,000 unit STK-MED ONCE .ROUTE ; Start 06/26/18 at 16:14; Stop 06/26/18 at 16:15; Status DC Heparin Sodium (Porcine) (Heparin Sodium) 5,000 unit Q8HRS SQ Last administered on 06/29/18at 06:02; Start 06/26/18 at 22:00; Stop 06/29/18 at 15 :04; Status DC Pantoprazole Sodium (PROTONIX VIAL for IV PUSH) 40 mg DAILYAC IVP Last administered on 06/29/18at 09:19; Start 06/27/18 at 07:30; Stop 06/29/18 at 15 :04; Status DC Insulin Human Regular 150 unit/ Sodium Chloride 151.5 ml @ 0 mls/hr CONT PRN IV SEE I/O RECORD Last administered on 06/27/18at 00:55; Start 06/26/18 at 17: 00; Stop 06/27/18 at 11:20; Status DC Acetaminophen (Tylenol) 650 mg PRN Q6HRS PRN PO FEVER; Start 06/26/18 at 17:15 ; Stop 06/29/18 at 15:04; Status DC Ondansetron HCl (Zofran) 4 mg PRN Q6HRS PRN IV NAUSEA/VOMITING; Start at 17:15; Stop 06/29/18 at 15:04; Status DC Morphine Sulfate (Morphine Sulfate) 2 mg PRN Q2HR PRN IV MODERATE TO SEVERE PAIN; Start 06/26/18 at 17:15; Stop 06/29/18 at 15:04; Status DC Tramadol HCl (Ultram) 50 mg PRN Q6HRS PRN PO MILD TO MODERATE PAIN; Start at 17:15; Stop 06/29/18 at 15:04; Status DC Docusate Sodium (Colace) 100 mg PRN DAILY PRN PO CONSTIPATION; Start 06/26/18 at 17:15; Stop 06/29/18 at 15:04; Status DC Labetalol HCl (Normodyne Iv Push) 20 mg PRN Q2HR PRN IVP HYPERTENSION, SEE COMMENTS Last administered on 06/29/18at 09:19; Start 06/26/18 at 17:15; Stop 06/29/18 at 15:04; Status DC Lidocaine/Sodium Bicarbonate (Buffered Lidocaine 1%) 6 ml 1X ONCE INJ ; Start 06/26/18 at 17:15; Stop 06/26/18 at 17:16; Status DC Sodium Bicarbonate (Sodium Bicarb Adult 8.4% Syr) 100 meq 1X ONCE IV Last administered on 06/26/18at 20:00; Start 06/26/18 at 19:30; Stop 06/26/18 at 19 :31; Status DC Midazolam HCl 100 ml @ 5 mls/hr CONT PRN IV SEE I/O RECORD Last administered on 06/27/18at 03:34; Start 06/26/18 at 19:00; Stop 06/29/18 at 15:04; Status DC Midazolam HCl (Versed) 5 mg PRN Q2HR PRN IV SEDATION; Start 06/26/18 at 19:00 ; Stop 06/29/18 at 15:04; Status DC Norepinephrine Bitartrate 250 ml @ 1.875 mls/ hr CONT PRN IV SEE I/O RECORD Last administered on 06/26/18at 21:43; Start 06/26/18 at 19:15; Stop 06/29/18 at 15:04; Status DC Sodium Chloride 1,000 ml @ 1,000 mls/hr Q1H PRN IV hypotension; Start at 19:17; Stop 06/27/18 at 01:16; Status DC Sodium Chloride 1,000 ml @ 400 mls/hr Q2H30M PRN IV PATENCY; Start 06/26/18 at 19:17; Stop 06/27/18 at 07:16; Status DC Info (PHARMACY MONITORING -- do not chart) 1 each PRN DAILY PRN MC SEE COMMENTS ; Start 06/26/18 at 19:30; Status Cancel Info (PHARMACY MONITORING -- do not chart) 1 each PRN DAILY PRN MC SEE COMMENTS ; Start 06/26/18 at 19:30; Stop 06/29/18 at 15:04; Status DC Dextrose/Sodium Chloride 1,000 ml @ 250 mls/hr 1X ONCE IV Last administered on 06/26/18at 21:43; Start 06/26/18 at 22:00; Stop 06/27/18 at 01:59; Status DC Vancomycin HCl (Vanco Per Pharmacy) 1 each PRN DAILY PRN MC SEE COMMENTS Last administered on 06/28/18at 11:07; Start 06/26/18 at 22:00; Stop 06/29/18 at 15 :04; Status DC Piperacillin Sod/ Tazobactam Sod (Zosyn Per Pharmacy) 1 each PRN DAILY PRN MC SEE COMMENTS; Start 06/26/18 at 22:00; Stop 06/29/18 at 15:04; Status DC Piperacillin Sod/ Tazobactam Sod 2.25 gm/Sodium Chloride 50 ml @ 100 mls/hr Q8HRS IV Last administered on 06/29/18at 06:02; Start 06/26/18 at 22:00; Stop 06/29/18 at 15:04; Status DC Vancomycin HCl 1.5 gm/Sodium Chloride 500 ml @ 250 mls/hr 1X ONCE IV Last administered on 06/26/18at 23:29; Start 06/26/18 at 23:00; Stop 06/27/18 at 00 :59; Status DC Sodium Chloride 1,000 ml @ 1,000 mls/hr Q1H PRN IV hypotension; Start at 09:37; Stop 06/27/18 at 15:36; Status DC Sodium Chloride 1,000 ml @ 400 mls/hr Q2H30M PRN IV PATENCY; Start 06/27/18 at 09:37; Stop 06/27/18 at 21:36; Status DC Info (PHARMACY MONITORING -- do not chart) 1 each PRN DAILY PRN MC SEE COMMENTS ; Start 06/27/18 at 09:45; Status UNV Epinephrine HCl (EPINEPHrine SYRINGE) 1 mg STK-MED ONCE .ROUTE ; Start at 12:00; Stop 06/27/18 at 10:00; Status DC Vitamin A/Vitamin D (Vitamin A & D Ointment) 1 nato TID TP Last administered on 06/30/18at 09:00; Start 06/27/18 at 14:00 Info (Tpn Per Pharmacy) 1 each PRN DAILY PRN MC SEE COMMENTS Last administered on 06/28/18at 12:44; Start 06/27/18 at 10:45; Stop 06/29/18 at 15:04; Status DC Vancomycin HCl (Vancomycin Trough Level) 1 each 1X ONCE MC Last administered on 06/28/18at 05:00; Start 06/28/18 at 05:00; Stop 06/28/18 at 05:01; Status DC Insulin Glargine (Lantus) 10 units QHS SQ Last administered on 06/27/18at 20:54 ; Start 06/27/18 at 21:00; Stop 06/28/18 at 08:07; Status DC Insulin Human Lispro (HumaLOG) 0-7 UNITS Q4HRS SQ Last administered on at 04:13; Start 06/27/18 at 12:00; Stop 06/28/18 at 08:07; Status DC Dextrose (Dextrose 50%-Water Syringe) 12.5 gm PRN Q15MIN PRN IV SEE COMMENTS; Start 06/27/18 at 11:00; Stop 06/29/18 at 15:04; Status DC Ringer's Solution 1,000 ml @ 75 mls/hr [id number] IV ; Start 06/27/18 at 11:00; Stop 06/27/18 at 11:20; Status DC Sodium Chloride 1,000 ml @ 100 mls/hr Q10H IV Last administered on 06/29/18at 05:01; Start 06/27/18 at 11:30; Stop 06/29/18 at 15:04; Status DC Sodium Chloride 90 meq/Potassium Chloride 50 meq/ Potassium Phosphate 13.6 mmol/ Magnesium Sulfate 10 meq/ Calcium Gluconate 10 meq/ Multivitamins 10 ml/Chromium / Copper/Manganese/ Seleni/Zn 1 ml/ Total Parenteral Nutrition/Amino Acids/ Dextrose/ Fat Emulsion Intravenous 1,512 ml @ 63 mls/hr TPN CONT IV Last administered on 06/27/18at 22:46; Start 06/27/18 at 22:00; Stop 06/28/18 at 21 :59; Status DC Aspirin (Aspirin) 300 mg DAILY LA Last administered on 06/30/18at 09:00; Start 06/28/18 at 09:00 Insulin Glargine (Lantus) 12 units BID SQ Last administered on 06/28/18at 21:06 ; Start 06/28/18 at 09:00; Stop 06/29/18 at 09:14; Status DC Insulin Human Lispro (HumaLOG) 0-9 UNITS Q4HRS SQ Last administered on at 09:22; Start 06/28/18 at 08:15; Stop 06/29/18 at 15:04; Status DC Insulin Human Lispro (HumaLOG) 14 units 1X ONCE SQ Last administered on at 08:19; Start 06/28/18 at 08:15; Stop 06/28/18 at 08:16; Status DC Vancomycin HCl 500 mg/Sodium Chloride 100 ml @ 100 mls/hr 1X ONCE IV Last administered on 06/28/18at 13:42; Start 06/28/18 at 12:30; Stop 06/28/18 at 13 :29; Status DC Insulin Human Lispro (HumaLOG) 27 units 1X ONCE SQ Last administered on at 12:00; Start 06/28/18 at 12:00; Stop 06/28/18 at 12:01; Status DC Sodium Chloride 90 meq/Potassium Chloride 50 meq/ Potassium Phosphate 13.6 mmol/ Magnesium Sulfate 10 meq/ Calcium Gluconate 10 meq/ Multivitamins 10 ml/Chromium / Copper/Manganese/ Seleni/Zn 1 ml/ Total Parenteral Nutrition/Amino Acids/ Dextrose/ Fat Emulsion Intravenous 1,512 ml @ 63 mls/hr TPN CONT IV Last administered on 06/28/18at 21:57; Start 06/28/18 at 22:00; Stop 06/29/18 at 15 :04; Status DC Chlorhexidine Gluconate (Peridex) 15 ml BID MM ; Start 06/28/18 at 21:00; Status Cancel Insulin Human Lispro (HumaLOG) 10 units 1X ONCE SQ Last administered on at 16:40; Start 06/28/18 at 16:30; Stop 06/29/18 at 15:04; Status DC Insulin Glargine (Lantus) 18 units BID SQ Last administered on 06/29/18at 10:07 ; Start 06/29/18 at 10:00; Stop 06/29/18 at 15:04; Status DC Morphine Sulfate (Morphine Sulfate) 5 mg PRN Q15MIN PRN IV PAIN Last administered on 06/29/18at 11:50; Start 06/29/18 at 11:45 Lorazepam (Ativan) 1 mg PRN Q15MIN PRN IV ANXIETY / AGITATION Last administered on 06/30/18at 07:44; Start 06/29/18 at 11:45 Morphine Sulfate (Roxanol Conc) 20 mg PRN Q3HRS PRN SL PAIN Last administered on 06/30/18at 10:48; Start 06/29/18 at 15:15 Lorazepam (Ativan Intensol) 2 mg PRN Q6HRS PRN SL ANXIETY / AGITATION; Start 06/29/18 at 15:15 Active Scripts Active Reported Levemir (Insulin Detemir) 100 Unit/1 Ml Vial 25 Unit SQ QHS Norvasc (Amlodipine Besylate) 5 Mg Tablet 1 Tab PO DAILY Aspirin 325 Mg Tablet 1 Tab PO DAILY Hydroxyurea 500 Mg Capsule 1,000 Mg PO DAILY Labetalol Hcl 100 Mg Tablet 1 Tab PO TID Calcitriol 0.5 Mcg Capsule 1 Cap PO DAILY Simvastatin 20 Mg Tablet 20 Mg PO HS Folic Acid 1 Mg Tablet 2 Tab PO DAILY Losartan Potassium 100 Mg Tablet 100 Mg PO DAILY Unable To Obtain Meds From Prior To Admit (Info) Each 1 Each Vitals/I & O Vital Sign - Last 24 Hours 06/29/18 06/29/18 06/29/18 06/29/18 14:00 15:00 16:00 17:00 Temp 99.0 99.0 Pulse 90 90 92 92 B/P (MAP) 146/58 (87) 143/57 (85) Pulse Ox 99 99 99 99 O2 Delivery Nasal Cannula Nasal Cannula Nasal Cannula Nasal Cannula O2 Flow Rate 2.0 2.0 2.0 2.0 06/29/18 06/29/18 06/29/18 06/30/18 18:00 20:01 20:07 00:00 Temp 98.0 98.0 98.0 98.0 Pulse 92 88 94 B/P (MAP) 176/74 (108) 194/84 (120) Pulse Ox 99 99 99 O2 Delivery Nasal Cannula Nasal Cannula Nasal Cannula Nasal Cannula O2 Flow Rate 2.0 2.0 2.0 2.0 06/30/18 06/30/18 06/30/18 06/30/18 04:00 08:00 10:48 12:00 Temp 98.4 98.4 98.4 98.4 Pulse 88 90 105 Resp 18 B/P (MAP) 184/73 (110) 201/90 (127) 201/100 (133) Pulse Ox 99 100 97 O2 Delivery Nasal Cannula Nasal Cannula Room Air Nasal Cannula O2 Flow Rate 2.0 2.0 2.0 Intake and Output 06/29/18 06/29/18 06/30/18 15:00 23:00 07:00 Output Total 200 ml 30 ml Balance -200 ml -30 ml PARKRE WAGONER MD Jun 30, 2018 13:40
[2018-06-30] MEDS ORDERED: SCOPOLAMINE 1.5MG PATCH. TD SCH (14:00)
[2018-06-30] MEDS: MORPHINE SULFATE 10 MG/ML VIAL. IV PRN (22:30)
[2018-07-01 03:04] VITALS: BP 132/63
[2018-07-01 07:00] VITALS: BP 120/56
--- NOTE | 2018-07-01 12:38 | PDOC3 ---
Discharge Summary [facility] Date of Admission: Jun 26, 2018 Discharge Date: Jul 01, 2018 Admitting Diagnosis AMS, metabolic encephalopathy with bl strokes multiple bl subacute stroke METabolic acidosis DKA hyperkalemia MAVERICK, ATN ESRD without baseline Cr known, not on HD yet acute resp failure 2 lung nodules acute pancreatitis hypothermia recent CVA with left side weakness anemia, macrocytic non compliance HTN urgency acute resp failure required intubation Final Diagnosis CONSULTS pulm renal id Brief Hospital Course Patient is a 73 year old f was sent by son for AMS. Pt seen in ER, eyes open, unresponsive. all history got from ERP , and sons AT Bed side. Pt lives alone, 2 sons come to see her often. has no DPOA signed yet. sons want aggressive treatment for now. [facility] with left side weakness. Son said she was not walking well, but refused to go to SNF, and sent home. In the past 5 days, she was found slurry speech, refused to come to hosp. Sons said she likely not taking her daily meds too. Today, son found her on the kitchen floor, unresponsive, sent to ER. Pt was found severely sick in ER, with metabolic acidosis, glu>1200, K >7, has ESRD but not decided to do HD yet Cr >7 now, unresponsive, lipase >40K, lung [address] T 88.8. head ct neg. MRI showed bl multiple acute stroke. pt was admitted to ICU ,got stat HD overnight, BP dropped required levohped. intubated. pt not improving, family decided comfort care and pt was extubated. today pt is worse than yesterday when seen, agony breathing, then no heart beat , then about 10.40pm dc time 25min. General: unresponsive, mouth full of secretions. Heart: no heart beat can be heard. Lungs: very slow breathing once a while. Abdomen: Soft Extremities: No cyanosis Skin: No breakdown, No significant lesion CONDITION AT DISCHARGE: / Scheduled Amlodipine Besylate (Norvasc), 1 TAB PO DAILY, (Reported) Aspirin (Aspirin), 1 TAB PO DAILY, (Reported) Calcitriol (Calcitriol), 1 CAP PO DAILY, (Reported) Folic Acid (Folic Acid), 2 TAB PO DAILY, (Reported) Hydroxyurea (Hydroxyurea), 1,000 MG PO DAILY, (Reported) Insulin Detemir (Levemir), 25 UNIT SQ QHS, (Reported) Labetalol Hcl (Labetalol Hcl), 1 TAB PO TID, (Reported) Losartan Potassium (Losartan Potassium), 100 MG PO DAILY, (Reported) Simvastatin (Simvastatin), 20 MG PO HS, (Reported) Miscellaneous Medications Info (Unable To Obtain Meds From Prior To Admit), 1 EACH , (Reported) PARKER WAGONER MD Jul 01, 2018 12:38
== END 2018-07-01 10:45 | disposition expired | DRG 871 ==
LOC: ER 14:03 → 1 WEST ICU 16:00 → 5 SOUTH 06-30 06:42
PROVIDERS: ADMIT Internal Medicine; ATTEND Internal Medicine
PROC: 5A1D70Z Performance of Urinary Filtration, Intermittent, Less than 6 Hours Per Day (ICD-10-PCS; 2018-06-26)
PROC: 5A12012 Performance of Cardiac Output, Single, Manual (ICD-10-PCS; 2018-06-26)
PROC: 5A1945Z Respiratory Ventilation, 24-96 Consecutive Hours (ICD-10-PCS; principal; 2018-06-27)
PROC: 02H633Z Insertion of Infusion Device into Right Atrium, Percutaneous Approach (ICD-10-PCS; 2018-06-27)
PROC: B244ZZZ Ultrasonography of Right Heart (ICD-10-PCS; 2018-06-27)
PROC: 30233N1 Transfusion of Nonautologous Red Blood Cells into Peripheral Vein, Percutaneous Approach (ICD-10-PCS; 2018-06-27)
PROC: 5A1D70Z Performance of Urinary Filtration, Intermittent, Less than 6 Hours Per Day (ICD-10-PCS; 2018-06-27)
DX: A41.9 Sepsis, unspecified organism (principal); E11.01 Type 2 diabetes mellitus with hyperosmolarity with coma; J96.01 Acute respiratory failure with hypoxia; E43 Unspecified severe protein-calorie malnutrition; E11.10 Type 2 diabetes mellitus with ketoacidosis without coma; G93.41 Metabolic encephalopathy; I63.40 Cerebral infarction due to embolism of unspecified cerebral artery; K85.90 Acute pancreatitis without necrosis or infection, unspecified; N17.0 Acute kidney failure with tubular necrosis; N18.6 End stage renal disease; I12.0 Hypertensive chronic kidney disease with stage 5 chronic kidney disease or end stage renal disease; I82.C11 Acute embolism and thrombosis of right internal jugular vein; I69.354 Hemiplegia and hemiparesis following cerebral infarction affecting left non-dominant side; D53.9 Nutritional anemia, unspecified; E05.20 Thyrotoxicosis with toxic multinodular goiter without thyrotoxic crisis or storm; E11.22 Type 2 diabetes mellitus with diabetic chronic kidney disease; E83.39 Other disorders of phosphorus metabolism; E87.5 Hyperkalemia; T68.XXXA Hypothermia, initial encounter; E87.6 Hypokalemia; I16.0 Hypertensive urgency; I27.20 Pulmonary hypertension, unspecified; I46.9 Cardiac arrest, cause unspecified; Z68.27 Body mass index [BMI] 27.0-27.9, adult; K52.9 Noninfective gastroenteritis and colitis, unspecified; M47.812 Spondylosis without myelopathy or radiculopathy, cervical region; Z51.5 Encounter for palliative care; Z79.4 Long term (current) use of insulin; Z79.82 Long term (current) use of aspirin; Z82.49 Family history of ischemic heart disease and other diseases of the circulatory system; Z90.49 Acquired absence of other specified parts of digestive tract; Z91.19 Patient's noncompliance with other medical treatment and regimen; Z99.2 Dependence on renal dialysis; Z79.899 Other long term (current) drug therapy
CPT/HCPCS: 36415; 36556; 36600; 51702; 70450; 70551; 71045; 71250; 72125; 74018; 74176; 76700; 80048; 80053; 80061; 80202; 80307; 80329; 81001; 82140; 82274; 82550; 82607; 82728; 82805; 82947; 82962; 83036; 83540; 83550; 83605; 83690; 83735; 83880; 84100; 84439; 84443; 84481; 84484; 85007; 85025; 85610; 86704; 86706; 86850; 86900; 86901; 86920; 87040; 87340; 87641; 93306; 93880; 94002; 94003; 94640; 95816; 96361; 96365; 96368; 96375; 96376; C1769; C1892; C9113; J0171; J0610; J1644; J1815; J2060; J2250; J2270; J2543; J3370; J3475; J3490; J7030; J7040; P9016; 99285-25; G0479